=== PATIENT | male | born 1945 | race Caucasian/White ===

== ENCOUNTER 2016-08-30 08:39 | Day surgery (SDC) | payer MEDICARE, BC ==
[2016-08-28 15:36] VITALS: BMI 21.5
[~2016-08-30 08:39] MED LIST: LACTATED RINGERS 1,000 ML IV SCH
[2016-08-30 08:57] VITALS: TEMP 97.4
[2016-08-30] MEDS ORDERED: LIDOCAINE 1% 20 ML VIAL (10MG/ML) FOR IV START INTRADERMA ONE (09:13)
[2016-08-30] MEDS ORDERED: PROPOFOL 10 MG/ML 20 ML VIAL IV ONE (09:22)
[2016-08-30] MEDS ORDERED: LIDOCAINE 1% INJ 10MG/ML (20 ML MDV) ONE (09:22)
[2016-08-30 09:38] VITALS: PULSE 63
--- NOTE | 2016-08-30 09:38 | P.PCN ---
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 Last EGD was in 2 years ago.. PROCEDURE PERFORMED: Esophagogastroduodenoscopy with biopsy. PREOPERATIVE DIAGNOSIS: GERD/surveillance of Blunt's esophagus. IV sedation per anesthesia. PROCEDURE: After informed consent was obtained, the patient was brought into the endoscopy unit. IV conscious sedation was administered by Anesthesia under continuous monitoring. Initially the Olympus GIF-140 video endoscope was inserted into the mouth. Esophagus intubated without any difficulty. It was gradually advanced into the stomach and duodenum and carefully examined. The bulb and the second part of the duodenum appeared normal. The scope at this time was withdrawn to the stomach, adequately insufflated with air, and upon careful examination, mucosa of the antrum, body, cardia and the fundus appeared normal. The scope was then withdrawn into the esophagus. Small hiatal hernia noted .The GE junction was located at 35 cm from the incisors. There was long segment of Blunt's esophagus extending from 30-35 cm to the incisors and multiple biopsies were done from this area. The rest of the esophagus appeared normal. There were no erosions or ulcerations seen and the patient tolerated the procedure well. IMPRESSION: 1. 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 2. Small hiatal hernia. RECOMMENDATIONS: The findings of this examination were discussed with the patient as well as a family. He was advised to follow with the biopsy results. If the biopsy shows no evidence of dysplasia, he can have a repeat upper endoscopy in 2 years.
[2016-08-30 09:53] VITALS: BP 100/60; RESP 18
== END 2016-08-30 10:13 | disposition home or self-care (01) ==
LOC: ORWHC2ENDO 08:39
PROVIDERS: ATTEND Internal Medicine Gastroenterology
DX: K22.70 Barrett's esophagus without dysplasia (principal); K44.9 Diaphragmatic hernia without obstruction or gangrene; K21.9 Gastro-esophageal reflux disease without esophagitis; I10 Essential (primary) hypertension; G47.33 Obstructive sleep apnea (adult) (pediatric); I25.2 Old myocardial infarction; Z95.1 Presence of aortocoronary bypass graft; Z79.02 Long term (current) use of antithrombotics/antiplatelets; Z79.82 Long term (current) use of aspirin; Z79.891 Long term (current) use of opiate analgesic; Z79.899 Other long term (current) drug therapy; Z88.8 Allergy status to other drugs, medicaments and biological substances; Z87.891 Personal history of nicotine dependence
CPT/HCPCS: 88305; 43239; J2001; J2704

== ENCOUNTER 2017-10-14 18:43 | Emergency (ER) | payer MEDICARE, BC ==
[2017-10-14 18:56] VITALS: RESP 18
--- NOTE | 2017-10-14 19:36 | XR ---
EXAMINATION TYPE: XR hand complete LT DATE OF EXAM: 10/14/2017 CLINICAL HISTORY: pain TECHNIQUE: Frontal, lateral and oblique images of the left hand are obtained. COMPARISON: None. FINDINGS: No acute fractures identified. There is severe degenerative narrowing involving the second third and fourth metacarpal phalangeal joints with erosive changes seen. Severe degenerative narrowin g noted to involve. 6 PIP and DIP joints. Degenerative narrowing of radiocarpal joint space. Radiocar pal joint space narrowing as well. IMPRESSION: There is no acute fracture. ICD 10 NO FRACTURE, INITIAL EVALUATION
--- NOTE | 2017-10-14 19:37 | XR ---
EXAMINATION TYPE: XR elbow complete LT DATE OF EXAM: 10/14/2017 CLINICAL HISTORY: pain TECHNIQUE: Frontal, lateral and oblique images of the left elbow are obtained. COMPARISON: None. FINDINGS: There is no acute fracture/dislocation evident of the elbow. Prominent anterior fat pad in dicating underlying joint effusion. The overlying soft tissue appears unremarkable. Moderate degenera tive changes noted with joint space narrowing and spur formation seen. Chronic appearing bony fragmen tation and spur formation. IMPRESSION: There is no acute fracture or dislocation of the elbow. ICD 10 NO FRACTURE, INITIAL EVALUATION
--- NOTE | 2017-10-14 19:38 | XR ---
EXAMINATION TYPE: XR wrist complete LT DATE OF EXAM: 10/14/2017 CLINICAL HISTORY: pain TECHNIQUE: Frontal, lateral and oblique images of the left wrist are obtained. COMPARISON: None. FINDINGS: There is no acute fracture/dislocation evident. Degenerative narrowing radiocarpal joint s pace and radial ulnar joint. Widening of the scapholunate joint space indicates underlying ligamentou s injury. Intercarpal joint space narrowing noted as well. The overlying soft tissue appears unremark able. IMPRESSION: There is no acute fracture or dislocation seen. Suspect scapholunate ligamentous tear. ICD 10 NO FRACTURE, INITIAL EVALUATION
[2017-10-14] MEDS ORDERED: IBUPROFEN 600 MG TAB PO STA (20:40)
--- NOTE | 2017-10-14 21:13 | XR ---
EXAMINATION TYPE: XR chest 2V DATE OF EXAM: 10/14/2017 COMPARISON: 06/16/2015 HISTORY: Shortness of breath TECHNIQUE: Frontal and lateral views of the chest are obtained. FINDINGS: Scattered senescent parenchymal changes noted. Hyperinflation compatible with COPD. No evidence for infiltrate. No evidence for atelectasis. Fixed hiatal hernia noted small in size. Heart size is stable. Mediastinal structures are stable and grossly unremarkable. No evidence for hilar prominence. Degenerative changes dorsal spine. Chronic right-sided rib deformities. IMPRESSION: 1. No evidence for acute pulmonary disease.
--- NOTE | 2017-10-14 21:44 | ED ---
General Adult HPI - General Chief complaint: Extremity Injury, Upper Stated complaint: lt hand pain Time Seen by Provider: 10/14/17 19:27 Source: patient, RN notes reviewed Mode of arrival: ambulatory Limitations: physical limitation - History of Present Illness Initial comments: 72-year-old male presents to the emergency department for a chief complaint of left hand pain. Patient states he was fixing the sump pump yesterday when he twisted his hand and immediately felt pain. Patient states he has a history of arthritis in his left hand for which she has seen Dr. Mackey. Patient states he has been taking Percocet for the pain. Patient states it is tender to touch and it hurts to move his hand. Patient denies any other complaints at this time. He denies cough, congestion, sore throat, ear pain, chest pain, shortness of breath, abdominal pain, nausea or vomiting. Patient denies any urinary symptoms. - Related Data Home Medications Medication Instructions Recorded Confirmed Aspirin EC [Ecotrin Low Dose] 81 mg PO DAILY 09/04/14 10/14/17 Atorvastatin Calcium [Lipitor] 40 mg PO HS 09/04/14 10/14/17 Baclofen [Lioresal] 10 mg PO DAILY PRN 09/04/14 10/14/17 Gabapentin [Neurontin] 800 mg PO TID 09/04/14 10/14/17 Lansoprazole [Prevacid] 30 mg PO BID 09/04/14 10/14/17 Meloxicam [Mobic] 15 mg PO DAILY 09/04/14 10/14/17 Modafinil [Provigil] 200 mg PO DAILY 09/04/14 10/14/17 Nitroglycerin Sl Tabs [Nitrostat] 0.4 mg SUBLINGUAL Q5M PRN 09/04/14 10/14/17 fentaNYL 50MCG/HR PATCH [Duragesic 50 mcg TRANSDERM Q72H 09/04/14 10/14/17 50MCG/HR] Benazepril [Lotensin] 10 mg PO DAILY PRN MDD BP OVER 145 08/28/16 10/14/17 Carvedilol [Coreg] 6.25 mg PO BID 08/28/16 10/14/17 Clopidogrel [Plavix] 75 mg PO DAILY 08/28/16 10/14/17 Furosemide [Lasix] 20 mg PO BID PRN 08/28/16 10/14/17 Isosorbide Mononitrate ER [Imdur] 60 mg PO DAILY 08/28/16 10/14/17 oxyCODONE-APAP 10-325MG [Percocet 1 tab PO TID PRN 08/28/16 10/14/17 10-325 mg] Azelastine HCl [Astepro] 2 spray EA NOSTRIL BID 10/14/17 10/14/17 Isosorbide Mononitrate ER [Imdur] 30 mg PO HS 10/14/17 10/14/17 Tamsulosin HCl [Flomax] 0.4 mg PO HS 10/14/17 10/14/17 Allergies Allergy/AdvReac Type Severity Reaction Status Date / Time aspirin AdvReac Unknown UNCOATED Verified 10/14/17 20:19 ASPIRIN CAUSES STOMACH PAIN Review of Systems ROS Statement: Those systems with pertinent positive or pertinent negative responses have been documented in the HPI. ROS Other: All systems not noted in ROS Statement are negative. Past Medical History Past Medical History: Chest Pain / Angina, Eye Disorder, GERD/Reflux, Hyperlipidemia, Hypertension, Myocardial Infarction ([place]), Osteoarthritis (OA), Sleep Apnea/CPAP/BIPAP Additional Past Medical History / Comment(s): BACK PAIN USES WALKER, HX OF BLOOD CLOT IN RIGHT EYE- HAS BLACK AREA IN HIS VISION AT TIMES. , USES BI-PAP MACHINE, HX OF SERUM SICKNESS . Last Myocardial Infarction Date:: 2001 History of Any Multi-Drug Resistant Organisms: None Reported Past Surgical History: Back Surgery, Coronary Bypass/CABG, Heart Catheterization , Heart Catheterization With Stent, Joint Replacement, Tonsillectomy Additional Past Surgical History / Comment(s): CATARACTS, HEART CATH W/STENTS ( 2001), HEART CATH NO STENTS (2013), CABG (2005). RIGHT EAR DRUM REPLACEMENT.CHRISS TOTAL KNEES, RIGHT CAROTID ENDARTERECTOMY 06/2015. Past Anesthesia/Blood Transfusion Reactions: No Reported Reaction Date of Last Stent Placement:: 2001 Past Psychological History: No Psychological Hx Reported Smoking Status: Former smoker Past Alcohol Use History: None Reported Past Drug Use History: None Reported - Past Family History Mother Family Medical History: No Reported History Additional Family Medical History / Comment(s): . General Exam Limitations: physical limitation General appearance: alert, in no apparent distress Head exam: Present: atraumatic, normocephalic, normal inspection Eye exam: Present: normal appearance, PERRL, EOMI. Absent: scleral icterus, conjunctival injection, periorbital swelling ENT exam: Present: normal exam, normal oropharynx, mucous membranes moist, TM's normal bilaterally Neck exam: Present: normal inspection, full ROM. Absent: tenderness, meningismus, lymphadenopathy Respiratory exam: Present: normal lung sounds bilaterally. Absent: respiratory distress, wheezes, rales, rhonchi, stridor Cardiovascular Exam: Present: regular rate, normal rhythm, normal heart sounds. Absent: systolic murmur, diastolic murmur, rubs, gallop, clicks GI/Abdominal exam: Present: soft, normal bowel sounds. Absent: distended, tenderness, guarding, rebound, rigid Extremities exam: Present: tenderness (Tenderness of the dorsal aspect of the left hand.), normal capillary refill, other (Patient has swelling on the dorsal aspect of the left hand. Cap refill less than 2 seconds in the left hand. Radial pulse 2+ in the left hand.). Absent: full ROM (Very limited range of motion of the left wrist. Patient cannot flex or extend his wrist. Patient also has limited range of motion of the digits left hand due to pain.) Course Vital Signs 10/14/17 10/14/17 10/14/17 18:53 20:26 21:47 Temperature 100.3 F H 100.1 F H 100 F H Pulse Rate 97 70 Respiratory 18 18 Rate Blood Pressure 137/69 130/70 O2 Sat by Pulse 96 99 Oximetry Procedures - Procedures Initial comment: Neurovascular intact before splint application Indication: Scapholunate dissociation Type: Short arm volar- patient unable to extend wrist for proper splinting technique. Wounds: no abrasions or lacerations underneath splint Neurovascular status: patient has sensation and movement of digits extending outside the splint, there is no cyanosis, capillary refill < 2 seconds Follow-up: patient given number for orthopedics and instructed to phone to make an appointment. Patient aware she can return to the Emergency Department if any difficulties. Medical Decision Making - Medical Decision Making 72-year-old male presents to the emergency department for a chief complaint of left hand pain. Patient states he was fixing a sump pump yesterday when he twisted his hand wrong and immediately felt pain in the left hand. Exam shows a swollen dorsal aspect of the left hand with very limited range of motion of the wrist and fingers of the left hand due to pain. Patient is taking Percocet for the pain which she will continue to take at home. Temp 100.3, pulse 97, respirations 18, blood pressure 137/69, pulse ox 96 on room air. X-ray of the wrist shows no acute fracture or dislocation. However there is a widening of the scaphoid lunate joint space indicating underlying ligamentous injury. Suspected scapholunate ligamentous tear. X-ray of the left hand and elbow demonstrates no acute fractures or dislocations. In regard to patient's borderline fever chest x-ray, strep, flu, and urinalysis were ordered. All came back negative except for urinalysis which was not obtained because the patient could not urinate. Patient states he did not want to wait for this and just wanted to go home. Patient's wrist was splinted in a volar splint. He will follow-up with Dr. Mackey in one to 2 days as he is a patient of [facility]. He is to return to the emergency department if he has any worsening symptoms. - Lab Data Lab Results 10/14/17 10/14/17 Range/Units 20:20 20:20 Influenza Type A RNA Not Detected (Not Detectd) Influenza Type B (PCR) Not Detected (Not Detectd) Group A Strep Rapid Negative (Negative) Disposition Clinical Impression: Scapholunate dissociation Disposition: HOME SELF-CARE Condition: Good Instructions: Hand Sprain (ED) Additional Instructions: Please return to the emergency department if symptoms worsen. Otherwise continue to take Percocet provided by your doctor. Please follow-up with orthopedics in one to 2 days. Is patient prescribed a controlled substance at discharge?: No Referrals: Ronaldo Coker DO [Primary Care Provider] - 1-2 days Naun Mackey DO [Doctor of Osteopathic Medicine] - 1-2 days Time of Disposition: 21:43
[2017-10-14 21:48] VITALS: BP 130/70; PULSE 70; TEMP 100
== END 2017-10-14 22:00 | disposition home or self-care (01) ==
LOC: EC 18:43
DX: S63.005A Unspecified dislocation of left wrist and hand, initial encounter (principal); M19.042 Primary osteoarthritis, left hand; E78.5 Hyperlipidemia, unspecified; I10 Essential (primary) hypertension; K21.9 Gastro-esophageal reflux disease without esophagitis; G47.30 Sleep apnea, unspecified; I25.2 Old myocardial infarction; Z87.891 Personal history of nicotine dependence; Z79.1 Long term (current) use of non-steroidal anti-inflammatories (NSAID); Z79.02 Long term (current) use of antithrombotics/antiplatelets; Z79.82 Long term (current) use of aspirin; Z79.899 Other long term (current) drug therapy; Z88.6 Allergy status to analgesic agent; Z86.79 Personal history of other diseases of the circulatory system; Z99.89 Dependence on other enabling machines and devices; X50.1XXA Overexertion from prolonged static or awkward postures, initial encounter; Y93.89 Activity, other specified
CPT/HCPCS: 29125; 71046; 87081; 87430; 87502; 99283

== ENCOUNTER → 2018-04-15 | Outpatient (CLI) | payer MEDICARE, BC | LOC: LABWHC1 10:03 | PROVIDERS: ATTEND Thoracic Surgery (Cardiothoracic Vascular Surgery) | DX: Z53.9 Procedure and treatment not carried out, unspecified reason (principal) ==

== ENCOUNTER 2018-09-04 12:05 | Day surgery (SDC) | payer MEDICARE ==
[2018-09-03 10:56] VITALS: BMI 20.7
[2018-09-04 13:49] VITALS: TEMP 98
[2018-09-04 13:57] LABS: Glucose,Whole Blood 80 mg/dL (75-99)
[2018-09-04] MEDS ORDERED: PROPOFOL 10 MG/ML 20 ML VIAL IV ONE (14:24)
--- NOTE | 2018-09-04 14:52 | P.PCN ---
Date of Procedure: 09/04/18 Procedure(s) Performed: Brief history: Patient is a pleasant 73-year-old white male, scheduled for an elective upper endoscopy as well as colonoscopy as a part of evaluation of GERD/Blunt's esophagus and change in bowel habits Procedure performed: Esophagogastroduodenoscopy with biopsy Colonoscopy with snare polypectomy Preoperative diagnosis: /Blunt's esophagus Change in bowel habits Anesthesia: MAC Procedure: After informed consent was obtained from the patient was brought into the endoscopy unit and IV sedation was administered by anesthesia under continuous monitoring. Initially upper endoscopy was done. The Olympus GF 160 video endoscope was inserted inserted into the mouth and esophagus intubated without any difficulty and was gradually advanced into the stomach and duodenum and carefully examined. The bulb and second part of the duodenum appeared normal. The scope was then withdrawn into the stomach adequately insufflated with air and upon careful examination the antrum and body, cardia and fundus appeared normal. The scope was then withdrawn into the esophagus. Moderate size hiatal hernia noted. The GE junction was located at 33 cm to the incisors. There was a long segment of Blunt's esophagus extending from 30-33 cm from the incisors and multiple biopsies were done from this area. Rest of the esophagus appeared normal. Patient tolerated the procedure well. At this time the patient continued to remain sedation. Initial digital rectal examination was normal. Olympus CF 160 video colonoscope was then inserted into the rectum and gradually advanced to the cecum without any difficulty. Careful examination was performed as the scope was gradually being withdrawn. The prep was excellent. The cecum, ascending colon, transverse colon, descending colon, appeared normal. In the sigmoid colon there was a 1 cm polyp removed by snare polypectomy. In the rectosigmoid colon there was a 5 mm sessile polyp removed by snare polypectomy. Scattered sigmoidal discloses seen. Rest of the sigmoid colon and rectum appeared normal. Retroflexion was performed in the rectum and no lesions were noted. Patient tolerated the procedure well. Impression: 1. Upper endoscopy revealed Blunt's esophagus extended from 30-33 cm from the incisors and moderate size hiatal hernia. 2. Colonoscopy revealed: a) 1 cm sigmoid colon polyp status post polypectomy b) 5 mm rectosigmoid colon polyp status post snare polypectomy c) scattered sigmoid diverticulosis Recommendations: Findings of this examination were discussed with the patient as well as his family. He was advised to follow with the biopsy results. If the biopsy does not show any evidence of dysplasia, he can have a repeat upper endoscopy in 2-3 years. He can have a repeat colonoscopy in 3 years.
[2018-09-04 14:56] VITALS: RESP 16
[2018-09-04 15:11] VITALS: BP 146/83; PULSE 61
== END 2018-09-04 15:37 | disposition home or self-care (01) ==
LOC: ORWHC2ENDO 12:05
PROVIDERS: ATTEND Internal Medicine Gastroenterology
DX: K22.70 Barrett's esophagus without dysplasia (principal); D12.5 Benign neoplasm of sigmoid colon; D12.7 Benign neoplasm of rectosigmoid junction; K44.9 Diaphragmatic hernia without obstruction or gangrene; K57.30 Diverticulosis of large intestine without perforation or abscess without bleeding; Z88.6 Allergy status to analgesic agent; Z79.02 Long term (current) use of antithrombotics/antiplatelets; Z79.899 Other long term (current) drug therapy; Z98.42 Cataract extraction status, left eye; Z98.41 Cataract extraction status, right eye; I10 Essential (primary) hypertension; I25.10 Atherosclerotic heart disease of native coronary artery without angina pectoris; Z95.5 Presence of coronary angioplasty implant and graft
CPT/HCPCS: 88305; 45385; 43239; J2704

== ENCOUNTER 2018-12-28 18:18 | Emergency (ER) | payer MEDICARE ==
[2018-12-28 18:25] VITALS: RESP 18
--- NOTE | 2018-12-28 19:26 | CT ---
EXAMINATION TYPE: CT brain reanna lucas DATE OF EXAM: 12/28/2018 COMPARISON: CT brain 12/18/2011 HISTORY: Fall. Headache. Neck pain CT DLP: 1358.7 mGycm Automated exposure control for dose reduction was used. TECHNIQUE: CT scan of the head and cervical spine are performed without contrast. FINDINGS: There is cerebral cortical atrophy. There is no mass effect nor midline shift. There is n o sign of intracranial hemorrhage. The calvarium is intact. There is 6 mm anterior subluxation of C4 in relation to C5. There is hypertrophic facet arthropathy i n the cervical spine and more severe at C4-5. There is no compression fracture. The skull base appear s intact. There is thickening of the transverse ligament. I see no acute fracture of the cervical spi ne. IMPRESSION: Multilevel spondylosis. Degenerative first-degree C4-5 spondylolisthesis. No acute abnormality of the cervical spine. Cerebral atrophy. No acute intracranial abnormality. Small old lacunar infarct left anterior internal capsule that is new compared to old exam. No acute intracranial abnormality.
--- NOTE | 2018-12-28 19:41 | XR ---
EXAMINATION TYPE: XR elbow complete RT DATE OF EXAM: 12/28/2018 COMPARISON: NONE HISTORY: Elbow pain TECHNIQUE: 3 views. FINDINGS: There is narrowing of the radial humeral joint space with spurring. There is no sign of joint effusi on. There is spurring on the coronoid process of the ulna. I see no fracture. IMPRESSION: Osteoarthritis. No fracture seen.
--- NOTE | 2018-12-28 19:41 | XR ---
EXAMINATION TYPE: XR clavicle RT DATE OF EXAM: 12/28/2018 COMPARISON: NONE HISTORY: Pain after a fall TECHNIQUE: 2 views FINDINGS: There is nondisplaced transverse fracture of the lateral end of the clavicle. There is slig ht widening of the AC joint space. There is calcification at the greater tuberosity of the humerus. IMPRESSION: Acute fracture of the clavicle without displacement. Calcific tendinitis.
--- NOTE | 2018-12-28 19:59 | ED ---
Fall HPI - General Chief Complaint: Fall Stated Complaint: fall/left shoulder pain Time Seen by Provider: 12/28/18 18:45 Source: patient Mode of arrival: wheelchair - History of Present Illness Initial Comments: Patient is 73-year-old male presents emergency department after fall. Patient reports getting out of his car when he tripped and fell forward and states the right shoulder took most of the impact. Patient reports mild trauma to the frontal region of the head. Patient also reports a 3 cm x 2 cm abrasion on his right elbow. Patient reports persistent, throbbing pain in the right shoulder that is alleviated with rest and exacerbated with any shoulder movement. Patient reports bilateral rotator cuff tears from previous accidents. Patient denies loss of consciousness at time of incident. Patient denies headache, blurry vision, nausea, vomiting, chest pain or chest tightness. Patient is on Plavix. Patient reports taking oxycodone before coming to the emergency department. - Related Data Home Medications Medication Instructions Recorded Confirmed Aspirin EC [Ecotrin Low Dose] 81 mg PO DAILY 09/04/14 12/28/18 Atorvastatin Calcium [Lipitor] 40 mg PO HS 09/04/14 12/28/18 Baclofen [Lioresal] 10 mg PO DAILY PRN 09/04/14 12/28/18 Gabapentin [Neurontin] 800 mg PO TID 09/04/14 12/28/18 Lansoprazole [Prevacid] 30 mg PO BID 09/04/14 12/28/18 Modafinil [Provigil] 200 mg PO DAILY 09/04/14 12/28/18 Nitroglycerin Sl Tabs [Nitrostat] 0.4 mg SUBLINGUAL Q5M PRN 09/04/14 12/28/18 fentaNYL 50MCG/HR PATCH [Duragesic 1 patch TRANSDERM Q72H 09/04/14 12/28/18 50MCG/HR] Carvedilol [Coreg] 6.25 mg PO BID 08/28/16 12/28/18 Clopidogrel [Plavix] 75 mg PO DAILY 08/28/16 12/28/18 Furosemide [Lasix] 20 mg PO BID 08/28/16 12/28/18 Isosorbide Mononitrate ER [Imdur] 30 mg PO TID 08/28/16 12/28/18 oxyCODONE-APAP 10-325MG [Percocet 1 tab PO QID PRN 08/28/16 12/28/18 10-325 mg] Tamsulosin HCl [Flomax] 0.4 mg PO HS 10/14/17 12/28/18 Lidocaine 5% Patch [Lidoderm 5% 1 patch TRANSDERM DAILY 12/28/18 12/28/18 Patch] Meloxicam [Mobic] 15 mg PO DAILY 12/28/18 12/28/18 Primidone [Mysoline] 25 mg PO BID 12/28/18 12/28/18 predniSONE 10 mg PO DAILY 12/28/18 12/28/18 Allergies Allergy/AdvReac Type Severity Reaction Status Date / Time meperidine [From Demerol] Allergy Nausea Verified 12/28/18 20:01 aspirin AdvReac Unknown UNCOATED Verified 12/28/18 20:01 ASPIRIN CAUSES STOMACH PAIN morphine AdvReac Vomiting Verified 12/28/18 20:01 Review of Systems ROS Statement: Those systems with pertinent positive or pertinent negative responses have been documented in the HPI. ROS Other: All systems not noted in ROS Statement are negative. Past Medical History Past Medical History: Chest Pain / Angina, Eye Disorder, GERD/Reflux, Hyperlipidemia, Hypertension, Myocardial Infarction ([place]), Osteoarthritis (OA), Sleep Apnea/CPAP/BIPAP Additional Past Medical History / Comment(s): BACK PAIN USES WALKER, HX OF BLOOD CLOT/stroke IN RIGHT EYE- HAS BLACK AREA IN HIS VISION.. diverticulitis Last Myocardial Infarction Date:: 2001 History of Any Multi-Drug Resistant Organisms: None Reported Past Surgical History: Back Surgery, Coronary Bypass/CABG, Ear Surgery, Heart Catheterization, Heart Catheterization With Stent, Joint Replacement, Tonsillectomy Additional Past Surgical History / Comment(s): chriss CATARACTS, one cardiac stent, CABG (2005), RIGHT EAR DRUM REPLACEMENT.CHRISS TOTAL KNEES, RIGHT CAROTID EN DARTERECTOMY. chriss carpel tunnel surgery, rods in spine(total 4 back surgeries) Past Anesthesia/Blood Transfusion Reactions: Motion Sickness Date of Last Stent Placement:: 2001 Past Psychological History: No Psychological Hx Reported Smoking Status: Former smoker Past Alcohol Use History: None Reported Past Drug Use History: None Reported - Past Family History Mother Family Medical History: No Reported History Additional Family Medical History / Comment(s): . General Exam Limitations: no limitations General appearance: alert, in no apparent distress Head exam: Present: atraumatic, normocephalic, normal inspection Eye exam: Present: normal appearance, PERRL, EOMI Pupils: Present: normal accommodation ENT exam: Present: normal exam, normal oropharynx, mucous membranes moist, TM's normal bilaterally, normal external ear exam Neck exam: Present: normal inspection, full ROM. Absent: tenderness Respiratory exam: Present: normal lung sounds bilaterally Cardiovascular Exam: Present: regular rate, normal rhythm, normal heart sounds GI/Abdominal exam: Present: soft, distended Extremities exam: Present: tenderness (Tenderness along the acromioclavicular joint.), normal capillary refill, other (+2 ulnar and radial pulses, bilaterally.). Absent: normal inspection (3 cm x 2 cm abrasion on the right elbow. Bony abnormality noted in the right shoulder.), full ROM (Limited range of motion due to pain.) Back exam: Present: normal inspection, full ROM Neurological exam: Present: alert, oriented X3 Psychiatric exam: Present: normal affect, normal mood Skin exam: Present: warm, intact, normal color Course Vital Signs 12/28/18 18:21 Temperature 98.9 F Pulse Rate 71 Respiratory 18 Rate Blood Pressure 150/70 O2 Sat by Pulse 95 Oximetry Medical Decision Making - Medical Decision Making Patient is a 55-year-old who presents emergency department after fall. CT of the brain and C-spine is indicated for multilevel spondylolysis. No acute abnormality of the cervical spine. Small old the corner infarct noted when compared to old exams. No acute intracranial hemorrhage or midline shift. X- ray of the right elbow is negative for acute fractures dislocations. X-ray of the right clavicle is suggestive of a nondisplaced distal fracture. The abrasi on was cleaned, tissue removed and bandage was placed. Patient was given an arm sling and advised to follow-up with orthopedics. Disposition Clinical Impression: Fall, Fracture, clavicle Disposition: HOME SELF-CARE Condition: Stable Instructions (If sedation given, give patient instructions): Fall Prevention for Older Adults (ED) Additional Instructions: Please follow-up with orthopedics. Please return to emergency department if symptoms worsen. Please follow proper wound care instructions. Is patient prescribed a controlled substance at d/c from ED?: No Referrals: Ronaldo Coker DO [Primary Care Provider] - 1-2 days
[2018-12-28 21:26] VITALS: BP 132/69; PULSE 62; TEMP 97.8
== END 2018-12-28 21:26 | disposition home or self-care (01) ==
LOC: EC 18:18
DX: S42.034A Nondisplaced fracture of lateral end of right clavicle, initial encounter for closed fracture (principal); M47.812 Spondylosis without myelopathy or radiculopathy, cervical region; S50.311A Abrasion of right elbow, initial encounter; I10 Essential (primary) hypertension; E78.5 Hyperlipidemia, unspecified; I25.2 Old myocardial infarction; G47.30 Sleep apnea, unspecified; M19.90 Unspecified osteoarthritis, unspecified site; Z79.82 Long term (current) use of aspirin; Z79.02 Long term (current) use of antithrombotics/antiplatelets; Z79.51 Long term (current) use of inhaled steroids; Z79.899 Other long term (current) drug therapy; Z88.5 Allergy status to narcotic agent; Z88.6 Allergy status to analgesic agent; Z95.1 Presence of aortocoronary bypass graft; Z95.5 Presence of coronary angioplasty implant and graft; Z96.653 Presence of artificial knee joint, bilateral; W01.0XXA Fall on same level from slipping, tripping and stumbling without subsequent striking against object, initial encounter
CPT/HCPCS: 70450; 72125; 99284

== ENCOUNTER 2019-01-01 12:31 | Emergency (ER) | payer MEDICARE ==
[2019-01-01 12:46] VITALS: PULSE 53; RESP 18; TEMP 99.3
--- NOTE | 2019-01-01 13:36 | ED ---
Upper Extremity HPI - General Chief Complaint: Extremity Injury, Upper Stated Complaint: Right Elbow Pain, Fall Time Seen by Provider: 01/01/19 12:34 Source: patient, EMS Mode of arrival: EMS Limitations: no limitations - History of Present Illness Initial Comments: 73-year-old male presents emergency department tingling right arm pain. Patient was recently seen in emergency department for a fall and diagnosed with a right clavicle fracture. Patient follow-up with orthopedics advised to wear sling and follow-up in 4-6 weeks. Patient states that his OxyContin and fentanyl patch are not helping with the pain. Patient states that he has been wearing the sling though he does not have an currently and when EMS arrived they did not find a sling. Patient denies any new falls. Patient denies any paresthesias. - Related Data Home Medications Medication Instructions Recorded Confirmed Aspirin EC [Ecotrin Low Dose] 81 mg PO DAILY 09/04/14 12/28/18 Atorvastatin Calcium [Lipitor] 40 mg PO HS 09/04/14 12/28/18 Baclofen [Lioresal] 10 mg PO DAILY PRN 09/04/14 12/28/18 Gabapentin [Neurontin] 800 mg PO TID 09/04/14 12/28/18 Lansoprazole [Prevacid] 30 mg PO BID 09/04/14 12/28/18 Modafinil [Provigil] 200 mg PO DAILY 09/04/14 12/28/18 Nitroglycerin Sl Tabs [Nitrostat] 0.4 mg SUBLINGUAL Q5M PRN 09/04/14 12/28/18 fentaNYL 50MCG/HR PATCH [Duragesic 1 patch TRANSDERM Q72H 09/04/14 12/28/18 50MCG/HR] Carvedilol [Coreg] 6.25 mg PO BID 08/28/16 12/28/18 Clopidogrel [Plavix] 75 mg PO DAILY 08/28/16 12/28/18 Furosemide [Lasix] 20 mg PO BID 08/28/16 12/28/18 Isosorbide Mononitrate ER [Imdur] 30 mg PO TID 08/28/16 12/28/18 oxyCODONE-APAP 10-325MG [Percocet 1 tab PO QID PRN 08/28/16 12/28/18 10-325 mg] Tamsulosin HCl [Flomax] 0.4 mg PO HS 10/14/17 12/28/18 Lidocaine 5% Patch [Lidoderm 5% 1 patch TRANSDERM DAILY 12/28/18 12/28/18 Patch] Meloxicam [Mobic] 15 mg PO DAILY 12/28/18 12/28/18 Primidone [Mysoline] 25 mg PO BID 12/28/18 12/28/18 predniSONE 10 mg PO DAILY 12/28/18 12/28/18 Allergies Allergy/AdvReac Type Severity Reaction Status Date / Time meperidine [From Demerol] Allergy Nausea Verified 01/01/19 12:47 aspirin AdvReac Unknown UNCOATED Verified 01/01/19 12:47 ASPIRIN CAUSES STOMACH PAIN morphine AdvReac Vomiting Verified 01/01/19 12:47 Review of Systems ROS Statement: Those systems with pertinent positive or pertinent negative responses have been documented in the HPI. ROS Other: All systems not noted in ROS Statement are negative. Past Medical History Past Medical History: Chest Pain / Angina, Eye Disorder, GERD/Reflux, Hyperlipidemia, Hypertension, Myocardial Infarction ([place]), Osteoarthritis (OA), Sleep Apnea/CPAP/BIPAP Additional Past Medical History / Comment(s): BACK PAIN USES WALKER, HX OF BLOOD CLOT/stroke IN RIGHT EYE- HAS BLACK AREA IN HIS VISION.. diverticulitis Last Myocardial Infarction Date:: 2001 History of Any Multi-Drug Resistant Organisms: None Reported Past Surgical History: Back Surgery, Coronary Bypass/CABG, Ear Surgery, Heart Catheterization, Heart Catheterization With Stent, Joint Replacement, Tonsillectomy Additional Past Surgical History / Comment(s): chriss CATARACTS, one cardiac stent, CABG (2005), RIGHT EAR DRUM REPLACEMENT.CHRISS TOTAL KNEES, RIGHT CAROTID ENDARTERECTOMY. chriss carpel tunnel surgery, rods in spine(total 4 back surgeries) Past Anesthesia/Blood Transfusion Reactions: Motion Sickness Date of Last Stent Placement:: 2001 Past Psychological History: No Psychological Hx Reported Smoking Status: Former smoker Past Alcohol Use History: None Reported Past Drug Use History: None Reported - Past Family History Mother Family Medical History: No Reported History Additional Family Medical History / Comment(s): . General Exam Limitations: no limitations General appearance: alert, in no apparent distress Head exam: Present: atraumatic, normocephalic, normal inspection Eye exam: Present: normal appearance, PERRL, EOMI. Absent: scleral icterus, conjunctival injection, periorbital swelling Respiratory exam: Present: normal lung sounds bilaterally. Absent: respiratory distress, wheezes, rales, rhonchi, stridor Cardiovascular Exam: Present: regular rate, normal rhythm, normal heart sounds. Absent: systolic murmur, diastolic murmur, rubs, gallop, clicks Extremities exam: Present: other (Right arm neurovascular intact diffuse tenderness with palpation from the right shoulder region to the right elbow mild ecchymosis to the right clavicle region) Neurological exam: Present: alert, oriented X3, CN II-XII intact, reflexes normal. Absent: motor sensory deficit Course Vital Signs 01/01/19 12:41 Temperature 99.3 F Pulse Rate 53 L Respiratory 18 Rate Blood Pressure 99/58 O2 Sat by Pulse 93 L Oximetry Medical Decision Making - Medical Decision Making 73-year-old male presents emergency Department for right arm pain. Patient has a noted right clavicle fracture which is old there is slight progression. He denies any falls. Patient had ultrasound rule out DVT given that he complained of complete right arm pain negative for acute DVT patient is advised that he must wear his sling as directed by orthopedics to reduce amount of discomfort and he is to continue his pain meds as he has not chronic pain meds. Disposition Clinical Impression: Fracture, clavicle, Chronic pain, Right arm pain Disposition: HOME SELF-CARE Condition: Stable Instructions (If sedation given, give patient instructions): Clavicle Fracture (ED) Additional Instructions: Please return to the Emergency Department if symptoms worsen or any other concerns. Is patient prescribed a controlled substance at d/c from ED?: No Referrals: Ronaldo Coker DO [Primary Care Provider] - 1-2 days Time of Disposition: 14:30
--- NOTE | 2019-01-01 13:36 | XR ---
EXAMINATION TYPE: XR humerus RT DATE OF EXAM: 01/01/2019 COMPARISON: 12/28/2018 HISTORY: 73-year-old male with neck and shoulder pain TECHNIQUE: 2 views FINDINGS: Redemonstrated comminuted and impacted fracture of the distal clavicle. Fracture fragments show great er degree of regional displacement as compared to prior exam. Curvilinear bony fragments are present along the greater tuberosity. Underlying fracture of the great er tuberosity difficult to exclude. Obliquity at the elbow limits assessment here. Old healed right lateral rib fracture deformities. IMPRESSION: 1. Comminuted, mildly impacted fracture of the distal right clavicle. Progressive mild regional displ acement of fracture fragments. 2. Curvilinear ossific density interposed within the subacromial space could represent a fracture of the greater tuberosity. Clinically correlate as this could serve as a functional tear of the rotator cuff. 3. Excessive obliquity at the elbow limits evaluation here.
--- NOTE | 2019-01-01 14:20 | US ---
EXAMINATION TYPE: US venous doppler duplex UE RT DATE OF EXAM: 01/01/2019 COMPARISON: NONE CLINICAL HISTORY: Pain. Pt having right arm pain s/p fall with right arm fracture SIDE PERFORMED: Right Right Arm: Extremely limited exam due to limited range of motion of right arm due to fracture/ Only right IJV, subclavian and brachial veins visualized and show no evidence of DVT/ Right axillary, bas ilic, radial, ulnar, and cephalic veins unable to be visualized IMPRESSION: Limited study although no definite evidence for DVT at this time.
[2019-01-01 14:55] VITALS: BP 147/89
== END 2019-01-01 14:55 | disposition home or self-care (01) ==
LOC: EC 12:31
DX: S42.001A Fracture of unspecified part of right clavicle, initial encounter for closed fracture (principal); G89.29 Other chronic pain; R20.2 Paresthesia of skin; I20.9 Angina pectoris, unspecified; E78.5 Hyperlipidemia, unspecified; I10 Essential (primary) hypertension; K21.9 Gastro-esophageal reflux disease without esophagitis; I25.2 Old myocardial infarction; M19.90 Unspecified osteoarthritis, unspecified site; G47.30 Sleep apnea, unspecified; Z87.891 Personal history of nicotine dependence; Z88.5 Allergy status to narcotic agent; Z88.6 Allergy status to analgesic agent; Z79.02 Long term (current) use of antithrombotics/antiplatelets; Z79.1 Long term (current) use of non-steroidal anti-inflammatories (NSAID); Z79.52 Long term (current) use of systemic steroids; Z79.82 Long term (current) use of aspirin; Z79.891 Long term (current) use of opiate analgesic; Z79.899 Other long term (current) drug therapy; Z95.1 Presence of aortocoronary bypass graft; Z95.5 Presence of coronary angioplasty implant and graft; Z86.73 Personal history of transient ischemic attack (TIA), and cerebral infarction without residual deficits; Z96.653 Presence of artificial knee joint, bilateral; Z96.698 Presence of other orthopedic joint implants; Z86.69 Personal history of other diseases of the nervous system and sense organs; Z99.89 Dependence on other enabling machines and devices; W19.XXXA Unspecified fall, initial encounter
CPT/HCPCS: 99284

== ENCOUNTER → 2019-03-24 | Outpatient (CLI) | payer MEDICARE ==
[2019-03-24 15:10] LABS: Basophils % (A) 0 %; Eosinophils # (A) 0.1 k/uL (0-0.7); Eosinophils % (A) 1 %; HCT 43.6 % (39.0-53.0); HGB 14.3 gm/dL (13.0-17.5); Lymphocytes # (A) 0.9 k/uL (1.0-4.8); Lymphocytes % (A) 10 %; MCH 31.8 pg (25.0-35.0); MCHC 32.9 g/dL (31.0-37.0); MCV 96.8 fL (80.0-100.0); Mean Platelet Volume 7.1; Monocytes # (A) 0.4 k/uL (0-1.0); Monocytes % (A) 4 %; Neutrophils # (A) 7.1 k/uL (1.3-7.7); Neutrophils % (A) 85 %; Platelet Count 315 k/uL (150-450); RDW 15.2 % (11.5-15.5); WBC 8.4 k/uL (3.8-10.6)
[2019-03-24 21:49] LABS: African American GFR (CKD) 96.5 (60.0-200.0); Albumin 4.5 g/dL (3.80-4.90); Albumin/Globulin Ratio 2.25 (1.60-3.17); BUN/Creat Ratio 18.89 Ratio (12.00-20.00); Calcium 9.4 mg/dL (8.7-10.3); Chol/HDL Ratio 2.58; LDL Cholesterol,Calculated 98.4 mg/dL (0.0-131.0); Potassium 4.4 mmol/L (3.5-5.5); Total Bilirubin 0.7 mg/dL (0.3-1.2); Total Protein 6.5 g/dL (6.2-8.2); VLDL Calculation 29.6 mg/dL (5.00-40.00)
[2019-03-24 22:13] LABS: Iron Saturation 51.88 (15.00-50.00)
[2019-03-24 22:22] LABS: Ferritin 677.3 ng/mL (22.0-322.0)
== END | disposition home or self-care (01) ==
LOC: LABWHC1 13:54
PROVIDERS: ATTEND Internal Medicine
DX: Z12.5 Encounter for screening for malignant neoplasm of prostate (principal); D50.9 Iron deficiency anemia, unspecified; G89.4 Chronic pain syndrome; E78.00 Pure hypercholesterolemia, unspecified
CPT/HCPCS: 80061; 80053; 82728; 83540; 83550; 85025; 36415; G0103

== ENCOUNTER → 2019-09-29 | Outpatient (CLI) | payer MEDICARE ==
--- NOTE | 2019-09-29 13:35 | P.ARTDOP ---
Arterial Doppler LOWER EXTREMITY ARTERIAL DOPPLER: DATE OF SERVICE: 09/29/2019 Reason for study: Left ankle ulcer. Doppler waveforms: Blunted but multiphasic bilaterally throughout. Pulse volume recording: Good digital waveforms. Pressure gradients: Mild gradient to the left ankle and mild gradients to the feet. Ankle-brachial indices: 0.98 on the right and 0.92 on the left. Toe brachial indices: 0.42 on the right, 0.42 on the left Impression: Mild left fem-pop disease. Possibly some mild distal disease or vasospastic phenomenon. Circulatory status appears adequate for healing..
== END | disposition home or self-care (01) ==
LOC: RADUSWWP 10:55
PROVIDERS: ATTEND Thoracic Surgery (Cardiothoracic Vascular Surgery)
DX: I74.3 Embolism and thrombosis of arteries of the lower extremities (principal)
CPT/HCPCS: 93923

== ENCOUNTER → 2020-01-07 | Outpatient (CLI) | payer MEDICARE ==
--- NOTE | 2020-01-07 09:20 | FL ---
ESOPHOGRAM. HISTORY: Dysphagia Esophagram was performed per the single contrast technique. The patient swallowed barium without diff iculty or delay. Esophageal peristalsis and motility appear to be within normal limits. There is no evidence for filling defect, mass or diverticulum. Moderate fixed hiatal hernia is noted. Subsequently single contrast cervical esophagram was performed which fails demonstrate evidence for a spiration penetration or mass. IMPRESSION: Moderate fixed hiatal hernia.
== END | disposition home or self-care (01) ==
LOC: RADUSWWP 08:42
PROVIDERS: ATTEND Otolaryngology
DX: K44.9 Diaphragmatic hernia without obstruction or gangrene (principal)
CPT/HCPCS: 74220

== ENCOUNTER 2020-01-28 09:02 | Day surgery (SDC) | payer MEDICARE ==
[~2020-01-28 09:02] MED LIST changes: +LIDOCAINE 1% (10MG/ML) FOR IV START INTRADERMA PRN
[2020-01-28 09:40] VITALS: TEMP 98
[2020-01-28] MEDS ORDERED: PROPOFOL 10 MG/ML 20 ML VIAL IV ONE (10:13)
[2020-01-28] MEDS ORDERED: LIDOCAINE 1% INJ 10MG/ML (20 ML MDV) ONE (10:13)
[2020-01-28 10:27] VITALS: RESP 16
--- NOTE | 2020-01-28 10:27 | P.PCN ---
Date of Procedure: 01/28/20 Procedure(s) Performed: BRIEF HISTORY: Patient is a 74-year-old, pleasant, white male scheduled for an upper endoscopy as a part of evaluation of intermittent dysphagia to solids.. He does have long-standing history of GERD and Blnut's esophagus. Last EGD was 2 years ago. PROCEDURE PERFORMED: Esophagogastroduodenoscopy with biopsy. PREOPERATIVE DIAGNOSIS: Long-standing history of Blunt's esophagus. IV sedation per anesthesia. PROCEDURE: After informed consent was obtained, the patient was brought into the endoscopy unit. IV sedation was administered by Anesthesia under continuous monitoring. Initially the Olympus GIF-140 video endoscope was inserted into the mouth. Esophagus intubated without any difficulty. It was gradually advanced into the stomach and duodenum and carefully examined. The bulb and the second part of the duodenum appeared normal. The scope at this time was withdrawn to the stomach, adequately insufflated with air, and upon careful examination, mucosa of the antrum, had mild diffuse gastritis. The body, cardia and the fundus appeared normal. The scope was then withdrawn into the esophagus. The GE junction was located at 34 cm from the incisors. There was a long segment of Blunt's esophagus and descending from 28-34 cm from the incisors and multiple biopsies were done from this area. The rest of the esophagus appeared normal and the patient tolerated the procedure well. IMPRESSION: 1. 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 2. Moderate size hiatal hernia. 3. Mild diffuse gastritis RECOMMENDATIONS: The findings of this examination were discussed with the patient as well as his family. He was advised to follow with the biopsy results. He will continue with Prevacid 30 mg daily and follow antireflux measures. If there is no evidence of dysplasia he can have a repeat upper endoscopy in 2 years..
[2020-01-28 10:43] VITALS: BP 120/74; PULSE 50
== END 2020-01-28 10:59 | disposition home or self-care (01) ==
LOC: ORWHC2ENDO 09:02
PROVIDERS: ATTEND Internal Medicine Gastroenterology
DX: K22.70 Barrett's esophagus without dysplasia (principal); K29.70 Gastritis, unspecified, without bleeding; K44.9 Diaphragmatic hernia without obstruction or gangrene; K21.9 Gastro-esophageal reflux disease without esophagitis; I25.10 Atherosclerotic heart disease of native coronary artery without angina pectoris; I10 Essential (primary) hypertension; E78.5 Hyperlipidemia, unspecified; G47.33 Obstructive sleep apnea (adult) (pediatric); M19.90 Unspecified osteoarthritis, unspecified site; G62.9 Polyneuropathy, unspecified; K57.90 Diverticulosis of intestine, part unspecified, without perforation or abscess without bleeding; Z88.6 Allergy status to analgesic agent; Z88.5 Allergy status to narcotic agent; Z79.899 Other long term (current) drug therapy; Z79.82 Long term (current) use of aspirin; Z79.52 Long term (current) use of systemic steroids; Z79.02 Long term (current) use of antithrombotics/antiplatelets; Z79.891 Long term (current) use of opiate analgesic; Z99.89 Dependence on other enabling machines and devices; Z86.69 Personal history of other diseases of the nervous system and sense organs
CPT/HCPCS: 88305; 43239; J2001; J2704

== ENCOUNTER → 2020-04-18 | Outpatient (CLI) | payer MEDICARE ==
--- NOTE | 2020-04-19 22:25 | BD ---
EXAMINATION TYPE: Axial Bone Density DATE OF EXAM: 04/18/2020 COMPARISON: NONE CLINICAL HISTORY: Screening for osteoporosis per order. Height: 5 FT 7 1/2 IN Weight: 143 FRAX RISK QUESTIONS: Alcohol (3 or more units per day): NO Family History (Parent hip fracture): NO Glucocorticoids (More than 3mos): YES (Ex: prednisone, prednisolone, methylprednisolone, dexamethasone, and hydrocortisone). History of Fracture in Adulthood: YES Secondary Osteoporosis: 1. Type 1 Diabetes: NO 2. Hyperthyroidism: NO 3. Menopause before 45: NA 4. Malnutrition: NO 5. Chronic liver disease: NO Rheumatoid Arthritis: YES Current Tobacco Use: NO RISK FACTORS HISTORY OF: Surgery to Spine/Hip(right/left)/Wrist (right/left): LUMBAR SURG X 3 When: 3 SURG IN THE LAST 15 YEARS Family History of Osteoporosis: NO Active: YES Diet low in dairy products/other sources of calcium: NO Lost more than 2 inches in height since high school: YES Frequent falls: NO Poor Health: FAIR MEDICATIONS: Prednisone or other steroids: YES How Long: ONE YEARS Additional Medications: PREDISONE, BLOOD PRESSURE ,CHOLESTEROL MEDS, PREVACID, PLAVIX, OXYCODONE, NE URONTIN, HEART MEDS, Additional History: EXAM MEASUREMENTS: Bone mineral density about the R hip (g/cm2): 0.686 Bone mineral density about the L hip (g/cm2): 0.607 T Score values are as follows: -----R Neck: -2.5 -----L Neck: -3.1 -----R Total: -2.1 -----L Total: -2.5 BASELINE Bone mineral density about the L Wrist (g/cm2): 0.427 T Score values are as follows: -----Dist. R+U: -2.6 -----Prox. R+U: -4.0 -----Radius total: -4.8 BASELINE IMPRESSION: Osteoporosis (T Score less than -2.5). There is increased fracture risk and therapy is usually indicated based on age. Re-Screen 1-2 years. NOTE: T-SCORE=SD OF THE YOUNG ADULT MEAN.
== END | disposition home or self-care (01) ==
LOC: RADBDWWP 15:32
PROVIDERS: ATTEND Internal Medicine Rheumatology
DX: Z13.820 Encounter for screening for osteoporosis (principal); M81.0 Age-related osteoporosis without current pathological fracture
CPT/HCPCS: 77080

== ENCOUNTER 2020-06-23 11:03 | Emergency (ER) | payer MEDICARE ==
[2020-06-23 11:10] VITALS: BP 177/102; PULSE 80; RESP 18; TEMP 98.7
[2020-06-23] MEDS ORDERED: GELATIN SPONGE,ABSORB (SMALL) 1 EACH SPONGE TOPICAL STA (11:21)
[2020-06-23] MEDS ORDERED: SILVER NITRATE APPLICATOR 1 EACH STICK..EA. TOPICAL STA (11:21)
--- NOTE | 2020-06-23 11:24 | ED ---
General Adult HPI - General Chief complaint: Skin/Abscess/Foreign Body Stated complaint: ANKLE WOUND R SIDE. Time Seen by Provider: 06/23/20 11:14 Source: patient, RN notes reviewed, old records reviewed Mode of arrival: ambulatory Limitations: no limitations - History of Present Illness Initial comments: 74-year-old male presents emergency department today with complaints of a wound over his left ankle that started to bleed today. Patient reports that he does see wound care center. He reports that he also has a wound on his right heel that being treated at the wound care center. He was last there on Friday and he was placed on therapy. He reports it seemed to loosen any scabbing and resulted in bleeding today. Patient states that the bleeding seems somewhat K controlled upon arriving to the ER. Patient denies any other complaints. - Related Data Home Medications Medication Instructions Recorded Confirmed Aspirin EC [Ecotrin Low Dose] 81 mg PO DAILY 09/04/14 01/28/20 Atorvastatin Calcium [Lipitor] 40 mg PO HS 09/04/14 01/28/20 Baclofen [Lioresal] 10 mg PO DAILY PRN 09/04/14 01/28/20 Gabapentin [Neurontin] 800 mg PO TID 09/04/14 01/28/20 Lansoprazole [Prevacid] 30 mg PO BID 09/04/14 01/28/20 Nitroglycerin Sl Tabs [Nitrostat] 0.4 mg SUBLINGUAL Q5M PRN 09/04/14 01/28/20 fentaNYL 50MCG/HR PATCH [Duragesic 1 patch TRANSDERM Q72H 09/04/14 01/28/20 50MCG/HR] modafiniL [Provigil] 200 mg PO DAILY 09/04/14 01/28/20 Clopidogrel [Plavix] 75 mg PO DAILY 08/28/16 01/28/20 Furosemide [Lasix] 20 mg PO BID PRN 08/28/16 01/28/20 Isosorbide Mononitrate ER [Imdur] 30 mg PO TID 08/28/16 01/28/20 carvediloL [Coreg] 6.25 mg PO BID 08/28/16 01/28/20 oxyCODONE-APAP 10-325MG [Percocet 1 tab PO QID PRN 03/01/17 07/31/20 10-325 mg] Tamsulosin HCl [Flomax] 0.4 mg PO HS 10/14/17 01/28/20 Lidocaine 5% Patch [Lidoderm 5% 1 patch TRANSDERM BID 12/28/18 01/28/20 Patch] Primidone [Mysoline] 25 mg PO BID 12/28/18 01/28/20 predniSONE 10 mg PO DAILY 12/28/18 01/28/20 Allergies Allergy/AdvReac Type Severity Reaction Status Date / Time meperidine [From Demerol] Allergy Nausea Verified 06/23/20 11:10 aspirin AdvReac Unknown UNCOATED Verified 06/23/20 11:10 ASPIRIN CAUSES STOMACH PAIN morphine AdvReac Vomiting Verified 06/23/20 11:10 Review of Systems ROS Statement: Those systems with pertinent positive or pertinent negative responses have been documented in the HPI. ROS Other: All systems not noted in ROS Statement are negative. Past Medical History Past Medical History: Chest Pain / Angina, Eye Disorder, GERD/Reflux, Hyperlipidemia, Hypertension, Myocardial Infarction ([place]), Osteoarthritis (OA), Sleep Apnea/CPAP/BIPAP Additional Past Medical History / Comment(s): BACK PAIN USES WALKER, HX OF BLOOD CLOT/stroke IN RIGHT EYE- HAS BLACK AREA IN HIS VISION.. diverticulitis Last Myocardial Infarction Date:: 2001 History of Any Multi-Drug Resistant Organisms: None Reported Past Surgical History: Back Surgery, Coronary Bypass/CABG, Ear Surgery, Heart Catheterization, Heart Catheterization With Stent, Joint Replacement, Tonsillectomy Additional Past Surgical History / Comment(s): chriss CATARACTS, one cardiac stent, CABG (2005), RIGHT EAR DRUM REPLACEMENT.CHRISS TOTAL KNEES, RIGHT CAROTID ENDARTERECTOMY. chriss carpel tunnel surgery, rods in spine(total 4 back surgeries) Past Anesthesia/Blood Transfusion Reactions: Motion Sickness Date of Last Stent Placement:: 2001 Past Psychological History: No Psychological Hx Reported Past Alcohol Use History: None Reported Past Drug Use History: None Reported - Past Family History Mother Family Medical History: No Reported History Additional Family Medical History / Comment(s): . General Exam - General Exam Comments Initial Comments: 74-year-old male. Alert and oriented. No acute distress. Limitations: no limitations General appearance: alert, in no apparent distress Head exam: Present: atraumatic, normocephalic, normal inspection Eye exam: Present: normal appearance, PERRL, EOMI. Absent: scleral icterus, conjunctival injection, periorbital swelling ENT exam: Present: normal exam, mucous membranes moist Neck exam: Present: normal inspection. Absent: tenderness, meningismus, lympha denopathy Respiratory exam: Present: normal lung sounds bilaterally. Absent: respiratory distress, wheezes, rales, rhonchi, stridor Cardiovascular Exam: Present: regular rate, normal rhythm, normal heart sounds. Absent: systolic murmur, diastolic murmur, rubs, gallop, clicks GI/Abdominal exam: Present: soft, normal bowel sounds. Absent: distended, tenderness, guarding, rebound, rigid Extremities exam: Present: normal inspection, full ROM, normal capillary refill. Absent: tenderness, pedal edema, joint swelling, calf tenderness Left Lower Leg exam: Present: normal inspection, full ROM Ankle exam: Present: full ROM. Absent: normal inspection (Patient has a 2 cm x 2 cm circular wound over the left lateral malleolus of the ankle with some faint bleeding) Foot/Toe exam: Present: normal inspection, full ROM Back exam: Present: normal inspection Neurological exam: Present: alert, oriented X3, CN II-XII intact Psychiatric exam: Present: normal affect, normal mood Skin exam: Present: warm, dry, intact, normal color. Absent: rash Course Vital Signs 06/23/20 11:05 Temperature 98.7 F Pulse Rate 80 Respiratory 18 Rate Blood Pressure 177/102 O2 Sat by Pulse 100 Oximetry Procedures - Procedures Initial comment: Patient had wound on left ankle cauterized with silver nitrate and wrapped with Gelfoam dressing. Medical Decision Making - Medical Decision Making 34-year-old male present today for a bleeding wound of his left ankle. He does follow up wound care clinic. He has small bleed noted on the lateral aspect of the 2 semilunar wound. This time patient's nose does have a cellulitis. I discussed wound care with placement of Gelfoam over this helped some bleeding and pressure dressing. He had one currently on his right heels well. I discussed to follow up with wound care center. Questions answered Disposition Clinical Impression: Bleeding from wound Disposition: HOME SELF-CARE Condition: Good Instructions (If sedation given, give patient instructions): Wound Infection (ED) Additional Instructions: Please follow up with with wound care center. Patient to keep the dressing for 24 hours on. Patient can return to the ED if any alarming signs or symptoms o ccur. Please return to the emergency room if your symptoms increase or worsen or for any other concerns. Is patient prescribed a controlled substance at d/c from ED?: No Referrals: Star Mcallister MD [Primary Care Provider] - 1-2 days Time of Disposition: 11:47
== END 2020-06-23 12:03 | disposition home or self-care (01) ==
LOC: EC 11:03
DX: S91.002A Unspecified open wound, left ankle, initial encounter (principal); J34.0 Abscess, furuncle and carbuncle of nose; G47.33 Obstructive sleep apnea (adult) (pediatric); M19.90 Unspecified osteoarthritis, unspecified site; I25.2 Old myocardial infarction; I10 Essential (primary) hypertension; E78.5 Hyperlipidemia, unspecified; K21.9 Gastro-esophageal reflux disease without esophagitis; Z79.82 Long term (current) use of aspirin; Z79.899 Other long term (current) drug therapy; Z99.89 Dependence on other enabling machines and devices; Z88.5 Allergy status to narcotic agent; Z88.6 Allergy status to analgesic agent; Z98.42 Cataract extraction status, left eye; Z98.41 Cataract extraction status, right eye; Z95.1 Presence of aortocoronary bypass graft; X58.XXXA Exposure to other specified factors, initial encounter
CPT/HCPCS: 12001; 99283

== ENCOUNTER 2020-06-25 11:33 | Emergency (ER) | payer MEDICARE ==
[2020-06-25 11:40] VITALS: TEMP 98.8
[2020-06-25] MEDS ORDERED: cefTRIAXone 1,000 MG VIAL (IM USE) IM STA (12:26)
--- NOTE | 2020-06-25 12:51 | XR ---
EXAMINATION TYPE: XR ankle complete LT DATE OF EXAM: 06/25/2020 COMPARISON: NONE HISTORY: 75-year-old male with pain, chronic wound along the lateral side of the ankle, ulcer. TECHNIQUE: 3 views FINDINGS: There is a soft tissue ulcer overlying the lateral malleolus. No underlying osseous erosions or perio stitis. No acute fracture, subluxation, or dislocation. Vascular calcification suggests underlying di abetes in her chronic kidney disease. Small plantar heel spur. Osteopenia. IMPRESSION: Soft tissue ulcer overlying the lateral malleolus. No underlying acute osseous abnormality seen.
[2020-06-25] MEDS ORDERED: DOXYCYCLINE 100 MG CAP PO STA (13:18)
--- NOTE | 2020-06-25 13:29 | ED ---
General Adult HPI - General Chief complaint: Wound/Laceration Stated complaint: Foot Wound Time Seen by Provider: 06/25/20 11:42 Source: patient, RN notes reviewed, old records reviewed Mode of arrival: wheelchair Limitations: no limitations - History of Present Illness Initial comments: 75-year-old male patient to ED for evaluation of ulcer on his left lateral malleolus. This has been ongoing for approximately 9 months. Patient is coming in today because it was bleeding. He is also having some pain in the area. This is chronic and not new. He is due to have a bone scan tomorrow. He is following up with wound care. He denies any other complaints. Systemic: Pt denies fatigue, fever/chills, rash. Pt denies weakness, night sweats, weight loss. Neuro: Pt denies headache, visual disturbances, syncope or pre-syncope. HEENT: Pt denies ocular discharge or irritation, otalgia, rhinorrhea, pharyngitis or notable lymphadenopathy. Cardiopulmonary: Pt denies chest pain, SOB, heart palpitations, dyspnea on exertion. Abdominal/GI: Pt denies abdominal pain, n/v/d. : Pt denies dysuria, burning w/ urination, frequency/urgency. Denies new onset urinary or bowel incontinence. MSK: Pt denies myalgia, loss of strength or function in extremities. Neuro: Pt denies new onset weakness, paresthesias. - Related Data Home Medications Medication Instructions Recorded Confirmed Aspirin EC [Ecotrin Low Dose] 81 mg PO DAILY 09/04/14 01/28/20 Atorvastatin Calcium [Lipitor] 40 mg PO HS 09/04/14 01/28/20 Baclofen [Lioresal] 10 mg PO DAILY PRN 09/04/14 01/28/20 Gabapentin [Neurontin] 800 mg PO TID 09/04/14 01/28/20 Lansoprazole [Prevacid] 30 mg PO BID 09/04/14 01/28/20 Nitroglycerin Sl Tabs [Nitrostat] 0.4 mg SUBLINGUAL Q5M PRN 09/04/14 01/28/20 fentaNYL 50MCG/HR PATCH [Duragesic 1 patch TRANSDERM Q72H 09/04/14 01/28/20 50MCG/HR] modafiniL [Provigil] 200 mg PO DAILY 09/04/14 01/28/20 Clopidogrel [Plavix] 75 mg PO DAILY 08/28/16 01/28/20 Furosemide [Lasix] 20 mg PO BID PRN 08/28/16 01/28/20 Isosorbide Mononitrate ER [Imdur] 30 mg PO TID 08/28/16 01/28/20 carvediloL [Coreg] 6.25 mg PO BID 08/28/16 01/28/20 oxyCODONE-APAP 10-325MG [Percocet 1 tab PO QID PRN 08/28/16 01/28/20 10-325 mg] Tamsulosin HCl [Flomax] 0.4 mg PO HS 10/14/17 01/28/20 Lidocaine 5% Patch [Lidoderm 5% 1 patch TRANSDERM BID 12/28/18 01/28/20 Patch] Primidone [Mysoline] 25 mg PO BID 12/28/18 01/28/20 predniSONE 10 mg PO DAILY 12/28/18 01/28/20 Previous Rx's Medication Instructions Recorded Doxycycline [Vibramycin] 100 mg PO BID 10 Days #20 capsule 06/25/20 Allergies Allergy/AdvReac Type Severity Reaction Status Date / Time meperidine [From Demerol] Allergy Nausea Verified 06/25/20 11:41 aspirin AdvReac Unknown UNCOATED Verified 06/25/20 11:41 ASPIRIN CAUSES STOMACH PAIN morphine AdvReac Vomiting Verified 06/25/20 11:41 Review of Systems ROS Statement: Those systems with pertinent positive or pertinent negative responses have been documented in the HPI. ROS Other: All systems not noted in ROS Statement are negative. 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 diverticulitis Last Myocardial Infarction Date:: 2001 History of Any Multi-Drug Resistant Organisms: None Reported Past Surgical History: Back Surgery, Coronary Bypass/CABG, Ear Surgery, Heart Catheterization, Heart Catheterization With Stent, Joint Replacement, Tonsillectomy Additional Past Surgical History / Comment(s): chriss CATARACTS, one cardiac stent, CABG (2005), RIGHT EAR DRUM REPLACEMENT.CHRISS TOTAL KNEES, RIGHT CAROTID ENDARTERECTOMY. chriss carpel tunnel surgery, rods in spine(total 4 back surgeries) Past Anesthesia/Blood Transfusion Reactions: Motion Sickness Date of Last Stent Placement:: 2001 Past Psychological History: No Psychological Hx Reported Smoking Status: Former smoker Past Alcohol Use History: None Reported Past Drug Use History: None Reported - Past Family History Mother Family Medical History: No Reported History Additional Family Medical History / Comment(s): . General Exam - General Exam Comments Initial Comments: Constitutional: NAD, AOX3, Pt has pleasant affect. HEENT: NC/AT, trachea midline, neck supple, no lymphadenopathy. External ears appear normal, without discharge. Mucous membranes moist. Eyes PERRLA, EOM intact. There is no scleral icterus. No pallor noted. Cardiopulmonary: RRR, no murmurs, rubs or gallops, no JVD noted. Lungs CTAB in anterior and posterior yadav. No peripheral edema. Abdominal exam: Abdomen soft and non-distended. Neuro: CN II-XII grossly intact. No nuchal rigidity. MSK: Full active ROM in upper and lower extremities, 5/5 stregnth. 2 cm ulcer left lateral malleolus. Small amount of surrounding erythema. No purulent drainage noted. No crepitus or fluctuance. Distal pulses are intact. Foot is warm and well perfused. Limitations: no limitations Course Vital Signs 06/25/20 11:39 Temperature 98.8 F Pulse Rate 61 Respiratory 20 Rate Blood Pressure 127/71 O2 Sat by Pulse 96 Oximetry Medical Decision Making - Medical Decision Making 75-year-old male patient to ED for evaluation of his left lateral malleolus wound. This is chronic. He presented because there is bleeding through his dressing. Wound is unwrapped and evaluated there is no active bleeding currently. There is a small amount of surrounding cellulitis around the wound. Plain film displayed ulcer with no acute osseous process. Patient ministered a gram of Rocephin and will be treated with doxycycline. Patient has outpatient follow-up with wound care which she'll continue as well as his primary care provider. He will return to ED if any worsening symptoms. His not have any fevers or any signs of systemic infection. Case discussed with Dr. Mueller. Disposition Clinical Impression: Chronic ulcer of ankle, Cellulitis Disposition: HOME SELF-CARE Condition: Stable Instructions (If sedation given, give patient instructions): Cellulitis (ED) Additional Instructions: Take antibiotics as directed. Follow up with PCP and wound management tomorrow. Return to ED with any worsening symptoms. Prescriptions: Doxycycline [Vibramycin] 100 mg PO BID 10 Days #20 capsule Is patient prescribed a controlled substance at d/c from ED?: No Referrals: Star Mcallister MD [Primary Care Provider] - 1-2 days
[2020-06-25 14:06] VITALS: BP 123/74; PULSE 89; RESP 16
== END 2020-06-25 14:06 | disposition home or self-care (01) ==
LOC: EC 11:33
DX: L97.329 Non-pressure chronic ulcer of left ankle with unspecified severity (principal); L03.116 Cellulitis of left lower limb; I10 Essential (primary) hypertension; I20.9 Angina pectoris, unspecified; M19.90 Unspecified osteoarthritis, unspecified site; E78.5 Hyperlipidemia, unspecified; M54.9 Dorsalgia, unspecified; K21.9 Gastro-esophageal reflux disease without esophagitis; G47.30 Sleep apnea, unspecified; I25.2 Old myocardial infarction; Z79.82 Long term (current) use of aspirin; Z79.51 Long term (current) use of inhaled steroids; Z79.02 Long term (current) use of antithrombotics/antiplatelets; Z79.891 Long term (current) use of opiate analgesic; Z79.899 Other long term (current) drug therapy; Z88.6 Allergy status to analgesic agent; Z88.5 Allergy status to narcotic agent; Z99.89 Dependence on other enabling machines and devices; Z96.653 Presence of artificial knee joint, bilateral; Z87.891 Personal history of nicotine dependence
CPT/HCPCS: 99283 ×2; 96372 ×2; 73610; J0696

== ENCOUNTER → 2020-06-26 | Outpatient (CLI) | payer MEDICARE ==
--- NOTE | 2020-06-26 15:43 | NM ---
"EXAMINATION TYPE: NM bone 3 phase DATE OF EXAM: 06/26/2020 COMPARISON: Left ankle x-ray from yesterday. HISTORY: Focal wound swelling and pain lateral left ankle. Triple phase bone scintigraphy was performed following the injection of 22.3 mCi Tc 99m MDP. Immedia te images and 3 hours post injection images acquired. Images performed of the bilateral ankles and fe et. FINDINGS: Dynamic arterial phase images show increased radiotracer uptake to the left ankle and foot versus. A cystic right side with most prominent uptake at area of clinical concern overlying the lateral malleo dylan. Soft tissue phase imaging shows increased radiotracer uptake at this level centered near the lat eral malleolus. Similar delayed phase imaging shows increased radiotracer uptake localized to the lat eral malleolus. IMPRESSION: Three-phase scintigraphic uptake consistent with acute osteomyelitis involvement at the a kaci of clinical concern involving the lateral malleolus left ankle level. A Yellow level critical message alert has been initiated for Emile Lainez DO via the [employer] | Critical Results System on 06/26/2020 3:41 PM. This message alert has been sent to Emile martin DO via the preferences provided by the clinician for the receipt of Radiology Critical Findings . Message ID [id number]."
== END | disposition home or self-care (01) ==
LOC: RADNMMAIN 10:20
PROVIDERS: ATTEND Thoracic Surgery (Cardiothoracic Vascular Surgery)
DX: G90.09 Other idiopathic peripheral autonomic neuropathy (principal); L89.522 Pressure ulcer of left ankle, stage 2; L89.613 Pressure ulcer of right heel, stage 3; L97.412 Non-pressure chronic ulcer of right heel and midfoot with fat layer exposed
CPT/HCPCS: 78315; A9503

== ENCOUNTER → 2020-06-27 | Outpatient (CLI) | payer MEDICARE ==
--- NOTE | 2020-06-29 10:17 | P.ARTDOP ---
Arterial Doppler LOWER EXTREMITY ARTERIAL DOPPLER: DATE OF SERVICE: 06/27/2020 Reason for study: Left ankle ulcer. Doppler waveforms: Multiphasic but somewhat blunted throughout.. Pulse volume recording: []. Pressure gradients: Mild gradient below the knee on the right and mild's to moderate gradient to the toes.. Ankle-brachial indices: 0.93 on the right and greater than 1 on the left. Toe brachial indices: 0.42 on the right, 0.42 on the left Impression: Suspect an element of distal disease bilaterally. Suspect mild to moderate distal perfusion compromise. Vascular specialty consultation recommended..
== END | disposition home or self-care (01) ==
LOC: RADUSWWP 13:28
PROVIDERS: ATTEND Thoracic Surgery (Cardiothoracic Vascular Surgery)
DX: G90.09 Other idiopathic peripheral autonomic neuropathy (principal); L89.522 Pressure ulcer of left ankle, stage 2; L89.613 Pressure ulcer of right heel, stage 3; L97.412 Non-pressure chronic ulcer of right heel and midfoot with fat layer exposed
CPT/HCPCS: 93923

== ENCOUNTER 2020-07-19 11:18 | Day surgery (SDC) | payer MEDICARE ==
[2020-07-14 12:02] VITALS: BMI 20.7
[~2020-07-19 11:18] MED LIST changes: +DEXAMETHASONE SOD PHOSPHATE 4 MG/ML 1 ML VIAL IV ONE; +ONDANSETRON 4 MG/2 ML VIAL IVP ONE; +Pre Op ABX Message 1 EACH MISC MISCELLANE ONE
[2020-07-19] MEDS ORDERED: PROPOFOL 10 MG/ML 20 ML VIAL IV ONE (12:54)
[2020-07-19] MEDS ORDERED: fentaNYL (PF) 50 MCG/ML 2 ML AMP ONE (12:54)
[2020-07-19] MEDS ORDERED: LIDOCAINE 1% INJ 10MG/ML (20 ML MDV) ONE (12:54)
[2020-07-19] MEDS ORDERED: ePHEDrine SULFATE/0.9% NACL/PF 50 MG/5 ML SYRINGE IV ONE (12:54)
[2020-07-19] MEDS ORDERED: MIDAZOLAM 2 MG/2 ML VIAL ONE (12:54)
[2020-07-19] MEDS: HYDROmorphone 1 MG/ML 1 ML SYRINGE IVP ONE ×2 (13:38→13:48)
[2020-07-19 13:47] VITALS: TEMP 97.5
[2020-07-19 14:17] VITALS: RESP 16
[2020-07-19] MEDS ORDERED: oxyCODONE-APAP 5-325MG 1 EACH TAB ONE (14:26)
[2020-07-19] MEDS ORDERED: oxyCODONE-APAP 5-325MG 1 EACH TAB PO ONE (14:30)
[2020-07-19 15:10] VITALS: BP 131/79; PULSE 75
--- NOTE | 2020-07-26 14:22 | P.OP ---
Date of Procedure: 07/19/20 Description of Procedure: Preoperative diagnosis: Left ankle wound , osteomyelitis Postoperative diagnosis: Same Procedure: [Sharp excisional debridement left ankle wound to bone, 3.4 x 3.5 x 0.4 cm] Surgeon: Shirin Basurto D.O. EBL: [10 mL] IV fluids: [See anesthesia records] Urine output: [None measured] Drains: [None] Complications: [None immediately apparent] Condition: [Stable to recovery] Operative indication and findings: [The patient is a 75-year-old male who has had a wound on his left lateral ankle for approximately 10 months without significant healing. He states that the wound heals up loosely and then reopens. He recently had imaging which did suggest osteomyelitis of the distal fibula] Procedure in detail: [Patient was taken to the operative suite placed in supine position. The left ankle was prepped and draped in usual sterile fashion a preprocedure timeout was performed and all parties in agreement. Scalpel was utilized and the callus portion of the wound was excised. Curet was utilized in the subcutaneous tissues and fat were debrided. This did carried down to the l evel of the bone. A Roe was used and the bone was debrided portions were sent for tissue biopsy and culture. Hemostasis was achieved with electrocautery. Dressings were placed. The patient was allowed awaken and transferred to PACU in stable condition having tolerated the procedure well]
--- NOTE | 2020-07-27 13:28 | CDI ---
Date: 07.27.20 CDS/Manager Etl Name: Korina Gordon Phone: If any questions, call Sheyla Reyez Foreign Exchange Trader at [phone] Patient Name: Terry Miller Admit Date 07.19.20 Discharge Date: 07.19.20 ATTENTION: The [facility] Coding Staff appreciate your assistance in clarifying documentation. Please respond to the clarification below the line at the bottom and electronically sign. The [facility] Coding staff will review the response and follow-up if needed. Please note: Queries are made part of the Legal Health Record. If you have any questions, please contact the Foreign Exchange Trader. Dear Dr. Basurto In order to code to the greatest specificity and for the greatest reimbursement I need the following information: In your procedure note you have documented debrided portions were sent for biopsy and culture. The culture results are there but I do not find any results from path for the biopsy, was the biopsy done? Please clarify. Thank you for your kind consideration. I believe it only got sent for culture then. Thanks BROOKE
== END 2020-07-19 15:29 | disposition home health service (06) ==
LOC: OR 11:18
PROVIDERS: ATTEND Surgery
DX: M86.8X6 Other osteomyelitis, lower leg (principal); M19.90 Unspecified osteoarthritis, unspecified site; H66.90 Otitis media, unspecified, unspecified ear; I25.2 Old myocardial infarction; G62.9 Polyneuropathy, unspecified; I25.10 Atherosclerotic heart disease of native coronary artery without angina pectoris; I10 Essential (primary) hypertension; E78.5 Hyperlipidemia, unspecified; J45.909 Unspecified asthma, uncomplicated; G47.33 Obstructive sleep apnea (adult) (pediatric); K21.9 Gastro-esophageal reflux disease without esophagitis; Z79.891 Long term (current) use of opiate analgesic; Z79.899 Other long term (current) drug therapy; Z79.02 Long term (current) use of antithrombotics/antiplatelets; Z79.82 Long term (current) use of aspirin; Z98.890 Other specified postprocedural states; Z95.1 Presence of aortocoronary bypass graft; Z88.5 Allergy status to narcotic agent; Z88.6 Allergy status to analgesic agent; Z87.891 Personal history of nicotine dependence; Z91.19 Patient's noncompliance with other medical treatment and regimen
CPT/HCPCS: 11044; 84132; 87070; 87205; 87075; 87077; 87186; J2250; J1100; J2405; J2001; J3010; J1170; J2704

== ENCOUNTER 2020-10-24 09:44 | Day surgery (SDC) | payer MEDICARE ==
[2020-10-20 10:59] VITALS: BMI 21.1
[~2020-10-24 09:44] MED LIST changes: +MIDAZOLAM 2 MG/2 ML VIAL IV PRN; -Pre Op ABX Message 1 EACH MISC MISCELLANE ONE
--- NOTE | 2020-10-24 10:15 | P.GSHP ---
History of Present Illness H&P Date: 10/24/20 Chief Complaint: Ulcer left ankle and lateral right foot Patient is status post debridement including the distal bone on the right ankle and has a chronic ulcer on the lateral right foot. - Constitutional Constitutional: Denies chills, Denies fever - EENT Eyes: denies blurred vision, denies pain Ears, nose, mouth and throat: Denies headache, Denies sore throat - Cardiovascular Cardiovascular: Denies chest pain, Denies shortness of breath - Respiratory Respiratory: Denies cough, Denies 7 - Gastrointestinal Gastrointestinal: Denies abdominal pain, Denies diarrhea, Denies nausea, Denies vomiting - Genitourinary (Female) Genitourinary: Denies dysuria, Denies hematuria - Genitourinary (Male) Genitourinary: Denies dysuria, Denies hematuria - Musculoskeletal Musculoskeletal: Denies myalgias - Integumentary Integumentary: Denies pruritus, Denies rash - Neurological Neurological: Denies numbness, Denies weakness - Psychiatric Psychiatric: Denies anxiety, Denies depression - Endocrine Endocrine: Denies fatigue, Denies weight change Past Medical History Past Medical History: Chest Pain / Angina, Eye Disorder, GERD/Reflux, Hyperlipidemia, Hypertension, Myocardial Infarction ([place]), Osteoarthritis ([place]), Sleep Apnea/CPAP/BIPAP Additional Past Medical History / Comment(s): wound left ankle and rt heel,BACK PAIN USES WALKER, 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 diverticulitis, neuropathy, does not use CPAP, pt states has ruptured eardrum rt ear Last Myocardial Infarction Date:: 2001 History of Any Multi-Drug Resistant Organisms: None Reported Past Surgical History: Back Surgery, Coronary Bypass/CABG, Ear Surgery, Heart Catheterization, Heart Catheterization With Stent, Joint Replacement, Tonsillectomy Additional Past Surgical History / Comment(s): chriss CATARACTS, one cardiac stent, CABG (2005), RIGHT EAR DRUM REPLACEMENT.CHRISS TOTAL KNEES, RIGHT CAROTID ENDARTERECTOMY. chriss carpel tunnel surgery, rods in spine(total 4 back surgeries) wound center patient Past Anesthesia/Blood Transfusion Reactions: No Reported Reaction, Motion Sickness Date of Last Stent Placement:: 2001 Smoking Status: Former smoker - Past Family History Mother Family Medical History: No Reported History Additional Family Medical History / Comment(s): . Medications and Allergies Home Medications Medication Instructions Recorded Confirmed Type Aspirin EC [Ecotrin Low Dose] 81 mg PO DAILY 09/04/14 10/20/20 History Atorvastatin Calcium [Lipitor] 40 mg PO HS 09/04/14 10/20/20 History Gabapentin [Neurontin] 800 mg PO TID 09/04/14 10/20/20 History Lansoprazole [Prevacid] 30 mg PO BID 09/04/14 10/20/20 History Nitroglycerin Sl Tabs [Nitrostat] 0.4 mg SUBLINGUAL Q5M PRN 09/04/14 10/20/20 History fentaNYL 50MCG/HR PATCH [Duragesic 1 patch TRANSDERM Q72H 09/04/14 10/20/20 History 50MCG/HR] modafiniL [Provigil] 200 mg PO BID 09/04/14 10/20/20 History Clopidogrel [Plavix] 75 mg PO DAILY 08/28/16 10/20/20 History Furosemide [Lasix] 20 mg PO BID PRN 08/28/16 10/20/20 History Isosorbide Mononitrate ER [Imdur] 30 mg PO TID 08/28/16 10/20/20 History carvediloL [Coreg] 6.25 mg PO BID 08/28/16 10/20/20 History oxyCODONE-APAP 10-325MG [Percocet 1 tab PO QID PRN 08/28/16 10/20/20 History 10-325 mg] Tamsulosin HCl [Flomax] 0.4 mg PO HS 10/14/17 10/20/20 History Lidocaine 5% Patch [Lidoderm 5% 1 patch TRANSDERM BID 12/28/18 10/20/20 History Patch] Primidone [Mysoline] 50 mg PO BID 12/28/18 10/20/20 History Naloxegol Oxalate [Movantik] 25 mg PO DAILY 07/14/20 10/20/20 History Benazepril HCl 10 mg PO HS 10/20/20 10/20/20 History Benazepril HCl [Lotensin] 20 mg PO DAILY 10/20/20 10/20/20 History Allergies Allergy/AdvReac Type Severity Reaction Status Date / Time meperidine [From Demerol] Allergy Nausea Verified 10/20/20 10:35 aspirin AdvReac Unknown UNCOATED Verified 10/20/20 10:35 ASPIRIN CAUSES STOMACH PAIN morphine AdvReac Vomiting Verified 10/20/20 10:35 Surgical - Exam Osteopathic Statement: *. No significant issues noted on an osteopathic structural exam other than those noted in the History and Physical/Consult. - General well developed, well nourished, no distress - Eyes normal ocular movement, no icteric - ENT no hearing loss, no congestion - Neck no masses, trachea midline - Respiratory normal respiratory effort, clear to auscultation - Abdomen Abdomen: soft, non tender, no guarding, no rigid, no rebound - Integumentary no rash, no abnormal pigmentation - Neurologic no disoriented, no combative - Psychiatric oriented to time, oriented to person, oriented to place, speech is normal, memory intact 2 x 2 cm ulcer lateral left ankle with good granulation bed and small ulcer lateral right foot. 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 He verbalizes an understanding of the options and wishes to proceed with very limited split-thickness skin graft to the left ankle. We will also place a small graft on the right foot.
[2020-10-24 10:29] VITALS: RESP 16
[2020-10-24] MEDS ORDERED: MIDAZOLAM 2 MG/2 ML VIAL ONE (11:42)
[2020-10-24] MEDS ORDERED: PROPOFOL 10 MG/ML 20 ML VIAL IV ONE (11:42)
[2020-10-24] MEDS ORDERED: fentaNYL (PF) 50 MCG/ML 2 ML AMP ONE (11:42)
[2020-10-24] MEDS ORDERED: KETAMINE 10 MG/ML 20 ML VIAL ONE (11:42)
[2020-10-24] MEDS ORDERED: MINERAL OIL 1 APPLIC/ML OIL TOPICAL ONE (12:23)
--- NOTE | 2020-10-24 12:30 | P.OP ---
Date of Procedure: 10/24/20 Preoperative Diagnosis: Ulcer left ankle Postoperative Diagnosis: Same Procedure(s) Performed: Split-thickness skin graft left ankle Anesthesia: MAC Surgeon: Emile Lainez Estimated Blood Loss (ml): 2 Pathology: none sent Condition: stable Disposition: PACU Indications for Procedure: The patient has a chronic ulcer on the left ankle. He is status post resection of the distal fibula. He is status post use of wound VAC. Operative Findings: The wound site on the left ankle is about 2 x 2 centimeters and 0.2 cm in depth. It is well granulated at the base. Description of Procedure: With the patient spine position, under benefit of IV sedation, we prepped and draped in standard fashion. We used a sharp curette to remove any slough and fibrinous deposits from the surface of the ulcer. We then utilized 02/1000 setting on the powered dermatome and removed a 1" x 1" segment from the left thigh. This was then meshed 3-1. This was placed on the ulcer and secured with Adaptic Steri-Strips and a hydrogel absorptive silver dressing, covered with Kerlix and Arslan wrap. The donor site was covered with Tegaderm. The patient tolerated the procedure well and was taken recovery area in stable condition.
[2020-10-24 12:35] VITALS: TEMP 97.9
[2020-10-24] MEDS: HYDROmorphone 0.5 MG/0.5 ML SYRINGE IVP PRN ×2 (12:41→12:49)
[2020-10-24 13:15] VITALS: BP 133/67; PULSE 54
== END 2020-10-24 13:42 | disposition home or self-care (01) ==
LOC: OR 09:44
PROVIDERS: ATTEND Thoracic Surgery (Cardiothoracic Vascular Surgery)
DX: L97.324 Non-pressure chronic ulcer of left ankle with necrosis of bone (principal); L97.522 Non-pressure chronic ulcer of other part of left foot with fat layer exposed; K21.9 Gastro-esophageal reflux disease without esophagitis; E78.5 Hyperlipidemia, unspecified; I10 Essential (primary) hypertension; I25.2 Old myocardial infarction; G47.30 Sleep apnea, unspecified; M19.90 Unspecified osteoarthritis, unspecified site; Z79.899 Other long term (current) drug therapy; Z79.82 Long term (current) use of aspirin; Z88.5 Allergy status to narcotic agent; Z88.8 Allergy status to other drugs, medicaments and biological substances; Z98.1 Arthrodesis status
CPT/HCPCS: 15040; 15130; J2250; J1100; J0690; J2405; J3010; J2704; J1170

== ENCOUNTER 2020-11-11 00:37 | Inpatient (IN) | payer MEDICARE ==
[2020-11-11] MEDS ORDERED: SODIUM CHLORIDE 0.9% 500 ML 500 ML IV STA (01:54)
[2020-11-11] MEDS ORDERED: ACETAMINOPHEN TAB 325 MG TAB PO STA (01:54)
[2020-11-11] MEDS ORDERED: PIPERACILLIN-TAZOBACTAM 3.375 GM in SODIUM CHLORIDE 0.9% 100 ML IVPB STA (01:54)
[2020-11-11 02:52] LABS: Basophils % (A) 0 %; Eosinophils # (A) 0.2 k/uL (0-0.7); Eosinophils % (A) 1 %; HCT 42.6 % (39.0-53.0); HGB 14.2 gm/dL (13.0-17.5); Lymphocytes # (A) 0.6 k/uL (1.0-4.8); Lymphocytes % (A) 4 %; MCH 33.3 pg (25.0-35.0); MCHC 33.3 g/dL (31.0-37.0); MCV 99.9 fL (80.0-100.0); Mean Platelet Volume 7.3; Monocytes # (A) 0.7 k/uL (0-1.0); Monocytes % (A) 4 %; Neutrophils # (A) 14.6 k/uL (1.3-7.7); Neutrophils % (A) 90 %; Platelet Count 171 k/uL (150-450); RBC 4.27 m/uL (4.30-5.90); RDW 14.2 % (11.5-15.5); WBC 16.2 k/uL (3.8-10.6)
[2020-11-11 03:00] LABS: Albumin 4.3 g/dL (3.5-5.0); Calcium 9.4 mg/dL (8.4-10.2); Potassium 4.5 mmol/L (3.5-5.1); Total Bilirubin 0.4 mg/dL (0.2-1.3); Total Protein 6.7 g/dL (6.3-8.2)
[2020-11-11] MEDS ORDERED: SODIUM CHLORIDE 0.9% 1,000 ML IV ONE (03:33)
[2020-11-11] MEDS ORDERED: SODIUM CHLORIDE 0.9% 1,000 ML IV STA (03:33)
--- NOTE | 2020-11-11 03:34 | XR ---
EXAM: XR Chest, 2 Views CLINICAL HISTORY: ITS.REASON XR Reason: fever TECHNIQUE: Frontal and lateral views of the chest. COMPARISON: 10/14/17 FINDINGS: Lungs: Mild chronic changes/atelectasis of the left lower lung. No focal consolidation. Pleural space: Small right pleural effusion or thickening. No pneumothorax. Heart: CABG. Mediastinum: Unremarkable. Bones/joints: Median sternotomy wires as on the prior. Old right posterior rib fractures. Degenerative changes of the shoulders. IMPRESSION: 1. Mild chronic changes/atelectasis of the left lower lung. No focal consolidation. 2. Small right pleural effusion or thickening
[2020-11-11] MEDS ORDERED: VANCOMYCIN IV PER PHARMACY 1 EACH MISC MISCELLANE PRN (06:22)
--- NOTE | 2020-11-11 06:22 | ED ---
Fever HPI - General Chief Complaint: Fever Stated Complaint: Weakness Time Seen by Provider: 11/11/20 00:45 Source: patient, EMS Mode of arrival: EMS Limitations: physical limitation - History of Present Illness Initial Comments: Patient 75-year-old man who presents to be evaluated for fever. Patient states she does have infection of the left foot that had skin graft by Dr. Lainez 10/24. The patient had the impression that things had been going fairly well. Patient denies other symptoms of infection. No sinus congestion or drainage. No sore throat. No dyspnea, cough, hemoptysis or chest pain. He has not noted change in urination or bowel movements. MD Complaint: fever -: hour(s) Context: recent procedure Associated Symptoms: chills Treatments Prior to Arrival: none - Related Data Home Medications Medication Instructions Recorded Confirmed Aspirin EC [Ecotrin Low Dose] 81 mg PO DAILY 09/04/14 11/11/20 Atorvastatin Calcium [Lipitor] 40 mg PO HS 09/04/14 11/11/20 Lansoprazole [Prevacid] 30 mg PO BID 09/04/14 11/11/20 Nitroglycerin Sl Tabs [Nitrostat] 0.4 mg SUBLINGUAL Q5M PRN 09/04/14 11/11/20 fentaNYL 50MCG/HR PATCH [Duragesic 1 patch TRANSDERM Q72H 09/04/14 11/11/20 50MCG/HR] modafiniL [Provigil] 200 mg PO BID 09/04/14 11/11/20 Clopidogrel [Plavix] 75 mg PO DAILY 08/28/16 11/11/20 Furosemide [Lasix] 20 mg PO DAILY PRN 08/28/16 11/11/20 Isosorbide Mononitrate ER [Imdur] 30 mg PO TID 08/28/16 11/11/20 carvediloL [Coreg] 6.25 mg PO BID 08/28/16 11/11/20 Tamsulosin HCl [Flomax] 0.4 mg PO HS 10/14/17 11/11/20 Primidone [Mysoline] 50 mg PO BID 12/28/18 11/11/20 Naloxegol Oxalate [Movantik] 25 mg PO DAILY 07/14/20 11/11/20 Benazepril HCl 10 mg PO DAILY 10/20/20 11/11/20 Calcium Carbonate [Calcium] 600 mg PO TID 11/11/20 11/11/20 Cholecalciferol [Vitamin D3 (25 25 mcg PO DAILY 11/11/20 11/11/20 Mcg = 1000 Iu)] Denosumab [Prolia] 60 mg SQ Q168D 11/11/20 11/11/20 Dicyclomine [Bentyl] 10 mg PO TID 11/11/20 11/11/20 Docusate [Colace] 100 mg PO TID 11/11/20 11/11/20 Ferrous Sulfate [Feosol] 325 mg PO DAILY 11/11/20 11/11/20 Gabapentin [Neurontin] 800 mg PO TID 11/11/20 11/11/20 Ipratropium [place] 0.06%Nasal 2 spray EA NOSTRIL TID 11/11/20 11/11/20 [Atrovent Nasal 0.06%] Meloxicam [Mobic] 7.5 mg PO DAILY 11/11/20 11/11/20 oxyCODONE HCL [oxyCODONE HCL (IR)] 10 mg PO Q6H PRN 11/11/20 11/11/20 Allergies Allergy/AdvReac Type Severity Reaction Status Date / Time meperidine [From Demerol] Allergy Nausea Verified 11/11/20 10:40 aspirin AdvReac Unknown UNCOATED Verified 11/11/20 10:40 ASPIRIN CAUSES STOMACH PAIN morphine AdvReac Vomiting Verified 11/11/20 10:40 Review of Systems ROS Statement: Those systems with pertinent positive or pertinent negative responses have been documented in the HPI. ROS Other: All systems not noted in ROS Statement are negative. 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 diverticulitis, neuropathy, does not use CPAP, pt states has ruptured eardrum rt ear Last Myocardial Infarction Date:: 2001 History of Any Multi-Drug Resistant Organisms: None Reported Past Surgical History: Back Surgery, Coronary Bypass/CABG, Ear Surgery, Heart Catheterization, Heart Catheterization With Stent, Joint Replacement, Tonsillectomy Additional Past Surgical History / Comment(s): chriss CATARACTS, one cardiac stent, CABG (2005), RIGHT EAR DRUM REPLACEMENT.CHRISS TOTAL KNEES, RIGHT CAROTID ENDARTERECTOMY. chriss carpel tunnel surgery, rods in spine(total 4 back surgeries) wound center patient Past Anesthesia/Blood Transfusion Reactions: No Reported Reaction, Motion Sickness Date of Last Stent Placement:: 2001 Past Psychological History: No Psychological Hx Reported Smoking Status: Former smoker - Past Family History Mother Family Medical History: No Reported History Additional Family Medical History / Comment(s): . General Exam Limitations: physical limitation General appearance: alert, in no apparent distress Head exam: Present: atraumatic, normocephalic Eye exam: Present: normal appearance. Absent: scleral icterus, conjunctival injection ENT exam: Present: normal oropharynx Neck exam: Present: normal inspection, full ROM. Absent: meningismus Respiratory exam: Present: normal lung sounds bilaterally. Absent: respiratory distress, wheezes, rales, rhonchi, stridor Cardiovascular Exam: Present: regular rate, normal rhythm, normal heart sounds. Absent: systolic murmur, diastolic murmur, rubs, gallop GI/Abdominal exam: Present: soft. Absent: distended, tenderness, guarding, rebound, rigid, mass Extremities exam: Present: normal inspection, normal capillary refill. Absent: pedal edema, calf tenderness Back exam: Present: normal inspection Neurological exam: Present: alert Skin exam: Present: warm, dry, intact, normal color, erythema, other (Patient has left foot ulcer. In addition there is circumferential cellulitis involving the left lower extremity distal to the knee.) Course Vital Signs 11/11/20 11/11/20 11/11/20 01:01 03:26 04:00 Temperature 102.9 F H 99.4 F Pulse Rate 90 82 70 Respiratory 22 14 20 Rate Blood Pressure 145/82 111/59 87/50 O2 Sat by Pulse 97 97 97 Oximetry 11/11/20 05:00 Temperature Pulse Rate 68 Respiratory 14 Rate Blood Pressure 102/52 O2 Sat by Pulse 97 Oximetry Medical Decision Making - Medical Decision Making This patient is 75-year-old man presenting with fever and left leg cellulitis. Patient will be admitted for additional IV antibiotics. Case discussed with Dr. العلي. In addition, consult to Dr. Lainez who is managing the patient's left foot wound to ensure that no further debridement is required at this point. - Lab Data Result diagrams: 11/13/20 06:19 11/13/20 06:19 Lab Results 11/11/20 11/11/20 11/11/20 Range/Units 02:07 02:07 02:07 WBC 16.2 H (3.8-10.6) k/uL RBC 4.27 L (4.30-5.90) m/uL Hgb 14.2 (13.0-17.5) gm/dL Hct 42.6 (39.0-53.0) % MCV 99.9 (80.0-100.0) fL MCH 33.3 (25.0-35.0) pg MCHC 33.3 (31.0-37.0) g/dL RDW 14.2 (11.5-15.5) % Plt Count 171 (150-450) k/uL MPV 7.3 Neutrophils % 90 % Lymphocytes % 4 % Monocytes % 4 % Eosinophils % 1 % Basophils % 0 % Neutrophils # 14.6 H (1.3-7.7) k/uL Lymphocytes # 0.6 L (1.0-4.8) k/uL Monocytes # 0.7 (0-1.0) k/uL Eosinophils # 0.2 (0-0.7) k/uL Basophils # 0.0 (0-0.2) k/uL Sodium 139 (137-145) mmol/L Potassium 4.5 (3.5-5.1) mmol/L Chloride 105 (98-107) mmol/L Carbon Dioxide 21 L (22-30) mmol/L Anion Gap 13 mmol/L BUN 22 H (9-20) mg/dL Creatinine 0.98 (0.66-1.25) mg/dL Est GFR (CKD-EPI)AfAm 86 (>60 ml/min/1.73 sqM) Est GFR (CKD-EPI)NonAf 75 (>60 ml/min/1.73 sqM) Glucose 97 (74-99) mg/dL Lactic Ac Sepsis Rflx Plasma Lactic Acid Ramon (0.7-2.0) mmol/L Calcium 9.4 (8.4-10.2) mg/dL Total Bilirubin 0.4 (0.2-1.3) mg/dL AST 28 (17-59) U/L ALT 13 (4-49) U/L Alkaline Phosphatase 59 (38-126) U/L Total Protein 6.7 (6.3-8.2) g/dL Albumin 4.3 (3.5-5.0) g/dL Urine Color Yellow Urine Appearance Clear (Clear) Urine pH 7.0 (5.0-8.0) Ur Specific Bradford 1.015 (1.001-1.035) Urine Protein Negative (Negative) Urine Glucose (UA) Negative (Negative) Urine Ketones Negative (Negative) Urine Blood Negative (Negative) Urine Nitrite Negative (Negative) Urine Bilirubin Negative (Negative) Urine Urobilinogen <2.0 (<2.0) mg/dL Ur Leukocyte Esterase Negative (Negative) 11/11/20 11/11/20 Range/Units 02:07 03:21 WBC (3.8-10.6) k/uL RBC (4.30-5.90) m/uL Hgb (13.0-17.5) gm/dL Hct (39.0-53.0) % MCV (80.0-100.0) fL MCH (25.0-35.0) pg MCHC (31.0-37.0) g/dL RDW (11.5-15.5) % Plt Count (150-450) k/uL MPV Neutrophils % % Lymphocytes % % Monocytes % % Eosinophils % % Basophils % % Neutrophils # (1.3-7.7) k/uL Lymphocytes # (1.0-4.8) k/uL Monocytes # (0-1.0) k/uL Eosinophils # (0-0.7) k/uL Basophils # (0-0.2) k/uL Sodium (137-145) mmol/L Potassium (3.5-5.1) mmol/L Chloride (98-107) mmol/L Carbon Dioxide (22-30) mmol/L Anion Gap mmol/L BUN (9-20) mg/dL Creatinine (0.66-1.25) mg/dL Est GFR (CKD-EPI)AfAm (>60 ml/min/1.73 sqM) Est GFR (CKD-EPI)NonAf (>60 ml/min/1.73 sqM) Glucose (74-99) mg/dL Lactic Ac Sepsis Rflx Y Plasma Lactic Acid Ramon 3.2 H* (0.7-2.0) mmol/L Calcium (8.4-10.2) mg/dL Total Bilirubin (0.2-1.3) mg/dL AST (17-59) U/L ALT (4-49) U/L Alkaline Phosphatase (38-126) U/L Total Protein (6.3-8.2) g/dL Albumin (3.5-5.0) g/dL Urine Color Urine Appearance (Clear) Urine pH (5.0-8.0) Ur Specific Bradford (1.001-1.035) Urine Protein (Negative) Urine Glucose (UA) (Negative) Urine Ketones (Negative) Urine Blood (Negative) Urine Nitrite (Negative) Urine Bilirubin (Negative) Urine Urobilinogen (<2.0) mg/dL Ur Leukocyte Esterase (Negative) Disposition Clinical Impression: Cellulitis Disposition: ADMITTED IP TO THIS HOSP Condition: Fair
[2020-11-11] MEDS ORDERED: VANCOMYCIN 1,250 MG in SODIUM CHLORIDE 0.9% 250 ML IVPB ONE (07:00)
[2020-11-11] MEDS: PANTOPRAZOLE 40 MG TABLET PO SCH ×2 (08:23→20:09)
[2020-11-11] MEDS: PRIMIDONE 50 MG TAB PO SCH ×2 (08:24→20:08)
[2020-11-11] MEDS: ISOSORBIDE MONONITRATE ER 30 MG TAB.ER.24H PO SCH ×2 (08:24→16:27)
[2020-11-11] MEDS: carvediloL 6.25 MG TAB PO SCH ×2 (08:24→16:28)
[2020-11-11] MEDS: ASPIRIN 81 MG PO SCH (08:24)
[2020-11-11] MEDS: lisinopriL 20 MG TAB PO SCH (08:24)
[2020-11-11] MEDS: HEPARIN SODIUM,PORCINE/PF 5,000 UNIT/0.5 ML SYRINGE SQ SCH ×2 (08:24→20:07)
[2020-11-11] MEDS: CLOPIDOGREL 75 MG TAB PO SCH (08:24)
[2020-11-11] MEDS: GABAPENTIN 400 MG CAP PO SCH ×3 (08:25→20:08)
[2020-11-11] MEDS: oxyCODONE-APAP 10-325MG 1 EACH TAB PO PRN ×2 (08:25→16:28)
[2020-11-11] MEDS: NON FORMULARY DRUG (Naloxegol Oxalate [Movantik] 25 MG Tablet) PO SCH (08:26)
[2020-11-11] MEDS ORDERED: LIDOCAINE 5% PATCH TOPICAL SCH (09:00)
[2020-11-11] MEDS ORDERED: FAMOTIDINE 20 MG/2 ML VIAL IV SCH (09:00)
[2020-11-11] MEDS ORDERED: PIPERACILLIN-TAZOBACTAM 3.375 GM in SODIUM CHLORIDE 0.9% 100 ML IVPB SCH (10:00)
--- NOTE | 2020-11-11 10:10 | P.GSCN ---
History of Present Illness Consult date: 11/11/20 Reason for Consult: left ankle infection Requesting physician: Chapin E Sheet History of present illness: This is a 75-year-old gentleman who had a recent debridement with split thickness skin graft placement to his left ankle by Dr. Lainez on 10/24/2020. He presented to [facility] emergency room overnight with complaints of fever and chills, but no other symptomatic complaints. States he has been doing fairly well since his surgery. He is being admitted for IV antibiotics and consultation was placed to Dr. Lainez for recommendations regarding further debridement. 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 diverticulitis, neuropathy, does not use CPAP, pt states has ruptured eardrum rt ear Last Myocardial Infarction Date:: 2001 History of Any Multi-Drug Resistant Organisms: None Reported Past Surgical History: Back Surgery, Coronary Bypass/CABG, Ear Surgery, Heart Catheterization, Heart Catheterization With Stent, Joint Replacement, Tonsillectomy Additional Past Surgical History / Comment(s): chriss CATARACTS, one cardiac stent, CABG (2005), RIGHT EAR DRUM REPLACEMENT.CHRISS TOTAL KNEES, RIGHT CAROTID ENDARTERECTOMY. chriss carpel tunnel surgery, rods in spine(total 4 back surgeries) wound center patient; debridement with split thickness skin graft placed to left ankle 10/24/2020 Dr. Lainez Past Anesthesia/Blood Transfusion Reactions: No Reported Reaction, Motion Sickness Date of Last Stent Placement:: 2001 Past Psychological History: No Psychological Hx Reported Smoking Status: Former smoker - Past Family History Mother Family Medical History: No Reported History Additional Family Medical History / Comment(s): . Medications and Allergies Home Medications Medication Instructions Recorded Confirmed Type Aspirin EC [Ecotrin Low Dose] 81 mg PO DAILY 09/04/14 10/20/20 History Atorvastatin Calcium [Lipitor] 40 mg PO HS 09/04/14 10/20/20 History Gabapentin [Neurontin] 800 mg PO TID 09/04/14 10/20/20 History Lansoprazole [Prevacid] 30 mg PO BID 09/04/14 10/20/20 History Nitroglycerin Sl Tabs [Nitrostat] 0.4 mg SUBLINGUAL Q5M PRN 09/04/14 10/20/20 History fentaNYL 50MCG/HR PATCH [Duragesic 1 patch TRANSDERM Q72H 09/04/14 10/20/20 History 50MCG/HR] modafiniL [Provigil] 200 mg PO BID 09/04/14 10/20/20 History Clopidogrel [Plavix] 75 mg PO DAILY 08/28/16 10/20/20 History Furosemide [Lasix] 20 mg PO BID PRN 08/28/16 10/20/20 History Isosorbide Mononitrate ER [Imdur] 30 mg PO TID 08/28/16 10/20/20 History carvediloL [Coreg] 6.25 mg PO BID 08/28/16 10/20/20 History oxyCODONE-APAP 10-325MG [Percocet 1 tab PO QID PRN 08/28/16 10/20/20 History 10-325 mg] Tamsulosin HCl [Flomax] 0.4 mg PO HS 10/14/17 10/20/20 History Lidocaine 5% Patch [Lidoderm 5% 1 patch TRANSDERM BID 12/28/18 10/20/20 History Patch] Primidone [Mysoline] 50 mg PO BID 12/28/18 10/20/20 History Naloxegol Oxalate [Movantik] 25 mg PO DAILY 07/14/20 10/20/20 History Benazepril HCl 10 mg PO HS 10/20/20 10/20/20 History Benazepril HCl [Lotensin] 20 mg PO DAILY 10/20/20 10/20/20 History Allergies Allergy/AdvReac Type Severity Reaction Status Date / Time meperidine [From Demerol] Allergy Nausea Verified 10/24/20 10:24 aspirin AdvReac Unknown UNCOATED Verified 10/24/20 10:24 ASPIRIN CAUSES STOMACH PAIN morphine AdvReac Vomiting Verified 10/24/20 10:24 Surgical - Exam Vital Signs Temp Pulse Resp BP Pulse Ox 102.9 F H 90 22 145/82 97 11/11/20 01:01 11/11/20 01:01 11/11/20 01:01 11/11/20 01:01 11/11/20 01:01 CONSTITUTIONAL: Awake and alert, appears comfortable, cooperative, well- developed, well-nourished, no pain, no acute distress EYES: Pupils equal, round, reactive to light, normal ocular movement ENT: Moist mucous membranes without oral lesions present NECK: No masses, no bruits, trachea midline RESPIRATORY: Lungs sounds clear to auscultation bilaterally. Respirations even, nonlabored. Currently on room air with oxygen saturation 95%. Strong cough. CARDIOVASCULAR: S1, S2 present. Regular rate and rhythm. Palpable peripheral pulses bilaterally. No edema present. No calf pain or tenderness noted. GASTROINTESTINAL: Abdomen soft, nontender, nondistended without masses or organomegaly noted. There is no rebound or guarding present. Active bowel sounds present 4 quadrants. GENITOURINARY: Deferred INTEGUMENTARY: Skin is warm. See chart for description/pictures of wounds. Left ankle wound without drainage. Redness to left lower leg extending almost to the knee, outlined. NEUROLOGIC: Cranial nerves II through XII intact, normal coordination, no obvious motor or sensory deficits, speech is normal MUSKULOSKELETAL: Able to move all extremities, strength equal bilaterally, normal posture PSYCHIATRIC: Alert and oriented to person place and time, appropriate affect, intact judgment and insight Results - Labs 11/11/20 02:07 11/11/20 02:07 Abnormal Lab Results - Last 24 Hours (Table) 11/11/20 11/11/20 11/11/20 Range/Units 02:07 02:07 02:07 WBC 16.2 H (3.8-10.6) k/uL RBC 4.27 L (4.30-5.90) m/uL Neutrophils # 14.6 H (1.3-7.7) k/uL Lymphocytes # 0.6 L (1.0-4.8) k/uL Carbon Dioxide 21 L (22-30) mmol/L BUN 22 H (9-20) mg/dL Plasma Lactic Acid Ramon 3.2 H* (0.7-2.0) mmol/L Diabetes panel 11/11/20 Range/Units 02:07 Sodium 139 (137-145) mmol/L Potassium 4.5 (3.5-5.1) mmol/L Chloride 105 (98-107) mmol/L Carbon Dioxide 21 L (22-30) mmol/L BUN 22 H (9-20) mg/dL Creatinine 0.98 (0.66-1.25) mg/dL Glucose 97 (74-99) mg/dL Calcium 9.4 (8.4-10.2) mg/dL AST 28 (17-59) U/L ALT 13 (4-49) U/L Alkaline Phosphatase 59 (38-126) U/L Total Protein 6.7 (6.3-8.2) g/dL Albumin 4.3 (3.5-5.0) g/dL Calcium panel 11/11/20 Range/Units 02:07 Calcium 9.4 (8.4-10.2) mg/dL Albumin 4.3 (3.5-5.0) g/dL Pituitary panel 11/11/20 Range/Units 02:07 Sodium 139 (137-145) mmol/L Potassium 4.5 (3.5-5.1) mmol/L Chloride 105 (98-107) mmol/L Carbon Dioxide 21 L (22-30) mmol/L BUN 22 H (9-20) mg/dL Creatinine 0.98 (0.66-1.25) mg/dL Glucose 97 (74-99) mg/dL Calcium 9.4 (8.4-10.2) mg/dL Adrenal panel 11/11/20 Range/Units 02:07 Sodium 139 (137-145) mmol/L Potassium 4.5 (3.5-5.1) mmol/L Chloride 105 (98-107) mmol/L Carbon Dioxide 21 L (22-30) mmol/L BUN 22 H (9-20) mg/dL Creatinine 0.98 (0.66-1.25) mg/dL Glucose 97 (74-99) mg/dL Calcium 9.4 (8.4-10.2) mg/dL Total Bilirubin 0.4 (0.2-1.3) mg/dL AST 28 (17-59) U/L ALT 13 (4-49) U/L Alkaline Phosphatase 59 (38-126) U/L Total Protein 6.7 (6.3-8.2) g/dL Albumin 4.3 (3.5-5.0) g/dL - Imaging Chest x-ray: report reviewed, image reviewed Assessment and Plan Assessment: 1. Chronic ulcer of the left ankle, status post debridement with skin graft 2. Febrile illness 3. Multiple medical comorbidities Plan: The patient was seen and examined at the bedside. Chart/diagnostics reviewed. The case was discussed with Dr. Lainez. Recommend no further debridement at this time. Patient afebrile at this point. Clean wound and cover with impregnated gauze dressing, wrapped with Kerlix daily. IV antibiotics, management of other medical comorbidities per primary care service. May follow up in the wound care center at discharge. Thank you for this consult. Please call us with further questions. Time with Patient: Greater than 30
[2020-11-11 10:32] LABS: Appearance,Urine Clear (Clear); Bilirubin,Urine Negative (Negative); Blood,Urine Negative (Negative); Color,Urine Yellow; Glucose,Urine (UA) Negative (Negative); Ketones,Urine Negative (Negative); Leukocyte Esterase,Urine Negative (Negative); Nitrite,Urine Negative (Negative); Protein,Urine Negative (Negative); Specific Gravity,Urine 1.015 (1.001-1.035); Urobilinogen,Urine <2.0 mg/dL (<2.0)
[2020-11-11] MEDS ORDERED: FUROSEMIDE 20 MG TAB PO PRN (11:15)
[2020-11-11] MEDS ORDERED: NITROGLYCERIN SL TABS 0.4 MG TAB SUBLINGUAL PRN (11:15)
[2020-11-11] MEDS ORDERED: ACETAMINOPHEN TAB 325 MG TAB PO PRN (13:41)
[2020-11-11 15:11] VITALS: BMI 19.9
[2020-11-11] MEDS ORDERED: GABAPENTIN 400 MG CAP PO SCH (16:00)
[2020-11-11] MEDS: CALCIUM CARBONATE 500 MG CHEWABLE PO SCH ×2 (16:27→20:09)
[2020-11-11] MEDS: DICYCLOMINE 10 MG CAP PO SCH ×2 (16:27→20:08)
[2020-11-11] MEDS: AMPICILLIN-SULBACTAM 3 GM in SODIUM CHLORIDE 0.9% 100 ML IVPB SCH (16:28)
[2020-11-11] MEDS: DOCUSATE 100 MG CAP PO SCH ×2 (16:28→20:08)
[2020-11-11] MEDS ORDERED: VANCOMYCIN 1,250 MG in SODIUM CHLORIDE 0.9% 250 ML IVPB SCH (19:00)
[2020-11-11] MEDS: IPRATROPIUM BROMIDE 0.06% NASAL SPRAY (15 ML) EA NOSTRIL SCH ×2 (20:05→21:50)
[2020-11-11] MEDS: LIDOCAINE 5% PATCH TOPICAL SCH (20:05)
[2020-11-11] MEDS: FAMOTIDINE 20 MG TAB PO SCH (20:07)
[2020-11-11] MEDS: ATORVASTATIN 40 MG TAB PO SCH (20:07)
[2020-11-11] MEDS: lisinopriL 10 MG TAB PO SCH (20:08)
[2020-11-11] MEDS: TAMSULOSIN 0.4 MG CAP.ER.24H PO SCH (20:09)
--- NOTE | 2020-11-11 21:22 | CONS ---
CONSULTATION DATE OF SERVICE: 11/11/2020 REASON FOR CONSULTATION: Fever. HISTORY OF PRESENT ILLNESS: The patient is a 75 -year-old male with a past medical history significant for chronic nonhealing wound to the left foot lateral malleolar area for which the patient has been treated by Dr. Lainez and apparently did have skin graft placed on 10/24/2020. The patient presenting to [facility] ER yesterday for evaluation of fever with rigors and chills. I saw him the day he presented to the hospital. The patient denies having any headache or URI symptoms. Denies having any chest pain or shortness of breath or cough. No nausea, vomiting. No abdominal pain or diarrhea. The patient noticed to have swelling and redness in his left leg extending from his wound, but denies any worsening pain to the left leg on view of his neuropathy. With these symptoms, the patient has been evaluated by the ER physician. On arrival to the ER, the patient did have a fever of 102.9 degrees Fahrenheit. He was tachycardic, heart rate of 93, sating 97% on room air. The patient did have white count 16.2 with a left shift. Lactic acid elevated at 3.2. Creatinine 0.8. Urine was negative. Benedict PCR was negative. Chest x-ray negative for pneumonia. Patient was started on Zosyn and vancomycin. Infectious Disease was consulted for further management of antibiotic therapy. REVIEW OF SYSTEMS: Positive points have been mentioned in HPI. Rest of systems are negative. PAST MEDICAL HISTORY: Hypertension, chronic nonhealing wound to the left lateral ankle area, history of coronary artery disease. SURGICAL HISTORY: Coronary artery bypass grafting, heart catheterization with stent placement, tonsillectomy, joint replacement. SOCIAL HISTORY: Remote history of smoking. No drinking, drug use. FAMILY HISTORY: No pertinent findings noticed. ALLERGIES: MEPERIDINE, ASPIRIN AND MORPHINE. MEDICATIONS: The patient is currently on Tylenol, aspirin, Lipitor, TUMS, Coreg, vitamin D3, Plavix, Bentyl, Colace, Duragesic patch, iron sulfate, Lasix, Neurontin, Imdur, Lisinopril, Zestril, Mobic, Provigil, Protonix, vancomycin and Zosyn. PHYSICAL EXAMINATION: Blood pressure is 98/56, pulse of 84, temperature 98.1, and 93% on room air. General description: The patient is an elderly male lying in bed in no distress. No tachypnea or accessory muscles of respiration use. HEENT: Examination shows no pallor or scleral icterus. Oral mucous membranes dry. NECK: Trachea central. No thyromegaly. LUNGS: Unlabored breathing. Clear to auscultation anteriorly. No wheeze or crackles. HEART S1, S2. Regular rate and rhythm. ABDOMEN: Soft, no tenderness. No guarding. No rigidity. EXTREMITIES: Left lateral leg wound base with minimal slough tissue. No surrounding swelling. He did have redness and warmth to the left leg extending from the wound area to the just below the knee with no blister or any drainage. NEUROLOGICAL: Patient is awake, alert, oriented times three. Mood and affect normal. LABS: Hemoglobin is 14.4, white count 16.2. BUN of 22, creatinine 0.98. Lactic acid 3.2. Liver enzymes are normal. Urine is negative. DIAGNOSTIC IMPRESSION AND PLAN: Patient admitted to the hospital with sepsis in this patient who did have a fever, tachycardia, elevated white count, source is left lateral ankle wound infection with secondary cellulitis of the left leg likely from a gram-positive skin earnest. The patient last culture obtained from the date did grow E coli and MSSA with no evidence of any resistant gram-positive or gram-negative. PLAN: 1. Discontinue vancomycin and Zosyn to decrease risk of nephrotoxicity. 2. We will start the patient on Unasyn 3 grams q.6 hours. 3. Local care to the left lateral ankle wound with vascular surgery. 4. We will follow on clinical condition and culture to further adjust medication if needed. Thank you for this consultation. We will follow the patient along with you. MMODL / IJN: [id number] /
[2020-11-12] MEDS: ISOSORBIDE MONONITRATE ER 30 MG TAB.ER.24H PO SCH ×5 (00:05→20:56)
[2020-11-12] MEDS: AMPICILLIN-SULBACTAM 3 GM in SODIUM CHLORIDE 0.9% 100 ML IVPB SCH ×5 (00:06→23:42)
[2020-11-12 06:44] LABS: African American GFR (CKD) >90 (>60 ml/min/1.73 sqM); Non-African American GFR(CKD) 84 (>60 ml/min/1.73 sqM)
[2020-11-12] MEDS: HEPARIN SODIUM,PORCINE/PF 5,000 UNIT/0.5 ML SYRINGE SQ SCH ×2 (07:56→20:52)
[2020-11-12] MEDS: IPRATROPIUM BROMIDE 0.06% NASAL SPRAY (15 ML) EA NOSTRIL SCH ×3 (07:56→20:55)
[2020-11-12] MEDS: ASPIRIN 81 MG PO SCH (07:57)
[2020-11-12] MEDS: CALCIUM CARBONATE 500 MG CHEWABLE PO SCH ×3 (07:57→20:53)
[2020-11-12] MEDS: DICYCLOMINE 10 MG CAP PO SCH ×3 (07:57→20:53)
[2020-11-12] MEDS: PANTOPRAZOLE 40 MG TABLET PO SCH ×2 (07:57→20:54)
[2020-11-12] MEDS: MELOXICAM 7.5 MG TAB PO SCH (07:57)
[2020-11-12] MEDS: FAMOTIDINE 20 MG TAB PO SCH (07:57)
[2020-11-12] MEDS: CHOLECALCIFEROL 25 MCG (1000 IU) TABLET PO SCH (07:57)
[2020-11-12] MEDS: DOCUSATE 100 MG CAP PO SCH ×3 (07:57→20:54)
[2020-11-12] MEDS: CLOPIDOGREL 75 MG TAB PO SCH (07:57)
[2020-11-12] MEDS: GABAPENTIN 400 MG CAP PO SCH ×3 (07:58→20:54)
[2020-11-12] MEDS: PRIMIDONE 50 MG TAB PO SCH ×2 (07:58→20:54)
[2020-11-12] MEDS: FERROUS SULFATE 325 MG TAB PO SCH (07:58)
[2020-11-12] MEDS: lisinopriL 20 MG TAB PO SCH (07:58)
[2020-11-12] MEDS: carvediloL 6.25 MG TAB PO SCH ×2 (07:58→16:16)
[2020-11-12] MEDS: oxyCODONE-APAP 10-325MG 1 EACH TAB PO PRN ×2 (07:59→20:54)
[2020-11-12] MEDS: NON FORMULARY DRUG (Naloxegol Oxalate [Movantik] 25 MG Tablet) PO SCH (10:26)
[2020-11-12] MEDS: LIDOCAINE 5% PATCH TOPICAL SCH ×2 (10:26→20:53)
--- NOTE | 2020-11-12 11:22 | P.HPIM ---
History of Present Illness H&P Date: 11/11/20 Chief Complaint: Fever/weakness 75-year-old man who presents to be evaluated for fever. Patient states she does have infection of the left foot that had skin graft by Dr. Lainez 10/24. The patient had the impression that things had been going fairly well. Patient denies other symptoms of infection. No sinus congestion or drainage. No sore throat. No dyspnea, cough, hemoptysis or chest pain. He has not noted change in urination or bowel movements. In the ED white blood count was found to be elevated at 16.2; patient has a left foot wound which is being managed by Dr. Lainez; patient is planned to be admitted to the hospital for IV antibiotic treatment and further evaluation for need to debride left ankle Review of Systems REVIEW OF SYSTEMS: CONSTITUTIONAL: Positive for fever, no malaise, no fatigue. HEENT: No recent visual problems or hearing problems. Denied any sore throat. CARDIOVASCULAR: No chest pain, orthopnea, PND, no palpitations, no syncope. PULMONARY: No shortness of breath, no cough, no hemoptysis. GASTROINTESTINAL: No diarrhea, no nausea, no vomiting, no abdominal pain. NEUROLOGICAL: No headaches, no weakness, no numbness. HEMATOLOGICAL: Denies any bleeding or petechiae. GENITOURINARY: Denies any burning micturition, frequency, or urgency. MUSCULOSKELETAL/RHEUMATOLOGICAL: Denies any joint pain, swelling, or any muscle pain. ENDOCRINE: Denies any polyuria or polydipsia. The rest of the 14-point review of systems is negative. 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 diverticulitis, neuropathy, does not use CPAP, pt states has ruptured eardrum rt ear Last Myocardial Infarction Date:: 2001 History of Any Multi-Drug Resistant Organisms: None Reported Past Surgical History: Back Surgery, Coronary Bypass/CABG, Ear Surgery, Heart Catheterization, Heart Catheterization With Stent, Joint Replacement, Tonsillectomy Additional Past Surgical History / Comment(s): chriss CATARACTS, one cardiac stent, CABG (2005), RIGHT EAR DRUM REPLACEMENT.CHRISS TOTAL KNEES, RIGHT CAROTID ENDARTERECTOMY. chriss carpel tunnel surgery, rods in spine(total 4 back surgeries) wound center patient; debridement with split thickness skin graft placed to left ankle 10/24/2020 Dr. Lainez Past Anesthesia/Blood Transfusion Reactions: No Reported Reaction, Motion Sickness Date of Last Stent Placement:: 2001 Past Psychological History: No Psychological Hx Reported Smoking Status: Former smoker - Past Family History Mother Family Medical History: No Reported History Additional Family Medical History / Comment(s): . Medications and Allergies Home Medications Medication Instructions Recorded Confirmed Type Aspirin EC [Ecotrin Low Dose] 81 mg PO DAILY 09/04/14 11/11/20 History Atorvastatin Calcium [Lipitor] 40 mg PO HS 09/04/14 11/11/20 History Lansoprazole [Prevacid] 30 mg PO BID 09/04/14 11/11/20 History Nitroglycerin Sl Tabs [Nitrostat] 0.4 mg SUBLINGUAL Q5M PRN 09/04/14 11/11/20 History fentaNYL 50MCG/HR PATCH [Duragesic 1 patch TRANSDERM Q72H 09/04/14 11/11/20 History 50MCG/HR] modafiniL [Provigil] 200 mg PO BID 09/04/14 11/11/20 History Clopidogrel [Plavix] 75 mg PO DAILY 08/28/16 11/11/20 History Furosemide [Lasix] 20 mg PO DAILY PRN 08/28/16 11/11/20 History Isosorbide Mononitrate ER [Imdur] 30 mg PO TID 08/28/16 11/11/20 History carvediloL [Coreg] 6.25 mg PO BID 08/28/16 11/11/20 History Tamsulosin HCl [Flomax] 0.4 mg PO HS 10/14/17 11/11/20 History Primidone [Mysoline] 50 mg PO BID 12/28/18 11/11/20 History Naloxegol Oxalate [Movantik] 25 mg PO DAILY 07/14/20 11/11/20 History Benazepril HCl 10 mg PO DAILY 10/20/20 11/11/20 History Calcium Carbonate [Calcium] 600 mg PO TID 11/11/20 11/11/20 History Cholecalciferol [Vitamin D3 (25 25 mcg PO DAILY 11/11/20 11/11/20 History Mcg = 1000 Iu)] Denosumab [Prolia] 60 mg SQ Q168D 11/11/20 11/11/20 History Dicyclomine [Bentyl] 10 mg PO TID 11/11/20 11/11/20 History Docusate [Colace] 100 mg PO TID 11/11/20 11/11/20 History Ferrous Sulfate [Feosol] 325 mg PO DAILY 11/11/20 11/11/20 History Gabapentin [Neurontin] 800 mg PO TID 11/11/20 11/11/20 History Ipratropium Bartelso 0.06%Nasal 2 spray EA NOSTRIL TID 11/11/20 11/11/20 History [Atrovent Nasal 0.06%] Meloxicam [Mobic] 7.5 mg PO DAILY 11/11/20 11/11/20 History oxyCODONE HCL [oxyCODONE HCL (IR)] 10 mg PO Q6H PRN 11/11/20 11/11/20 History Allergies Allergy/AdvReac Type Severity Reaction Status Date / Time meperidine [From Demerol] Allergy Nausea Verified 11/11/20 10:40 aspirin AdvReac Unknown UNCOATED Verified 11/11/20 10:40 ASPIRIN CAUSES STOMACH PAIN morphine AdvReac Vomiting Verified 11/11/20 10:40 Physical Exam Vitals: Vital Signs Temp Pulse Pulse Resp BP BP Pulse Ox 11/11/20 08:00 97.9 F 75 16 121/75 95 11/11/20 06:23 98.8 F 93 17 135/81 95 11/11/20 05:00 68 14 102/52 97 11/11/20 04:00 70 20 87/50 97 11/11/20 03:26 99.4 F 82 14 111/59 97 11/11/20 01:01 102.9 F H 90 22 145/82 97 Intake and Output 11/10/20 11/11/20 11/11/20 22:59 06:59 14:59 Other: Weight 61.235 kg - Constitutional General appearance: Present: average body habitus, cooperative, no acute distress Eyes: Present: anicteric sclerae, EOMI, PERRLA, normal appearance ENT: Present: hearing grossly normal, normal oropharynx Ears: bilateral: normal Neck: Present: normal ROM. Absent: lymphadenopathy, rigidity, thyromegaly Carotids: negative: bruit present Thyroid: bilateral: normal size, negative: enlarged, nodule Respiratory: bilateral: CTA, negative: rales, rhonchi, wheezing Cardiovascular; regular; normal: S1, S2 Abnormal Heart Sounds: Absent: systolic murmur, diastolic murmur Gastrointestinal; normal bowel sounds, soft. Absent: distended, organomegaly, tenderness Genitourinary Comment(s): deferred Integumentary: Patient has left foot ulcer. In addition there is circumferential cellulitis involving the left lower extremity distal to the knee Neurologic: Present: CNII-XII intact. Absent: focal deficits Musculoskeletal: Present: gait normal, strength equal bilaterally Psychiatric: Present: A&O x's 3, appropriate affect, intact judgment & insight Results CBC & Chem 7: 11/11/20 02:07 11/12/20 06:13 Labs: Abnormal Lab Results - Last 24 Hours (Table) 11/11/20 11/11/20 11/11/20 Range/Units 02:07 02:07 02:07 WBC 16.2 H (3.8-10.6) k/uL RBC 4.27 L (4.30-5.90) m/uL Neutrophils # 14.6 H (1.3-7.7) k/uL Lymphocytes # 0.6 L (1.0-4.8) k/uL Carbon Dioxide 21 L (22-30) mmol/L BUN 22 H (9-20) mg/dL Plasma Lactic Acid Ramon 3.2 H* (0.7-2.0) mmol/L Thrombosis Risk Factor Assmnt - Choose All That Apply Any of the Below Risk Factors Present?: No Each Risk Factor Represents 3 Points: Age 75 years or older Other congenital or acquired thrombophilia - If yes, enter type in comment: No Thrombosis Risk Factor Assessment Total Risk Factor Score: 3 Thrombosis Risk Factor Assessment Level: Moderate Risk Assessment and Plan Assessment: 1. Sepsis; based on elevated temperature, elevated white blood count and tachycardia 2. Left ankle wound infection; wound care consult; wound culture on last admission grew E. coli and MSSA - patient has been evaluated by vascular surgery and no further debridement is recommended; patient will have outpatient wound care - ID recommending to discontinue IV Zosyn and vancomycin to decrease risk of nephrotoxicity and patient will be started on Unasyn 3 g IV every 6 hours; further recommendations once blood cultures and wound cultures are available 3. Secondary cellulitis of left lower extremity; IV Unasyn 3 g every 6 hours; we will monitor CBC, CRP and pro-calcitonin 4. Hypertension; stable on lisinopril, Coreg and Imdur 5. Hyperlipidemia; Lipitor 40 mg by mouth daily at bedtime 6. CAD/CHF; stable on aspirin, beta blockers, statin and Plavix; Lasix 20 mg daily when necessary 7. Chronic back pain; continue home dose of fentanyl patch 50 MCG; Mobic 7.5 mg daily and oxycodone 10 mg 4 times a day when necessary DVT prophylaxis SCDs/subcu heparin CODE STATUS; Full code
--- NOTE | 2020-11-12 16:24 | P.PN ---
Subjective Progress Note Date: 11/12/20 Principal diagnosis: Sepsis Left ankle wound infection Secondary cellulitis of left lower extremity 75-year-old man who presents to be evaluated for fever. Patient states she does have infection of the left foot that had skin graft by Dr. Lainez 10/24. The patient had the impression that things had been going fairly well. Patient denies other symptoms of infection. No sinus congestion or drainage. No sore throat. No dyspnea, cough, hemoptysis or chest pain. He has not noted change in urination or bowel movements. In the ED white blood count was found to be elevated at 16.2; patient has a left foot wound which is being managed by Dr. Lainez; patient is planned to be admitted to the hospital for IV antibiotic treatment and further evaluation for need to debride left ankle 11/12/2020 Patient is seen and evaluated in room at bedside; continues to complain of marked erythema and pain in left leg Vital signs reveal a temperature of 98.5 with T-max of 100.3 in last 24 hours; pulse 71, respirations 16 and blood pressure 101/50 with SpO2 of 95% on room air ID on board and patient remains on IV antibiotics; Zosyn and vancomycin at discontinued to limit risk of nephrotoxicity and patient has been started on U nasyn 3 g IV every 6 hours; continue with recommended local wound care; vascular surgery on board with no plans for any further debridement at this time; blood cultures are negative to date Objective - Vital Signs Vital signs: Vital Signs Temp 98.5 F 11/12/20 14:00 Pulse 71 11/12/20 14:00 Resp 16 11/12/20 14:00 BP 101/50 11/12/20 14:00 Pulse Ox 95 11/12/20 14:00 Intake & Output 11/11/20 11/12/20 11/12/20 18:59 06:59 18:59 Output Total 225 Balance -225 Weight 61.235 kg Output: Urine 225 Other: Voiding Method Urinal Urinal # Voids 5 2 - Exam General appearance: Present: average body habitus, cooperative, no acute distress Eyes: Present: anicteric sclerae, EOMI, PERRLA, normal appearance Neck: Present: normal ROM. Absent: lymphadenopathy, rigidity, thyromegaly Carotids: negative: bruit present Thyroid: bilateral: normal size, negative: enlarged, nodule Respiratory: bilateral: CTA, negative: rales, rhonchi, wheezing Cardiovascular; regular; normal: S1, S2 Abnormal Heart Sounds: Absent: systolic murmur, diastolic murmur Gastrointestinal; normal bowel sounds, soft. Absent: distended, organomegaly, tenderness Integumentary: Patient has left foot ulcer. In addition there is circumferential cellulitis involving the left lower extremity distal to the knee Neurologic: Present: CNII-XII intact. Absent: focal deficits Musculoskeletal: Present: gait normal, strength equal bilaterally Psychiatric: Present: A&O x's 3, appropriate affect, intact judgment & insight - Labs CBC & Chem 7: 11/11/20 02:07 11/12/20 06:13 Labs: Microbiology - Last 24 Hours (Table) 11/11/20 02:07 Blood Culture - Preliminary Blood No Growth after 24 hours 11/11/20 02:07 Blood Culture - Preliminary Blood No Growth after 24 hours Assessment and Plan Assessment: 1. Sepsis; based on elevated temperature, elevated white blood count and tachycardia 2. Left ankle wound infection; wound care consult; wound culture on last admission grew E. coli and MSSA - patient has been evaluated by vascular surgery and no further debridement is recommended; patient will have outpatient wound care - ID recommending to discontinue IV Zosyn and vancomycin to decrease risk of nephrotoxicity and patient will be started on Unasyn 3 g IV every 6 hours; further recommendations once blood cultures and wound cultures are available 3. Secondary cellulitis of left lower extremity; IV Unasyn 3 g every 6 hours; we will monitor CBC, CRP and pro-calcitonin 4. Hypertension; stable on lisinopril, Coreg and Imdur 5. Hyperlipidemia; Lipitor 40 mg by mouth daily at bedtime 6. CAD/CHF; stable on aspirin, beta blockers, statin and Plavix; Lasix 20 mg daily when necessary 7. Chronic back pain; continue home dose of fentanyl patch 50 MCG; Mobic 7.5 mg daily and oxycodone 10 mg 4 times a day when necessary DVT prophylaxis SCDs/subcu heparin CODE STATUS; Full code
--- NOTE | 2020-11-12 20:02 | PN ---
PROGRESS NOTE DATE OF SERVICE: 11/12/2020 REASON FOR FOLLOWUP: Left lower extremity cellulitis. INTERVAL HISTORY: Patient is currently afebrile. The patient is breathing comfortably. Overall pain and discomfort to the left leg has decreased. No chest pain, shortness of breath or cough. No abdominal pain or diarrhea. PHYSICAL EXAMINATION: VITAL SIGNS: Blood pressure 101/50 with a pulse of 71, temperature 98.5. He is 95% on room air. GENERAL DESCRIPTION: An elderly male lying in bed in no distress. RESPIRATORY SYSTEM: Unlabored breathing, clear to auscultation anteriorly. HEART: S1, S2. Regular rate and rhythm. ABDOMEN: Soft, no tenderness. EXTREMITIES: Left leg swelling and redness slightly decreased. LABS: No new labs have been obtained today. Blood cultures have been negative so far. DIAGNOSTIC IMPRESSION AND PLAN: Patient with acute left lower extremity cellulitis wound to the left lateral malleolar area. The patient to continue with Unasyn. Repeat the blood work tomorrow. Continue supportive care. MMODL / IJN: [id number] /
[2020-11-12] MEDS: ATORVASTATIN 40 MG TAB PO SCH (20:52)
[2020-11-12] MEDS: TAMSULOSIN 0.4 MG CAP.ER.24H PO SCH (20:54)
[2020-11-12] MEDS: lisinopriL 10 MG TAB PO SCH (20:54)
[2020-11-13] MEDS: AMPICILLIN-SULBACTAM 3 GM in SODIUM CHLORIDE 0.9% 100 ML IVPB SCH ×4 (05:20→23:09)
[2020-11-13] MEDS: GABAPENTIN 400 MG CAP PO SCH ×3 (08:00→21:00)
[2020-11-13] MEDS: ASPIRIN 81 MG PO SCH (08:00)
[2020-11-13] MEDS: DOCUSATE 100 MG CAP PO SCH ×3 (08:00→21:00)
[2020-11-13] MEDS: DICYCLOMINE 10 MG CAP PO SCH ×3 (08:00→21:00)
[2020-11-13] MEDS: lisinopriL 20 MG TAB PO SCH (08:01)
[2020-11-13] MEDS: CLOPIDOGREL 75 MG TAB PO SCH (08:01)
[2020-11-13] MEDS: FERROUS SULFATE 325 MG TAB PO SCH (08:01)
[2020-11-13] MEDS: PANTOPRAZOLE 40 MG TABLET PO SCH ×2 (08:01→21:00)
[2020-11-13] MEDS: carvediloL 6.25 MG TAB PO SCH ×2 (08:01→17:20)
[2020-11-13] MEDS: MELOXICAM 7.5 MG TAB PO SCH (08:01)
[2020-11-13] MEDS: CALCIUM CARBONATE 500 MG CHEWABLE PO SCH ×3 (08:01→21:00)
[2020-11-13] MEDS: PRIMIDONE 50 MG TAB PO SCH ×2 (08:01→21:00)
[2020-11-13] MEDS: ISOSORBIDE MONONITRATE ER 30 MG TAB.ER.24H PO SCH ×3 (08:01→21:00)
[2020-11-13] MEDS: CHOLECALCIFEROL 25 MCG (1000 IU) TABLET PO SCH (08:02)
[2020-11-13] MEDS: LIDOCAINE 5% PATCH TOPICAL SCH ×2 (08:02→22:11)
[2020-11-13] MEDS: IPRATROPIUM BROMIDE 0.06% NASAL SPRAY (15 ML) EA NOSTRIL SCH ×3 (08:02→21:03)
[2020-11-13] MEDS: NON FORMULARY DRUG (Naloxegol Oxalate [Movantik] 25 MG Tablet) PO SCH (08:02)
[2020-11-13] MEDS: HEPARIN SODIUM,PORCINE/PF 5,000 UNIT/0.5 ML SYRINGE SQ SCH ×2 (08:02→21:00)
[2020-11-13 11:08] LABS: Basophils # (A) 0.04 X 10*3/uL (0.00-0.10); Basophils % (A) 0.5 %; Eosinophils # (A) 0.64 X 10*3/uL (0.04-0.35); HCT 37.8 % (39.6-50.0); HGB 11.6 g/dL (13.0-17.0); Lymphocytes # (A) 1.41 X 10*3/uL (0.90-5.00); Lymphocytes % (A) 17.6 %; MCH 32.1 pg (27.0-32.0); MCHC 30.7 g/dL (32.0-37.0); MCV 104.7 fL (80.0-97.0); Mean Platelet Volume 10.3 fL (9.5-12.2); Monocytes # (A) 0.82 X 10*3/uL (0.20-1.00); Monocytes % (A) 10.2 %; Neutrophils # (A) 5.09 X 10*3/uL (1.80-7.70); Neutrophils % (A) 63.3 %; Platelet Count 141 X 10*3/uL (140-440); RBC 3.61 X 10*6/uL (4.40-5.60); RDW 14.4 % (11.5-14.5); WBC 8.03 X 10*3/uL (4.50-10.00)
[2020-11-13 11:31] LABS: African American GFR (CKD) 99.9 (60.0-200.0); Anion Gap 5.9 mmol/L (4.00-12.00); C Reactive Protein 9.1 mg/dL (0.0-0.8); Calcium 7.7 mg/dL (8.7-10.3); Carbon Dioxide 24.1 mmol/L (21.6-31.8); Non-African American GFR(CKD) 86.2 (60.0-200.0); Potassium 4.6 mmol/L (3.5-5.5)
--- NOTE | 2020-11-13 14:09 | P.PN ---
Subjective Progress Note Date: 11/13/20 Sepsis Left ankle wound infection Secondary cellulitis of left lower extremity 75-year-old man who presents to be evaluated for fever. Patient states she does have infection of the left foot that had skin graft by Dr. Lainez 10/24. The patient had the impression that things had been going fairly well. Patient denies other symptoms of infection. No sinus congestion or drainage. No sore throat. No dyspnea, cough, hemoptysis or chest pain. He has not noted change in urination or bowel movements. In the ED white blood count was found to be elevated at 16.2; patient has a left foot wound which is being managed by Dr. Lainez; patient is planned to be admitted to the hospital for IV antibiotic treatment and further evaluation for need to debride left ankle 11/12/2020 Patient is seen and evaluated in room at bedside; continues to complain of marked erythema and pain in left leg Vital signs reveal a temperature of 98.5 with T-max of 100.3 in last 24 hours; pulse 71, respirations 16 and blood pressure 101/50 with SpO2 of 95% on room air ID on board and patient remains on IV antibiotics; Zosyn and vancomycin at discontinued to limit risk of nephrotoxicity and patient has been started on Unasyn 3 g IV every 6 hours; continue with recommended local wound care; vascular surgery on board with no plans for any further debridement at this time; blood cultures are negative to date 11/13/2020 Patient is seen and evaluated and follow-up this morning with no acute overnight issues. Patient continues to have some lower left extremity discomfort with some redness although appears improved from yesterday. Infectious disease is following. Patient is maintained on IV antibiotics in the form of Unasyn and will continue at this time. Blood cultures are negative. Will discuss with in fectious disease about discharge antibiotics and the possibility of midline her PICC line placement. Review of systems: Constitutional: No reports of fatigue, fever, or chills Cardiovascular: No reports of chest pain or palpitations Respiratory: No reports of shortness of breath or cough GI: No reports of nausea, vomiting, or diarrhea : No reports of dysuria or retention Neurovascular: reports generalized weakness All medications have been reviewed Objective - Vital Signs Vital signs: Vital Signs Temp 98.5 F 11/13/20 08:00 Pulse 66 11/13/20 08:00 Resp 18 05/17/21 08:00 BP 171/83 11/13/20 08:00 Pulse Ox 96 11/13/20 08:00 Intake & Output 11/12/20 11/13/20 11/13/20 18:59 06:59 18:59 Other: Voiding Method Urinal # Voids 5 1 # Bowel Movements 0 - Exam Gen: This is a 75-year-old male awake, alert and oriented 3, well-developed, well-nourished. Thin built. HEENT: Head is atraumatic, normocephalic. Pupils equal, round. Sclerae is a nicteric. NECK: Supple. No JVD. No lymphadenopathy. No thyromegaly. LUNGS: Clear to auscultation. No wheezes or rhonchi. No intercostal retractions. HEART: Regular rate and rhythm. No murmur. ABDOMEN: Soft. Bowel sounds are present. No masses. No tenderness. EXTREMITIES: No pedal edema. No calf tenderness. Left lower extremity redness with localization of temp on palpation, appears improved, left foot ulcer noted NEUROLOGICAL: Patient is awake, alert and oriented x3. Cranial nerves 2 through 12 are grossly intact. - Labs CBC & Chem 7: 11/13/20 06:19 11/13/20 06:19 Labs: Abnormal Lab Results - Last 24 Hours (Table) 11/13/20 11/13/20 11/13/20 Range/Units 06:19 06:19 06:19 RBC 3.61 L (4.40-5.60) X 10*6/uL Hgb 11.6 L (13.0-17.0) g/dL Hct 37.8 L (39.6-50.0) % MCV 104.7 H (80.0-97.0) fL MCH 32.1 H (27.0-32.0) pg MCHC 30.7 L (32.0-37.0) g/dL Eosinophils # 0.64 H (0.04-0.35) X 10*3/uL Chloride 113 H (96-109) mmol/L Calcium 7.7 L (8.7-10.3) mg/dL C-Reactive Protein 9.1 H (0.0-0.8) mg/dL Procalcitonin 1.12 H (0.02-0.09) ng/mL Microbiology - Last 24 Hours (Table) 11/11/20 02:07 Blood Culture - Preliminary Blood No Growth after 48 hours 11/11/20 02:07 Blood Culture - Preliminary Blood No Growth after 48 hours Assessment and Plan Assessment: Sepsis, present on admission Left ankle wound infection Secondary cellulitis of the left lower extremity Hypertension Hyperlipidemia Coronary artery disease Congestive heart failure, not an exacerbation Chronic back pain DVT prophylaxis GI prophylaxis Full code Plan: Continue with IV antibiotic for the form of Unasyn. Infectious disease following and will discuss possible midline her PICC line placement for outpatient IV antibiotic therapy. Vascular surgery evaluated the patient recommending no surgical intervention at this time. Continue with local wound care. Bone scan was ordered and pending at this time and will await report.
[2020-11-13] MEDS: oxyCODONE-APAP 10-325MG 1 EACH TAB PO PRN ×2 (14:20→22:10)
[2020-11-13] MEDS: TAMSULOSIN 0.4 MG CAP.ER.24H PO SCH (21:00)
[2020-11-13] MEDS: ATORVASTATIN 40 MG TAB PO SCH (21:00)
--- NOTE | 2020-11-13 23:06 | PN ---
PROGRESS NOTE DATE OF SERVICE: 11/13/2020. REASON FOR FOLLOW UP: Left lower extremity wound with concern for underlying osteo and left leg cellulitis. INTERVAL HISTORY: Patient is currently afebrile. The patient is breathing comfortably. The patient denies having any chest pain or shortness of breath or cough. No abdominal pain. Overall pain and discomfort to the left lateral ankle wound has slightly decreased. PHYSICAL EXAMINATION: Blood pressure 147/74 with a pulse of 55, temperature 98.6. He is 98% on room air. General description: The patient is an elderly male lying in bed in no distress. Respiratory system: Unlabored breathing, clear to auscultation anteriorly. Heart S1, S2. Regular rate and rhythm. Abdomen soft, no tenderness. Left lateral wound is currently covered. Left leg swelling and redness have slightly decreased. LABS: Hemoglobin is 11.6, white count normalized to 8.03, BUN of 12, creatinine 0.8. 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 The patient did have a bone extracted from that area. We will obtain a bone scan to make sure no evidence of any infection. If the bone scan is positive, patient will need a PICC line IV antibiotic. If negative, antibiotic will be switched over to oral. Continue Unasyn for now. Continue supportive care. MMODL / IJN: [id number] /
[2020-11-14] MEDS: AMPICILLIN-SULBACTAM 3 GM in SODIUM CHLORIDE 0.9% 100 ML IVPB SCH ×4 (05:20→23:02)
[2020-11-14] MEDS: lisinopriL 20 MG TAB PO SCH (07:03)
[2020-11-14] MEDS: CLOPIDOGREL 75 MG TAB PO SCH (07:03)
[2020-11-14] MEDS: ASPIRIN 81 MG PO SCH (07:03)
[2020-11-14] MEDS: CALCIUM CARBONATE 500 MG CHEWABLE PO SCH ×3 (07:03→20:28)
[2020-11-14] MEDS: oxyCODONE-APAP 10-325MG 1 EACH TAB PO PRN ×3 (07:03→22:01)
[2020-11-14] MEDS: PANTOPRAZOLE 40 MG TABLET PO SCH ×2 (07:03→20:28)
[2020-11-14] MEDS: CHOLECALCIFEROL 25 MCG (1000 IU) TABLET PO SCH (07:03)
[2020-11-14] MEDS: DOCUSATE 100 MG CAP PO SCH ×3 (07:04→20:28)
[2020-11-14] MEDS: carvediloL 6.25 MG TAB PO SCH ×2 (07:04→17:23)
[2020-11-14] MEDS: MELOXICAM 7.5 MG TAB PO SCH (07:04)
[2020-11-14] MEDS: FERROUS SULFATE 325 MG TAB PO SCH (07:04)
[2020-11-14] MEDS: DICYCLOMINE 10 MG CAP PO SCH ×3 (07:04→20:28)
[2020-11-14] MEDS: ISOSORBIDE MONONITRATE ER 30 MG TAB.ER.24H PO SCH ×3 (07:04→20:28)
[2020-11-14] MEDS: GABAPENTIN 400 MG CAP PO SCH ×3 (07:04→20:28)
[2020-11-14] MEDS: NON FORMULARY DRUG (Naloxegol Oxalate [Movantik] 25 MG Tablet) PO SCH (07:05)
[2020-11-14] MEDS: LIDOCAINE 5% PATCH TOPICAL SCH ×2 (07:05→22:01)
[2020-11-14] MEDS: HEPARIN SODIUM,PORCINE/PF 5,000 UNIT/0.5 ML SYRINGE SQ SCH ×2 (07:05→20:28)
[2020-11-14] MEDS: PRIMIDONE 50 MG TAB PO SCH ×2 (07:05→20:28)
[2020-11-14] MEDS: IPRATROPIUM BROMIDE 0.06% NASAL SPRAY (15 ML) EA NOSTRIL SCH ×3 (07:06→20:34)
--- NOTE | 2020-11-14 14:27 | P.PN ---
Subjective Progress Note Date: 11/14/20 Sepsis Left ankle wound infection Secondary cellulitis of left lower extremity 75-year-old man who presents to be evaluated for fever. Patient states she does have infection of the left foot that had skin graft by Dr. Lainez 10/24. The patient had the impression that things had been going fairly well. Patient denies other symptoms of infection. No sinus congestion or drainage. No sore throat. No dyspnea, cough, hemoptysis or chest pain. He has not noted change in urination or bowel movements. In the ED white blood count was found to be elevated at 16.2; patient has a left foot wound which is being managed by Dr. Lainez; patient is planned to be admitted to the hospital for IV antibiotic treatment and further evaluation for need to debride left ankle 11/12/2020 Patient is seen and evaluated in room at bedside; continues to complain of marked erythema and pain in left leg Vital signs reveal a temperature of 98.5 with T-max of 100.3 in last 24 hours; pulse 71, respirations 16 and blood pressure 101/50 with SpO2 of 95% on room air ID on board and patient remains on IV antibiotics; Zosyn and vancomycin at discontinued to limit risk of nephrotoxicity and patient has been started on Unasyn 3 g IV every 6 hours; continue with recommended local wound care; vascular surgery on board with no plans for any further debridement at this time; blood cultures are negative to date 11/13/2020 Patient is seen and evaluated and follow-up this morning with no acute overnight issues. Patient continues to have some lower left extremity discomfort with some redness although appears improved from yesterday. Infectious disease is following. Patient is maintained on IV antibiotics in the form of Unasyn and will continue at this time. Blood cultures are negative. Will discuss with in fectious disease about discharge antibiotics and the possibility of midline her PICC line placement. 11/14/2020 Patient is seen and evaluated this morning and follow-up and continues to be on IV Zosyn with infectious disease following. Scheduled have a bone scan yesterday although unable to complete due to staffing and is being done this morning. Report pending and will await report. Infectious disease following and will arrange for possible PICC line is bone scan is positive and patient maurice l require IV antibiotic therapy in the outpatient setting. Will discuss with case management about discharge planning needs. Patient states his plan is to return home upon discharge. CRP trending down at 5.9. Repeat basic labs in the morning. Patient remains afebrile. Review of systems: Constitutional: No reports of fatigue, fever, or chills Cardiovascular: No reports of chest pain or palpitations Respiratory: No reports of shortness of breath or cough GI: No reports of nausea, vomiting, or diarrhea : No reports of dysuria or retention Neurovascular: reports generalized weakness All medications have been reviewed Objective - Vital Signs Vital signs: Vital Signs Temp 97.9 F 11/14/20 08:00 Pulse 61 11/14/20 08:00 Resp 18 11/14/20 08:00 BP 136/72 11/14/20 08:00 Pulse Ox 96 11/14/20 08:00 Intake & Output 11/13/20 11/14/20 11/14/20 18:59 06:59 18:59 Other: Voiding Method Urinal # Voids 3 3 # Bowel Movements 1 - Exam Gen: This is a 75-year-old male sleeping although easily arousable, alert and oriented 3, well-developed, well-nourished. Thin built. HEENT: Head is atraumatic, normocephalic. Pupils equal, round. Sclerae is anicteric. NECK: Supple. No JVD. No lymphadenopathy. No thyromegaly. LUNGS: Clear to auscultation. No wheezes or rhonchi. No intercostal retractions. HEART: Regular rate and rhythm. No murmur. ABDOMEN: Soft. Bowel sounds are present. No masses. No tenderness. EXTREMITIES: No pedal edema. No calf tenderness. Left lower extremity redness with localization of temp on palpation, appears improved, left foot ulcer noted with dressings are dry and intact NEUROLOGICAL: Patient is alert and oriented x3. Cranial nerves 2 through 12 are grossly intact. - Labs CBC & Chem 7: 11/13/20 06:19 11/13/20 06:19 Labs: Abnormal Lab Results - Last 24 Hours (Table) 11/13/20 11/13/20 11/13/20 Range/Units 06:19 06:19 06:19 RBC 3.61 L (4.40-5.60) X 10*6/uL Hgb 11.6 L (13.0-17.0) g/dL Hct 37.8 L (39.6-50.0) % MCV 104.7 H (80.0-97.0) fL MCH 32.1 H (27.0-32.0) pg MCHC 30.7 L (32.0-37.0) g/dL Eosinophils # 0.64 H (0.04-0.35) X 10*3/uL Chloride 113 H (96-109) mmol/L Calcium 7.7 L (8.7-10.3) mg/dL C-Reactive Protein 9.1 H (0.0-0.8) mg/dL Procalcitonin 1.12 H (0.02-0.09) ng/mL Microbiology - Last 24 Hours (Table) 11/11/20 02:07 Blood Culture - Preliminary Blood No Growth after 72 hours 11/11/20 02:07 Blood Culture - Preliminary Blood No Growth after 72 hours Assessment and Plan Assessment: Sepsis, present on admission Left ankle wound infection Secondary cellulitis of the left lower extremity Hypertension Hyperlipidemia Coronary artery disease Congestive heart failure, not in exacerbation Chronic back pain DVT prophylaxis GI prophylaxis Full code Plan: Continue with IV antibiotic for the form of Unasyn. Infectious disease following and will discuss possible midline her PICC line placement for outpatient IV antibiotic therapy. Vascular surgery evaluated the patient recommending no surgical intervention at this time. Continue with local wound care. Bone scan was ordered and pending at this time and will await report. Bone scan was not done as ordered yesterday due to staffing. Will repeat a.m. labs. To discuss with case management about discharge planning needs with the possibility of IV antibiotics outpatient.
--- NOTE | 2020-11-14 16:03 | NM ---
"EXAMINATION TYPE: NM bone 3 phase DATE OF EXAM: 11/14/2020 COMPARISON: Three-phase bone scan June 26, 2020 HISTORY: Left lateral ankle wound Triple phase bone scintigraphy was performed following the injection of 22.7 mCi Tc 99m MDP. Immedia te images and 7 hours post injection images acquired. Three-phase imaging of bilateral ankles and fee t. FINDINGS: Dynamic arterial phase images shows increased radiotracer uptake to the left ankle and foot versus th e opposite right side similar to prior bone scan. Soft tissue phase imaging shows increased radiotracer uptake left ankle lateral aspect at area of cli nical concern similar to prior. There is new increased radiotracer uptake left foot near first metata rsophalangeal joint. Delayed phase images show increased radiotracer uptake at level of the lateral malleolus left ankle s imilar in appearance to prior bone scan. Increased uptake at first metatarsophalangeal joint is redem onstrated presumed degenerative. IMPRESSION: Redemonstration of abnormal three-phase radiotracer uptake to the area of clinical concer n lateral ankle and lateral malleolus suggesting recurrent acute osteomyelitis at this level. A [place] level critical message alert has been initiated for Jb Cline MD~[id number] via the [employer] | Critical Results System on 11/14/2020 4:00 PM. This message alert has been sent to Jb wright MD~[id number] via the preferences provided by the clinician for the receipt of Radiology Critical Fin giovany. Message ID [id number]."
[2020-11-14 16:45] LABS: Glucose,Whole Blood 89 mg/dL (75-99)
[2020-11-14] MEDS: TAMSULOSIN 0.4 MG CAP.ER.24H PO SCH (20:28)
[2020-11-14] MEDS: ATORVASTATIN 40 MG TAB PO SCH (20:28)
--- NOTE | 2020-11-14 20:45 | PN ---
PROGRESS NOTE DATE OF SERVICE: 11/14/2020 REASON FOR FOLLOWUP: Left lateral ankle osteomyelitis and left leg cellulitis. INTERVAL HISTORY: The patient is currently afebrile. He is breathing comfortably. The leg swelling and redness are slightly decreased. Pain to the left lateral ankle area has slightly decreased as well. The patient denies having any chest pain or shortness of breath or cough. No abdominal pain or diarrhea. PHYSICAL EXAMINATION: Blood pressure 138/78 with a pulse of 61, temperature 98.7. He is 94% on room air. General description is an elderly male lying in bed in no distress. RESPIRATORY SYSTEM: Unlabored breathing. Clear to auscultation anteriorly. HEART: S1, S2. Regular rate and rhythm. ABDOMEN: Soft. No tenderness. Leg leg wound is currently dressed. The leg swelling and redness have decreased. LABS: Hemoglobin is 11.6, white count 8.03. BUN of 12, creatinine 0.8. DIAGNOSTIC IMPRESSION AND PLAN: Patient with left lateral ankle chronic nonhealing wound with concern for underlying osteomyelitis in this patient who did have evidence of secondary cellulitis, abnormal bone scan suspicious for osteomyelitis. He is on Unasyn. He will get a PICC line. Plan for Rocephin 2 grams daily for 6 weeks with weekly monitoring of his blood work. Continue supportive care. MMODL / IJN: [id number] /
[2020-11-15] MEDS: AMPICILLIN-SULBACTAM 3 GM in SODIUM CHLORIDE 0.9% 100 ML IVPB SCH (00:07)
[2020-11-15] MEDS: DOCUSATE 100 MG CAP PO SCH (07:43)
[2020-11-15] MEDS: HEPARIN SODIUM,PORCINE/PF 5,000 UNIT/0.5 ML SYRINGE SQ SCH (07:43)
[2020-11-15] MEDS: ASPIRIN 81 MG PO SCH (07:43)
[2020-11-15] MEDS: DICYCLOMINE 10 MG CAP PO SCH (07:43)
[2020-11-15] MEDS: carvediloL 6.25 MG TAB PO SCH (07:43)
[2020-11-15] MEDS: PRIMIDONE 50 MG TAB PO SCH (07:43)
[2020-11-15] MEDS: GABAPENTIN 400 MG CAP PO SCH (07:43)
[2020-11-15] MEDS: FERROUS SULFATE 325 MG TAB PO SCH (07:43)
[2020-11-15] MEDS: CLOPIDOGREL 75 MG TAB PO SCH (07:43)
[2020-11-15] MEDS: LIDOCAINE 5% PATCH TOPICAL SCH (07:44)
[2020-11-15] MEDS: ISOSORBIDE MONONITRATE ER 30 MG TAB.ER.24H PO SCH (07:44)
[2020-11-15] MEDS: CHOLECALCIFEROL 25 MCG (1000 IU) TABLET PO SCH (07:44)
[2020-11-15] MEDS: CALCIUM CARBONATE 500 MG CHEWABLE PO SCH (07:44)
[2020-11-15] MEDS: NON FORMULARY DRUG (Naloxegol Oxalate [Movantik] 25 MG Tablet) PO SCH (07:45)
[2020-11-15] MEDS: MELOXICAM 7.5 MG TAB PO SCH (07:46)
[2020-11-15] MEDS: lisinopriL 20 MG TAB PO SCH (07:46)
[2020-11-15] MEDS: PANTOPRAZOLE 40 MG TABLET PO SCH (07:47)
[2020-11-15] MEDS: IPRATROPIUM BROMIDE 0.06% NASAL SPRAY (15 ML) EA NOSTRIL SCH (07:47)
[2020-11-15 08:09] VITALS: BP 139/69; PULSE 60; RESP 18; TEMP 98.8
[2020-11-15] MEDS ORDERED: LIDOCAINE 1% INJ 10MG/ML (20 ML MDV) ONE (13:53)
[2020-11-15] MEDS ORDERED: LIDOCAINE 1% INJ 10MG/ML (20 ML MDV) SQ ONE (14:10)
--- NOTE | 2020-11-15 14:30 | PN ---
PROGRESS NOTE DATE OF SERVICE: 11/15/2020 REASON FOR FOLLOWUP: Left lateral malleolar osteomyelitis and leg cellulitis. INTERVAL HISTORY: The patient is currently afebrile. Patient is breathing comfortably. The patient denies having any chest pain, shortness of breath or cough. No abdominal pain. Pain or discomfort to the left lateral leg is currently controlled. PHYSICAL EXAMINATION: Blood pressure 139/69, pulse of 60, temperature 98.8. He is 96% on room air. General description is an elderly male lying in bed in no distress. RESPIRATORY SYSTEM: Unlabored breathing, clear to auscultation anteriorly. HEART: S1, S2. Regular rate and rhythm. ABDOMEN: Soft, no tenderness. Left lateral medial wound with minimal slough tissue. Surrounding swelling, redness has much improved, no drainage. LABS: Blood culture has been negative. DIAGNOSTIC IMPRESSION AND PLAN: Patient with left lateral malleolar chronic nonhealing wound with underlying osteomyelitis and severe cellulitis of the left lower extremity. Overall improvement on Unasyn. The patient recent cultures done in outpatient setting were positive for MSSA and Escherichia coli. Antibiotic adjusted to Rocephin 2 grams daily for 6 weeks with anaerobe culture negative at that point with weekly monitoring of CBC, BMP and sedimentation rate and close outpatient followup. MMODL / IJN: [id number] /
--- NOTE | 2020-11-15 16:45 | IR ---
EXAMINATION TYPE: IR cvc insert >=5 years DATE OF EXAM: 11/15/2020 COMPARISON: NONE CLINICAL HISTORY: Infection Needs long-term intravenous access for antibiotics. PROCEDURE: Hand hygiene obtained with soap and water and alcohol-based hand rub. After informed consent, the skin overlying the left brachial vein was localized with ultrasound and n oted to be compressible and patent. An ultrasound image was obtained and submitted on the patient's chart. The overlying skin was prepped and draped and Lidocaine was used for local anesthesia. A ski n tawana was made with a scalpel. Access was gained to the vein under ultrasound guidance with a 21 ga uge needle and a 0.018 inch wire was advanced. Access site was dilated with Peel-Away sheath and cat heter tailored to the appropriate length and advanced such that the distal tip is at the cavoatrial j unction. Spot image was obtained verifying placement. Catheter was fixed to the skin and a sterile dressing was placed following hemostasis. Catheter was aspirated and flushed with saline. Patient w as discharged in stable condition without complication.Maximal barrier technique is utilized. Ultras ound image is documented on the chart. Ultrasound used with sterile technique. Fluoro time and fluoroscopic images submitted to document procedure: 241 intraoperative C-arm images, 0.6 minutes fluoroscopy time IMPRESSION: STATUS POST ULTRASOUND AND FLUOROSCOPIC GUIDED PICC LINE PLACEMENT, READY FOR USE. THIS PROCEDURE WAS PERFORMED BY THE UNDERSIGNED.
--- NOTE | 2020-11-16 12:22 | P.DS ---
Providers Date of admission: 11/11/20 04:40 Expected date of discharge: 11/15/20 Attending physician: Chapin العلي MD Consults: 11/11/20 06:23 Consult Physician Routine Consulting Provider: Emile Lainez Consult Reason/Comments: Your patient. Left foot infection Do you want consulting provider notified?: Yes 11/11/20 11:13 Consult Physician Routine Consulting Provider: Jb Cline Consult Reason/Comments: cellulitis/ L ankle ulcer Do you want consulting provider notified?: Yes Primary care physician: Ary Graves Hospital Course: Final diagnosis Sepsis, present on admission Left ankle wound infection Secondary cellulitis of the left lower extremity Hypertension Hyperlipidemia Coronary artery disease Congestive heart failure, not in exacerbation Chronic back pain DVT prophylaxis GI prophylaxis Full code Discharge disposition Patient is being discharged in a stable condition with guarded prognosis to home. Patient will have home care in the outpatient setting. Patient will follow-up with Dr. Mcallister in the outpatient setting upon discharge. Patient is to continue with IV antibiotics in the form of ceftriaxone 2 g daily for the next 6 weeks and follow-up with infectious disease Dr. Cline at the wound center. Total time taken is greater than 35 minutes. Hospital course Sepsis Left ankle wound infection Secondary cellulitis of left lower extremity 75-year-old man who presents to be evaluated for fever. Patient states she does have infection of the left foot that had skin graft by Dr. Lainez 10/24. The patient had the impression that things had been going fairly well. Patient denies other symptoms of infection. No sinus congestion or drainage. No sore throat. No dyspnea, cough, hemoptysis or chest pain. He has not noted change in urination or bowel movements. In the ED white blood count was found to be elevated at 16.2; patient has a left foot wound which is being managed by Dr. Lainez; patient is planned to be admitted to the hospital for IV antibiotic treatment and further evaluation for need to debride left ankle 11/12/2020 Patient is seen and evaluated in room at bedside; continues to complain of marked erythema and pain in left leg Vital signs reveal a temperature of 98.5 with T-max of 100.3 in last 24 hours; pulse 71, respirations 16 and blood pressure 101/50 with SpO2 of 95% on room air ID on board and patient remains on IV antibiotics; Zosyn and vancomycin at discontinued to limit risk of nephrotoxicity and patient has been started on Unasyn 3 g IV every 6 hours; continue with recommended local wound care; vascular surgery on board with no plans for any further debridement at this time; blood cultures are negative to date 11/13/2020 Patient is seen and evaluated and follow-up this morning with no acute overnight issues. Patient continues to have some lower left extremity discomfort with some redness although appears improved from yesterday. Infectious disease is following. Patient is maintained on IV antibiotics in the form of Unasyn and will continue at this time. Blood cultures are negative. Will discuss with infectious disease about discharge antibiotics and the possibility of midline her PICC line placement. 11/14/2020 Patient is seen and evaluated this morning and follow-up and continues to be on IV Zosyn with infectious disease following. Scheduled have a bone scan ye although unable to complete due to staffing and is being done this morning. Report pending and will await report. Infectious disease following and will arrange for possible PICC line is bone scan is positive and patient will require IV antibiotic therapy in the outpatient setting. Will discuss with case management about discharge planning needs. Patient states his plan is to return home upon discharge. CRP trending down at 5.9. Repeat basic labs in the morning. Patient remains afebrile. 11/15/2020 Patient was seen and evaluated and follow-up this morning with no acute overnigh t issues. Patient receiving a PICC line and will transition IV antibiotics to ceftriaxone as he will continue with this 2 g daily for the next 6 weeks and close outpatient follow-up at the wound care center with infectious disease. Currently no reports of chest pain, shortness of breath, or palpitations. Patient is afebrile. No reports of nausea or vomiting and patient is tolerating diet. Patient will be discharged home today with daughter. On exam vital signs are stable. Cardio S1, S2 are muffled. Respiratory system shows diminished breath sounds at the bases with no wheezing or rhonchi noted. Abdomen is soft and nontender. Nervous system shows no focal deficits. Please refer to medication reconciliation sheet for a list of medications. Patient Condition at Discharge: Fair Plan - Discharge Summary Discharge Rx Participant: Yes New Discharge Prescriptions: New cefTRIAXone [Rocephin] 2,000 mg IVP Q24HR #42 vial Acetaminophen Tab [Tylenol] 650 mg PO Q6HR PRN tab PRN Reason: Fever And/ Or Pain Continue Nitroglycerin Sl Tabs [Nitrostat] 0.4 mg SUBLINGUAL Q5M PRN PRN Reason: Angina fentaNYL 50MCG/HR PATCH [Duragesic 50MCG/HR] 1 patch TRANSDERM Q72H modafiniL [Provigil] 200 mg PO BID Lansoprazole [Prevacid] 30 mg PO BID Atorvastatin Calcium [Lipitor] 40 mg PO HS Aspirin EC [Ecotrin Low Dose] 81 mg PO DAILY carvediloL [Coreg] 6.25 mg PO BID Isosorbide Mononitrate ER [Imdur] 30 mg PO TID Clopidogrel [Plavix] 75 mg PO DAILY Furosemide [Lasix] 20 mg PO DAILY PRN PRN Reason: Edema Tamsulosin HCl [Flomax] 0.4 mg PO HS Primidone [Mysoline] 50 mg PO BID Naloxegol Oxalate [Movantik] 25 mg PO DAILY Calcium Carbonate [Calcium] 600 mg PO TID Cholecalciferol [Vitamin D3 (25 Mcg = 1000 Iu)] 25 mcg PO DAILY Dicyclomine [Bentyl] 10 mg PO TID Docusate [Colace] 100 mg PO TID Meloxicam [Mobic] 7.5 mg PO DAILY Benazepril HCl 10 mg PO DAILY Denosumab [Prolia] 60 mg SQ Q168D Ferrous Sulfate [Iron (65 MG Elemental)] 325 mg PO DAILY Gabapentin [Neurontin] 800 mg PO TID Ipratropium [place] 0.06%Nasal [Atrovent Nasal 0.06%] 2 spray EA NOSTRIL TID oxyCODONE HCL [oxyCODONE HCL (IR)] 10 mg PO Q6H PRN PRN Reason: Pain Discharge Medication List Aspirin EC [Ecotrin Low Dose] 81 mg PO DAILY 09/04/14 [History] Atorvastatin Calcium [Lipitor] 40 mg PO HS 09/04/14 [History] Lansoprazole [Prevacid] 30 mg PO BID 09/04/14 [History] Nitroglycerin Sl Tabs [Nitrostat] 0.4 mg SUBLINGUAL Q5M PRN 09/04/14 [History] fentaNYL 50MCG/HR PATCH [Duragesic 50MCG/HR] 1 patch TRANSDERM Q72H 09/04/14 [History] modafiniL [Provigil] 200 mg PO BID 09/04/14 [History] Clopidogrel [Plavix] 75 mg PO DAILY 08/28/16 [History] Furosemide [Lasix] 20 mg PO DAILY PRN 08/28/16 [History] Isosorbide Mononitrate ER [Imdur] 30 mg PO TID 08/28/16 [History] carvediloL [Coreg] 6.25 mg PO BID 08/28/16 [History] Tamsulosin HCl [Flomax] 0.4 mg PO HS 10/14/17 [History] Primidone [Mysoline] 50 mg PO BID 12/28/18 [History] Naloxegol Oxalate [Movantik] 25 mg PO DAILY 07/14/20 [History] Benazepril HCl 10 mg PO DAILY 10/20/20 [History] Calcium Carbonate [Calcium] 600 mg PO TID 11/11/20 [History] Cholecalciferol [Vitamin D3 (25 Mcg = 1000 Iu)] 25 mcg PO DAILY 11/11/20 [History] Denosumab [Prolia] 60 mg SQ Q168D 11/11/20 [History] Dicyclomine [Bentyl] 10 mg PO TID 11/11/20 [History] Docusate [Colace] 100 mg PO TID 11/11/20 [History] Ferrous Sulfate [Iron (65 MG Elemental)] 325 mg PO DAILY 11/11/20 [History] Gabapentin [Neurontin] 800 mg PO TID 11/11/20 [History] Ipratropium [place] 0.06%Nasal [Atrovent Nasal 0.06%] 2 spray EA NOSTRIL TID 11/11/20 [History] Meloxicam [Mobic] 7.5 mg PO DAILY 11/11/20 [History] oxyCODONE HCL [oxyCODONE HCL (IR)] 10 mg PO Q6H PRN 11/11/20 [History] Acetaminophen Tab [Tylenol] 650 mg PO Q6HR PRN tab 11/15/20 [Rx] cefTRIAXone [Rocephin] 2,000 mg IVP Q24HR #42 vial 11/15/20 [Rx] Follow up Appointment(s)/Referral(s): Star Mcallister MD [Primary Care Provider] - 11/20/20 9:20 am [facility], [NON-STAFF] - ([facility] will call you to schedule the time your first visit on 11/16/20 to begin your outpatient IV antibiotic teaching and infusions. ) [facility] [NON-STAFF] - ([facility] will deliver IV antibiotic supplies to your house tonight. They will call before they deliver. ) [facility] [NON-STAFF] - 1 Week Jb Cline MD [STAFF PHYSICIAN] - 1 Week Ambulatory/Diagnostic Orders: Basic Metabolic Panel [LAB.AMB] Location: None Selected C Reactive Protein [LAB.AMB] Location: None Selected Complete Blood Count w/diff [LAB.AMB] Location: None Selected Erythrocyte Sedimentation Rate [LAB.AMB] Location: None Selected Activity/Diet/Wound Care/Special Instructions: Activity Limited until follow-up Follow-up with primary care provider upon discharge Continue with IV antibiotic therapy and follow-up at the wound center Continue regular diet Continue with home care Continue with local wound care Recommend weekly labs for close outpatient monitoring Discharge Disposition: HOME WITH HOME HEALTH SERVICES
== END 2020-11-15 15:50 | disposition home health service (06) | DRG 872 ==
LOC: EC 00:37 → 4SSUR 04:40
PROVIDERS: ADMIT Internal Medicine; ATTEND Internal Medicine
PROC: B548ZZA Ultrasonography of Superior Vena Cava, Guidance (ICD-10-PCS; 2020-11-15)
PROC: 02HV33Z Insertion of Infusion Device into Superior Vena Cava, Percutaneous Approach (ICD-10-PCS; principal; 2020-11-15 16:55)
DX: A41.9 Sepsis, unspecified organism (principal); T86.822 Skin graft (allograft) (autograft) infection; L03.116 Cellulitis of left lower limb; L97.329 Non-pressure chronic ulcer of left ankle with unspecified severity; M86.9 Osteomyelitis, unspecified; Z79.82 Long term (current) use of aspirin; Z79.02 Long term (current) use of antithrombotics/antiplatelets; Z79.1 Long term (current) use of non-steroidal anti-inflammatories (NSAID); Z95.1 Presence of aortocoronary bypass graft; Z20.822 Contact with and (suspected) exposure to COVID-19; I25.2 Old myocardial infarction; Z96.653 Presence of artificial knee joint, bilateral; Z87.891 Personal history of nicotine dependence; E78.5 Hyperlipidemia, unspecified; I25.10 Atherosclerotic heart disease of native coronary artery without angina pectoris; I50.9 Heart failure, unspecified; I11.0 Hypertensive heart disease with heart failure; G89.29 Other chronic pain; M54.9 Dorsalgia, unspecified; Z95.5 Presence of coronary angioplasty implant and graft; Z86.73 Personal history of transient ischemic attack (TIA), and cerebral infarction without residual deficits; H54.7 Unspecified visual loss
CPT/HCPCS: 36415; 36573; 71046; 78315; 80048; 80053; 81003; 82565; 83605; 84145; 85025; 85652; 86140; 87040; 87635; 93005; 96361; 96374; 99285

== ENCOUNTER 2022-03-12 19:12 | Inpatient (IN) | payer MEDICARE ==
[2022-03-12] MEDS ORDERED: ACETAMINOPHEN TAB 500 MG TAB PO STA (19:44)
[2022-03-12] MEDS ORDERED: IBUPROFEN 600 MG TAB PO STA (19:44)
[2022-03-12] MEDS ORDERED: VANCOMYCIN IV PER PHARMACY 1 EACH MISC MISCELLANE PRN (19:44)
--- NOTE | 2022-03-12 19:59 | ED ---
General Adult HPI - General Source: patient, EMS, RN notes reviewed, old records reviewed Mode of arrival: EMS Limitations: no limitations <Jack Infante - Last Filed: 03/12/22 20:53> <Huber Hensley - Last Filed: 03/12/22 22:41> - General Chief complaint: Weakness Stated complaint: weakness Time Seen by Provider: 03/12/22 19:30 - History of Present Illness Initial comments: This is a 76-year-old male who presents emergency Department complaining that he feels weak all over. Patient states he was in bed last night and he urinated in bed and then later in the day he was so weak he slid onto the floor was unable to get up. Patient also complains of a headache. Patient states he has no numbness or weakness. Patient denies any blurred vision or slurred speech per patient denies any chest pain palpitations difficulty breathing or shortness of breath per patient denies any cough. Patient denies abdominal pain patient denies nausea vomiting or diarrhea. He states he has a wound on his right heel. (Jack Infante) - Related Data Home Medications Medication Instructions Recorded Confirmed Atorvastatin Calcium [Lipitor] 40 mg PO HS 09/04/14 03/12/22 Lansoprazole [Prevacid] 30 mg PO BID 09/04/14 03/12/22 Nitroglycerin Sl Tabs [Nitrostat] 0.4 mg SUBLINGUAL Q5M PRN 09/04/14 03/12/22 fentaNYL 50MCG/HR PATCH [Duragesic 1 patch TRANSDERM Q72H 09/04/14 03/12/22 50MCG/HR] modafiniL [Provigil] 200 mg PO BID 09/04/14 03/12/22 Clopidogrel [Plavix] 75 mg PO DAILY 08/28/16 03/12/22 Isosorbide Mononitrate ER [Imdur] 30 mg PO DAILY 08/28/16 03/12/22 carvediloL [Coreg] 6.25 mg PO BID 08/28/16 03/12/22 Tamsulosin HCl [Flomax] 0.4 mg PO HS 10/14/17 03/12/22 Primidone [Mysoline] 50 mg PO BID 12/28/18 03/12/22 Benazepril HCl 10 mg PO DAILY 10/20/20 03/12/22 Denosumab [Prolia] 60 mg SQ Q168D 11/11/20 03/12/22 Gabapentin [Neurontin] 800 mg PO TID 11/11/20 03/12/22 Azelastine HCl [Astepro] 1 spray NASAL BID 03/12/22 03/12/22 Baclofen 10 mg PO HS 03/12/22 03/12/22 Furosemide [Lasix] 40 mg PO DAILY 03/12/22 03/12/22 Lidocaine 5% Patch [Lidoderm] 3 patch TOPICAL DAILY 03/12/22 03/12/22 Meloxicam [Mobic] 15 mg PO DAILY 03/12/22 03/12/22 Naloxegol Oxalate [Movantik] 12.5 mg PO DAILY 03/12/22 03/12/22 oxyCODONE HCL/ACETAMINOPHEN 1 tab PO QID 03/12/22 03/12/22 [Percocet 10-325 mg] Allergies Allergy/AdvReac Type Severity Reaction Status Date / Time meperidine [From Demerol] Allergy Nausea Verified 03/12/22 20:21 aspirin AdvReac Unknown UNCOATED Verified 03/12/22 20:21 ASPIRIN CAUSES STOMACH PAIN morphine AdvReac Vomiting Verified 03/12/22 20:21 Review of Systems ROS Other: All systems not noted in ROS Statement are negative. <Jack Infante - Last Filed: 03/12/22 20:53> ROS Other: All systems not noted in ROS Statement are negative. <Huber Hensley - Last Filed: 03/12/22 22:41> ROS Statement: Those systems with pertinent positive or pertinent negative responses have been documented in the HPI. 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 diverticulitis, neuropathy, does not use CPAP, pt states has ruptured eardrum rt ear Last Myocardial Infarction Date:: 2001 History of Any Multi-Drug Resistant Organisms: None Reported Past Surgical History: Back Surgery, Coronary Bypass/CABG, Ear Surgery, Heart Catheterization, Heart Catheterization With Stent, Joint Replacement, Tonsillectomy Additional Past Surgical History / Comment(s): chriss CATARACTS, one cardiac stent, CABG (2005), RIGHT EAR DRUM REPLACEMENT.CHRISS TOTAL KNEES, RIGHT CAROTID ENDARTERECTOMY. chriss carpel tunnel surgery, rods in spine(total 4 back surgeries) wound center patient Past Anesthesia/Blood Transfusion Reactions: No Reported Reaction, Motion Sickness Date of Last Stent Placement:: 2001 Past Psychological History: No Psychological Hx Reported Smoking Status: Former smoker - Past Family History Mother Family Medical History: No Reported History Additional Family Medical History / Comment(s): . <Jack Infante - Last Filed: 03/12/22 20:53> General Exam Limitations: no limitations <Jack Infante - Last Filed: 03/12/22 20:53> - General Exam Comments Initial Comments: GENERAL: Patient is well-developed and well-nourished. Patient is nontoxic and well- hydrated and is in mild distress. ENT: Neck is soft and supple. No significant lymphadenopathy is noted. Oropharynx is clear. Moist mucous membranes. Neck has full range of motion without eliciting any pain. EYES: The sclera were anicteric and conjunctiva were pink and moist. Extraocular movements were intact and pupils were equal round and reactive to light. Eyelids were unremarkable. PULMONARY: Unlabored respirations. Good breath sounds bilaterally. No audible rales rhonchi or wheezing was noted. CARDIOVASCULAR: There is a regular rate and rhythm without any murmurs gallops or rubs. ABDOMEN: Soft and nontender with normal bowel sounds. SKIN: Skin is clear with no lesions or rashes and otherwise unremarkable. NEUROLOGIC: Patient is alert and oriented x3. Cranial nerves II through XII are grossly intact. Motor and sensory are also intact. Normal speech, volume and content. Symmetrical smile. MUSCULOSKELETAL: Right leg is erythematous from the heel up to the knee is extremely warm but there is no calf tenderness. LYMPHATICS: No significant lymphadenopathy is noted PSYCHIATRIC: Normal psychiatric evaluation. (Jack Infante) Course Vital Signs 03/12/22 19:25 Temperature 101.6 F H Pulse Rate 70 Respiratory 15 Rate Blood Pressure 167/84 O2 Sat by Pulse 98 Oximetry Medical Decision Making - Lab Data Result diagrams: 03/12/22 20:16 <Jack Infante - Last Filed: 03/12/22 20:53> - Lab Data Result diagrams: 03/12/22 20:16 03/12/22 20:16 <Huber Hensley - Last Filed: 03/12/22 22:41> - Medical Decision Making EKG shows sinus rhythm at 63 bpm RI interval 169 QRS is 103 QT intervals 46 QTC is 413. Patient's EKG shows no ST segment elevation or depression. Dr. Hensley will be taking over the care of this patient at 9 PM (Jack Infante) Patient presented with generalized weakness and fever. He has a wound to the right foot and erythema to the mid calf. He had been started on antibiotics by the previous physician. Laboratory studies were pending, he has a leukocytosis with left shift. Otherwise unremarkable laboratory testing, coronavirus negative, urinalysis pending. He had been started on antibiotics and will be admitted for IV antibiotics and evaluation by infectious disease. (Huber Hensley) - Lab Data Lab Results 03/12/22 03/12/22 03/12/22 Range/Units 20:16 20:16 20:16 WBC 12.7 H (3.8-10.6) k/uL RBC 3.84 L (4.30-5.90) m/uL Hgb 12.8 L (13.0-17.5) gm/dL Hct 39.9 (39.0-53.0) % MCV 103.8 H (80.0-100.0) fL MCH 33.3 (25.0-35.0) pg MCHC 32.1 (31.0-37.0) g/dL RDW 12.6 (11.5-15.5) % Plt Count 212 (150-450) k/uL MPV 7.3 Neutrophils % 91 % Lymphocytes % 3 % Monocytes % 3 % Eosinophils % 2 % Basophils % 1 % Neutrophils # 11.5 H (1.3-7.7) k/uL Lymphocytes # 0.4 L (1.0-4.8) k/uL Monocytes # 0.4 (0-1.0) k/uL Eosinophils # 0.2 (0-0.7) k/uL Basophils # 0.1 (0-0.2) k/uL Macrocytosis Slight PT 11.0 (9.0-12.0) sec INR 1.0 (<1.2) APTT 25.9 (22.0-30.0) sec Sodium 135 L (137-145) mmol/L Potassium 4.3 (3.5-5.1) mmol/L Chloride 96 L (98-107) mmol/L Carbon Dioxide 29 (22-30) mmol/L Anion Gap 10 mmol/L BUN 23 H (9-20) mg/dL Creatinine 1.08 (0.66-1.25) mg/dL Est GFR (CKD-EPI)AfAm 76 (>60 ml/min/1.73 sqM) Est GFR (CKD-EPI)NonAf 65 (>60 ml/min/1.73 sqM) Glucose 99 (74-99) mg/dL Plasma Lactic Acid Ramon (0.7-2.0) mmol/L Calcium 9.1 (8.4-10.2) mg/dL Total Bilirubin 0.6 (0.2-1.3) mg/dL AST 26 (17-59) U/L ALT 10 (4-49) U/L Alkaline Phosphatase 64 (38-126) U/L Total Protein 6.0 L (6.3-8.2) g/dL Albumin 3.8 (3.5-5.0) g/dL Coronavirus (PCR) (Not Detectd) 03/12/22 03/12/22 Range/Units 20:16 20:52 WBC (3.8-10.6) k/uL RBC (4.30-5.90) m/uL Hgb (13.0-17.5) gm/dL Hct (39.0-53.0) % MCV (80.0-100.0) fL MCH (25.0-35.0) pg MCHC (31.0-37.0) g/dL RDW (11.5-15.5) % Plt Count (150-450) k/uL MPV Neutrophils % % Lymphocytes % % Monocytes % % Eosinophils % % Basophils % % Neutrophils # (1.3-7.7) k/uL Lymphocytes # (1.0-4.8) k/uL Monocytes # (0-1.0) k/uL Eosinophils # (0-0.7) k/uL Basophils # (0-0.2) k/uL Macrocytosis PT (9.0-12.0) sec INR (<1.2) APTT (22.0-30.0) sec Sodium (137-145) mmol/L Potassium (3.5-5.1) mmol/L Chloride (98-107) mmol/L Carbon Dioxide (22-30) mmol/L Anion Gap mmol/L BUN (9-20) mg/dL Creatinine (0.66-1.25) mg/dL Est GFR (CKD-EPI)AfAm (>60 ml/min/1.73 sqM) Est GFR (CKD-EPI)NonAf (>60 ml/min/1.73 sqM) Glucose (74-99) mg/dL Plasma Lactic Acid Ramon 1.5 (0.7-2.0) mmol/L Calcium (8.4-10.2) mg/dL Total Bilirubin (0.2-1.3) mg/dL AST (17-59) U/L ALT (4-49) U/L Alkaline Phosphatase (38-126) U/L Total Protein (6.3-8.2) g/dL Albumin (3.5-5.0) g/dL Coronavirus (PCR) Not Detected (Not Detectd) Disposition <Jack Infante - Last Filed: 03/12/22 20:53> Is patient prescribed a controlled substance at d/c from ED?: No Time of Disposition: 22:41 <Huber Hensley - Last Filed: 03/12/22 22:41> Clinical Impression: Sepsis, Cellulitis Disposition: ADMITTED IP TO THIS HOSP Condition: Stable Referrals: None,Stated [Primary Care Provider] - 1-2 days
[2022-03-12] MEDS ORDERED: VANCOMYCIN 1,250 MG in SODIUM CHLORIDE 0.9% 250 ML IVPB ONE (20:30)
[2022-03-12 20:49] LABS: Basophils # (A) 0.1 k/uL (0-0.2); Basophils % (A) 1 %; Eosinophils # (A) 0.2 k/uL (0-0.7); Eosinophils % (A) 2 %; HCT 39.9 % (39.0-53.0); HGB 12.8 gm/dL (13.0-17.5); Lymphocytes # (A) 0.4 k/uL (1.0-4.8); Lymphocytes % (A) 3 %; MCH 33.3 pg (25.0-35.0); MCHC 32.1 g/dL (31.0-37.0); MCV 103.8 fL (80.0-100.0); Macrocytosis Slight; Mean Platelet Volume 7.3; Monocytes # (A) 0.4 k/uL (0-1.0); Monocytes % (A) 3 %; Neutrophils # (A) 11.5 k/uL (1.3-7.7); Neutrophils % (A) 91 %; Platelet Count 212 k/uL (150-450); RBC 3.84 m/uL (4.30-5.90); RDW 12.6 % (11.5-15.5); WBC 12.7 k/uL (3.8-10.6)
[2022-03-12 21:01] LABS: Albumin 3.8 g/dL (3.5-5.0); Calcium 9.1 mg/dL (8.4-10.2); Potassium 4.3 mmol/L (3.5-5.1); Total Bilirubin 0.6 mg/dL (0.2-1.3)
[2022-03-12 21:02] LABS: Partial Thromboplastin Time 25.9 sec (22.0-30.0)
--- NOTE | 2022-03-12 21:40 | XR ---
EXAMINATION TYPE: XR chest 2V DATE OF EXAM: 03/12/2022 COMPARISON: 11/11/2020 HISTORY: Chest pain. Fever TECHNIQUE: FINDINGS: Heart is normal. There is no heart failure. There are no hilar masses. Costophrenic angles are clear. There are sternal wires. There are chest leads. There is old right-sided rib fractures. Th ere is moderate arthritic change in the shoulder joints. IMPRESSION: No active cardiopulmonary disease. No adverse change.
[2022-03-12] MEDS ORDERED: NALOXONE 0.4 MG/ML 1 ML VIAL IV PRN (22:36)
[2022-03-12] MEDS: SODIUM CHLORIDE 0.9% 1,000 ML IV SCH (22:44)
[2022-03-12] MEDS: SODIUM CHLORIDE 0.9% 500 ML 500 ML IV SCH (22:44)
[2022-03-13] MEDS ORDERED: VANCOMYCIN 1,250 MG in SODIUM CHLORIDE 0.9% 250 ML IVPB ONE (00:30)
[2022-03-13] MEDS: SODIUM CHLORIDE 0.9% 500 ML 500 ML IV SCH (01:03)
[2022-03-13 06:45] LABS: Appearance,Urine Clear (Clear); Bacteria,Urine Rare /hpf; Bilirubin,Urine Negative (Negative); Blood,Urine Small (Negative); Color,Urine Yellow; Glucose,Urine (UA) Negative (Negative); Ketones,Urine 1+ (Negative); Leukocyte Esterase,Urine Negative (Negative); Mucus,Urine Rare /hpf; Nitrite,Urine Negative (Negative); PH, Urine 5.5 (5.0-8.0); Protein,Urine Trace (Negative); RBC,Urine 9 /hpf (0-5); Specific Gravity,Urine 1.018 (1.001-1.035); Urobilinogen,Urine <2.0 mg/dL (<2.0); WBC,Urine 4 /hpf (0-5)
--- NOTE | 2022-03-13 13:13 | US ---
EXAMINATION TYPE: US venous doppler duplex LE RT DATE OF EXAM: 03/13/2022 12:58 PM COMPARISON: NONE CLINICAL HISTORY: right lower calf redness and swelling. SIDE PERFORMED: Right TECHNIQUE: The lower extremity deep venous system is examined utilizing real time linear array sonog preston with graded compression, doppler sonography and color-flow sonography. VESSELS IMAGED: Common Femoral Vein Deep Femoral Vein Greater Saphenous Vein * Femoral Vein Popliteal Vein Small Saphenous Vein * Proximal Calf Veins (* superficial vessels) Intimal wall thickening right lower extremity. Right Leg: Negative for DVT Grayscale, color doppler, spectral doppler imaging performed of the deep veins of the lower extremiti es. There is normal flow, compressibility, vascular waveforms. IMPRESSION: No evidence for deep vein thrombosis of the right lower extremity.
[2022-03-13] MEDS ORDERED: NITROGLYCERIN SL TABS 0.4 MG TAB SUBLINGUAL PRN (14:20)
--- NOTE | 2022-03-13 14:20 | P.HPIM ---
History of Present Illness H&P Date: 03/13/22 This is a 76-year-old male who presented to the emergency department with feelings of generalized weakness and reports that he had been most recently over the last few days incontinent of urine and unable to get up. Patient reports that he slid onto the floor and was unable to stand. Patient also has been seen in the outpatient setting with Dr. Samaniego along with Dr. Lainez for this right heel wound that had been healing although most recently saw Dr. Lainez and underwent debridement and reports the pain and wound has gotten worse. Patient reports his primary care provider is Dr. 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 On admission chest x-ray shows no acute active cardiopulmonary disease with no heart failure and there are some old right-sided rib fractures noted and arthritic changes of the shoulder joints. EKG shows sinus rhythm with a heart rate of 63 bpm. Labs reveal a WBC of 12.7 with a hemoglobin of 12.8, platelets are 212, INR is 1.0, sodium is 135, potassium 4.3, BUN 23, creatinine 1.08, plasma lactic acid is 1.5, Covid 19 was negative, urinalysis with a trace of protein otherwise negative. Patient was afebrile on admission although reports to having chills and feeling weak at home. Patient was admitted with infectious disease consultation and started on antibiotics. Will add wound care consult and also PT/OT therapy. Review Of Systems: Constitutional: Reports possible fever at home, reports chills, no night sweats. No weight change. Reports weakness and fatigue. No daytime sleepiness. EENT: No headache. No blurred vision or double vision, no loss of vision. No loss of Hearing, no ringing in the ears, no dizziness. No nasal drainage or congestion. No epistaxis. No sore throat. Lungs: No shortness of breath, cough, no sputum production. No wheezing. Cardiovascular: No chest pain, no lower extremity edema. No palpitations. No paroxysmal nocturnal dyspnea. No orthopnea. No lightheadedness or dizziness. No syncopal episodes. Abdominal: No abdominal pain. No nausea, vomiting. No diarrhea. No constipation. No bloody or tarry stools.. No loss of appetite. Genitourinary: No dysuria, increased frequency, urgency. No urinary retention. Musculoskeletal: No myalgias. No muscle weakness, no gait dysfunction, no frequent falls. No back pain. No neck pain. Integumentary: Reports right heel wounds with recent debridement and increased drainage, no lesions. No rash or pruritus. No unusual bruising. No change in hair or nails. Neurologic: No aphasia. No facial droop. No change in mentation. No head injury. No headache. No paralysis. No paresthesia. Psychiatric: No depression. No anxiety. No mood swings. Endocrine: No abnormal blood sugars. No weight change. No excessive sweating or thirst. No cold intolerance. PHYSICAL EXAMINATION: GENERAL: The patient is alert and oriented x3, thin built elderly appearing male HEENT: Pupils are round and equally reacting to light. EOMI. no scleral icterus. No conjunctival pallor. Normocephalic, atraumatic. No pharyngeal erythema. No thyromegaly. CARDIOVASCULAR: S1 and S2 muffled PULMONARY: diminished breath sounds bilaterally with no wheezing or rhonchi noted. ABDOMEN: soft. Nontender on exam. Thin non-distended, normoactive bowel sounds. No palpable organomegaly. MUSCULOSKELETAL: No joint swelling or deformity. EXTREMITIES: No cyanosis, clubbing, or pedal edema. Right heel recent surgical dressing encrusted gauze noted on the heel, first 2 toes wrapped with bandages and dried wound with no drainage noted NEUROLOGICAL: Gross neurological examination did not reveal any focal deficits. Diffuse weakness SKIN: No rashes. Assessment: Weakness Urinary incontinence Fever and chills possible sepsis present on admission secondary to acute right lower extremity cellulitis with recent debridement and right heel wound Leukocytosis, secondary to above Right heel wound with right lower extremity cellulitis with redness and pain Hypertension GERD Merrill hyperlipidemia and final osteoarthritis Merr[place] sleep apnea, does not wear CPAP Recent outpatient right heel debridement with Dr. Lainez in the office GI prophylaxis DVT prophylaxis Full code Plan: Recommend to continue with current medications and management with infectious disease consulted. Patient has been started on broad-spectrum antibiotics was given a dose of ceftriaxone and will continue vancomycin Recommend continue gentle IV hydration and follow-up on repeat labs. Recommend wound care consultation with Brooklyn Brink as he was following with Dr. Lainez and Dr. Samaniego in the outpatient setting and reports to having a recent right heel debridement. Weakness with gait dysfunction will have physical therapy evaluate the patient Urinary incontinence with fevers and chills and overall generalized weakness possible sepsis, present on admission secondary to right lower extremity cellulitis Will obtain a Doppler of the right lower extremity to assess for DVT The impression and plan of care has been dictated by Peri Meadows, nurse practitioner as directed. Dr. Jasmyne CALDERON I have performed a history and examination and MDM of this patient, discussed the same with the dictator, and agree with the dictator's assessment and plan as written ,documented as a scribe. Based on total visit time, I have performed more than 50% of the visit. Any additional findings or plans will be noted. 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 diverticulitis, neuropathy, does not use CPAP, pt states has ruptured eardrum rt ear Last Myocardial Infarction Date:: 2001 History of Any Multi-Drug Resistant Organisms: None Reported Past Surgical History: Back Surgery, Coronary Bypass/CABG, Ear Surgery, Heart Ca theterization, Heart Catheterization With Stent, Joint Replacement, Tonsillectomy Additional Past Surgical History / Comment(s): chriss CATARACTS, one cardiac stent, CABG (2005), RIGHT EAR DRUM REPLACEMENT.CHRISS TOTAL KNEES, RIGHT CAROTID ENDARTERECTOMY. chriss carpel tunnel surgery, rods in spine(total 4 back surgeries) wound center patient Past Anesthesia/Blood Transfusion Reactions: No Reported Reaction, Motion Sickness Date of Last Stent Placement:: 2001 Past Psychological History: No Psychological Hx Reported Smoking Status: Former smoker - Past Family History Mother Family Medical History: No Reported History Additional Family Medical History / Comment(s): . Father Family Medical History: Hypertension Medications and Allergies Home Medications Medication Instructions Recorded Confirmed Type Atorvastatin Calcium [Lipitor] 40 mg PO HS 09/04/14 03/12/22 History Lansoprazole [Prevacid] 30 mg PO BID 09/04/14 03/12/22 History Nitroglycerin Sl Tabs [Nitrostat] 0.4 mg SUBLINGUAL Q5M PRN 09/04/14 03/12/22 History fentaNYL 50MCG/HR PATCH [Duragesic 1 patch TRANSDERM Q72H 09/04/14 03/12/22 History 50MCG/HR] modafiniL [Provigil] 200 mg PO BID 09/04/14 03/12/22 History Clopidogrel [Plavix] 75 mg PO DAILY 08/28/16 03/12/22 History Isosorbide Mononitrate ER [Imdur] 30 mg PO DAILY 08/28/16 03/12/22 History carvediloL [Coreg] 6.25 mg PO BID 08/28/16 03/12/22 History Tamsulosin HCl [Flomax] 0.4 mg PO HS 10/14/17 03/12/22 History Primidone [Mysoline] 50 mg PO BID 12/28/18 03/12/22 History Benazepril HCl 10 mg PO DAILY 10/20/20 03/12/22 History Denosumab [Prolia] 60 mg SQ Q168D 11/11/20 03/12/22 History Gabapentin [Neurontin] 800 mg PO TID 11/11/20 03/12/22 History Azelastine HCl [Astepro] 1 spray NASAL BID 03/12/22 03/12/22 History Baclofen 10 mg PO HS 03/12/22 03/12/22 History Furosemide [Lasix] 40 mg PO DAILY 03/12/22 03/12/22 History Lidocaine 5% Patch [Lidoderm] 3 patch TOPICAL DAILY 03/12/22 03/12/22 History Meloxicam [Mobic] 15 mg PO DAILY 03/12/22 03/12/22 History Naloxegol Oxalate [Movantik] 12.5 mg PO DAILY 03/12/22 03/12/22 History oxyCODONE HCL/ACETAMINOPHEN 1 tab PO QID 03/12/22 03/12/22 History [Percocet 10-325 mg] Allergies Allergy/AdvReac Type Severity Reaction Status Date / Time meperidine [From Demerol] Allergy Nausea Verified 03/12/22 20:21 aspirin AdvReac Unknown UNCOATED Verified 03/12/22 20:21 ASPIRIN CAUSES STOMACH PAIN morphine AdvReac Vomiting Verified 03/12/22 20:21 Physical Exam Vitals: Vital Signs Temp Pulse Resp BP Pulse Ox 03/13/22 06:58 72 15 144/68 98 03/13/22 01:06 98.9 F 88 15 136/66 98 03/12/22 19:25 101.6 F H 70 15 167/84 98 Intake and Output 03/12/22 03/13/22 03/13/22 22:59 06:59 14:59 Other: Weight 61.235 kg Results CBC & Chem 7: 03/12/22 20:16 03/12/22 20:16 Labs: Abnormal Lab Results - Last 24 Hours (Table) 03/12/22 03/12/22 03/13/22 Range/Units 20:16 20:16 06:09 WBC 12.7 H (3.8-10.6) k/uL RBC 3.84 L (4.30-5.90) m/uL Hgb 12.8 L (13.0-17.5) gm/dL MCV 103.8 H (80.0-100.0) fL Neutrophils # 11.5 H (1.3-7.7) k/uL Lymphocytes # 0.4 L (1.0-4.8) k/uL Sodium 135 L (137-145) mmol/L Chloride 96 L (98-107) mmol/L BUN 23 H (9-20) mg/dL Total Protein 6.0 L (6.3-8.2) g/dL Urine Protein Trace H (Negative) Urine Ketones 1+ H (Negative) Urine Blood Small H (Negative) Urine RBC 9 H (0-5) /hpf Urine Bacteria Rare H (None) /hpf Urine Mucus Rare H (None) /hpf Thrombosis Risk Factor Assmnt - DVT/VTE Prophylaxis DVT/VTE Prophylaxis: Pharmacologic Prophylaxis ordered Assessment and Plan Time with Patient: Greater than 30
[2022-03-13] MEDS: GABAPENTIN 400 MG CAP PO SCH ×2 (16:49→22:03)
[2022-03-13] MEDS: SODIUM CHLORIDE 0.9% 1,000 ML IV SCH (18:01)
[2022-03-13] MEDS: VANCOMYCIN 1,000 MG in SODIUM CHLORIDE 0.9% 250 ML IVPB SCH (18:01)
[2022-03-13] MEDS: carvediloL 6.25 MG TAB PO SCH (18:01)
[2022-03-13] MEDS: AZELASTINE 137MCG/SPRAY NASAL SCH (22:01)
[2022-03-13] MEDS: PANTOPRAZOLE 40 MG TABLET PO SCH (22:02)
[2022-03-13] MEDS: BACLOFEN 10 MG TAB PO SCH (22:02)
[2022-03-13] MEDS: oxyCODONE-APAP 10-325MG 1 EACH TAB PO SCH (22:02)
[2022-03-13] MEDS: PRIMIDONE 50 MG TAB PO SCH (22:03)
[2022-03-13] MEDS: TAMSULOSIN 0.4 MG CAP.ER.24H PO SCH (22:03)
[2022-03-13] MEDS: ATORVASTATIN 40 MG TAB PO SCH (22:03)
--- NOTE | 2022-03-13 22:39 | P.CONS ---
History of Present Illness - Reason for Consult Consult date: 03/13/22 - History of Present Illness Patient is a 76-year-old male with a past medical history significant for nonhealing wound to the right heel area for the patient to follow at [facility] [place] apparently the patient did have a recent debridement of the right heel wound and application of dressing patient mention since then seem to have problem with increasing swelling redness to the right heel and lower ex tremity patient has been complaining of feeling weak unable to get up and did have incontinence of urine with the symptom the patient was evaluated by the ER physician on arrival to the ER patient did have a fever of 101.6 F patient did have white of 12.7 with a left shift creatinine has been normal urine is negative COVID testing was negative patient did have a chest x-ray negative for acute cardiopulmonary disease patient was started on vancomycin infectious disease was consulted for further management of antibiotic therapy, patient with a nonhealing wound to the right heel area which has been there for more than months patient has mention with a nonhealing wound with recent debridement has been complaining of some pain and discomfort to the area and some erythema that is extending to the right lower leg pain is mostly dull aching 4 to 5- out of 10 and no radiation Past Medical History Past Medical History: Hypertension, Eye Disorder, GERD/Reflux, Hyperlipidemia, Hypertension, Myocardial Infarction ([place]), Osteoarthritis (OA), Sleep Apnea/CPA P/BIPAP Additional Past Medical History / Comment(s): wound left ankle and rt heel,BACK PAIN USES WALKER, 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 diverticulitis, neuropathy, does not use CPAP, pt states has ruptured eardrum rt ear Last Myocardial Infarction Date:: 2001 History of Any Multi-Drug Resistant Organisms: None Reported Past Surgical History: Back Surgery, Coronary Bypass/CABG, Ear Surgery, Heart Catheterization, Heart Catheterization With Stent, Joint Replacement, Tonsillectomy Additional Past Surgical History / Comment(s): chriss CATARACTS, one cardiac stent, CABG (2005), RIGHT EAR DRUM REPLACEMENT.CHRISS TOTAL KNEES, RIGHT CAROTID ENDARTERECTOMY. chriss carpel tunnel surgery, rods in spine(total 4 back surgeries) wound center patient Past Anesthesia/Blood Transfusion Reactions: No Reported Reaction, Motion Sickness Date of Last Stent Placement:: 2001 Past Psychological History: No Psychological Hx Reported Smoking Status: Former smoker - Past Family History Mother Family Medical History: No Reported History Additional Family Medical History / Comment(s): . Father Family Medical History: Hypertension Medications and Allergies Home Medications Medication Instructions Recorded Confirmed Type Atorvastatin Calcium [Lipitor] 40 mg PO HS 09/04/14 03/12/22 History Lansoprazole [Prevacid] 30 mg PO BID 09/04/14 03/12/22 History Nitroglycerin Sl Tabs [Nitrostat] 0.4 mg SUBLINGUAL Q5M PRN 09/04/14 03/12/22 History fentaNYL 50MCG/HR PATCH [Duragesic 1 patch TRANSDERM Q72H 09/04/14 03/12/22 History 50MCG/HR] modafiniL [Provigil] 200 mg PO BID 09/04/14 03/12/22 History Clopidogrel [Plavix] 75 mg PO DAILY 08/28/16 03/12/22 History Isosorbide Mononitrate ER [Imdur] 30 mg PO DAILY 08/28/16 03/12/22 History carvediloL [Coreg] 6.25 mg PO BID 08/28/16 03/12/22 History Tamsulosin HCl [Flomax] 0.4 mg PO HS 10/14/17 03/12/22 History Primidone [Mysoline] 50 mg PO BID 12/28/18 03/12/22 History Benazepril HCl 10 mg PO DAILY 10/20/20 03/12/22 History Denosumab [Prolia] 60 mg SQ Q168D 11/11/20 03/12/22 History Gabapentin [Neurontin] 800 mg PO TID 11/11/20 03/12/22 History Azelastine HCl [Astepro] 1 spray NASAL BID 03/12/22 03/12/22 History Baclofen 10 mg PO HS 03/12/22 03/12/22 History Furosemide [Lasix] 40 mg PO DAILY 03/12/22 03/12/22 History Lidocaine 5% Patch [Lidoderm] 3 patch TOPICAL DAILY 03/12/22 03/12/22 History Meloxicam [Mobic] 15 mg PO DAILY 03/12/22 03/12/22 History Naloxegol Oxalate [Movantik] 12.5 mg PO DAILY 03/12/22 03/12/22 History oxyCODONE HCL/ACETAMINOPHEN 1 tab PO QID 03/12/22 03/12/22 History [Percocet 10-325 mg] Allergies Allergy/AdvReac Type Severity Reaction Status Date / Time meperidine [From Demerol] Allergy Nausea Verified 03/12/22 20:21 aspirin AdvReac Unknown UNCOATED Verified 03/12/22 20:21 ASPIRIN CAUSES STOMACH PAIN morphine AdvReac Vomiting Verified 03/12/22 20:21 Physical Exam Vitals: Vital Signs Temp Pulse Resp BP Pulse Ox 03/13/22 06:58 72 15 144/68 98 03/13/22 01:06 98.9 F 88 15 136/66 98 03/12/22 19:25 101.6 F H 70 15 167/84 98 Intake and Output 03/12/22 03/13/22 03/13/22 22:59 06:59 14:59 Other: Weight 61.235 kg Results CBC & Chem 7: 03/12/22 20:16 03/12/22 20:16 Labs: Abnormal Lab Results - Last 24 Hours (Table) 03/12/22 03/12/22 03/13/22 Range/Units 20:16 20:16 06:09 WBC 12.7 H (3.8-10.6) k/uL RBC 3.84 L (4.30-5.90) m/uL Hgb 12.8 L (13.0-17.5) gm/dL MCV 103.8 H (80.0-100.0) fL Neutrophils # 11.5 H (1.3-7.7) k/uL Lymphocytes # 0.4 L (1.0-4.8) k/uL Sodium 135 L (137-145) mmol/L Chloride 96 L (98-107) mmol/L BUN 23 H (9-20) mg/dL Total Protein 6.0 L (6.3-8.2) g/dL Urine Protein Trace H (Negative) Urine Ketones 1+ H (Negative) Urine Blood Small H (Negative) Urine RBC 9 H (0-5) /hpf Urine Bacteria Rare H (None) /hpf Urine Mucus Rare H (None) /hpf Assessment and Plan Plan: 1patient present to hospital with sepsis in this patient did have fever elevated white count source and likely right heel wound with secondary cellulitis and likely from gram-positive skin earnest interviewed the patient clinical Swanstrom the IV vancomycin was started in the ER patient currently no respiratory symptoms chest x-ray was negative urine is negative abdominal soft on clinical examination. 2-Marked area of the redness 3-vancomycin pharmacy to dose target trough of 15 while watching kidney function and vancomycin trough closely 4-obtain x-ray of the right heel and check inflammatory markers 5-culture from the wound at the time of dressing changes We will follow on clinical condition and cultures to further adjust medication if needed Thank you for this consultation will follow this patient along with you Time with Patient: Greater than 30
[2022-03-14] MEDS: SODIUM CHLORIDE 0.9% 1,000 ML IV SCH ×2 (05:39→17:11)
[2022-03-14 06:37] LABS: Basophils # (A) 0.1 k/uL (0-0.2); Basophils % (A) 1 %; Eosinophils # (A) 0.1 k/uL (0-0.7); Eosinophils % (A) 2 %; HCT 36.8 % (39.0-53.0); HGB 11.2 gm/dL (13.0-17.5); Hypochromasia Marked; Lymphocytes # (A) 0.9 k/uL (1.0-4.8); Lymphocytes % (A) 12 %; MCH 33.2 pg (25.0-35.0); MCHC 30.4 g/dL (31.0-37.0); MCV 109.5 fL (80.0-100.0); Macrocytosis Marked; Mean Platelet Volume 7.4; Monocytes # (A) 0.7 k/uL (0-1.0); Monocytes % (A) 9 %; Neutrophils # (A) 5.6 k/uL (1.3-7.7); Neutrophils % (A) 75 %; Platelet Count 192 k/uL (150-450); RBC 3.36 m/uL (4.30-5.90); RDW 13.1 % (11.5-15.5); WBC 7.6 k/uL (3.8-10.6)
--- NOTE | 2022-03-14 07:04 | XR ---
EXAMINATION TYPE: XR foot complete RT DATE OF EXAM: 03/14/2022 CLINICAL HISTORY: Pain With heel wound TECHNIQUE: Frontal, lateral, and oblique images of the right foot are obtained. COMPARISON: None FINDINGS: Marked demineralization is seen which is noted to lower radiographic sensitivity. Dorsal weiner rface vascular calcification noted. There is bandage or gauze material over the posterior aspect of t he calcaneus with small soft tissue defect or ulcer. No bony destruction at this level is seen. Small inferior calcaneal spur noted. No acute displaced fracture is present. IMPRESSION: As above. No convincing radiographic evidence for acute osteomyelitis.
[2022-03-14 08:08] LABS: ALT 9 U/L (4-49); AST 23 U/L (17-59); African American GFR (CKD) >90 (>60 ml/min/1.73 sqM); Albumin 2.5 g/dL (3.5-5.0); Albumin/Globulin Ratio 1.3; Alkaline Phosphatase 43 U/L (38-126); Anion Gap 7 mmol/L; Blood Urea Nitrogen 24 mg/dL (9-20); Calcium 8.2 mg/dL (8.4-10.2); Carbon Dioxide 25 mmol/L (22-30); Chloride 102 mmol/L (98-107); Glucose 86 mg/dL (74-99); Non-African American GFR(CKD) 80 (>60 ml/min/1.73 sqM); Potassium 3.8 mmol/L (3.5-5.1); Sodium 134 mmol/L (137-145); Total Bilirubin 0.3 mg/dL (0.2-1.3); Total Protein 4.5 g/dL (6.3-8.2)
[2022-03-14 08:20] LABS: C Reactive Protein 16.1 mg/dL (<1.0)
[2022-03-14] MEDS: CLOPIDOGREL 75 MG TAB PO SCH (08:37)
[2022-03-14] MEDS: MELOXICAM 7.5 MG TAB PO SCH (08:37)
[2022-03-14] MEDS: PRIMIDONE 50 MG TAB PO SCH ×2 (08:37→21:22)
[2022-03-14] MEDS: PANTOPRAZOLE 40 MG TABLET PO SCH ×2 (08:37→21:20)
[2022-03-14] MEDS: GABAPENTIN 400 MG CAP PO SCH ×3 (08:37→21:20)
[2022-03-14] MEDS: carvediloL 6.25 MG TAB PO SCH ×2 (08:38→17:10)
[2022-03-14] MEDS: ISOSORBIDE MONONITRATE ER 30 MG TAB.ER.24H PO SCH (08:38)
[2022-03-14] MEDS: oxyCODONE-APAP 10-325MG 1 EACH TAB PO SCH ×2 (08:38→21:20)
[2022-03-14] MEDS: LIDOCAINE 5% PATCH TOPICAL SCH (08:39)
[2022-03-14] MEDS: AZELASTINE 137MCG/SPRAY NASAL SCH ×2 (08:39→21:21)
[2022-03-14] MEDS: VANCOMYCIN 1,000 MG in SODIUM CHLORIDE 0.9% 250 ML IVPB SCH (08:44)
--- NOTE | 2022-03-14 10:16 | P.CONS ---
History of Present Illness - Reason for Consult Consult date: 03/14/22 wound care - History of Present Illness This is a 76-year-old patient being seen on [address] for nonhealing ulceration to the right calcaneus. Patient is a known patient to the wound care center. He was seen on Friday woke or he underwent a debridement and application of epifix to the right calcaneus. Patient did develop some pain to the site he also had generalized weakness. The right lower extremity shows erythema and minimal edema. However the ulceration wound bed shows minimal slough with granulation. Wound edges are attached to the wound base. No purulent drainage noted. The wound measures approximately 0.4 x 0.8 x 0.1 cm Review Of Systems: Constitutional: No fever, no chills, no night sweats. No weight change. No weakness, fatigue or lethargy. No daytime sleepiness. Integumentary:reports wounds, no lesions. No rash or pruritus. No unusual bruising. No change in hair or nails. Physical exam: General Appearance: Alert, cooperative, no distress, appears stated age. Skin: See HPI all other Skin color, texture, tugor normal, no rashes or lesions. Neurologic: Alert oriented x3 Assessment: 1. Pressure ulcer right heel stage II Plan: 1. Right calcaneus: Apply Santyl, saline moistened gauze, dry gauze, rolled gauze and secure paper tape. Change daily. Patient returned to the wound care center on FridayMarch 19 @ 10:30. Thank you for the consultation any questions contact the wound care center DNP note has been reviewed and discussed with Dr. Lainez and the impression and plan of care has been directed as dictated. 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 diverticulitis, neuropathy, does not use CPAP, pt states has ruptured eardrum rt ear Last Myocardial Infarction Date:: 2001 History of Any Multi-Drug Resistant Organisms: None Reported Past Surgical History: Back Surgery, Coronary Bypass/CABG, Ear Surgery, Heart Catheterization, Heart Catheterization With Stent, Joint Replacement, Tonsillectomy Additional Past Surgical History / Comment(s): chriss CATARACTS, one cardiac stent, CABG (2005), RIGHT EAR DRUM REPLACEMENT.CHRISS TOTAL KNEES, RIGHT CAROTID ENDARTERECTOMY. chriss carpel tunnel surgery, rods in spine(total 4 back surgeries) wound center patient Past Anesthesia/Blood Transfusion Reactions: No Reported Reaction, Motion Sickness Date of Last Stent Placement:: 2001 Past Psychological History: No Psychological Hx Reported Smoking Status: Former smoker - Past Family History Mother Family Medical History: No Reported History Additional Family Medical History / Comment(s): . Father Family Medical History: Hypertension Medications and Allergies Home Medications Medication Instructions Recorded Confirmed Type Atorvastatin Calcium [Lipitor] 40 mg PO HS 09/04/14 03/12/22 History Lansoprazole [Prevacid] 30 mg PO BID 09/04/14 03/12/22 History Nitroglycerin Sl Tabs [Nitrostat] 0.4 mg SUBLINGUAL Q5M PRN 09/04/14 03/12/22 History fentaNYL 50MCG/HR PATCH [Duragesic 1 patch TRANSDERM Q72H 09/04/14 03/12/22 History 50MCG/HR] modafiniL [Provigil] 200 mg PO BID 09/04/14 03/12/22 History Clopidogrel [Plavix] 75 mg PO DAILY 08/28/16 03/12/22 History Isosorbide Mononitrate ER [Imdur] 30 mg PO DAILY 08/28/16 03/12/22 History carvediloL [Coreg] 6.25 mg PO BID 08/28/16 03/12/22 History Tamsulosin HCl [Flomax] 0.4 mg PO HS 10/14/17 03/12/22 History Primidone [Mysoline] 50 mg PO BID 12/28/18 03/12/22 History Benazepril HCl 10 mg PO DAILY 10/20/20 03/12/22 History Denosumab [Prolia] 60 mg SQ Q168D 11/11/20 03/12/22 History Gabapentin [Neurontin] 800 mg PO TID 11/11/20 03/12/22 History Azelastine HCl [Astepro] 1 spray NASAL BID 03/12/22 03/12/22 History Baclofen 10 mg PO HS 03/12/22 03/12/22 History Furosemide [Lasix] 40 mg PO DAILY 03/12/22 03/12/22 History Lidocaine 5% Patch [Lidoderm] 3 patch TOPICAL DAILY 03/12/22 03/12/22 History Meloxicam [Mobic] 15 mg PO DAILY 03/12/22 03/12/22 History Naloxegol Oxalate [Movantik] 12.5 mg PO DAILY 03/12/22 03/12/22 History oxyCODONE HCL/ACETAMINOPHEN 1 tab PO QID 03/12/22 03/12/22 History [Percocet 10-325 mg] Allergies Allergy/AdvReac Type Severity Reaction Status Date / Time meperidine [From Demerol] Allergy Nausea Verified 03/12/22 20:21 aspirin AdvReac Unknown UNCOATED Verified 03/12/22 20:21 ASPIRIN CAUSES STOMACH PAIN morphine AdvReac Vomiting Verified 03/12/22 20:21 Physical Exam Vitals: Vital Signs Temp Pulse Resp BP BP Pulse Ox 03/14/22 02:00 98.3 F 57 L 16 138/70 95 03/13/22 20:37 98.2 F 58 L 20 155/74 95 03/13/22 18:08 97.9 F 72 18 146/80 98 03/13/22 16:47 98.2 F 66 20 144/63 98 03/13/22 12:30 98 F 60 17 142/69 96 Intake and Output 03/13/22 03/14/22 03/14/22 22:59 06:59 14:59 Intake Total 896 120 Balance 896 120 Intake: Oral 896 120 Other: Voiding Method Toilet # Voids 1 Results CBC & Chem 7: 03/14/22 06:08 03/14/22 06:08 Labs: Abnormal Lab Results - Last 24 Hours (Table) 03/14/22 03/14/22 Range/Units 06:08 06:08 RBC 3.36 L (4.30-5.90) m/uL Hgb 11.2 L (13.0-17.5) gm/dL Hct 36.8 L (39.0-53.0) % MCV 109.5 H D (80.0-100.0) fL MCHC 30.4 L (31.0-37.0) g/dL Lymphocytes # 0.9 L (1.0-4.8) k/uL Macrocytosis Marked A Sodium 134 L (137-145) mmol/L BUN 24 H (9-20) mg/dL Calcium 8.2 L (8.4-10.2) mg/dL C-Reactive Protein 16.1 H (<1.0) mg/dL Total Protein 4.5 L (6.3-8.2) g/dL Albumin 2.5 L (3.5-5.0) g/dL Microbiology - Last 24 Hours (Table) 03/12/22 20:31 Blood Culture - Preliminary Blood No Growth after 24 hours 03/12/22 20:16 Blood Culture - Preliminary Blood No Growth after 24 hours Assessment and Plan (1) Pressure ulcer of right heel, stage 2 Current Visit: Yes Status: Acute Code(s): L89.612 - PRESSURE ULCER OF RIGHT HEEL, STAGE 2 SNOMED Code(s): 87032379140093
[2022-03-14] MEDS: COLLAGENASE 250 UNIT/GM OINTMENT 30 GM TUBE TOPICAL SCH (12:48)
[2022-03-14] MEDS: CEFEPIME 2 GM in SODIUM CHLORIDE 0.9% 100 ML IVPB SCH (17:10)
[2022-03-14] MEDS ORDERED: VANCOMYCIN 1,000 MG in SODIUM CHLORIDE 0.9% 250 ML IVPB SCH (21:00)
[2022-03-14] MEDS: ATORVASTATIN 40 MG TAB PO SCH (21:20)
[2022-03-14] MEDS: BACLOFEN 10 MG TAB PO SCH (21:21)
[2022-03-14] MEDS: TAMSULOSIN 0.4 MG CAP.ER.24H PO SCH (21:21)
[2022-03-15] MEDS: CEFEPIME 2 GM in SODIUM CHLORIDE 0.9% 100 ML IVPB SCH ×4 (02:35→23:49)
[2022-03-15] MEDS: SODIUM CHLORIDE 0.9% 1,000 ML IV SCH (05:08)
[2022-03-15] MEDS ORDERED: VANCOMYCIN TROUGH DUE 1 EACH MISC MISCELLANE ONE (08:00)
[2022-03-15] MEDS: carvediloL 6.25 MG TAB PO SCH ×2 (09:08→17:42)
[2022-03-15] MEDS: LIDOCAINE 5% PATCH TOPICAL SCH (09:08)
[2022-03-15] MEDS: oxyCODONE-APAP 10-325MG 1 EACH TAB PO SCH (09:10)
[2022-03-15] MEDS: MELOXICAM 7.5 MG TAB PO SCH (09:10)
[2022-03-15] MEDS: PRIMIDONE 50 MG TAB PO SCH ×2 (09:11→21:15)
[2022-03-15] MEDS: ISOSORBIDE MONONITRATE ER 30 MG TAB.ER.24H PO SCH (09:11)
[2022-03-15] MEDS: CLOPIDOGREL 75 MG TAB PO SCH (09:11)
[2022-03-15] MEDS: GABAPENTIN 400 MG CAP PO SCH ×2 (09:11→09:35)
[2022-03-15] MEDS: PANTOPRAZOLE 40 MG TABLET PO SCH ×2 (09:11→21:10)
[2022-03-15] MEDS: COLLAGENASE 250 UNIT/GM OINTMENT 30 GM TUBE TOPICAL SCH (09:14)
[2022-03-15] MEDS: AZELASTINE 137MCG/SPRAY NASAL SCH ×3 (09:14→21:11)
--- NOTE | 2022-03-15 09:41 | P.PN ---
Subjective Progress Note Date: 03/14/22 This is a 76-year-old male who presented to the emergency department with feelings of generalized weakness and reports that he had been most recently over the last few days incontinent of urine and unable to get up. Patient reports that he slid onto the floor and was unable to stand. Patient also has been seen in the outpatient setting with Dr. Samaniego along with Dr. Lainez for this right heel wound that had been healing although most recently saw Dr. Lainez and underwent debridement and reports the pain and wound has gotten worse. Patient reports his primary care provider is Dr. 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 On admission chest x-ray shows no acute active cardiopulmonary disease with no heart failure and there are some old right-sided rib fractures noted and arthritic changes of the shoulder joints. EKG shows sinus rhythm with a heart rate of 63 bpm. Labs reveal a WBC of 12.7 with a hemoglobin of 12.8, platelets are 212, INR is 1.0, sodium is 135, potassium 4.3, BUN 23, creatinine 1.08, plasma lactic acid is 1.5, Covid 19 was negative, urinalysis with a trace of protein otherwise negative. Patient was afebrile on admission although reports to having chills and feeling weak at home. Patient was admitted with infectious disease consultation and started on antibiotics. Will add wound care consult and also PT/OT therapy. 03/15/2022 Patient is seen in follow-up this morning being followed by wound care nurse BRAZER CRAWLER TORCH along with infectious disease. PT/OT therapy has been consulted and pending at this time. Patient continues with weakness and will await PT notes. Patient continues on IV antibiotics and awaiting for cultures. Social work also following in the event patient may need antibiotics on discharge although waiting for cultures to finalize at this time. Patient is afebrile denies chest pain or shortness of breath. Patient denies nausea or vomiting and is ismael ating diet. Repeat labs reviewed and WBC is normal at 7.6 with a hemoglobin of 11.2, ESR was 23, BMP within normal limits and recommend follow-up with labs to monitor Vanco trough and kidney functions. Review of systems: Constitutional: No reports of fatigue, fever, or chills Cardiovascular: No reports of chest pain or palpitations Respiratory: No reports of shortness of breath or cough GI: No reports of nausea, vomiting, or diarrhea : No reports of dysuria or retention Neurovascular: reports of weakness All medications have been reviewed PHYSICAL EXAMINATION: GENERAL: The patient is alert and oriented x3, thin built elderly appearing male HEENT: Pupils are round and equally reacting to light. EOMI. no scleral icterus. No conjunctival pallor. Normocephalic, atraumatic. No pharyngeal erythema. No thyromegaly. CARDIOVASCULAR: S1 and S2 muffled PULMONARY: diminished breath sounds bilaterally with no wheezing or rhonchi noted. ABDOMEN: soft. Nontender on exam. Thin non-distended, normoactive bowel sounds. No palpable organomegaly. MUSCULOSKELETAL: No joint swelling or deformity. EXTREMITIES: No cyanosis, clubbing, or pedal edema. Right heel recent surgical dressing encrusted gauze noted on the heel, first 2 toes wrapped with bandages and dried wound with no drainage noted NEUROLOGICAL: Gross neurological examination did not reveal any focal deficits. Diffuse weakness SKIN: No rashes. Assessment: Weakness Urinary incontinence Fever and chills possible sepsis present on admission secondary to acute right lower extremity cellulitis with recent debridement and right heel wound Leukocytosis, secondary to above Right heel wound with right lower extremity cellulitis with redness and pain Hypertension GERD hyperlipidemia osteoarthritis sleep apnea, does not wear CPAP Recent outpatient right heel debridement with Dr. Lainez in the office GI prophylaxis DVT prophylaxis Full code Plan: Recommend to continue with current medications and management with infectious disease following an patient was maintained on vancomycin although being transitioned to cefepime. Awaiting finalized cultures and wound care [facility] [employer] [employer]CH following changing dressings to Santyl. Recommend continue gentle IV hydration Weakness with gait dysfunction will have physical therapy evaluate the patient, waiting on PT notes with social work following arranging for possible home with home care versus ECF and also looking into coverage if the patient will require IV antibiotics on discharge Urinary incontinence with fevers and chills and overall generalized weakness possible sepsis, present on admission secondary to right lower extremity cellulitis, improved Doppler of the right lower extremity was negative for DVT The impression and plan of care has been dictated by Peri Meadows, nurse practitioner as directed. Dr. Jasmyne CALDERON I have performed a history and examination and MDM of this patient, discussed the same with the dictator, and agree with the dictator's assessment and plan as written ,documented as a scribe. Based on total visit time, I have performed more than 50% of the visit. Any additional findings or plans will be noted. Objective - Vital Signs Vital signs: Vital Signs Temp 98.3 F 03/14/22 02:00 Pulse 57 L 03/14/22 02:00 Resp 16 03/14/22 02:00 BP 138/70 03/14/22 02:00 Pulse Ox 95 03/14/22 02:00 FiO2 Intake & Output 03/13/22 03/14/22 03/14/22 18:59 06:59 18:59 Intake Total 1192 120 Balance 1192 120 Weight 61.235 kg Intake: Oral 1192 120 Other: Voiding Method Toilet # Voids 1 - Labs CBC & Chem 7: 03/14/22 06:08 03/15/22 07:52 Labs: Abnormal Lab Results - Last 24 Hours (Table) 03/14/22 03/14/22 Range/Units 06:08 06:08 RBC 3.36 L (4.30-5.90) m/uL Hgb 11.2 L (13.0-17.5) gm/dL Hct 36.8 L (39.0-53.0) % MCV 109.5 H D (80.0-100.0) fL MCHC 30.4 L (31.0-37.0) g/dL Lymphocytes # 0.9 L (1.0-4.8) k/uL Macrocytosis Marked A Sodium 134 L (137-145) mmol/L BUN 24 H (9-20) mg/dL Calcium 8.2 L (8.4-10.2) mg/dL C-Reactive Protein 16.1 H (<1.0) mg/dL Total Protein 4.5 L (6.3-8.2) g/dL Albumin 2.5 L (3.5-5.0) g/dL Microbiology - Last 24 Hours (Table) 03/12/22 20:31 Blood Culture - Preliminary Blood No Growth after 24 hours 03/12/22 20:16 Blood Culture - Preliminary Blood No Growth after 24 hours
--- NOTE | 2022-03-15 15:39 | P.PN ---
Subjective Progress Note Date: 03/15/22 This is a 76-year-old male who presented to the emergency department with feelings of generalized weakness and reports that he had been most recently over the last few days incontinent of urine and unable to get up. Patient reports that he slid onto the floor and was unable to stand. Patient also has been seen in the outpatient setting with Dr. Samaniego along with Dr. Lainez for this right heel wound that had been healing although most recently saw Dr. Lainez and underwent debridement and reports the pain and wound has gotten worse. Patient reports his primary care provider is Dr. 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 On admission chest x-ray shows no acute active cardiopulmonary disease with no heart failure and there are some old right-sided rib fractures noted and arthritic changes of the shoulder joints. EKG shows sinus rhythm with a heart rate of 63 bpm. Labs reveal a WBC of 12.7 with a hemoglobin of 12.8, platelets are 212, INR is 1.0, sodium is 135, potassium 4.3, BUN 23, creatinine 1.08, plasma lactic acid is 1.5, Covid 19 was negative, urinalysis with a trace of protein otherwise negative. Patient was afebrile on admission although reports to having chills and feeling weak at home. Patient was admitted with infectious disease consultation and started on antibiotics. Will add wound care consult and also PT/OT therapy. 03/14/2022 Patient is seen in follow-up this morning being followed by wound care nurse MANAGER INTERFACE along with infectious disease. PT/OT therapy has been consulted and pending at this time. Patient continues with weakness and will await PT notes. Patient continues on IV antibiotics and awaiting for cultures. Social work also following in the event patient may need antibiotics on discharge although waiting for cultures to finalize at this time. Patient is afebrile denies chest pain or shortness of breath. Patient denies nausea or vomiting and is ismael ating diet. Repeat labs reviewed and WBC is normal at 7.6 with a hemoglobin of 11.2, ESR was 23, BMP within normal limits and recommend follow-up with labs to monitor Vanco trough and kidney functions. 03/15/2022 Patient is seen and evaluated in follow-up lethargic today although easily arousable. Patient is weak and has been evaluated by physical therapy recommend physical therapy daily and patient will most likely return home with home care. Patient is maintained on IV antibiotics in the form of cefepime. Limited cultures showing gram-negative bacilli with ID following and await finalize culture determine discharge antibiotics. Unsure if patient will require IV antibiotics on discharge. Recommend continue with local wound care and also close monitoring of the redness of the right lower extremity. Patient does take multiple pain medications including narcotics and nursing staff reports patient is somewhat confused today and will hold these medications and monitor closely. Patient reports he continues to wet himself and is incontinent of urine and urinalysis was negative. Patient denies frequency or burning with urination. Patient is maintained on Flomax which is his home meds. Patient is afebrile denies chest pain or shortness of breath. Patient denies nausea or vomiting and tolerating diet. Review of systems: Constitutional: No reports of fatigue, fever, or chills Cardiovascular: No reports of chest pain or palpitations Respiratory: No reports of shortness of breath or cough GI: No reports of nausea, vomiting, or diarrhea : No reports of dysuria or retention, reports continued urinary incontinence Neurovascular: reports of weakness All medications have been reviewed PHYSICAL EXAMINATION: GENERAL: The patient is alert and oriented x2-3, thin built elderly appearing male HEENT: Pupils are round and equally reacting to light. EOMI. no scleral icterus. No conjunctival pallor. Normocephalic, atraumatic. No pharyngeal erythema. No thyromegaly. CARDIOVASCULAR: S1 and S2 muffled PULMONARY: diminished breath sounds bilaterally with no wheezing or rhonchi noted. ABDOMEN: soft. Nontender on exam. Thin non-distended, normoactive bowel sound s. No palpable organomegaly. MUSCULOSKELETAL: No joint swelling or deformity. EXTREMITIES: No cyanosis, clubbing, or pedal edema. Right heel recent surgical dressing encrusted gauze noted on the heel, Santyl applied and Kerlix wrapped around the right heel that is dry and intact NEUROLOGICAL: Gross neurological examination did not reveal any focal deficits. Diffuse weakness SKIN: No rashes. Assessment: Weakness with gait dysfunction Urinary incontinence Fever and chills possible sepsis present on admission secondary to acute right lower extremity cellulitis with recent debridement and right heel wound Leukocytosis, secondary to above, improved Right heel wound with right lower extremity cellulitis with redness and pain with cultures growing gram-negative bacilli Acute altered mental status possibly toxic encephalopathy secondary to multiple narcotics and will discontinue and monitor Hypertension GERD hyperlipidemia osteoarthritis sleep apnea, does not wear CPAP Recent outpatient right heel debridement with Dr. Lainez in the office GI prophylaxis DVT prophylaxis Full code Plan: Recommend to continue with current medications and management with infectious disease following and patient preston on cefepime. Awaiting finalized cultures and wound care MANAGER INTERFACE following changing dressings to Santyl. Preliminary culture showing gram-negative bacilli Weakness with gait dysfunction recommend PT/OT therapy daily Urinary incontinence with fevers and chills and overall generalized weakness possibly secondary to sepsis, present on admission secondary to right lower extremity cellulitis, improved Doppler of the right lower extremity was negative for DVT Patient with some confusion today per nursing staff and will hold narcotic medications as patient does take a number of medications chronically Preliminary culture showing gram-negative bacilli and awaiting finalized cultures to determine discharge antibiotics The impression and plan of care has been dictated by Peri Meadows, nurse practitioner as directed. Dr. Jasmyne CALDERON I have performed a history and examination and MDM of this patient, discussed the same with the dictator, and agree with the dictator's assessment and plan as written ,documented as a scribe. Based on total visit time, I have performed more than 50% of the visit. Any additional findings or plans will be noted. Objective - Vital Signs Vital signs: Vital Signs Temp 98.1 F 03/15/22 04:07 Pulse 65 03/15/22 04:07 Resp 16 03/15/22 04:07 BP 109/60 03/15/22 04:07 Pulse Ox 97 03/15/22 04:07 FiO2 Intake & Output 03/14/22 03/15/22 03/15/22 18:59 06:59 18:59 Intake Total 350 360 Output Total 1500 Balance 350 -1140 Intake: Intake, IV Titration 350 Amount Cefepime 2 gm In Sodium 100 Chloride 0.9% 100 ml @ 25 mls/hr IVPB Q8HR [facility] Rx# :[id number] Vancomycin 1,000 mg In 250 Sodium Chloride 0.9% 250 ml @ 125 mls/hr IVPB Q12H [facility] Rx#:[id number] Oral 360 Output: Urine 1500 Other: Voiding Method Toilet Toilet # Voids 3 - Labs CBC & Chem 7: 03/14/22 06:08 03/15/22 07:52 Labs: Abnormal Lab Results - Last 24 Hours (Table) 03/14/22 Range/Units 11:12 ESR 23 H (0-15) mm/hr Microbiology - Last 24 Hours (Table) 03/14/22 14:30 Gram Stain - Preliminary Foot - Right Wound Culture - Preliminary 03/12/22 20:16 Blood Culture - Preliminary Blood No Growth after 48 hours 03/12/22 20:31 Blood Culture - Preliminary Blood No Growth after 48 hours 03/14/22 14:30 Anaerobic Culture - Preliminary Foot - Right
[2022-03-15] MEDS: TAMSULOSIN 0.4 MG CAP.ER.24H PO SCH (21:10)
[2022-03-15] MEDS: ATORVASTATIN 40 MG TAB PO SCH (21:10)
--- NOTE | 2022-03-15 22:37 | P.PN ---
Subjective Progress Note Date: 03/14/22 Principal diagnosis: Fever right lower extremity cellulitis Patient is a 70-year-old male with a past medical history significant for non-healing wound to the right heel area presenting to the hospital with increasing swelling redness to the right lower extremity concerning for cellulitis in this patient with a fever on presentation to the hospital. On today's evaluation that is 03/14/2022, the patient denies having any fever or any chills feeling slightly better right lower extremity swelling redness slightly decreased denies any chest pain shortness of breath or cough no abdominal pain or diarrhea Objective - Vital Signs Vital signs: Vital Signs Temp 98.3 F 03/14/22 11:19 Pulse 56 L 03/14/22 11:19 Resp 16 03/14/22 11:19 BP 102/57 03/14/22 11:19 Pulse Ox 95 03/14/22 11:19 FiO2 Intake & Output 03/13/22 03/14/22 03/14/22 18:59 06:59 18:59 Intake Total 1192 120 Balance 1192 120 Weight 61.235 kg Intake: Oral 1192 120 Other: Voiding Method Toilet Toilet # Voids 1 - Exam GENERAL DESCRIPTION: An elderly male lying in bed in no distress RESPIRATORY SYSTEM: Unlabored breathing , decreased breath sounds at bases HEART: S1 S2 regular rate and rhythm , ABDOMEN: Soft , no tenderness EXTREMITIES: Right heel wound with minimal slough tissue some surrounding redness which has decreased - Labs CBC & Chem 7: 03/14/22 06:08 03/15/22 07:52 Labs: Abnormal Lab Results - Last 24 Hours (Table) 03/14/22 03/14/22 03/14/22 Range/Units 06:08 06:08 11:12 RBC 3.36 L (4.30-5.90) m/uL Hgb 11.2 L (13.0-17.5) gm/dL Hct 36.8 L (39.0-53.0) % MCV 109.5 H D (80.0-100.0) fL MCHC 30.4 L (31.0-37.0) g/dL Lymphocytes # 0.9 L (1.0-4.8) k/uL Macrocytosis Marked A ESR 23 H (0-15) mm/hr Sodium 134 L (137-145) mmol/L BUN 24 H (9-20) mg/dL Calcium 8.2 L (8.4-10.2) mg/dL C-Reactive Protein 16.1 H (<1.0) mg/dL Total Protein 4.5 L (6.3-8.2) g/dL Albumin 2.5 L (3.5-5.0) g/dL Microbiology - Last 24 Hours (Table) 03/12/22 20:31 Blood Culture - Preliminary Blood No Growth after 24 hours 03/12/22 20:16 Blood Culture - Preliminary Blood No Growth after 24 hours Assessment and Plan (1) Cellulitis Current Visit: Yes Status: Acute Code(s): L03.90 - CELLULITIS, UNSPECIFIED SNOMED Code(s): 774570219 Plan: 1patient present to hospital with sepsis in this patient did have fever elevated white count source and likely right heel wound with secondary cellulitis and likely from gram-positive skin earnest , Underlying gram-negative infection is not entirely excluded, x-ray of the foot was negative for any bony changes 2-local wound care with the Santyl followed by moist dressing changes daily 3discontinue vancomycin and start the patient cefepime while waiting for the culture finalized Time with Patient: Less than 30
--- NOTE | 2022-03-15 22:39 | P.PN ---
Subjective Progress Note Date: 03/15/22 Principal diagnosis: Fever right lower extremity cellulitis Patient is a 70-year-old male with a past medical history significant for non-healing wound to the right heel area presenting to the hospital with increasing swelling redness to the right lower extremity concerning for cellulitis in this patient with a fever on presentation to the hospital. On today's evaluation that is 03/15/2022, the patient remains to be afebrile, the patient is breathing comfortably on room air no chest pain shortness of breath or cough no abdominal pain or any worsening pain to the right heel area Objective - Vital Signs Vital signs: Vital Signs Temp 98.1 F 03/15/22 04:07 Pulse 65 03/15/22 04:07 Resp 16 03/15/22 04:07 BP 109/60 03/15/22 04:07 Pulse Ox 97 03/15/22 04:07 FiO2 Intake & Output 03/14/22 03/15/22 03/15/22 18:59 06:59 18:59 Intake Total 350 360 Output Total 1500 Balance 350 -1140 Intake: Intake, IV Titration 350 Amount Cefepime 2 gm In Sodium 100 Chloride 0.9% 100 ml @ 25 mls/hr IVPB Q8HR [facility] Rx# :[id number] Vancomycin 1,000 mg In 250 Sodium Chloride 0.9% 250 ml @ 125 mls/hr IVPB Q12H [facility] Rx#:[id number] Oral 360 Output: Urine 1500 Other: Voiding Method Toilet Toilet # Voids 3 - Exam GENERAL DESCRIPTION: An elderly male lying in bed in no distress RESPIRATORY SYSTEM: Unlabored breathing , decreased breath sounds at bases HEART: S1 S2 regular rate and rhythm , ABDOMEN: Soft , no tenderness EXTREMITIES: Right heel wound is currently dressed right lower extremity redness has improved - Labs CBC & Chem 7: 03/14/22 06:08 03/15/22 07:52 Labs: Abnormal Lab Results - Last 24 Hours (Table) 03/14/22 Range/Units 11:12 ESR 23 H (0-15) mm/hr Microbiology - Last 24 Hours (Table) 03/14/22 14:30 Gram Stain - Preliminary Foot - Right Wound Culture - Preliminary Gram Neg Bacilli 03/12/22 20:16 Blood Culture - Preliminary Blood No Growth after 48 hours 03/12/22 20:31 Blood Culture - Preliminary Blood No Growth after 48 hours 03/14/22 14:30 Anaerobic Culture - Preliminary Foot - Right Assessment and Plan (1) Cellulitis Current Visit: Yes Status: Acute Code(s): L03.90 - CELLULITIS, UNSPECIFIED SNOMED Code(s): 520191577 Plan: 1patient present to hospital with sepsis in this patient did have fever elevated white count source and likely right heel wound with secondary cellulitis and likely from gram-positive skin earnest , Underlying gram-negative infection is not entirely excluded, x-ray of the foot was negative for any bony changes 2-local wound care with the Santyl followed by moist dressing changes daily 3patient local cultures currently growing gram-negative bacilli patient to continue with the cefepime while waiting for the cultures to finalize Time with Patient: Less than 30
[2022-03-16] MEDS: ISOSORBIDE MONONITRATE ER 30 MG TAB.ER.24H PO SCH (08:20)
[2022-03-16] MEDS: CLOPIDOGREL 75 MG TAB PO SCH (08:20)
[2022-03-16] MEDS: carvediloL 6.25 MG TAB PO SCH ×2 (08:20→17:10)
[2022-03-16] MEDS: PANTOPRAZOLE 40 MG TABLET PO SCH ×2 (08:20→20:27)
[2022-03-16] MEDS: MELOXICAM 7.5 MG TAB PO SCH (08:20)
[2022-03-16] MEDS: PRIMIDONE 50 MG TAB PO SCH ×2 (08:21→20:27)
[2022-03-16] MEDS: CEFEPIME 2 GM in SODIUM CHLORIDE 0.9% 100 ML IVPB SCH ×3 (08:21→23:34)
[2022-03-16] MEDS: AZELASTINE 137MCG/SPRAY NASAL SCH ×2 (08:22→20:27)
[2022-03-16] MEDS: LIDOCAINE 5% PATCH TOPICAL SCH (08:22)
[2022-03-16] MEDS: ACETAMINOPHEN TAB 325 MG TAB PO PRN (12:01)
[2022-03-16 12:24] VITALS: BMI 19.3
[2022-03-16] MEDS ORDERED: LACTULOSE 20 GM/30 ML CUP PO ONE (13:04)
--- NOTE | 2022-03-16 13:08 | P.PN ---
Subjective Progress Note Date: 03/16/22 This is a 76-year-old male who presented to the emergency department with feelings of generalized weakness and reports that he had been most recently over the last few days incontinent of urine and unable to get up. Patient reports that he slid onto the floor and was unable to stand. Patient also has been seen in the outpatient setting with Dr. Samaniego along with Dr. Lainez for this right heel wound that had been healing although most recently saw Dr. Lainez and underwent debridement and reports the pain and wound has gotten worse. Patient reports his primary care provider is Dr. 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 On admission chest x-ray shows no acute active cardiopulmonary disease with no heart failure and there are some old right-sided rib fractures noted and arthritic changes of the shoulder joints. EKG shows sinus rhythm with a heart rate of 63 bpm. Labs reveal a WBC of 12.7 with a hemoglobin of 12.8, platelets are 212, INR is 1.0, sodium is 135, potassium 4.3, BUN 23, creatinine 1.08, plasma lactic acid is 1.5, Covid 19 was negative, urinalysis with a trace of protein otherwise negative. Patient was afebrile on admission although reports to having chills and feeling weak at home. Patient was admitted with infectious disease consultation and started on antibiotics. Will add wound care consult and also PT/OT therapy. 03/14/2022 Patient is seen in follow-up this morning being followed by wound care nurse CERTIFIED REAL ESTATE APPRAISER along with infectious disease. PT/OT therapy has been consulted and pending at this time. Patient continues with weakness and will await PT notes. Patient continues on IV antibiotics and awaiting for cultures. Social work also following in the event patient may need antibiotics on discharge although waiting for cultures to finalize at this time. Patient is afebrile denies chest pain or shortness of breath. Patient denies nausea or vomiting and is tolerat ing diet. Repeat labs reviewed and WBC is normal at 7.6 with a hemoglobin of 11.2, ESR was 23, BMP within normal limits and recommend follow-up with labs to monitor Vanco trough and kidney functions. 03/15/2022 Patient is seen and evaluated in follow-up lethargic today although easily arousable. Patient is weak and has been evaluated by physical therapy recommend physical therapy daily and patient will most likely return home with home care. Patient is maintained on IV antibiotics in the form of cefepime. Limited cultures showing gram-negative bacilli with ID following and await finalize culture determine discharge antibiotics. Unsure if patient will require IV antibiotics on discharge. Recommend continue with local wound care and also close monitoring of the redness of the right lower extremity. Patient does take multiple pain medications including narcotics and nursing staff reports patient is somewhat confused today and will hold these medications and monitor closely. Patient reports he continues to wet himself and is incontinent of urine and urinalysis was negative. Patient denies frequency or burning with urination. Patient is maintained on Flomax which is his home meds. Patient is afebrile denies chest pain or shortness of breath. Patient denies nausea or vomiting and tolerating diet. 03/16/2022 Patient is resting in bed today. Pending finalized wound cultures for discharge antibiotics. Local wound care to heel. His main complaint today is that he needs to have a BM states it has been since friday. He has normoactive bowel sounds and also he is tolerating diet no nausea vomiting. He seems less confused today. He does report issues with urinary incontinence. Most recent creatinine is 1.06. Does have low grade fever 99.3 today, heart rate 62, blood pressure 138/64, 96% room air. He continues on IV cefepime. Review of systems: Constitutional: No reports of fatigue, fever, or chills Cardiovascular: No reports of chest pain or palpitations Respiratory: No reports of shortness of breath or cough GI: No reports of nausea, vomiting, or diarrhea : No reports of dysuria or retention, reports continued urinary incontinence Neurovascular: reports of weakness All medications have been reviewed PHYSICAL EXAMINATION: GENERAL: The patient is alert and oriented x2-3, thin built elderly appearing male HEENT: Pupils are round and equally reacting to light. EOMI. no scleral icterus. No conjunctival pallor. Normocephalic, atraumatic. No pharyngeal erythema. No thyromegaly. CARDIOVASCULAR: S1 and S2 muffled PULMONARY: diminished breath sounds bilaterally with no wheezing or rhonchi noted. ABDOMEN: soft. Nontender on exam. Thin non-distended, normoactive bowel sounds. No palpable organomegaly. MUSCULOSKELETAL: No joint swelling or deformity. EXTREMITIES: No cyanosis, clubbing, or pedal edema. Right heel recent surgical dressing encrusted gauze noted on the heel, Santyl applied and Kerlix wrapped around the right heel that is dry and intact NEUROLOGICAL: Gross neurological examination did not reveal any focal deficits. Diffuse weakness SKIN: No rashes. Assessment: Weakness with gait dysfunction Urinary incontinence Fever and chills possible sepsis present on admission secondary to acute right lower extremity cellulitis with recent debridement and right heel wound Leukocytosis, secondary to above, improved Right heel wound with right lower extremity cellulitis with redness and pain with cultures growing gram-negative bacilli Acute altered mental status possibly toxic encephalopathy secondary to multiple narcotics and will discontinue and monitor Hypertension GERD hyperlipidemia osteoarthritis sleep apnea, does not wear CPAP Recent outpatient right heel debridement with Dr. Lainez in the office GI prophylaxis DVT prophylaxis Full code Plan: Recommend to continue with current medications and management with infectious disease following and patient preston on cefepime. Awaiting finalized cultures and wound care CERTIFIED REAL ESTATE APPRAISER following changing dressings to Santyl. Preliminary culture showing gram-negative bacilli Weakness with gait dysfunction recommend PT/OT therapy daily Urinary incontinence with fevers and chills and overall generalized weakness possibly secondary to sepsis, present on admission secondary to right lower extremity cellulitis, improved Doppler of the right lower extremity was negative for DVT Patient with some confusion today per nursing staff and will hold narcotic medications as patient does take a number of medications chronically Preliminary culture showing gram-negative bacilli and awaiting finalized cultures to determine discharge antibiotics The impression and plan of care has been dictated by Alicia Adan Nurse Practitioner as directed. Dr. Jasmyne MD I have performed a history and physical examination and medical decision making of this patient, discussed the same with the dictator, and agree with the dictators assessment and plan as written, documented as a scribe. Based on total visit time, I have performed more than 50% of this visit. Objective - Vital Signs Vital signs: Vital Signs Temp 99.3 F 03/16/22 06:19 Pulse 62 09/17/22 06:19 Resp 16 03/16/22 06:19 BP 138/64 03/16/22 06:19 Pulse Ox 98 03/15/22 18:05 FiO2 Intake & Output 03/15/22 03/16/22 03/16/22 18:59 06:59 18:59 Intake Total 1000 Output Total 300 Balance 1000 -300 Weight 61.235 kg Intake: Oral 1000 Output: Urine 300 Other: Voiding Method Urinal Toilet Urinal Diaper Urinal Diaper Incontinent Diaper Incontinent Incontinent # Voids 5 - Labs CBC & Chem 7: 03/14/22 06:08 03/15/22 07:52 Labs: Microbiology - Last 24 Hours (Table) 03/12/22 20:31 Blood Culture - Preliminary Blood No Growth after 72 hours 03/12/22 20:16 Blood Culture - Preliminary Blood No Growth after 72 hours 03/14/22 14:30 Gram Stain - Preliminary Foot - Right Wound Culture - Preliminary Gram Neg Bacilli Assessment and Plan Time with Patient: Less than 30
[2022-03-16] MEDS: COLLAGENASE 250 UNIT/GM OINTMENT 30 GM TUBE TOPICAL SCH (15:13)
--- NOTE | 2022-03-16 15:34 | P.PN ---
Subjective Progress Note Date: 03/16/22 Principal diagnosis: Fever right lower extremity cellulitis Patient is a 70-year-old male with a past medical history significant for non-healing wound to the right heel area presenting to the hospital with increasing swelling redness to the right lower extremity concerning for cellulitis in this patient with a fever on presentation to the hospital. On today's evaluation that is 03/16/2022, the patient continues to be afebrile, the patient is breathing comfortably on room air , the patient denies chest pain shortness of breath or cough no abdominal pain , pain to the right heel area has decreased in intensity and redness has receded as well Objective - Vital Signs Vital signs: Vital Signs Temp 97.4 F L 03/16/22 13:00 Pulse 81 03/16/22 13:00 Resp 18 03/16/22 13:00 BP 110/66 03/16/22 13:00 Pulse Ox 98 03/16/22 13:00 FiO2 Intake & Output 03/15/22 03/16/22 03/16/22 18:59 06:59 18:59 Intake Total 1000 Output Total 300 Balance 1000 -300 Weight 61.235 kg Intake: Oral 1000 Output: Urine 300 Other: Voiding Method Urinal Toilet Urinal Diaper Urinal Diaper Incontinent Diaper Incontinent Incontinent # Voids 5 - Exam GENERAL DESCRIPTION: An elderly male lying in bed in no distress RESPIRATORY SYSTEM: Unlabored breathing , decreased breath sounds at bases HEART: S1 S2 regular rate and rhythm , ABDOMEN: Soft , no tenderness EXTREMITIES: Right heel wound is currently dressed right lower extremity redness has improved - Labs CBC & Chem 7: 03/14/22 06:08 03/15/22 07:52 Labs: Microbiology - Last 24 Hours (Table) 03/12/22 20:31 Blood Culture - Preliminary Blood No Growth after 72 hours 03/12/22 20:16 Blood Culture - Preliminary Blood No Growth after 72 hours Assessment and Plan (1) Cellulitis Current Visit: Yes Status: Acute Code(s): L03.90 - CELLULITIS, UNSPECIFIED SNOMED Code(s): 036924647 Plan: 1patient present to hospital with sepsis in this patient did have fever elevated white count source and likely right heel wound with secondary cellulitis and likely from gram-positive skin earnest , Underlying gram-negative infection is not entirely excluded, x-ray of the foot was negative for any bony changes 2-local wound care with the Santyl followed by moist dressing changes daily 3patient seemed to showing clinical improvement, local cultures currently growing gram-negative bacilli with the ID sensitivities currently pending, patient to continue with the cefepime while waiting for the cultures to finalize Time with Patient: Less than 30
[2022-03-16] MEDS: GABAPENTIN 300 MG CAP PO SCH (20:27)
[2022-03-16] MEDS: TAMSULOSIN 0.4 MG CAP.ER.24H PO SCH (20:27)
[2022-03-16] MEDS: ATORVASTATIN 40 MG TAB PO SCH (20:27)
[2022-03-17] MEDS: CEFEPIME 2 GM in SODIUM CHLORIDE 0.9% 100 ML IVPB SCH ×2 (08:03→16:09)
[2022-03-17] MEDS: carvediloL 6.25 MG TAB PO SCH ×3 (08:03→16:23)
[2022-03-17] MEDS: MELOXICAM 7.5 MG TAB PO SCH (08:03)
[2022-03-17] MEDS: PANTOPRAZOLE 40 MG TABLET PO SCH ×2 (08:03→21:56)
[2022-03-17] MEDS: ISOSORBIDE MONONITRATE ER 30 MG TAB.ER.24H PO SCH (08:04)
[2022-03-17] MEDS: GABAPENTIN 300 MG CAP PO SCH ×2 (08:04→21:55)
[2022-03-17] MEDS: CLOPIDOGREL 75 MG TAB PO SCH (08:04)
[2022-03-17] MEDS: AZELASTINE 137MCG/SPRAY NASAL SCH ×2 (08:04→21:54)
[2022-03-17] MEDS: LIDOCAINE 5% PATCH TOPICAL SCH (08:05)
[2022-03-17] MEDS: PRIMIDONE 50 MG TAB PO SCH ×2 (08:06→21:56)
--- NOTE | 2022-03-17 15:06 | P.PN ---
Subjective Progress Note Date: 03/17/22 This is a 76-year-old male who presented to the emergency department with feelings of generalized weakness and reports that he had been most recently over the last few days incontinent of urine and unable to get up. Patient reports that he slid onto the floor and was unable to stand. Patient also has been seen in the outpatient setting with Dr. Samaniego along with Dr. Lainez for this right heel wound that had been healing although most recently saw Dr. Laienz and underwent debridement and reports the pain and wound has gotten worse. Patient reports his primary care provider is Dr. 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 On admission chest x-ray shows no acute active cardiopulmonary disease with no heart failure and there are some old right-sided rib fractures noted and arthritic changes of the shoulder joints. EKG shows sinus rhythm with a heart rate of 63 bpm. Labs reveal a WBC of 12.7 with a hemoglobin of 12.8, platelets are 212, INR is 1.0, sodium is 135, potassium 4.3, BUN 23, creatinine 1.08, plasma lactic acid is 1.5, Covid 19 was negative, urinalysis with a trace of protein otherwise negative. Patient was afebrile on admission although reports to having chills and feeling weak at home. Patient was admitted with infectious disease consultation and started on antibiotics. Will add wound care consult and also PT/OT therapy. 03/14/2022 Patient is seen in follow-up this morning being followed by wound care nurse DRONE PILOT along with infectious disease. PT/OT therapy has been consulted and pending at this time. Patient continues with weakness and will await PT notes. Patient continues on IV antibiotics and awaiting for cultures. Social work also following in the event patient may need antibiotics on discharge although waiting for cultures to finalize at this time. Patient is afebrile denies chest pain or shortness of breath. Patient denies nausea or vomiting and is tolerat ing diet. Repeat labs reviewed and WBC is normal at 7.6 with a hemoglobin of 11.2, ESR was 23, BMP within normal limits and recommend follow-up with labs to monitor Vanco trough and kidney functions. 03/15/2022 Patient is seen and evaluated in follow-up lethargic today although easily arousable. Patient is weak and has been evaluated by physical therapy recommend physical therapy daily and patient will most likely return home with home care. Patient is maintained on IV antibiotics in the form of cefepime. Limited cultures showing gram-negative bacilli with ID following and await finalize culture determine discharge antibiotics. Unsure if patient will require IV antibiotics on discharge. Recommend continue with local wound care and also close monitoring of the redness of the right lower extremity. Patient does take multiple pain medications including narcotics and nursing staff reports patient is somewhat confused today and will hold these medications and monitor closely. Patient reports he continues to wet himself and is incontinent of urine and urinalysis was negative. Patient denies frequency or burning with urination. Patient is maintained on Flomax which is his home meds. Patient is afebrile denies chest pain or shortness of breath. Patient denies nausea or vomiting and tolerating diet. 03/16/2022 Patient is resting in bed today. Pending finalized wound cultures for discharge antibiotics. Local wound care to heel. His main complaint today is that he needs to have a BM states it has been since friday. He has normoactive bowel sounds and also he is tolerating diet no nausea vomiting. He seems less confused today. He does report issues with urinary incontinence. Most recent creatinine is 1.06. Does have low grade fever 99.3 today, heart rate 62, blood pressure 138/64, 96% room air. He continues on IV cefepime. 03/17/2022 Patient is evaluated today resting in bed. Reports increased pain and discomfort to his right lower extremity. Cultures finalized showing psuedomonas and he continues on cefepime and also santyl daily dressing changes. Infectious disease is following. He appears to have increased erythema and tenderness to right lower extremity. He had a dose of lactulose last night and had multiple BMS states he had some crampy abdominal pain that has resolved on assessment. Discharge planning friday. Review of systems: Constitutional: No reports of fatigue, fever, or chills Cardiovascular: No reports of chest pain or palpitations Respiratory: No reports of shortness of breath or cough GI: No reports of nausea, vomiting, or diarrhea : No reports of dysuria or retention, reports continued urinary incontinence Neurovascular: reports of weakness All medications have been reviewed PHYSICAL EXAMINATION: GENERAL: The patient is alert and oriented x2-3, thin built elderly appearing male HEENT: Pupils are round and equally reacting to light. EOMI. no scleral icterus. No conjunctival pallor. Normocephalic, atraumatic. No pharyngeal erythema. No thyromegaly. CARDIOVASCULAR: S1 and S2 muffled PULMONARY: diminished breath sounds bilaterally with no wheezing or rhonchi noted. ABDOMEN: soft. Nontender on exam. Thin non-distended, normoactive bowel sounds. No palpable organomegaly. MUSCULOSKELETAL: No joint swelling or deformity. EXTREMITIES: No cyanosis, clubbing, or pedal edema. Right heel recent surgical dressing encrusted gauze noted on the heel, Santyl applied and Kerlix wrapped around the right heel that is dry and intact NEUROLOGICAL: Gross neurological examination did not reveal any focal deficits. Diffuse weakness SKIN: No rashes. Local erythema to right lower extremity with dressing intact to right heel. Assessment: Weakness with gait dysfunction Urinary incontinence Fever and chills possible sepsis present on admission secondary to acute right lower extremity cellulitis with recent debridement and right heel wound Leukocytosis, secondary to above, improved Right heel wound with right lower extremity cellulitis with redness and pain with cultures growing gram-negative bacilli Acute altered mental status possibly toxic encephalopathy secondary to multiple narcotics and will discontinue and monitor Hypertension GERD hyperlipidemia osteoarthritis sleep apnea, does not wear CPAP Recent outpatient right heel debridement with Dr. Lainez in the office GI prophylaxis DVT prophylaxis Full code Plan: Recommend to continue with current medications and management with infectious disease following and patient preston on cefepime. Cultures finalized showing pseudomonas and daily dressing changes with santyl. Weakness with gait dysfunction recommend PT/OT therapy daily Urinary incontinence with fevers and chills and overall generalized weakness possibly secondary to sepsis, present on admission secondary to right lower extremity cellulitis, improved Doppler of the right lower extremity was negative for DVT Mentation has improved patient was started back on lower dose of gabapentin. Pending DC recommendations from ID The impression and plan of care has been dictated by Alicia Adan, Nurse Practitioner as directed. Dr. Jasmyne MD I have performed a history and physical examination and medical decision making of this patient, discussed the same with the dictator, and agree with the dictators assessment and plan as written, documented as a scribe. Based on total visit time, I have performed more than 50% of this visit. Objective - Vital Signs Vital signs: Vital Signs Temp 98.1 F 03/17/22 12:21 Pulse 60 03/17/22 12:21 Resp 16 03/17/22 12:21 BP 94/55 03/17/22 12:21 Pulse Ox 96 03/17/22 12:21 FiO2 Intake & Output 03/16/22 03/17/22 03/17/22 18:59 06:59 18:59 Intake Total 125 Output Total 650 200 Balance -525 -200 Weight 61.235 kg Intake: Oral 125 Output: Urine 650 200 Other: Voiding Method Urinal Toilet Toilet Diaper Urinal Urinal Incontinent Diaper Diaper Incontinent Incontinent # Voids 2 2 # Bowel Movements 2 1 - Labs CBC & Chem 7: 03/14/22 06:08 03/15/22 07:52 Labs: Microbiology - Last 24 Hours (Table) 03/14/22 14:30 Gram Stain - Final Foot - Right Wound Culture - Final Pseudomonas aeruginosa 03/12/22 20:31 Blood Culture - Preliminary Blood No Growth after 96 hours 03/12/22 20:16 Blood Culture - Preliminary Blood No Growth after 96 hours 03/14/22 14:30 Anaerobic Culture - Preliminary Foot - Right Assessment and Plan Time with Patient: Less than 30
[2022-03-17] MEDS: COLLAGENASE 250 UNIT/GM OINTMENT 30 GM TUBE TOPICAL SCH (16:10)
--- NOTE | 2022-03-17 17:02 | P.PN ---
Subjective Progress Note Date: 03/17/22 Principal diagnosis: Fever right lower extremity cellulitis Patient is a 70-year-old male with a past medical history significant for non-healing wound to the right heel area presenting to the hospital with increasing swelling redness to the right lower extremity concerning for cellulitis in this patient with a fever on presentation to the hospital. On today's evaluation that is 03/17/2022, the patient remains to be afebrile, the patient is breathing comfortably on room air , the patient denies chest pain shortness of breath or cough no abdominal pain , pain still complaining of pain into the right heel and leg area especially with walking, however no worsening redness or drainage Objective - Vital Signs Vital signs: Vital Signs Temp 98.1 F 03/17/22 12:21 Pulse 60 03/17/22 12:21 Resp 16 03/17/22 12:21 BP 94/55 03/17/22 12:21 Pulse Ox 96 03/17/22 12:21 FiO2 Intake & Output 03/16/22 03/17/22 03/17/22 18:59 06:59 18:59 Intake Total 125 Output Total 650 200 Balance -525 -200 Weight 61.235 kg Intake: Oral 125 Output: Urine 650 200 Other: Voiding Method Urinal Toilet Toilet Diaper Urinal Urinal Incontinent Diaper Diaper Incontinent Incontinent # Voids 2 2 # Bowel Movements 2 1 - Exam GENERAL DESCRIPTION: An elderly male lying in bed in no distress RESPIRATORY SYSTEM: Unlabored breathing , decreased breath sounds at bases HEART: S1 S2 regular rate and rhythm , ABDOMEN: Soft , no tenderness EXTREMITIES: Right heel wound is currently dressed right lower extremity redness has improved - Labs CBC & Chem 7: 03/14/22 06:08 03/15/22 07:52 Labs: Microbiology - Last 24 Hours (Table) 03/14/22 14:30 Anaerobic Culture - Final Foot - Right 03/14/22 14:30 Gram Stain - Final Foot - Right Wound Culture - Final Pseudomonas aeruginosa 03/12/22 20:31 Blood Culture - Preliminary Blood No Growth after 96 hours 03/12/22 20:16 Blood Culture - Preliminary Blood No Growth after 96 hours Assessment and Plan (1) Cellulitis Current Visit: Yes Status: Acute Code(s): L03.90 - CELLULITIS, UNSPECIFIED SNOMED Code(s): 878941112 Plan: 1patient present to hospital with sepsis in this patient did have fever elevated white count source and likely right heel wound with secondary cellulitis and likely from gram-positive skin earnest , Underlying gram-negative infection is not entirely excluded, x-ray of the foot was negative for any bony changes 2-local wound care with the Santyl followed by moist dressing changes daily 3patient local cultures have been finalized a Pseudomonas sensitive to cefepime the patient is on to continue IV cefepime hopefully transitioned to oral antibiotics on discharge Time with Patient: Less than 30
[2022-03-17] MEDS: ATORVASTATIN 40 MG TAB PO SCH (21:55)
[2022-03-17] MEDS: TAMSULOSIN 0.4 MG CAP.ER.24H PO SCH (21:56)
[2022-03-17] MEDS: ACETAMINOPHEN TAB 325 MG TAB PO PRN (21:57)
[2022-03-18] MEDS: CEFEPIME 2 GM in SODIUM CHLORIDE 0.9% 100 ML IVPB SCH ×3 (00:15→21:00)
[2022-03-18 02:01] LABS: Glucose,Whole Blood 96 mg/dL (70-110)
[2022-03-18] MEDS: LIDOCAINE 5% PATCH TOPICAL SCH (09:25)
[2022-03-18] MEDS: PRIMIDONE 50 MG TAB PO SCH ×2 (09:28→22:28)
[2022-03-18] MEDS: PANTOPRAZOLE 40 MG TABLET PO SCH ×2 (09:28→20:59)
[2022-03-18] MEDS: carvediloL 6.25 MG TAB PO SCH ×2 (09:28→16:19)
[2022-03-18] MEDS: ISOSORBIDE MONONITRATE ER 30 MG TAB.ER.24H PO SCH (09:28)
[2022-03-18] MEDS: GABAPENTIN 300 MG CAP PO SCH ×2 (09:28→21:00)
[2022-03-18] MEDS: CLOPIDOGREL 75 MG TAB PO SCH (09:28)
[2022-03-18] MEDS: MELOXICAM 7.5 MG TAB PO SCH (09:29)
[2022-03-18] MEDS: ACETAMINOPHEN TAB 325 MG TAB PO PRN (09:29)
[2022-03-18 09:36] LABS: HGB 9.7 g/dL (13.0-17.0); MCH 32.6 pg (27.0-32.0); MCHC 31.3 g/dL (32.0-37.0); Mean Platelet Volume 9.6 fL (9.5-12.2); NRBC Per 100 WBC 0 /100 WBCS (0.0-0.0); Platelet Count 261 X 10*3/uL (140-440); RBC 2.98 X 10*6/uL (4.40-5.60); RDW 12.9 % (11.5-14.5); WBC 11.59 X 10*3/uL (4.50-10.00)
[2022-03-18 09:49] LABS: African American GFR (CKD) 83.2 (60.0-200.0); BUN/Creat Ratio 20.2 Ratio (12.00-20.00); Blood Urea Nitrogen 20.2 mg/dL (9.0-27.0); Magnesium 1.9 mg/dL (1.5-2.4); Non-African American GFR(CKD) 71.8 (60.0-200.0); Potassium 4.6 mmol/L (3.5-5.5)
[2022-03-18 10:12] LABS: Basophils # (A) 0.08 X 10*3/uL (0.00-0.10); Basophils % (A) 0.7 %; Eosinophils # (A) 0.34 X 10*3/uL (0.04-0.35); Eosinophils % (A) 2.9 %; Immature Grans, Automated 2.4 %; Lymphocytes # (A) 1.68 X 10*3/uL (0.90-5.00); Lymphocytes % (A) 14.5 %; Monocytes # (A) 1.58 X 10*3/uL (0.20-1.00); Monocytes % (A) 13.6 %; Neutrophils # (A) 7.63 X 10*3/uL (1.80-7.70); Neutrophils % (A) 65.9 %
[2022-03-18] MEDS: COLLAGENASE 250 UNIT/GM OINTMENT 30 GM TUBE TOPICAL SCH (10:28)
[2022-03-18] MEDS: AZELASTINE 137MCG/SPRAY NASAL SCH ×2 (10:29→21:10)
[2022-03-18] MEDS ORDERED: VANCOMYCIN IV PER PHARMACY 1 EACH MISC MISCELLANE PRN (12:42)
--- NOTE | 2022-03-18 12:45 | P.PN ---
Subjective Progress Note Date: 03/18/22 Principal diagnosis: Fever right lower extremity cellulitis Patient is a 70-year-old male with a past medical history significant for non-healing wound to the right heel area presenting to the hospital with increasing swelling redness to the right lower extremity concerning for cellulitis in this patient with a fever on presentation to the hospital. On today's evaluation that is 03/18/2022, the patient continues to be afebrile, the patient is breathing comfortably on room air , the patient denies chest pain shortness of breath or cough no abdominal pain , patient is recumbent no pain to his right second toe and apparently there is more redness to the right lower leg per the nursing staff Objective - Vital Signs Vital signs: Vital Signs Temp 98.6 F 03/18/22 03:15 Pulse 70 03/18/22 09:30 Resp 14 03/18/22 03:15 BP 158/83 03/18/22 09:30 Pulse Ox 97 03/18/22 09:30 FiO2 Intake & Output 03/17/22 03/18/22 03/18/22 18:59 06:59 18:59 Output Total 200 Balance -200 Output: Urine 200 Other: Voiding Method Toilet Toilet Toilet Urinal Urinal Urinal Diaper Diaper Diaper Incontinent Incontinent Incontinent # Voids 2 2 # Bowel Movements 1 - Exam GENERAL DESCRIPTION: An elderly male lying in bed in no distress RESPIRATORY SYSTEM: Unlabored breathing , decreased breath sounds at bases HEART: S1 S2 regular rate and rhythm , ABDOMEN: Soft , no tenderness EXTREMITIES: Right heel wound with no significant slough tissue or surrounding redness right second toe did have more slough tissue and redness and more erythema to the right lower leg - Labs CBC & Chem 7: 03/18/22 04:50 03/18/22 04:50 Labs: Abnormal Lab Results - Last 24 Hours (Table) 03/18/22 03/18/22 Range/Units 04:50 04:50 WBC 11.59 H (4.50-10.00) X 10*3/uL RBC 2.98 L (4.40-5.60) X 10*6/uL Hgb 9.7 L (13.0-17.0) g/dL Hct 31.0 L (39.6-50.0) % MCV 104.0 H (80.0-97.0) fL MCH 32.6 H (27.0-32.0) pg MCHC 31.3 L (32.0-37.0) g/dL Immature Gran # 0.28 H (0.00-0.04) X 10*3/uL Monocytes # 1.58 H (0.20-1.00) X 10*3/uL Anion Gap 9.00 L (10.00-18.00) mmol/L BUN/Creatinine Ratio 20.20 H (12.00-20.00) Ratio Microbiology - Last 24 Hours (Table) 03/12/22 20:16 Blood Culture - Preliminary Blood No Growth after 120 hours 03/12/22 20:31 Blood Culture - Preliminary Blood No Growth after 120 hours 03/14/22 14:30 Anaerobic Culture - Final Foot - Right 03/14/22 14:30 Gram Stain - Final Foot - Right Wound Culture - Final Pseudomonas aeruginosa Assessment and Plan (1) Cellulitis Current Visit: Yes Status: Acute Code(s): L03.90 - CELLULITIS, UNSPECIFIED SNOMED Code(s): 049986114 Plan: 1patient present to hospital with sepsis in this patient did have fever elevated white count source and likely right heel wound with secondary cellulitis and likely from gram-positive skin earnest , Underlying gram-negative infection is not entirely excluded, x-ray of the foot was negative for any bony changes 2-local wound care with the Santyl followed by moist dressing changes daily 3patient local cultures to the heel have been finalized a Pseudomonas sensitive to cefepime, however the patient did have more redness to the right lower leg and white count is slightly elevated cultures has been obtained from his right second toe which will be followed and will add vancomycin empirically Time with Patient: Less than 30
[2022-03-18] MEDS ORDERED: VANCOMYCIN 1,250 MG in SODIUM CHLORIDE 0.9% 250 ML IVPB ONE (13:15)
[2022-03-18] MEDS: TAMSULOSIN 0.4 MG CAP.ER.24H PO SCH (20:59)
[2022-03-18] MEDS: ATORVASTATIN 40 MG TAB PO SCH (20:59)
[2022-03-19] MEDS: ACETAMINOPHEN TAB 325 MG TAB PO PRN ×3 (00:23→23:36)
[2022-03-19] MEDS: VANCOMYCIN 1,000 MG in SODIUM CHLORIDE 0.9% 250 ML IVPB SCH ×2 (06:06→22:33)
[2022-03-19] MEDS ORDERED: NA PHOS,M-B/NA PHOS,DI-BA 133 ML ENEMA RECTAL ONE (08:13)
--- NOTE | 2022-03-19 09:43 | P.PN ---
Subjective Progress Note Date: 03/18/22 This is a 76-year-old male who presented to the emergency department with feelings of generalized weakness and reports that he had been most recently over the last few days incontinent of urine and unable to get up. Patient reports that he slid onto the floor and was unable to stand. Patient also has been seen in the outpatient setting with Dr. Samaniego along with Dr. Lainez for this right heel wound that had been healing although most recently saw Dr. Lainez and underwent debridement and reports the pain and wound has gotten worse. Patient reports his primary care provider is Dr. 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 On admission chest x-ray shows no acute active cardiopulmonary disease with no heart failure and there are some old right-sided rib fractures noted and arthritic changes of the shoulder joints. EKG shows sinus rhythm with a heart rate of 63 bpm. Labs reveal a WBC of 12.7 with a hemoglobin of 12.8, platelets are 212, INR is 1.0, sodium is 135, potassium 4.3, BUN 23, creatinine 1.08, plasma lactic acid is 1.5, Covid 19 was negative, urinalysis with a trace of protein otherwise negative. Patient was afebrile on admission although reports to having chills and feeling weak at home. Patient was admitted with infectious disease consultation and started on antibiotics. Will add wound care consult and also PT/OT therapy. 03/14/2022 Patient is seen in follow-up this morning being followed by wound care nurse [employer]ILY [employer] NURSE PRACTITIONER along with infectious disease. PT/OT therapy has been consulted and pending at this time. Patient continues with weakness and will await PT notes. Patient continues on IV antibiotics and awaiting for cultures. Social work also following in the event patient may need antibiotics on discharge although waiting for cultures to finalize at this time. Patient is afebrile denies chest pain or shortness of breath. Patient denies nausea or vomiting and is ismael ating diet. Repeat labs reviewed and WBC is normal at 7.6 with a hemoglobin of 11.2, ESR was 23, BMP within normal limits and recommend follow-up with labs to monitor Vanco trough and kidney functions. 03/15/2022 Patient is seen and evaluated in follow-up lethargic today although easily arousable. Patient is weak and has been evaluated by physical therapy recommend physical therapy daily and patient will most likely return home with home care. Patient is maintained on IV antibiotics in the form of cefepime. Limited cultures showing gram-negative bacilli with ID following and await finalize culture determine discharge antibiotics. Unsure if patient will require IV antibiotics on discharge. Recommend continue with local wound care and also close monitoring of the redness of the right lower extremity. Patient does take multiple pain medications including narcotics and nursing staff reports patient is somewhat confused today and will hold these medications and monitor closely. Patient reports he continues to wet himself and is incontinent of urine and urinalysis was negative. Patient denies frequency or burning with urination. Patient is maintained on Flomax which is his home meds. Patient is afebrile denies chest pain or shortness of breath. Patient denies nausea or vomiting and tolerating diet. 03/16/2022 Patient is resting in bed today. Pending finalized wound cultures for discharge antibiotics. Local wound care to heel. His main complaint today is that he needs to have a BM states it has been since friday. He has normoactive bowel sounds and also he is tolerating diet no nausea vomiting. He seems less confused today. He does report issues with urinary incontinence. Most recent creatinine is 1.06. Does have low grade fever 99.3 today, heart rate 62, blood pressure 138/64, 96% room air. He continues on IV cefepime. 03/17/2022 Patient is evaluated today resting in bed. Reports increased pain and discomfort to his right lower extremity. Cultures finalized showing psuedomonas and he continues on cefepime and also santyl daily dressing changes. Infectious disease is following. He appears to have increased erythema and tenderness to right lower extremity. He had a dose of lactulose last night and had multiple BMS states he had some crampy abdominal pain that has resolved on assessment. Discharge planning friday. 03/18/2022 Patient is seen and evaluated in follow-up today continues to have right lower extremity pain and having increased sensation sensitivities to light touch and also increased redness and induration with no change in skin intactness also having some drainage from the right second toe and cultures have been obtained. Patient is maintained on IV cefepime and vancomycin being added while awaiting for cultures. Original culture showing pseudomonas aeruginosa with ID following closely and recommend waiting for finalize cultures on the repeat cultures obtained from the toe. Labs reviewed and within normal limits. Patient continues to be weak and PT/OT therapy evaluated the patient recommending rehab and patient is agreeable. Need to discuss with about ECF recommendations and social work is following as patient will require insurance authorization as well. Patient denies chest pain or shortness of breath. Patient is afebrile. No reports of nausea or vomiting and patient is tolerating diet. Review of systems: Constitutional: No reports of fatigue, fever, or chills Cardiovascular: No reports of chest pain or palpitations Respiratory: No reports of shortness of breath or cough GI: No reports of nausea, vomiting, or diarrhea : No reports of dysuria or retention, reports continued urinary incontinence Neurovascular: reports of weakness, reports increasing pain sensitivities to the right lower extremity with increasing redness All medications have been reviewed PHYSICAL EXAMINATION: GENERAL: The patient is alert and oriented x2-3, thin built elderly appearing male HEENT: Pupils are round and equally reacting to light. EOMI. no scleral icterus. No conjunctival pallor. Normocephalic, atraumatic. No pharyngeal erythema. No thyromegaly. CARDIOVASCULAR: S1 and S2 muffled PULMONARY: diminished breath sounds bilaterally with no wheezing or rhonchi noted. ABDOMEN: soft. Nontender on exam. Thin non-distended, normoactive bowel sounds. No palpable organomegaly. MUSCULOSKELETAL: No joint swelling or deformity. EXTREMITIES: No cyanosis, clubbing, or pedal edema. Right heel covered with Santyl applied and Kerlix wrapped around the right heel that is dry and intact. Erythema has increased although not traveled up but continues on the lower angelo and foot NEUROLOGICAL: Gross neurological examination did not reveal any focal deficits. Diffuse weakness SKIN: No rashes. Assessment: Weakness with gait dysfunction Urinary incontinence possibly secondary to constipation and weakness Fever and chills possible sepsis present on admission secondary to acute right lower extremity cellulitis with recent debridement and right heel wound Leukocytosis, secondary to above, improved Right heel wound with right lower extremity cellulitis with redness and pain with cultures growing pseudomonas aeruginosa Acute altered mental status possibly toxic encephalopathy secondary to multiple narcotics and will discontinue and monitor, improved Hypertension GERD hyperlipidemia osteoarthritis sleep apnea, does not wear CPAP Recent outpatient right heel debridement with Dr. Lainez in the office GI prophylaxis DVT prophylaxis Full code Plan: Recommend to continue with current medications and management with infectious disease following and patient maintained on cefepime. Awaiting finalized cultures and wound care [employer] NURSE PRACTITIONER following changing dressings to Santyl. Initial wound cultures growing pseudomonas aeruginosa and awaiting repeat cultures of the right second toe as there is drainage along with increased redness noted to the right lower extremity Urinary incontinence with fevers and chills and overall generalized weakness possibly secondary to sepsis, present on admission secondary to right lower extremity cellulitis, improved Doppler of the right lower extremity was negative for DVT Recommend to continue with local wound care. Patient has been evaluated by PT/OT recommending rehab and patient is agreeable with social work following and family would like to [facility] is their first choice and patient will require insurance authorization. Awaiting cultures to determine discharge antibiotics. Vancomycin also being added with ID following. The impression and plan of care has been dictated by Peri Meadows, nurse practitioner as directed. Dr. Jasmyne CALDERON I have performed a history and examination and MDM of this patient, discussed the same with the dictator, and agree with the dictator's assessment and plan as written ,documented as a scribe. Based on total visit time, I have performed more than 50% of the visit. Any additional findings or plans will be noted. Objective - Vital Signs Vital signs: Vital Signs Temp 98.6 F 03/18/22 03:15 Pulse 69 03/18/22 03:15 Resp 14 03/18/22 03:15 BP 127/66 03/18/22 03:15 Pulse Ox 98 03/18/22 03:15 FiO2 Intake & Output 03/17/22 03/18/22 03/18/22 18:59 06:59 18:59 Output Total 200 Balance -200 Output: Urine 200 Other: Voiding Method Toilet Toilet Urinal Urinal Diaper Diaper Incontinent Incontinent # Voids 2 2 # Bowel Movements 1 - Labs CBC & Chem 7: 03/18/22 04:50 03/18/22 04:50 Labs: Abnormal Lab Results - Last 24 Hours (Table) 03/18/22 03/18/22 Range/Units 04:50 04:50 WBC 11.59 H (4.50-10.00) X 10*3/uL RBC 2.98 L (4.40-5.60) X 10*6/uL Hgb 9.7 L (13.0-17.0) g/dL Hct 31.0 L (39.6-50.0) % MCV 104.0 H (80.0-97.0) fL MCH 32.6 H (27.0-32.0) pg MCHC 31.3 L (32.0-37.0) g/dL Immature Gran # 0.28 H (0.00-0.04) X 10*3/uL Monocytes # 1.58 H (0.20-1.00) X 10*3/uL Anion Gap 9.00 L (10.00-18.00) mmol/L BUN/Creatinine Ratio 20.20 H (12.00-20.00) Ratio Microbiology - Last 24 Hours (Table) 03/12/22 20:16 Blood Culture - Preliminary Blood No Growth after 120 hours 03/12/22 20:31 Blood Culture - Preliminary Blood No Growth after 120 hours 03/14/22 14:30 Anaerobic Culture - Final Foot - Right 03/14/22 14:30 Gram Stain - Final Foot - Right Wound Culture - Final Pseudomonas aeruginosa
[2022-03-19] MEDS: CLOPIDOGREL 75 MG TAB PO SCH (09:49)
[2022-03-19] MEDS: ISOSORBIDE MONONITRATE ER 30 MG TAB.ER.24H PO SCH (09:49)
[2022-03-19] MEDS: carvediloL 6.25 MG TAB PO SCH ×2 (09:49→17:09)
[2022-03-19] MEDS: PANTOPRAZOLE 40 MG TABLET PO SCH ×2 (09:49→22:20)
[2022-03-19] MEDS: MELOXICAM 7.5 MG TAB PO SCH (09:49)
[2022-03-19] MEDS: LIDOCAINE 5% PATCH TOPICAL SCH ×2 (09:50→18:49)
[2022-03-19] MEDS: PRIMIDONE 50 MG TAB PO SCH ×2 (09:51→22:20)
[2022-03-19] MEDS: CEFEPIME 2 GM in SODIUM CHLORIDE 0.9% 100 ML IVPB SCH ×2 (09:52→22:20)
[2022-03-19] MEDS: GABAPENTIN 300 MG CAP PO SCH ×2 (09:53→22:20)
[2022-03-19] MEDS: COLLAGENASE 250 UNIT/GM OINTMENT 30 GM TUBE TOPICAL SCH (09:53)
[2022-03-19] MEDS: AZELASTINE 137MCG/SPRAY NASAL SCH ×2 (09:59→22:28)
[2022-03-19] MEDS: ATORVASTATIN 40 MG TAB PO SCH (22:20)
[2022-03-19] MEDS: TAMSULOSIN 0.4 MG CAP.ER.24H PO SCH (22:20)
[2022-03-20] MEDS: LIDOCAINE 5% PATCH TOPICAL SCH (05:09)
[2022-03-20 06:14] LABS: African American GFR (CKD) 77 (>60 ml/min/1.73 sqM); Anion Gap 10 mmol/L; Blood Urea Nitrogen 22 mg/dL (9-20); Calcium 8.7 mg/dL (8.4-10.2); Carbon Dioxide 23 mmol/L (22-30); Chloride 102 mmol/L (98-107); Glucose 84 mg/dL (74-99); Non-African American GFR(CKD) 67 (>60 ml/min/1.73 sqM); Sodium 135 mmol/L (137-145)
--- NOTE | 2022-03-20 06:21 | P.PN ---
Subjective Progress Note Date: 03/19/22 This is a 76-year-old male who presented to the emergency department with feelings of generalized weakness and reports that he had been most recently over the last few days incontinent of urine and unable to get up. Patient reports that he slid onto the floor and was unable to stand. Patient also has been seen in the outpatient setting with Dr. Samaniego along with Dr. Lainez for this right heel wound that had been healing although most recently saw Dr. Lainez and underwent debridement and reports the pain and wound has gotten worse. Patient reports his primary care provider is Dr. 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 On admission chest x-ray shows no acute active cardiopulmonary disease with no heart failure and there are some old right-sided rib fractures noted and arthritic changes of the shoulder joints. EKG shows sinus rhythm with a heart rate of 63 bpm. Labs reveal a WBC of 12.7 with a hemoglobin of 12.8, platelets are 212, INR is 1.0, sodium is 135, potassium 4.3, BUN 23, creatinine 1.08, plasma lactic acid is 1.5, Covid 19 was negative, urinalysis with a trace of protein otherwise negative. Patient was afebrile on admission although reports to having chills and feeling weak at home. Patient was admitted with infectious disease consultation and started on antibiotics. Will add wound care consult and also PT/OT therapy. 03/14/2022 Patient is seen in follow-up this morning being followed by wound care nurse COAL HANDLER along with infectious disease. PT/OT therapy has been consulted and pending at this time. Patient continues with weakness and will await PT notes. Patient continues on IV antibiotics and awaiting for cultures. Social work also following in the event patient may need antibiotics on discharge although waiting for cultures to finalize at this time. Patient is afebrile denies chest pain or shortness of breath. Patient denies nausea or vomiting and is ismael ating diet. Repeat labs reviewed and WBC is normal at 7.6 with a hemoglobin of 11.2, ESR was 23, BMP within normal limits and recommend follow-up with labs to monitor Vanco trough and kidney functions. 03/15/2022 Patient is seen and evaluated in follow-up lethargic today although easily arousable. Patient is weak and has been evaluated by physical therapy recommend physical therapy daily and patient will most likely return home with home care. Patient is maintained on IV antibiotics in the form of cefepime. Limited cultures showing gram-negative bacilli with ID following and await finalize culture determine discharge antibiotics. Unsure if patient will require IV antibiotics on discharge. Recommend continue with local wound care and also close monitoring of the redness of the right lower extremity. Patient does take multiple pain medications including narcotics and nursing staff reports patient is somewhat confused today and will hold these medications and monitor closely. Patient reports he continues to wet himself and is incontinent of urine and urinalysis was negative. Patient denies frequency or burning with urination. Patient is maintained on Flomax which is his home meds. Patient is afebrile denies chest pain or shortness of breath. Patient denies nausea or vomiting and tolerating diet. 03/16/2022 Patient is resting in bed today. Pending finalized wound cultures for discharge antibiotics. Local wound care to heel. His main complaint today is that he needs to have a BM states it has been since friday. He has normoactive bowel sounds and also he is tolerating diet no nausea vomiting. He seems less confused today. He does report issues with urinary incontinence. Most recent creatinine is 1.06. Does have low grade fever 99.3 today, heart rate 62, blood pressure 138/64, 96% room air. He continues on IV cefepime. 03/17/2022 Patient is evaluated today resting in bed. Reports increased pain and discomfort to his right lower extremity. Cultures finalized showing psuedomonas and he continues on cefepime and also santyl daily dressing changes. Infectious disease is following. He appears to have increased erythema and tenderness to right lower extremity. He had a dose of lactulose last night and had multiple BMS states he had some crampy abdominal pain that has resolved on assessment. Discharge planning friday. 03/18/2022 Patient is seen and evaluated in follow-up today continues to have right lower extremity pain and having increased sensation sensitivities to light touch and also increased redness and induration with no change in skin intactness also having some drainage from the right second toe and cultures have been obtained. Patient is maintained on IV cefepime and vancomycin being added while awaiting for cultures. Original culture showing pseudomonas aeruginosa with ID following closely and recommend waiting for finalize cultures on the repeat cultures obtained from the toe. Labs reviewed and within normal limits. Patient continues to be weak and PT/OT therapy evaluated the patient recommending rehab and patient is agreeable. Need to discuss with about ECF recommendations and social work is following as patient will require insurance authorization as well. Patient denies chest pain or shortness of breath. Patient is afebrile. No reports of nausea or vomiting and patient is tolerating diet. 03/19/2022 Patient is seen this morning and continues with local wound care and on abx with ID following awaiting finalized cultures of the repeat cultures of the right second toe. Preliminary showing gram negative bacilli. Redness of the right lower extremity with some improvement from yesterday. PT/OT daily as patient is weak. Requiring insurance auth and social work following for [facility]. Patient reports no bowel movement and will add enema. Encouraged oral intake and increased activity as tolerated. Review of systems: Constitutional: No reports of fatigue, fever, or chills Cardiovascular: No reports of chest pain or palpitations Respiratory: No reports of shortness of breath or cough GI: No reports of nausea, vomiting, or diarrhea, reports no BM in a few days : No reports of dysuria or retention, reports continued urinary incontinence Neurovascular: reports of weakness, reports continued pain to the right lower extremity All medications have been reviewed PHYSICAL EXAMINATION: GENERAL: The patient is alert and oriented x2-3, thin built elderly appearing male HEENT: Pupils are round and equally reacting to light. EOMI. no scleral icterus. No conjunctival pallor. Normocephalic, atraumatic. No pharyngeal erythema. No thyromegaly. CARDIOVASCULAR: S1 and S2 muffled PULMONARY: diminished breath sounds bilaterally with no wheezing or rhonchi noted. ABDOMEN: soft. Nontender on exam. Thin non-distended, normoactive bowel sounds. No palpable organomegaly. MUSCULOSKELETAL: No joint swelling or deformity. EXTREMITIES: No cyanosis, clubbing, or pedal edema. Right heel covered with Santyl applied and Kerlix wrapped around the right heel that is dry and intact. Erythema has increased although not traveled up but continues on the lower angelo and foot, minimal improvement in the redness NEUROLOGICAL: Gross neurological examination did not reveal any focal deficits. Diffuse weakness SKIN: No rashes. Assessment: Weakness with gait dysfunction Urinary incontinence possibly secondary to constipation and weakness Fever and chills possible sepsis present on admission secondary to acute right lower extremity cellulitis with recent debridement and right heel wound Leukocytosis, secondary to above, improved Right heel wound with right lower extremity cellulitis with redness and pain with cultures growing pseudomonas aeruginosa Acute altered mental status possibly toxic encephalopathy secondary to multiple narcotics and will discontinue and monitor, improved Hypertension GERD hyperlipidemia osteoarthritis sleep apnea, does not wear CPAP Recent outpatient right heel debridement with Dr. Lainez in the office GI prophylaxis DVT prophylaxis Full code Plan: Recommend to continue with current medications and management with infectious disease following and patient maintained on cefepime. Awaiting finalized cultures and wound care COAL HANDLER following changing dressings to Santyl. Initial wound cultures growing pseudomonas aeruginosa and awaiting repeat cultures of the right second toe as there is drainage along with increased redness noted to the right lower extremity, preliminary is gram negative. Vanco added Recommend to continue with local wound care. Patient has been evaluated by PT/OT recommending rehab and patient is agreeable with social work following and [facility] is their first choice and patient will require insurance authorization which was submitted. Awaiting cultures to determine discharge antibiotics. Possible discharge in 24-48 hours. The impression and plan of care has been dictated by Peri Meadows, nurse prac titioner as directed. Dr. Jasmyne CALDERON I have performed a history and examination and MDM of this patient, discussed the same with the dictator, and agree with the dictator's assessment and plan as written ,documented as a scribe. Based on total visit time, I have performed more than 50% of the visit. Any additional findings or plans will be noted. Objective - Vital Signs Vital signs: Vital Signs Temp 98.0 F 03/19/22 08:02 Pulse 90 03/19/22 08:02 Resp 17 03/19/22 08:02 BP 171/85 03/19/22 08:02 Pulse Ox 99 03/19/22 08:02 FiO2 Intake & Output 03/18/22 03/19/22 03/19/22 18:59 06:59 18:59 Intake Total 592 240 Output Total 475 Balance 592 -235 Weight 61.235 kg Intake: Oral 592 240 Output: Urine 475 Other: Voiding Method Toilet Toilet Bedside Commode Urinal Urinal Diaper Diaper Diaper Incontinent Incontinent Incontinent External Catheter # Voids 1 - Labs CBC & Chem 7: 03/18/22 04:50 03/18/22 04:50 Labs: Abnormal Lab Results - Last 24 Hours (Table) 03/18/22 03/18/22 Range/Units 04:50 04:50 Immature Gran # 0.28 H (0.00-0.04) X 10*3/uL Monocytes # 1.58 H (0.20-1.00) X 10*3/uL Anion Gap 9.00 L (10.00-18.00) mmol/L BUN/Creatinine Ratio 20.20 H (12.00-20.00) Ratio Microbiology - Last 24 Hours (Table) 03/18/22 11:40 Gram Stain - Preliminary Toe - Right Second Wound Culture - Preliminary 03/12/22 20:16 Blood Culture - Final Blood No Growth after 144 hours 03/12/22 20:31 Blood Culture - Final Blood No Growth after 144 hours 03/18/22 11:40 Anaerobic Culture - Preliminary Toe - Right Second
[2022-03-20 06:27] LABS: Potassium 4.7 mmol/L (3.5-5.1)
[2022-03-20] MEDS: carvediloL 6.25 MG TAB PO SCH (08:55)
[2022-03-20] MEDS: CEFEPIME 2 GM in SODIUM CHLORIDE 0.9% 100 ML IVPB SCH (09:13)
[2022-03-20] MEDS: MELOXICAM 7.5 MG TAB PO SCH (09:14)
[2022-03-20] MEDS: GABAPENTIN 300 MG CAP PO SCH (09:15)
[2022-03-20] MEDS: ISOSORBIDE MONONITRATE ER 30 MG TAB.ER.24H PO SCH (09:16)
[2022-03-20] MEDS: CLOPIDOGREL 75 MG TAB PO SCH (09:16)
[2022-03-20] MEDS: PANTOPRAZOLE 40 MG TABLET PO SCH (09:16)
[2022-03-20] MEDS: PRIMIDONE 50 MG TAB PO SCH (09:16)
[2022-03-20] MEDS: AZELASTINE 137MCG/SPRAY NASAL SCH (09:17)
[2022-03-20] MEDS: COLLAGENASE 250 UNIT/GM OINTMENT 30 GM TUBE TOPICAL SCH (09:17)
[2022-03-20 12:41] VITALS: BP 108/57; PULSE 66; RESP 18; TEMP 99.3
--- NOTE | 2022-03-20 15:02 | P.DS ---
Providers Date of admission: 03/12/22 22:36 Expected date of discharge: 03/20/22 Attending physician: Amanda Pena Consults: 03/12/22 22:36 Consult Physician Routine Consulting Provider: Jb Cline Consult Reason/Comments: Cellulitis Do you want consulting provider notified?: Yes Primary care physician: Stated None Hospital Course: Final diagnosis Weakness with gait dysfunction Urinary incontinence possibly secondary to constipation and weakness Fever and chills possible sepsis present on admission secondary to acute right lower extremity cellulitis with recent debridement and right heel wound Leukocytosis, secondary to above, improved Right heel wound with right lower extremity cellulitis with redness and pain with cultures growing pseudomonas aeruginosa Acute altered mental status possibly toxic encephalopathy secondary to multiple narcotics and will discontinue and monitor, improved Hypertension GERD hyperlipidemia osteoarthritis sleep apnea, does not wear CPAP Recent outpatient right heel debridement with Dr. Lainez in the office GI prophylaxis DVT prophylaxis Full code Discharge disposition Patient is being discharged in a stable condition with guarded prognosis to [facility] for continued PT/OT therapy and IV antibiotic therapy. Patient will follow-up with Dr. Rodríguez in the outpatient setting upon discharge. Patient is to continue on IV cefepime 2 g twice daily for the next 3 weeks and recommend outpatient follow-up with Dr. Cline's clinic at [facility] in 7-10 days. Total time taken is greater than 35 minutes. Hospital course This is a 76-year-old male who was recently admitted with increased weakness right lower extremity redness and cellulitis along with a right heel infection and was being closely monitored. Infectious disease following along with wound care and dressings were changed and wound care was changed over to santyl daily and recommend daily dressing changes and offloading of the right lower extremity with elevation while at rest. Wound cultures have finalized with pseudomonas aeruginosa and will continue on IV cefepime 2 g every 12 hours for the next 3 weeks. Patient is receiving a midline today for this. Continues with weakness and now agreeable to rehab and physical therapy evaluated the patient recommending CRYSTAL for continued strength and mobility. Patient will need to follow-up with Dr. Cline at the wound care clinic at [facility] in the next 7-10 days. Currently no reports of chest pain, shortness of breath, or palpitations. Patient is afebrile. No reports of nausea or vomiting and patient is tolerating diet. Patient will be going to [facility] on the [place] today. Guarded prognosis. Physical exam: Gen: This is a 76-year-old male awake, alert and oriented 3, thin built, ill- appearing HEENT: Head is atraumatic, normocephalic. Pupils equal, round. Sclerae is anicteric. NECK: Supple. No JVD. No lymphadenopathy. No thyromegaly. LUNGS: Clear to auscultation. No wheezes or rhonchi. No intercostal retractions. HEART: Regular rate and rhythm. No murmur. ABDOMEN: Soft. Bowel sounds are present. No masses. No tenderness. EXTREMITIES: No pedal edema. No calf tenderness. Right lower extremity redness and right heel wound NEUROLOGICAL: Patient is awake, alert and oriented x3. Cranial nerves 2 through 12 are grossly intact. Diffuse weakness Please refer to medication reconciliation sheet for a list of medications. The impression and plan of care has been dictated by Peri Meadows, Nurse Practitioner as directed. Dr. Jasmyne MD I have performed a history and examination and MDM of this patient, discussed the same with the dictator, and agree with the dictator's assessment and plan as written ,documented as a scribe. Based on total visit time, I have performed more than 50% of the visit. Patient Condition at Discharge: Stable Plan - Discharge Summary Discharge Rx Participant: No New Discharge Prescriptions: New Acetaminophen Tab [Tylenol] 650 mg PO Q6HR PRN tab PRN Reason: Mild Pain Or Fever > 100.5 Cefepime [Maxipime] 2 gm IVPB Q12HR 21 Days #42 each Gabapentin [Neurontin] 300 mg PO BID #6 cap Collagenase [Santyl Ointment] 1 applic TOPICAL DAILY each Continue Nitroglycerin Sl Tabs [Nitrostat] 0.4 mg SUBLINGUAL Q5M PRN PRN Reason: Angina fentaNYL 50MCG/HR PATCH [Duragesic 50MCG/HR] 1 patch TRANSDERM Q72H modafiniL [Provigil] 200 mg PO BID Lansoprazole [Prevacid] 30 mg PO BID Atorvastatin Calcium [Lipitor] 40 mg PO HS carvediloL [Coreg] 6.25 mg PO BID Isosorbide Mononitrate ER [Imdur] 30 mg PO DAILY Clopidogrel [Plavix] 75 mg PO DAILY Tamsulosin HCl [Flomax] 0.4 mg PO HS Primidone [Mysoline] 50 mg PO BID Naloxegol Oxalate [Movantik] 12.5 mg PO DAILY Azelastine HCl [Astepro] 1 spray NASAL BID Denosumab [Prolia] 60 mg SQ Q168D Meloxicam [Mobic] 15 mg PO DAILY Lidocaine 5% Patch [Lidoderm 5% Patch] 3 patch TOPICAL DAILY Furosemide [Lasix] 40 mg PO DAILY Discontinued oxyCODONE HCL/ACETAMINOPHEN [Percocet 10-325 mg] 1 tab PO QID Benazepril HCl 10 mg PO DAILY Gabapentin [Neurontin] 800 mg PO TID Baclofen 10 mg PO HS Discharge Medication List Atorvastatin Calcium [Lipitor] 40 mg PO HS 09/04/14 [History] Lansoprazole [Prevacid] 30 mg PO BID 09/04/14 [History] Nitroglycerin Sl Tabs [Nitrostat] 0.4 mg SUBLINGUAL Q5M PRN 09/04/14 [History] fentaNYL 50MCG/HR PATCH [Duragesic 50MCG/HR] 1 patch TRANSDERM Q72H 09/04/14 [History] modafiniL [Provigil] 200 mg PO BID 09/04/14 [History] Clopidogrel [Plavix] 75 mg PO DAILY 08/28/16 [History] Isosorbide Mononitrate ER [Imdur] 30 mg PO DAILY 08/28/16 [History] carvediloL [Coreg] 6.25 mg PO BID 08/28/16 [History] Tamsulosin HCl [Flomax] 0.4 mg PO HS 10/14/17 [History] Primidone [Mysoline] 50 mg PO BID 12/28/18 [History] Denosumab [Prolia] 60 mg SQ Q168D 11/11/20 [History] Azelastine HCl [Astepro] 1 spray NASAL BID 03/12/22 [History] Furosemide [Lasix] 40 mg PO DAILY 03/12/22 [History] Lidocaine 5% Patch [Lidoderm 5% Patch] 3 patch TOPICAL DAILY 03/12/22 [History] Meloxicam [Mobic] 15 mg PO DAILY 03/12/22 [History] Naloxegol Oxalate [Movantik] 12.5 mg PO DAILY 03/12/22 [History] Acetaminophen Tab [Tylenol] 650 mg PO Q6HR PRN tab 03/20/22 [Rx] Cefepime [Maxipime] 2 gm IVPB Q12HR 21 Days #42 each 03/20/22 [Rx] Collagenase [Santyl Ointment] 1 applic TOPICAL DAILY each 03/20/22 [Rx] Gabapentin [Neurontin] 300 mg PO BID #6 cap 03/20/22 [Rx] Follow up Appointment(s)/Referral(s): Star Mcallister MD [REFERRING] - 1-2 Days [facility], [NON-STAFF] - 1 Week [facility]fusion [NON-STAFF] - As Needed ([facility] (P: [phone]) overed 100% in-office, home, and teach&train. ) [facility], [REFERRING] - 1 Week Activity/Diet/Wound Care/Special Instructions: Patient is going to [facility] on the [place] Activity as tolerated Patient is to continue heart healthy diet Recommend continue with oral supplements but no law compact 3 times a day with meals Patient is to continue with local wound care of the right foot including cleansing daily with normal saline and then applying Santyl along with saline moistened gauze to clinic, then dry gauze and rolled gauze and secure with paper tape Recommend outpatient follow-up with primary care provider Follow-up with the wound care center with Dr. Cline at [facility] [phone] Discharge Disposition: TRANSFER TO SNF/ECF
[2022-03-20] MEDS: VANCOMYCIN 1,000 MG in SODIUM CHLORIDE 0.9% 250 ML IVPB SCH (15:07)
[2022-03-21] MEDS ORDERED: VANCOMYCIN TROUGH DUE 1 EACH MISC MISCELLANE ONE (05:00)
== END 2022-03-20 17:22 | DRG 871 ==
LOC: EC 19:12 → 5NMEDONC 22:36
PROVIDERS: ADMIT Hospitalist; ATTEND Hospitalist
PROC: 02HV33Z Insertion of Infusion Device into Superior Vena Cava, Percutaneous Approach (ICD-10-PCS; principal; 2022-03-20 15:25)
DX: A41.52 Sepsis due to Pseudomonas (principal); G92.8 Other toxic encephalopathy; L03.115 Cellulitis of right lower limb; Z20.822 Contact with and (suspected) exposure to COVID-19; H53.8 Other visual disturbances; I10 Essential (primary) hypertension; R32 Unspecified urinary incontinence; K21.9 Gastro-esophageal reflux disease without esophagitis; G47.30 Sleep apnea, unspecified; M19.90 Unspecified osteoarthritis, unspecified site; L89.612 Pressure ulcer of right heel, stage 2; Z96.653 Presence of artificial knee joint, bilateral; R26.9 Unspecified abnormalities of gait and mobility; E78.5 Hyperlipidemia, unspecified; T40.605A Adverse effect of unspecified narcotics, initial encounter; Y92.230 Patient room in hospital as the place of occurrence of the external cause; Z79.02 Long term (current) use of antithrombotics/antiplatelets; Z79.1 Long term (current) use of non-steroidal anti-inflammatories (NSAID); Z79.899 Other long term (current) drug therapy; I69.398 Other sequelae of cerebral infarction; Z87.891 Personal history of nicotine dependence; I25.2 Old myocardial infarction; Z95.1 Presence of aortocoronary bypass graft; Z95.5 Presence of coronary angioplasty implant and graft; Z88.6 Allergy status to analgesic agent; Z88.5 Allergy status to narcotic agent
CPT/HCPCS: 36410; 36415; 71046; 76937; 80048; 80053; 80202; 81001; 82565; 83605; 83735; 85025; 85610; 85652; 85730; 86140; 87040; 87070; 87075; 87077; 87186; 87205; 87635; 93005; 96361; 96365; 96366; 96367; 99285

== ENCOUNTER 2022-03-30 09:42 | Inpatient (IN) | payer MEDICARE ==
--- NOTE | 2022-03-30 09:50 | ED ---
General Adult HPI - General Stated complaint: syncope Time Seen by Provider: 03/30/22 09:49 Source: RN notes reviewed, old records reviewed Limitations: no limitations - History of Present Illness Initial comments: 76-year-old male presented from the alf with an episode of unresponsiveness. Patient was found in his bed, there was the possibility that CPR was initiated. Uncertain if this patient was ever pulseless or just nonresponsive. He is alert with stable vitals upon arrival. He himself hasa septic complaints. He is currently undergoing rehabilitation in a alf. He has no chest pain, no abdominal pain. No vomiting. His indicates that he has not been eating well and does deal with some chronic pain for which she uses both lidocaine and fentanyl patch. He had a fentanyl patch on when he arrived and this was removed. - Related Data Home Medications Medication Instructions Recorded Confirmed Atorvastatin Calcium [Lipitor] 40 mg PO HS 09/04/14 03/12/22 Lansoprazole [Prevacid] 30 mg PO BID 09/04/14 03/12/22 Nitroglycerin Sl Tabs [Nitrostat] 0.4 mg SUBLINGUAL Q5M PRN 09/04/14 03/12/22 fentaNYL 50MCG/HR PATCH [Duragesic 1 patch TRANSDERM Q72H 09/04/14 03/12/22 50MCG/HR] modafiniL [Provigil] 200 mg PO BID 09/04/14 03/12/22 Clopidogrel [Plavix] 75 mg PO DAILY 08/28/16 03/12/22 Isosorbide Mononitrate ER [Imdur] 30 mg PO DAILY 08/28/16 03/12/22 carvediloL [Coreg] 6.25 mg PO BID 08/28/16 03/12/22 Tamsulosin HCl [Flomax] 0.4 mg PO HS 10/14/17 03/12/22 Primidone [Mysoline] 50 mg PO BID 12/28/18 03/12/22 Azelastine HCl [Astepro] 1 spray NASAL BID 03/12/22 03/12/22 Furosemide [Lasix] 40 mg PO DAILY 03/12/22 03/12/22 Lidocaine 5% Patch [Lidoderm 5% 3 patch TOPICAL DAILY 03/12/22 03/12/22 Patch] Meloxicam [Mobic] 15 mg PO DAILY 03/12/22 03/12/22 Naloxegol Oxalate [Movantik] 12.5 mg PO DAILY 03/12/22 03/12/22 Previous Rx's Medication Instructions Recorded Acetaminophen Tab [Tylenol] 650 mg PO Q6HR PRN tab 03/20/22 Cefepime [Maxipime] 2 gm IVPB Q12HR 21 Days #42 each 03/20/22 Collagenase [Santyl Ointment] 1 applic TOPICAL DAILY each 03/20/22 Gabapentin [Neurontin] 300 mg PO BID #6 cap 03/20/22 Allergies Allergy/AdvReac Type Severity Reaction Status Date / Time meperidine [From Demerol] Allergy Nausea Verified 03/12/22 20:21 aspirin AdvReac Unknown UNCOATED Verified 03/12/22 20:21 ASPIRIN CAUSES STOMACH PAIN morphine AdvReac Vomiting Verified 03/12/22 20:21 Review of Systems ROS Statement: Those systems with pertinent positive or pertinent negative responses have been documented in the HPI. ROS Other: All systems not noted in ROS Statement are negative. 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 diverticulitis, neuropathy, does not use CPAP, pt states has ruptured eardrum rt ear Last Myocardial Infarction Date:: 2001 History of Any Multi-Drug Resistant Organisms: None Reported Past Surgical History: Back Surgery, Coronary Bypass/CABG, Ear Surgery, Heart Catheterization, Heart Catheterization With Stent, Joint Replacement, Tonsillectomy Additional Past Surgical History / Comment(s): chriss CATARACTS, one cardiac stent, CABG (2005), RIGHT EAR DRUM REPLACEMENT.CHRISS TOTAL KNEES, RIGHT CAROTID ENDARTERECTOMY. chriss carpel tunnel surgery, rods in spine(total 4 back surgeries) wound center patient Past Anesthesia/Blood Transfusion Reactions: No Reported Reaction, Motion Sickness Date of Last Stent Placement:: 2001 Past Psychological History: No Psychological Hx Reported Smoking Status: Former smoker - Past Family History Mother Family Medical History: No Reported History Additional Family Medical History / Comment(s): . Father Family Medical History: Hypertension General Exam General appearance: alert, in no apparent distress Head exam: Present: atraumatic, normocephalic Eye exam: Present: normal appearance, PERRL ENT exam: Present: mucous membranes dry Neck exam: Present: normal inspection. Absent: tenderness, meningismus Respiratory exam: Present: normal lung sounds bilaterally. Absent: respiratory distress, wheezes Cardiovascular Exam: Present: regular rate, normal rhythm GI/Abdominal exam: Present: soft. Absent: distended, tenderness, guarding Neurological exam: Present: alert. Absent: motor sensory deficit Skin exam: Present: warm, dry, intact. Absent: cyanosis, diaphoretic Course Vital Signs 03/30/22 03/30/22 03/30/22 09:44 10:31 11:39 Temperature 97.4 F L Pulse Rate 57 L 68 Respiratory 22 26 H 18 Rate Blood Pressure 135/69 119/60 O2 Sat by Pulse 100 100 Oximetry 03/30/22 12:00 Temperature Pulse Rate 69 Respiratory 18 Rate Blood Pressure 110/72 O2 Sat by Pulse 100 Oximetry EKG Findings - EKG Comments: EKG Findings:: EKG: Sinus bradycardia rate 57, left axis, SC interval 170, QRS duration 103, QTC [address] segment elevation T-wave inversion and lead 3. Medical Decision Making - Medical Decision Making 76-year-old male from the alf with an episode of unresponsiveness. Giselle castillo did have a fentanyl patch which was removed upon arrival. Also he has not been eating and drinking well. He does appear dehydrated on exam. Workup is initiated. Chest x-ray negative for acute findings. Patient has a chronic stable anemia, he has found to be in acute kidney injury with an elevated creatinine at 2.3 from a baseline of 1. Basurto catheter was placed and the patient was anuric. Likely significant dehydration. Patient's given IV fluid in the emergency department he will be admitted. He did have an elevated CO2 this will be monitored without further narcotic use. Case discussed with Dr. Loomis who will admit. - Lab Data Result diagrams: 03/30/22 10:50 03/30/22 10:50 Lab Results 03/30/22 03/30/22 03/30/22 Range/Units 10:48 10:50 10:50 WBC 9.2 (3.8-10.6) k/uL RBC 3.11 L (4.30-5.90) m/uL Hgb 10.0 L (13.0-17.5) gm/dL Hct 31.2 L (39.0-53.0) % MCV 100.4 H D (80.0-100.0) fL MCH 32.1 (25.0-35.0) pg MCHC 32.0 (31.0-37.0) g/dL RDW 13.1 (11.5-15.5) % Plt Count 297 (150-450) k/uL MPV 8.4 Neutrophils % 69 % Lymphocytes % 17 % Monocytes % 6 % Eosinophils % 4 % Basophils % 2 % Neutrophils # 6.4 (1.3-7.7) k/uL Lymphocytes # 1.6 (1.0-4.8) k/uL Monocytes # 0.5 (0-1.0) k/uL Eosinophils # 0.4 (0-0.7) k/uL Basophils # 0.2 (0-0.2) k/uL PT 11.2 (9.0-12.0) sec INR 1.0 (<1.2) APTT 19.4 L (22.0-30.0) sec VBG pH 7.26 L (7.31-7.41) VBG pCO2 61 H (37-51) mmHg VBG HCO3 26 (24-28) mmol/L Sodium (137-145) mmol/L Potassium (3.5-5.1) mmol/L Chloride (98-107) mmol/L Carbon Dioxide (22-30) mmol/L Anion Gap mmol/L BUN (9-20) mg/dL Creatinine (0.66-1.25) mg/dL Est GFR (CKD-EPI)AfAm (>60 ml/min/1.73 sqM) Est GFR (CKD-EPI)NonAf (>60 ml/min/1.73 sqM) Glucose (74-99) mg/dL Calcium (8.4-10.2) mg/dL Magnesium (1.6-2.3) mg/dL Total Bilirubin (0.2-1.3) mg/dL AST (17-59) U/L ALT (4-49) U/L Alkaline Phosphatase (38-126) U/L Troponin I (0.000-0.034) ng/mL Total Protein (6.3-8.2) g/dL Albumin (3.5-5.0) g/dL 03/30/22 03/30/22 Range/Units 10:50 10:50 WBC (3.8-10.6) k/uL RBC (4.30-5.90) m/uL Hgb (13.0-17.5) gm/dL Hct (39.0-53.0) % MCV (80.0-100.0) fL MCH (25.0-35.0) pg MCHC (31.0-37.0) g/dL RDW (11.5-15.5) % Plt Count (150-450) k/uL MPV Neutrophils % % Lymphocytes % % Monocytes % % Eosinophils % % Basophils % % Neutrophils # (1.3-7.7) k/uL Lymphocytes # (1.0-4.8) k/uL Monocytes # (0-1.0) k/uL Eosinophils # (0-0.7) k/uL Basophils # (0-0.2) k/uL PT (9.0-12.0) sec INR (<1.2) APTT (22.0-30.0) sec VBG pH (7.31-7.41) VBG pCO2 (37-51) mmHg VBG HCO3 (24-28) mmol/L Sodium 134 L (137-145) mmol/L Potassium 4.5 (3.5-5.1) mmol/L Chloride 100 (98-107) mmol/L Carbon Dioxide 21 L (22-30) mmol/L Anion Gap 13 mmol/L BUN 71 H (9-20) mg/dL Creatinine 2.28 H (0.66-1.25) mg/dL Est GFR (CKD-EPI)AfAm 31 (>60 ml/min/1.73 sqM) Est GFR (CKD-EPI)NonAf 27 (>60 ml/min/1.73 sqM) Glucose 103 H (74-99) mg/dL Calcium 8.3 L (8.4-10.2) mg/dL Magnesium 2.1 (1.6-2.3) mg/dL Total Bilirubin 0.7 (0.2-1.3) mg/dL AST 25 (17-59) U/L ALT 14 (4-49) U/L Alkaline Phosphatase 49 (38-126) U/L Troponin I <0.012 (0.000-0.034) ng/mL Total Protein 5.2 L (6.3-8.2) g/dL Albumin 3.3 L (3.5-5.0) g/dL Disposition Clinical Impression: Anemia, Dehydration, RILEY (acute kidney injury) Disposition: ADMITTED IP TO THIS HOSP Condition: Stable Is patient prescribed a controlled substance at d/c from ED?: No Referrals: Star Mcallister MD [Primary Care Provider] - 1-2 days Time of Disposition: 12:37
[2022-03-30] MEDS ORDERED: SODIUM CHLORIDE 0.9% 500 ML 500 ML IV STA (09:57)
--- NOTE | 2022-03-30 10:31 | XR ---
EXAMINATION TYPE: XR chest 2V DATE OF EXAM: 03/30/2022 10:17 AM COMPARISON: Chest radiographs from 03/12/2022 TECHNIQUE: XR chest 2V Frontal and lateral views of the chest. CLINICAL INDICATION:Male, 76 years old with history of syncope; FINDINGS: Lungs/Pleura: Prominent interstitial lung markings are seen scattered throughout the lungs. No eviden ce of focal consolidation, pneumothorax or pleural effusion. Pulmonary vascularity: Unremarkable. Heart/mediastinum: Cardiomediastinal silhouette is unremarkable. Musculoskeletal: No acute osseous pathology. Midline sternotomy wires and surgical clips project over the mediastinum. IMPRESSION: Chronic changes without acute pulmonary process. No significant change from prior.
[2022-03-30 11:33] LABS: VBG PH 7.26 (7.31-7.41)
[2022-03-30 11:39] LABS: Albumin 3.3 g/dL (3.5-5.0); Calcium 8.3 mg/dL (8.4-10.2); Total Bilirubin 0.7 mg/dL (0.2-1.3); Total Protein 5.2 g/dL (6.3-8.2)
[2022-03-30 11:42] LABS: Basophils # (A) 0.2 k/uL (0-0.2); Basophils % (A) 2 %; Eosinophils # (A) 0.4 k/uL (0-0.7); Eosinophils % (A) 4 %; HCT 31.2 % (39.0-53.0); Lymphocytes # (A) 1.6 k/uL (1.0-4.8); Lymphocytes % (A) 17 %; MCH 32.1 pg (25.0-35.0); Mean Platelet Volume 8.4; Monocytes # (A) 0.5 k/uL (0-1.0); Monocytes % (A) 6 %; Neutrophils # (A) 6.4 k/uL (1.3-7.7); Neutrophils % (A) 69 %; Platelet Count 297 k/uL (150-450); RBC 3.11 m/uL (4.30-5.90); RDW 13.1 % (11.5-15.5); WBC 9.2 k/uL (3.8-10.6)
[2022-03-30 11:45] LABS: MCV 100.4 fL (80.0-100.0)
[2022-03-30 11:49] LABS: Prothrombin Time 11.2 sec (9.0-12.0)
[2022-03-30] MEDS ORDERED: SODIUM CHLORIDE 0.9% 500 ML 500 ML IV ONE (12:02)
[2022-03-30 12:05] LABS: Magnesium 2.1 mg/dL (1.6-2.3); Potassium 4.5 mmol/L (3.5-5.1)
[2022-03-30 12:06] LABS: Partial Thromboplastin Time 19.4 sec (22.0-30.0)
[2022-03-30] MEDS ORDERED: NALOXONE 0.4 MG/ML 1 ML VIAL IV PRN (12:31)
[2022-03-30] MEDS: SODIUM CHLORIDE 0.9% 1,000 ML IV SCH ×2 (13:20→23:42)
[2022-03-30 22:30] LABS: Amorphous Sediment,Urine Rare /hpf; Appearance,Urine Clear (Clear); Bacteria,Urine Rare /hpf; Bilirubin,Urine Negative (Negative); Blood,Urine Small (Negative); Color,Urine Light Yellow; Glucose,Urine (UA) Negative (Negative); Hyaline Casts,Urine 100 /lpf (0-2); Ketones,Urine Negative (Negative); Leukocyte Esterase,Urine Negative (Negative); Mucus,Urine Rare /hpf; Nitrite,Urine Negative (Negative); PH, Urine 6.5 (5.0-8.0); Protein,Urine 1+ (Negative); RBC,Urine 1 /hpf (0-5); Specific Gravity,Urine 1.011 (1.001-1.035); Squamous Epithelial Cell,Urine <1 /hpf (0-4); Urobilinogen,Urine <2.0 mg/dL (<2.0); WBC,Urine 2 /hpf (0-5)
[2022-03-30 23:06] LABS: Amphetamine Screen,Urine Not Detected (NotDetected); Benzodiazepines Screen,Urine Not Detected (NotDetected); Cocaine Screen,Urine Not Detected (NotDetected); Opiate Screen,Urine Detected (NotDetected); Phencyclidine Screen,Urine Not Detected (NotDetected); Tricyclic Antidepressant,Urine Not Detected (NotDetected); Urn Cannabinoid Scrn Not Detected (NotDetected)
[2022-03-30 23:07] LABS: Barbiturate Screen,Urine Detected (NotDetected); Methadone Screen, Urine Not Detected (NotDetected); Oxycodone Screen, Urine Not Detected (NotDetected)
--- NOTE | 2022-03-31 00:29 | P.HPIM ---
History of Present Illness H&P Date: 03/30/22 Chief Complaint: Unresponsiveness Patient is a 76-year-old male with a known history of hypertension, hyperlipidemia, GERD, obstructive sleep apnea, chronic back pain and right eye blindness, diverticulitis, history of coronary artery bypass graft and also stent placement and prior history of smoking who is currently a residential resident was brought to the hospital due to unresponsiveness. Patient was found unresponsive on the bed and CPR was initiated. Uncertain if the patient was ever pulseless. Currently patient is awake alert but able to track simple words but is very poor historian. No complaints of chest pain or shortness of breath. No nausea vomiting or abdominal pain. Denies any diarrhea patient has been afebrile. No facial droop or focal neurological deficit noted. No weakness or seizures. No bladder or bowel incontinence. Apparently patient does have chronic pain and uses both lidocaine patch and lidocaine patch. Fentanyl patch has been removed while in the ER. Chest x-ray showed chronic changes without acute pulmonary process. No signi ficant change from prior. EKG showed sinus bradycardia with heart rate 57 Laboratory data showed WBC 9.2 hemoglobin 10.0 MCV 100.4 Sodium 134 potassium 4.3 chloride 100 bicarb is 21 BUN 71 and creatinine 2.28 Albumin 3.3 Baseline creatinine 0.9 Urinalysis is negative for infection UDS is positive for opiates and barbiturates. Patient was recently admitted to the hospital with sepsis secondary to right heel infection and is currently on cefepime for 3 weeks. Patient was discharged from the hospital on 03/20/2022. Review of Systems Complete review of systems could not be obtained from the patient except as per HPI Past Medical History Past Medical History: Hypertension, Eye Disorder, GERD/Reflux, Hyperlipidemia, Hypertension, Myocardial Infarction (AR), Osteoarthritis (OA), Sleep Apnea/CPAP/BIPAP Additional Past Medical History / Comment(s): wound left ankle and rt heel,BACK PAIN USES WALKER, 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 diverticulitis, neuropathy, does not use CPAP, pt states has ruptured eardrum rt ear Last Myocardial Infarction Date:: 2001 History of Any Multi-Drug Resistant Organisms: None Reported Past Surgical History: Back Surgery, Coronary Bypass/CABG, Ear Surgery, Heart Catheterization, Heart Catheterization With Stent, Joint Replacement, Tonsillectomy Additional Past Surgical History / Comment(s): chriss CATARACTS, one cardiac stent, CABG (2005), RIGHT EAR DRUM REPLACEMENT.CHRISS TOTAL KNEES, RIGHT CAROTID ENDARTERECTOMY. chriss carpel tunnel surgery, rods in spine(total 4 back surgeries) wound center patient Past Anesthesia/Blood Transfusion Reactions: No Reported Reaction, Motion Sickness Date of Last Stent Placement:: 2001 Past Psychological History: No Psychological Hx Reported Smoking Status: Former smoker - Past Family History Mother Family Medical History: No Reported History Additional Family Medical History / Comment(s): . Father Family Medical History: Hypertension Medications and Allergies Home Medications Medication Instructions Recorded Confirmed Type Atorvastatin Calcium [Lipitor] 40 mg PO HS@209909/04/14 03/30/22 History Lansoprazole [Prevacid] 30 mg PO BID@00,209909/04/14 03/30/22 History Nitroglycerin Sl Tabs [Nitrostat] 0.4 mg SUBLINGUAL Q5M PRN 09/04/14 03/30/22 History fentaNYL 50MCG/HR PATCH [Duragesic 1 patch TRANSDERM Q72H 09/04/14 03/30/22 History 50MCG/HR] modafiniL [Provigil] 200 mg PO BID@0900,209909/04/14 03/30/22 History Clopidogrel [Plavix] 75 mg PO DAILY@89908/28/16 03/30/22 History Isosorbide Mononitrate ER [Imdur] 30 mg PO DAILY@89908/28/16 03/30/22 History carvediloL [Coreg] 6.25 mg PO BID@0900,209908/28/16 03/30/22 History Tamsulosin HCl [Flomax] 0.4 mg PO HS@209910/14/17 03/30/22 History Primidone [Mysoline] 50 mg PO BID@0900,209912/28/18 03/30/22 History Azelastine HCl [Astepro] 1 spray NASAL BID@0900,209903/12/22 03/30/22 History Furosemide [Lasix] 40 mg PO DAILY@0600 03/12/22 03/30/22 History Lidocaine 5% Patch [Lidoderm 5% 3 patch TOPICAL DAILY@89903/12/22 03/30/22 History Patch] Meloxicam [Mobic] 15 mg PO DAILY@00 03/12/22 03/30/22 History Naloxegol Oxalate [Movantik] 12.5 mg PO DAILY@0900 03/12/22 03/30/22 History Acetaminophen Tab [Tylenol] 650 mg PO Q6HR PRN tab 03/20/22 03/30/22 Rx Cefepime [Maxipime] 2 gm IVPB BID@0900,2100 03/30/22 03/30/22 History Collagenase [Santyl Ointment] 1 applic TOPICAL HS 03/30/22 03/30/22 History Gabapentin [Neurontin] 300 mg PO BID@0900,2100 03/30/22 03/30/22 History HYDROcodone/APAP 5-325MG [[place] 1 tab PO Q8H PRN 03/30/22 03/30/22 History 5-325] Lactose-Reduced Food [Ensure Plus] 237 ml PO TID@0900,1300,2100 03/30/22 03/30/22 History clonazePAM [KlonoPIN] 0.5 mg PO BID PRN 03/30/22 03/30/22 History Allergies Allergy/AdvReac Type Severity Reaction Status Date / Time meperidine [From Demerol] Allergy Nausea Verified 03/30/22 15:10 aspirin AdvReac Unknown UNCOATED Verified 03/30/22 15:10 ASPIRIN CAUSES STOMACH PAIN morphine AdvReac Vomiting Verified 03/30/22 15:10 Physical Exam Vitals: Vital Signs Temp Pulse Pulse Resp BP BP Pulse Ox 03/30/22 18:36 98.2 F 70 16 146/73 92 L 03/30/22 17:56 79 20 111/72 98 03/30/22 15:00 72 18 118/60 99 03/30/22 14:00 71 18 108/67 99 03/30/22 13:26 61 18 92/58 100 03/30/22 12:00 69 18 110/72 100 03/30/22 11:39 68 18 119/60 100 03/30/22 10:31 26 H 03/30/22 09:44 97.4 F L 57 L 22 135/69 100 Intake and Output 03/30/22 03/30/22 03/30/22 06:59 14:59 22:59 Output Total 600 Balance -600 Output: Urine 600 Other: Weight 68.039 kg 56 kg PHYSICAL EXAMINATION: Patient is lying in the bed comfortably, no acute distress, awake alert but confused.. HEENT: Normocephalic. Neck is supple. Pupils reactive. Nostrils clear. Oral cavity is moist. Neck reveals no JVD, carotid bruits, or thyromegaly. CHEST EXAMINATION: Trachea is central. Symmetrical expansion. Lung yadav clear to auscultation and percussion. CARDIAC: Normal S1, S2 with no gallops. No murmurs ABDOMEN: Soft. Bowel sounds present. Nontender. No organomegaly. No abdominal bruits. Extremities: reveal no edema. No clubbing or cyanosis Neurologically awake, alert, oriented x 1-2.no gross focal deficits noted Skin: No rash or skin lesions. Psychiatric: Coperative. Nonsuicidal, Musculoskeletal: No joint swelling or deformity. Normal range of motion. Results CBC & Chem 7: 04/05/22 06:28 04/07/22 05:18 Labs: Abnormal Lab Results - Last 24 Hours (Table) 03/30/22 03/30/22 03/30/22 Range/Units 10:48 10:50 10:50 RBC 3.11 L (4.30-5.90) m/uL Hgb 10.0 L (13.0-17.5) gm/dL Hct 31.2 L (39.0-53.0) % MCV 100.4 H D (80.0-100.0) fL APTT 19.4 L (22.0-30.0) sec VBG pH 7.26 L (7.31-7.41) VBG pCO2 61 H (37-51) mmHg Sodium (137-145) mmol/L Carbon Dioxide (22-30) mmol/L BUN (9-20) mg/dL Creatinine (0.66-1.25) mg/dL Glucose (74-99) mg/dL Calcium (8.4-10.2) mg/dL Total Protein (6.3-8.2) g/dL Albumin (3.5-5.0) g/dL 03/30/22 Range/Units 10:50 RBC (4.30-5.90) m/uL Hgb (13.0-17.5) gm/dL Hct (39.0-53.0) % MCV (80.0-100.0) fL APTT (22.0-30.0) sec VBG pH (7.31-7.41) VBG pCO2 (37-51) mmHg Sodium 134 L (137-145) mmol/L Carbon Dioxide 21 L (22-30) mmol/L BUN 71 H (9-20) mg/dL Creatinine 2.28 H (0.66-1.25) mg/dL Glucose 103 H (74-99) mg/dL Calcium 8.3 L (8.4-10.2) mg/dL Total Protein 5.2 L (6.3-8.2) g/dL Albumin 3.3 L (3.5-5.0) g/dL Thrombosis Risk Factor Assmnt - DVT/VTE Prophylaxis DVT/VTE Prophylaxis: Pharmacologic Prophylaxis ordered Assessment and Plan Assessment: Unresponsiveness likely due to toxins neuropathy due to pain medications including fentanyl patches. Patient is awake and alert currently. Acute kidney injury likely due to dehydration and volume depletion. Creatinine 2.28. Baseline 0.9 right lower extremity cellulitis and right heel wound with recent debridement. Macrocytic anemia acute hemoglobin level 10.0 Medical debility currently bedridden Hypertension Hyperlipidemia History of [place] Obstructive sleep apnea not on CPAP Coronary disease history of CABG Prior history of smoking DVT prophylaxis with heparin subcu Plan: Patient will be continued on IV hydration with normal saline and continue with medications. Patient with IV cefepime to complete the antibiotic course due due to right lower extremity cellulitis and right heel wound with recent debridement. Follow-up closely. Prognosis is guarded with multiple medical problems and comorbid conditions. Fentanyl patch has been removed. Limit narcotic pain medication use. Time with Patient: Greater than 30
[2022-03-31] MEDS: HEPARIN SODIUM,PORCINE/PF 5,000 UNIT/0.5 ML SYRINGE SQ SCH ×4 (00:34→23:52)
[2022-03-31] MEDS ORDERED: NON FORMULARY DRUG (Lactose-Reduced Food [Ensure Plus] 237 ML Ml) PO SCH (09:00)
[2022-03-31] MEDS ORDERED: CEFEPIME 2 GM VIAL IVPB SCH (09:00)
[2022-03-31] MEDS: CLOPIDOGREL 75 MG TAB PO SCH (09:11)
[2022-03-31] MEDS: PANTOPRAZOLE 40 MG TABLET PO SCH ×2 (09:11→20:13)
[2022-03-31] MEDS: GABAPENTIN 300 MG CAP PO SCH ×2 (09:12→20:14)
[2022-03-31] MEDS: PRIMIDONE 50 MG TAB PO SCH ×2 (09:12→20:13)
[2022-03-31] MEDS: ISOSORBIDE MONONITRATE ER 30 MG TAB.ER.24H PO SCH (09:12)
[2022-03-31] MEDS: AZELASTINE 137MCG/SPRAY NASAL SCH ×2 (09:12→20:14)
[2022-03-31 11:06] LABS: Basophils # (A) 0.17 X 10*3/uL (0.00-0.10); Basophils % (A) 1.4 %; Eosinophils # (A) 0.12 X 10*3/uL (0.04-0.35); HCT 34.8 % (39.6-50.0); Immature Grans, Automated 0.4 %; Lymphocytes # (A) 1.93 X 10*3/uL (0.90-5.00); Lymphocytes % (A) 15.8 %; MCH 32.3 pg (27.0-32.0); MCHC 31.6 g/dL (32.0-37.0); MCV 102.1 fL (80.0-97.0); Mean Platelet Volume 9.9 fL (9.5-12.2); Monocytes # (A) 1.04 X 10*3/uL (0.20-1.00); Monocytes % (A) 8.5 %; NRBC Per 100 WBC 0 /100 WBCS (0.0-0.0); Neutrophils # (A) 8.89 X 10*3/uL (1.80-7.70); Neutrophils % (A) 72.9 %; Platelet Count 298 X 10*3/uL (140-440); RBC 3.41 X 10*6/uL (4.40-5.60); RDW 13.2 % (11.5-14.5)
[2022-03-31 11:34] LABS: Albumin 3.6 g/dL (3.8-4.9); Albumin/Globulin Ratio 1.62 (1.60-3.17); Anion Gap 13.9 mmol/L (10.00-18.00); BUN/Creat Ratio 23.41 Ratio (12.00-20.00); Blood Urea Nitrogen 57.6 mg/dL (9.0-27.0); Calcium 8.9 mg/dL (8.7-10.3); Carbon Dioxide 20.5 mmol/L (20.0-27.5); Globulin 2.2 g/dL (1.6-3.3); Non-African American GFR(CKD) 24.2 (60.0-200.0); Potassium 4.8 mmol/L (3.5-5.5); Total Bilirubin 0.2 mg/dL (0.30-1.20); Total Protein 5.8 g/dL (6.2-8.2)
--- NOTE | 2022-03-31 11:50 | CT ---
EXAMINATION TYPE: CT brain wo con CT DLP: 1235.20 mGycm, Automated exposure control for dose reduction was used. DATE OF EXAM: 03/31/2022 11:43 AM COMPARISON: 12/28/2018. CLINICAL INDICATION:Male, 76 years old with history of Altered mental status, Altered mental status TECHNIQUE: Brain: Axial CT images of the brain were obtained with coronal and sagittal reformats created and rev iewed. Contrast used: None. Oral contrast used: None. FINDINGS: Brain: Extra-axial spaces: No abnormal extra-axial fluid collections. Ventricular system: Dilatation in proportion to cerebral atrophy. Cerebral parenchyma: Cerebral atrophy. No acute intraparenchymal hemorrhage or mass effect. The cuellar -white junction is well differentiated. Scattered hypoattenuating areas are seen within the white mat ter. Cerebellum: Unremarkable. Mass effect: No evidence of midline shift. Intracranial vasculature: Atherosclerotic calcifications of the intracranial vessels. Soft tissues: Normal. Calvarium/osseous structures: No depressed skull fracture. Paranasal sinuses and mastoid air cells: Mild scattered paranasal sinus disease. Visualized orbits: Bilateral aphakia IMPRESSION: 1. No acute intracranial process. 2. Nonspecific white matter changes, likely secondary to chronic small vessel ischemic disease.
[2022-03-31] MEDS: HYDROcodone/APAP 5-325MG 1 EACH TAB PO PRN (13:50)
[2022-03-31] MEDS: SODIUM CHLORIDE 0.9% 1,000 ML IV SCH (16:06)
[2022-03-31] MEDS: TAMSULOSIN 0.4 MG CAP.ER.24H PO SCH (20:13)
[2022-03-31] MEDS: ATORVASTATIN 40 MG TAB PO SCH (20:14)
[2022-03-31] MEDS: CEFEPIME 1 GM in SODIUM CHLORIDE 0.9% 50 ML IVPB SCH (20:14)
[2022-04-01] MEDS: ISOSORBIDE MONONITRATE ER 30 MG TAB.ER.24H PO SCH (05:58)
[2022-04-01] MEDS: CEFEPIME 1 GM in SODIUM CHLORIDE 0.9% 50 ML IVPB SCH ×2 (09:13→20:24)
[2022-04-01] MEDS: SODIUM CHLORIDE 0.9% 1,000 ML IV SCH ×2 (09:13→20:26)
[2022-04-01] MEDS: PANTOPRAZOLE 40 MG TABLET PO SCH ×2 (09:18→20:25)
[2022-04-01] MEDS: GABAPENTIN 300 MG CAP PO SCH ×2 (09:18→20:25)
[2022-04-01] MEDS: AZELASTINE 137MCG/SPRAY NASAL SCH ×2 (09:18→20:25)
[2022-04-01] MEDS: CLOPIDOGREL 75 MG TAB PO SCH (09:18)
[2022-04-01] MEDS: HEPARIN SODIUM,PORCINE/PF 5,000 UNIT/0.5 ML SYRINGE SQ SCH ×3 (09:18→23:22)
[2022-04-01] MEDS: PRIMIDONE 50 MG TAB PO SCH ×2 (09:19→20:25)
[2022-04-01 09:24] LABS: Basophils # (A) 0.16 X 10*3/uL (0.00-0.10); Basophils % (A) 1.9 %; Eosinophils # (A) 0.22 X 10*3/uL (0.04-0.35); Eosinophils % (A) 2.6 %; HCT 32.4 % (39.6-50.0); HGB 10.4 g/dL (13.0-17.0); Immature Grans, Automated 0.3 %; Lymphocytes % (A) 20.9 %; MCH 32.6 pg (27.0-32.0); MCHC 32.1 g/dL (32.0-37.0); MCV 101.6 fL (80.0-97.0); Mean Platelet Volume 9.7 fL (9.5-12.2); Monocytes # (A) 0.79 X 10*3/uL (0.20-1.00); Monocytes % (A) 9.2 %; NRBC Per 100 WBC 0 /100 WBCS (0.0-0.0); Neutrophils # (A) 5.61 X 10*3/uL (1.80-7.70); Neutrophils % (A) 65.1 %; Platelet Count 254 X 10*3/uL (140-440); RBC 3.19 X 10*6/uL (4.40-5.60); RDW 13.2 % (11.5-14.5); WBC 8.61 X 10*3/uL (4.50-10.00)
--- NOTE | 2022-04-01 10:31 | P.PN ---
Subjective Progress Note Date: 03/31/22 Patient is a 76-year-old male with a known history of hypertension, hyperlipidemia, GERD, obstructive sleep apnea, chronic back pain and right eye blindness, diverticulitis, history of coronary artery bypass graft and also stent placement and prior history of smoking who is currently a [facility] resident was brought to the hospital due to unresponsiveness. Patient was found unresponsive on the bed and CPR was initiated. Uncertain if the patient was ever pulseless. Currently patient is awake alert but able to track simple words but is very poor historian. No complaints of chest pain or shortness of breath. No nausea vomiting or abdominal pain. Denies any diarrhea patient has been afebrile. No facial droop or focal neurological deficit noted. No weakness or seizures. No bladder or bowel incontinence. Apparently patient does have chronic pain and uses both lidocaine patch and lidocaine patch. Fentanyl patch has been removed while in the ER. Chest x-ray showed chronic changes without acute pulmonary process. No significant change from prior. EKG showed sinus bradycardia with heart rate 57 Laboratory data showed WBC 9.2 hemoglobin 10.0 MCV 100.4 Sodium 134 potassium 4.3 chloride 100 bicarb is 21 BUN 71 and creatinine 2.28 Albumin 3.3 Baseline creatinine 0.9 Urinalysis is negative for infection UDS is positive for opiates and barbiturates. Patient was recently admitted to the hospital with sepsis secondary to right heel infection and is currently on cefepime for 3 weeks. Patient was discharged from the hospital on 03/20/2022. 03/31/2022 Patient is awake alert today. Does have generalized weakness and also found have left upper extremity weakness compared toRight. CT head was done to rule out acute CVA. No fever no chills. Afebrile. No commerce from production. No nausea vomiting or diarrhea. Patient is a poor historian. Laboratory data showed there was 12.2 hemoglobin 11.0 and platelets sodium 141 potassium 4.8 chloride 107 bicarb is 20.5 BUN 57.6 and creatinine 2.5 albumin 3.6. Current medications reviewed. Objective - Vital Signs Vital signs: Vital Signs Temp 98.1 F 03/31/22 17:35 Pulse 78 03/31/22 17:35 Resp 16 03/31/22 17:35 BP 150/82 03/31/22 17:35 Pulse Ox 99 03/31/22 17:35 FiO2 Intake & Output 03/31/22 03/31/22 04/01/22 06:59 18:59 06:59 Output Total 1170 701 Balance -1170 -701 Weight 56 kg Output: Urine 1000 700 Post Void Residual 170 Stool 1 Other: Voiding Method Diaper Indwelling Catheter External Catheter # Voids 1 - Exam PHYSICAL EXAMINATION: Patient is lying in the bed comfortably, no acute distress, awake alert and oriented.. HEENT: Normocephalic. Neck is supple. Pupils reactive. Nostrils clear. Oral cavity is moist. Neck reveals no JVD, carotid bruits, or thyromegaly. CHEST EXAMINATION: Trachea is central. Symmetrical expansion. Bibasilar diminished sounds. Lung yadav clear to auscultation and percussion. CARDIAC: Normal S1, S2 with no gallops. No murmurs ABDOMEN: Soft. Bowel sounds normal. No organomegaly. No abdominal bruits. Extremities: reveal no edema. No clubbing or cyanosis Neurologically awake, alert, oriented 2-3. Able to move his extremities while in bed. Skin: No rash or skin lesions. Psychiatric: Coperative. Could not be a cyst completely. Musculoskeletal: No joint swelling or deformity. Normal range of motion. - Labs CBC & Chem 7: 04/01/22 05:31 04/01/22 05:31 Labs: Abnormal Lab Results - Last 24 Hours (Table) 03/30/22 03/30/22 03/31/22 Range/Units 09:59 10:12 06:39 WBC (4.50-10.00) X 10*3/uL RBC (4.40-5.60) X 10*6/uL Hgb (13.0-17.0) g/dL Hct (39.6-50.0) % MCV (80.0-97.0) fL MCH (27.0-32.0) pg MCHC (32.0-37.0) g/dL Immature Gran # (0.00-0.04) X 10*3/uL Neutrophils # (1.80-7.70) X 10*3/uL Monocytes # (0.20-1.00) X 10*3/uL Basophils # (0.00-0.10) X 10*3/uL BUN 57.6 H (9.0-27.0) mg/dL Creatinine 2.5 H (0.6-1.5) mg/dL Est GFR (CKD-EPI)AfAm 28.0 L (60.0-200.0) Est GFR (CKD-EPI)NonAf 24.2 L (60.0-200.0) BUN/Creatinine Ratio 23.41 H (12.00-20.00) Ratio Total Bilirubin 0.20 L (0.30-1.20) mg/dL Total Protein 5.8 L (6.2-8.2) g/dL Albumin 3.6 L (3.8-4.9) g/dL Urine Protein 1+ H (Negative) Urine Blood Small H (Negative) Amorphous Sediment Rare H (None) /hpf Urine Bacteria Rare H (None) /hpf Hyaline Casts 100 H (0-2) /lpf Urine Mucus Rare H (None) /hpf Urine Opiates Screen Detected H (NotDetected) Ur Barbiturates Screen Detected H (NotDetected) 03/31/22 Range/Units 06:48 WBC 12.20 H (4.50-10.00) X 10*3/uL RBC 3.41 L (4.40-5.60) X 10*6/uL Hgb 11.0 L (13.0-17.0) g/dL Hct 34.8 L (39.6-50.0) % MCV 102.1 H (80.0-97.0) fL MCH 32.3 H (27.0-32.0) pg MCHC 31.6 L (32.0-37.0) g/dL Immature Gran # 0.05 H (0.00-0.04) X 10*3/uL Neutrophils # 8.89 H (1.80-7.70) X 10*3/uL Monocytes # 1.04 H (0.20-1.00) X 10*3/uL Basophils # 0.17 H (0.00-0.10) X 10*3/uL BUN (9.0-27.0) mg/dL Creatinine (0.6-1.5) mg/dL Est GFR (CKD-EPI)AfAm (60.0-200.0) Est GFR (CKD-EPI)NonAf (60.0-200.0) BUN/Creatinine Ratio (12.00-20.00) Ratio Total Bilirubin (0.30-1.20) mg/dL Total Protein (6.2-8.2) g/dL Albumin (3.8-4.9) g/dL Urine Protein (Negative) Urine Blood (Negative) Amorphous Sediment (None) /hpf Urine Bacteria (None) /hpf Hyaline Casts (0-2) /lpf Urine Mucus (None) /hpf Urine Opiates Screen (NotDetected) Ur Barbiturates Screen (NotDetected) Assessment and Plan Assessment: Unresponsiveness likely due to toxins neuropathy due to pain medications including fentanyl patches. Patient is awake and alert currently. Acute kidney injury likely due to dehydration and volume depletion. Creatinine 2.28. Baseline 0.9 right lower extremity cellulitis and right heel wound with recent debridement. Macrocytic anemia acute hemoglobin level 10.0 Medical debility currently bedridden Hypertension Hyperlipidemia History of [place] Obstructive sleep apnea not on CPAP Coronary disease history of CABG Prior history of smoking DVT prophylaxis with heparin subcu Plan: Patient will be continued on IV hydration with normal saline and continue with medications. CT head without any acute CVA. Patient with IV cefepime to complete the antibiotic course due due to right lower extremity cellulitis and right heel wound with recent debridement. Follow-up closely. Prognosis is guarded with multiple medical problems and comorbid conditions. Fentanyl patch has been removed. Limit narcotic pain medication use. Encourage oral intake and to follow closely. Time with Patient: Greater than 30
[2022-04-01 11:01] LABS: African American GFR (CKD) 32.1 (60.0-200.0); BUN/Creat Ratio 21.77 Ratio (12.00-20.00); Blood Urea Nitrogen 47.9 mg/dL (9.0-27.0); Calcium 8.5 mg/dL (8.7-10.3); Carbon Dioxide 18.8 mmol/L (20.0-27.5); Chloride 110 mmol/L (96-109); Glucose 90 mg/dL (70-110); Non-African American GFR(CKD) 27.7 (60.0-200.0); Potassium 3.7 mmol/L (3.5-5.5); Sodium 140 mmol/L (135-145)
[2022-04-01] MEDS: carvediloL 6.25 MG TAB PO SCH ×2 (11:58→20:25)
[2022-04-01 15:20] VITALS: BMI 17.6
[2022-04-01] MEDS: TAMSULOSIN 0.4 MG CAP.ER.24H PO SCH (20:25)
[2022-04-01] MEDS: ATORVASTATIN 40 MG TAB PO SCH (20:25)
--- NOTE | 2022-04-02 02:08 | P.PN ---
Subjective Progress Note Date: 04/01/22 Patient is a 76-year-old male with a known history of hypertension, hyperlipidemia, GERD, obstructive sleep apnea, chronic back pain and right eye blindness, diverticulitis, history of coronary artery bypass graft and also stent placement and prior history of smoking who is currently a half-way resident was brought to the hospital due to unresponsiveness. Patient was found unresponsive on the bed and CPR was initiated. Uncertain if the patient was ever pulseless. Currently patient is awake alert but able to track simple words but is very poor historian. No complaints of chest pain or shortness of breath. No nausea vomiting or abdominal pain. Denies any diarrhea patient has been afebrile. No facial droop or focal neurological deficit noted. No weakness or seizures. No bladder or bowel incontinence. Apparently patient does have chronic pain and uses both lidocaine patch and lidocaine patch. Fentanyl patch has been removed while in the ER. Chest x-ray showed chronic changes without acute pulmonary process. No significant change from prior. EKG showed sinus bradycardia with heart rate 57 Laboratory data showed WBC 9.2 hemoglobin 10.0 MCV 100.4 Sodium 134 potassium 4.3 chloride 100 bicarb is 21 BUN 71 and creatinine 2.28 Albumin 3.3 Baseline creatinine 0.9 Urinalysis is negative for infection UDS is positive for opiates and barbiturates. Patient was recently admitted to the hospital with sepsis secondary to right heel infection and is currently on cefepime for 3 weeks. Patient was discharged from the hospital on 03/20/2022. 03/31/2022 Patient is awake alert today. Does have generalized weakness and also found have left upper extremity weakness compared toRight. CT head was done to rule out acute CVA. No fever no chills. Afebrile. No commerce from production. No nausea vomiting or diarrhea. Patient is a poor historian. Laboratory data showed there was 12.2 hemoglobin 11.0 and platelets sodium 141 potassium 4.8 chloride 107 bicarb is 20.5 BUN 57.6 and creatinine 2.5 albumin 3.6. 04/01/2022 Patient is currently resting in the bed. Awake alert but not oriented. Could not provide any history at this time. Patient has been afebrile. No nausea vomiting abdominal pain. Tolerating oral diet with assistance. No cough or sputum production. CT head showed no acute intracranial process. Patient is being current on antibiotic of cefepime for right calcaneal wound infection as per recent ID recommendations. Wound care was consulted. Laboratory data showed WBC 8.6 hemoglobin 10.4 and platelets 224 BUN 47.6 and creatinine 2.2 which is improving. Anticipate discharge back to extended-care facility in the next 24 to 48 hours.. Current medications reviewed. Objective - Vital Signs Vital signs: Vital Signs Temp 98.2 F 04/01/22 18:12 Pulse 77 04/01/22 18:12 Resp 16 04/01/22 18:12 BP 129/72 04/01/22 18:12 Pulse Ox 97 04/01/22 18:12 FiO2 Intake & Output 04/01/22 04/01/22 04/02/22 06:59 18:59 06:59 Intake Total 60 Output Total 1150 1101 Balance -1090 -1101 Weight 56 kg Intake: Oral 60 Output: Urine 1150 1100 Stool 1 Other: Voiding Method Indwelling Catheter Indwelling Catheter # Bowel Movements 1 - Exam PHYSICAL EXAMINATION: Patient is lying in the bed comfortably, no acute distress, awake alert and oriented.. HEENT: Normocephalic. Neck is supple. Pupils reactive. Nostrils clear. Oral cavity is moist. Neck reveals no JVD, carotid bruits, or thyromegaly. CHEST EXAMINATION: Trachea is central. Symmetrical expansion. Bibasilar diminished sounds. Lung yadav clear to auscultation and percussion. CARDIAC: Normal S1, S2 with no gallops. No murmurs ABDOMEN: Soft. Bowel sounds normal. No organomegaly. No abdominal bruits. Extremities: reveal no edema. No clubbing or cyanosis Neurologically awake, alert, oriented 1-2. Able to move his extremities while in bed. Skin: No rash or skin lesions. Psychiatric: Coperative. Could not be a cyst completely. Musculoskeletal: No joint swelling or deformity. Normal range of motion. - Labs CBC & Chem 7: 04/01/22 05:31 04/01/22 05:31 Labs: Abnormal Lab Results - Last 24 Hours (Table) 04/01/22 04/01/22 Range/Units 05:31 05:31 RBC 3.19 L (4.40-5.60) X 10*6/uL Hgb 10.4 L (13.0-17.0) g/dL Hct 32.4 L (39.6-50.0) % MCV 101.6 H (80.0-97.0) fL MCH 32.6 H (27.0-32.0) pg Basophils # 0.16 H (0.00-0.10) X 10*3/uL Chloride 110 H (96-109) mmol/L Carbon Dioxide 18.8 L (20.0-27.5) mmol/L BUN 47.9 H (9.0-27.0) mg/dL Creatinine 2.2 H (0.6-1.5) mg/dL Est GFR (CKD-EPI)AfAm 32.1 L (60.0-200.0) Est GFR (CKD-EPI)NonAf 27.7 L (60.0-200.0) BUN/Creatinine Ratio 21.77 H (12.00-20.00) Ratio Calcium 8.5 L (8.7-10.3) mg/dL Assessment and Plan Assessment: Unresponsiveness likely due to toxins neuropathy due to pain medications including fentanyl patches. Patient is awake and alert currently. Acute kidney injury likely due to dehydration and volume depletion. Creatinine 2.28. Baseline 0.9 right lower extremity cellulitis and right heel wound with recent debridement. Macrocytic anemia acute hemoglobin level 10.0 Medical debility currently bedridden Hypertension Hyperlipidemia History of [place] Obstructive sleep apnea not on CPAP Coronary disease history of CABG Prior history of smoking DVT prophylaxis with heparin subcu Plan: Patient will be continued on IV hydration with normal saline and continue with medications. CT head without any acute CVA. Patient with IV cefepime to complete the antibiotic course due due to right lower extremity cellulitis and right heel wound with recent debridement. Follow-up closely. Prognosis is guarded with multiple medical problems and comorbid conditions. Fentanyl patch has been removed. Limit narcotic pain medication use. Encourage oral intake and to follow closely. Time with Patient: Greater than 30
[2022-04-02] MEDS: SODIUM CHLORIDE 0.9% 1,000 ML IV SCH (07:30)
[2022-04-02] MEDS: HYDROcodone/APAP 5-325MG 1 EACH TAB PO PRN (08:28)
[2022-04-02] MEDS: CLOPIDOGREL 75 MG TAB PO SCH (08:29)
[2022-04-02] MEDS: PRIMIDONE 50 MG TAB PO SCH ×2 (08:29→20:46)
[2022-04-02] MEDS: carvediloL 6.25 MG TAB PO SCH ×2 (08:29→20:46)
[2022-04-02] MEDS: PANTOPRAZOLE 40 MG TABLET PO SCH ×2 (08:30→20:46)
[2022-04-02] MEDS: ISOSORBIDE MONONITRATE ER 30 MG TAB.ER.24H PO SCH (08:30)
[2022-04-02] MEDS: CEFEPIME 1 GM in SODIUM CHLORIDE 0.9% 50 ML IVPB SCH ×2 (08:31→20:47)
[2022-04-02] MEDS: HEPARIN SODIUM,PORCINE/PF 5,000 UNIT/0.5 ML SYRINGE SQ SCH ×2 (08:31→17:58)
[2022-04-02] MEDS: GABAPENTIN 300 MG CAP PO SCH ×2 (08:31→20:46)
[2022-04-02] MEDS: AZELASTINE 137MCG/SPRAY NASAL SCH ×2 (08:32→20:48)
[2022-04-02 09:22] LABS: Basophils # (A) 0.16 X 10*3/uL (0.00-0.10); Basophils % (A) 1.7 %; Eosinophils # (A) 0.28 X 10*3/uL (0.04-0.35); HCT 31.8 % (39.6-50.0); HGB 10.4 g/dL (13.0-17.0); Immature Grans, Automated 0.3 %; Lymphocytes # (A) 1.73 X 10*3/uL (0.90-5.00); Lymphocytes % (A) 18.8 %; MCH 32.8 pg (27.0-32.0); MCHC 32.7 g/dL (32.0-37.0); MCV 100.3 fL (80.0-97.0); Mean Platelet Volume 9.8 fL (9.5-12.2); Monocytes # (A) 1.15 X 10*3/uL (0.20-1.00); Monocytes % (A) 12.5 %; NRBC Per 100 WBC 0 /100 WBCS (0.0-0.0); Neutrophils # (A) 5.86 X 10*3/uL (1.80-7.70); Neutrophils % (A) 63.7 %; Platelet Count 251 X 10*3/uL (140-440); RBC 3.17 X 10*6/uL (4.40-5.60); RDW 13.3 % (11.5-14.5); WBC 9.21 X 10*3/uL (4.50-10.00)
[2022-04-02 09:54] LABS: Anion Gap 11.2 mmol/L (10.00-18.00); BUN/Creat Ratio 20.5 Ratio (12.00-20.00); Calcium 8.6 mg/dL (8.7-10.3); Carbon Dioxide 21.8 mmol/L (20.0-27.5); Potassium 3.4 mmol/L (3.5-5.5)
--- NOTE | 2022-04-02 13:23 | P.CONS ---
History of Present Illness - Reason for Consult Consult date: 04/02/22 wound care - History of Present Illness This is a 76-year-old gentleman known to the wound care center. Patient is confused at this time. He is unsure of the review or and that he has been coming to the wound care center. Patient had a right lateral calcaneus ulceration that is epithelialized. He also has a ulceration to the second digit of the right foot that has scaling to the site. Review Of Systems: Constitutional: No fever, no chills, no night sweats. No weight change. No weakness, fatigue or lethargy. No daytime sleepiness. Integumentary:reports wounds, no lesions. No rash or pruritus. No unusual brui sing. No change in hair or nails. Physical exam: General Appearance: Alert, cooperative, no distress, appears stated age. Skin: See HPI all other Skin color, texture, tugor normal, no rashes or lesions. Neurologic: Alert oriented x3 Assessment: 1. Non-pressure ulceration of right foot with fat layer exposure 2. Diabetic foot ulcer Plan: 1. Left foot second digit: Apply honey gel dry gauze rolled gauze and secure with tape. 2. Patient will follow-up in the wound care center on 04/09 at 10:15 Thank you for the consultation any questions please contact the wound care center DNP note has been reviewed and discussed with Dr. Lainez and the impression and plan of care has been directed as dictated. 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 diverticulitis, neuropathy, does not use CPAP, pt states has ruptured eardrum rt ear Last Myocardial Infarction Date:: 2001 History of Any Multi-Drug Resistant Organisms: None Reported Past Surgical History: Back Surgery, Coronary Bypass/CABG, Ear Surgery, Heart Catheterization, Heart Catheterization With Stent, Joint Replacement, Tonsillectomy Additional Past Surgical History / Comment(s): chriss CATARACTS, one cardiac stent, CABG (2005), RIGHT EAR DRUM REPLACEMENT.CHRISS TOTAL KNEES, RIGHT CAROTID ENDARTERECTOMY. chriss carpel tunnel surgery, rods in spine(total 4 back surgeries) wound center patient Past Anesthesia/Blood Transfusion Reactions: No Reported Reaction, Motion Sickness Date of Last Stent Placement:: 2001 Past Psychological History: No Psychological Hx Reported Smoking Status: Former smoker - Past Family History Mother Family Medical History: No Reported History Additional Family Medical History / Comment(s): . Father Family Medical History: Hypertension Medications and Allergies Home Medications Medication Instructions Recorded Confirmed Type Atorvastatin Calcium [Lipitor] 40 mg PO HS@209909/04/14 03/30/22 History Lansoprazole [Prevacid] 30 mg PO BID@09,209909/04/14 03/30/22 History Nitroglycerin Sl Tabs [Nitrostat] 0.4 mg SUBLINGUAL Q5M PRN 09/04/14 03/30/22 History fentaNYL 50MCG/HR PATCH [Duragesic 1 patch TRANSDERM Q72H 09/04/14 03/30/22 History 50MCG/HR] modafiniL [Provigil] 200 mg PO BID@899,209909/04/14 03/30/22 History Clopidogrel [Plavix] 75 mg PO DAILY@89908/28/16 03/30/22 History Isosorbide Mononitrate ER [Imdur] 30 mg PO DAILY@89908/28/16 03/30/22 History carvediloL [Coreg] 6.25 mg PO BID@09,209908/28/16 03/30/22 History Tamsulosin HCl [Flomax] 0.4 mg PO HS@209910/14/17 03/30/22 History Primidone [Mysoline] 50 mg PO BID@09,209912/28/18 03/30/22 History Azelastine HCl [Astepro] 1 spray NASAL BID@899,209903/12/22 03/30/22 History Furosemide [Lasix] 40 mg PO DAILY@59903/12/22 03/30/22 History Lidocaine 5% Patch [Lidoderm 5% 3 patch TOPICAL DAILY@89903/12/22 03/30/22 History Patch] Meloxicam [Mobic] 15 mg PO DAILY@89903/12/22 03/30/22 History Naloxegol Oxalate [Movantik] 12.5 mg PO DAILY@0900 03/12/22 03/30/22 History Acetaminophen Tab [Tylenol] 650 mg PO Q6HR PRN tab 03/20/22 03/30/22 Rx Cefepime [Maxipime] 2 gm IVPB BID@0900,2100 03/30/22 03/30/22 History Collagenase [Santyl Ointment] 1 applic TOPICAL HS 03/30/22 03/30/22 History Gabapentin [Neurontin] 300 mg PO BID@0900,2100 03/30/22 03/30/22 History HYDROcodone/APAP 5-325MG [[place] 1 tab PO Q8H PRN 03/30/22 03/30/22 History 5-325] Lactose-Reduced Food [Ensure Plus] 237 ml PO TID@0900,1300,209903/30/22 1 History clonazePAM [KlonoPIN] 0.5 mg PO BID PRN 03/30/22 03/30/22 History Allergies Allergy/AdvReac Type Severity Reaction Status Date / Time meperidine [From Demerol] Allergy Nausea Verified 03/30/22 15:10 aspirin AdvReac Unknown UNCOATED Verified 03/30/22 15:10 ASPIRIN CAUSES STOMACH PAIN morphine AdvReac Vomiting Verified 03/30/22 15:10 Physical Exam Vitals: Vital Signs Temp Pulse Resp BP Pulse Ox 04/02/22 11:20 98.7 F 93 16 116/66 96 04/02/22 08:00 99.7 F H 84 17 173/81 99 04/02/22 07:41 97 04/02/22 05:00 97.9 F 81 18 159/87 96 04/01/22 18:12 98.2 F 77 16 129/72 97 Intake and Output 04/01/22 04/02/22 04/02/22 22:59 06:59 14:59 Intake Total 100 375 290 Output Total 1100 1100 1500 Balance -3533 -890 -1211 Intake: IV 50 Cefepime 1 gm In Sodium 50 Chloride 0.9% 50 ml @ 12. 5 mls/hr IVPB Q12HR [facility] Rx#:[id number] Oral 100 375 240 Output: Urine 1100 1100 1500 Other: Voiding Method Indwelling Catheter Indwelling Catheter Weight 56 kg Results CBC & Chem 7: 04/02/22 05:54 04/02/22 05:54 Labs: Abnormal Lab Results - Last 24 Hours (Table) 04/02/22 04/02/22 Range/Units 05:54 05:54 RBC 3.17 L (4.40-5.60) X 10*6/uL Hgb 10.4 L (13.0-17.0) g/dL Hct 31.8 L (39.6-50.0) % MCV 100.3 H (80.0-97.0) fL MCH 32.8 H (27.0-32.0) pg Monocytes # 1.15 H (0.20-1.00) X 10*3/uL Basophils # 0.16 H (0.00-0.10) X 10*3/uL Sodium 146 H (135-145) mmol/L Potassium 3.4 L (3.5-5.5) mmol/L Chloride 113 H (96-109) mmol/L BUN 41.0 H (9.0-27.0) mg/dL Creatinine 2.0 H (0.6-1.5) mg/dL Est GFR (CKD-EPI)AfAm 36.0 L (60.0-200.0) Est GFR (CKD-EPI)NonAf 31.0 L (60.0-200.0) BUN/Creatinine Ratio 20.50 H (12.00-20.00) Ratio Calcium 8.6 L (8.7-10.3) mg/dL Assessment and Plan (1) Pressure ulcer of right heel, stage 2 Current Visit: No Status: Acute Code(s): L89.612 - PRESSURE ULCER OF RIGHT HEEL, STAGE 2 SNOMED Code(s): 45072320429983 (2) Ulcer of right foot with fat layer exposed Current Visit: No Status: Acute Code(s): L97.512 - NON-PRS CHRONIC ULCER OTH PRT RIGHT FOOT W FAT LAYER EXPOSED SNOMED Code(s): 208485878
--- NOTE | 2022-04-02 15:41 | P.PN ---
Subjective Progress Note Date: 04/02/22 Patient is a 76-year-old male with a known history of hypertension, hyperlipidemia, GERD, obstructive sleep apnea, chronic back pain and right eye blindness, diverticulitis, history of coronary artery bypass graft and also stent placement and prior history of smoking who is currently a assisted resident was brought to the hospital due to unresponsiveness. Patient was found unresponsive on the bed and CPR was initiated. Uncertain if the patient was ever pulseless. Currently patient is awake alert but able to track simple words but is very poor historian. No complaints of chest pain or shortness of breath. No nausea vomiting or abdominal pain. Denies any diarrhea patient has been afebrile. No facial droop or focal neurological deficit noted. No weakness or seizures. No bladder or bowel incontinence. Apparently patient does have chronic pain and uses both lidocaine patch and lidocaine patch. Fentanyl patch has been removed while in the ER. Chest x-ray showed chronic changes without acute pulmonary process. No significant change from prior. EKG showed sinus bradycardia with heart rate 57 Laboratory data showed WBC 9.2 hemoglobin 10.0 MCV 100.4 Sodium 134 potassium 4.3 chloride 100 bicarb is 21 BUN 71 and creatinine 2.28 Albumin 3.3 Baseline creatinine 0.9 Urinalysis is negative for infection UDS is positive for opiates and barbiturates. Patient was recently admitted to the hospital with sepsis secondary to right heel infection and is currently on cefepime for 3 weeks. Patient was discharged from the hospital on 03/20/2022. 03/31/2022 Patient is awake alert today. Does have generalized weakness and also found have left upper extremity weakness compared toRight. CT head was done to rule out acute CVA. No fever no chills. Afebrile. No commerce from production. No nausea vomiting or diarrhea. Patient is a poor historian. Laboratory data showed there was 12.2 hemoglobin 11.0 and platelets sodium 141 potassium 4.8 chloride 107 bicarb is 20.5 BUN 57.6 and creatinine 2.5 albumin 3.6. 04/01/2022 Patient is currently resting in the bed. Awake alert but not oriented. Could not provide any history at this time. Patient has been afebrile. No nausea vomiting abdominal pain. Tolerating oral diet with assistance. No cough or sputum production. CT head showed no acute intracranial process. Patient is being current on antibiotic of cefepime for right calcaneal wound infection as per recent ID recommendations. Wound care was consulted. Laboratory data showed WBC 8.6 hemoglobin 10.4 and platelets 224 BUN 47.6 and creatinine 2.2 which is improving. Anticipate discharge back to extended-care facility in the next 24 to 48 hours.. 04/02/22. Patient seen and examined. Vital signs stable. No acute issues overnight. Case discussed with nursing staff REVIEW OF SYSTEMS: CONSTITUTIONAL: No fever, no malaise, CARDIOVASCULAR: No chest pain, orthopnea, PND, no palpitations, no syncope. PULMONARY: No shortness of breath, no cough, no hemoptysis. GASTROINTESTINAL: No diarrhea, no nausea, no vomiting, no abdominal pain. PHYSICAL EXAMINATION: GENERAL: The patient is alert , not in any acute distress. Well developed, well nourished. HEENT: Pupils are round and equally reacting to light. EOMI. No scleral icterus. No conjunctival pallor. Normocephalic, atraumatic. No pharyngeal erythema. No thyromegaly. CARDIOVASCULAR: S1 and S2 present. No murmurs, rubs, or gallops. PULMONARY: Chest is clear to auscultation, no wheezing or crackles. ABDOMEN: Soft, nontender, nondistended, normoactive bowel sounds. No palpable organomegaly. MUSCULOSKELETAL: No joint swelling or deformity. EXTREMITIES: No cyanosis, clubbing, or pedal edema. NEUROLOGICAL: Gross neurological examination did not reveal any focal deficits. SKIN: No rashes. Assessment and plan Unresponsiveness likely due to toxins neuropathy due to pain medications including fentanyl patches. Patient is awake and alert currently. Acute kidney injury likely due to dehydration and volume depletion. Creatinine 2.28. Baseline 0.9 right lower extremity cellulitis and right heel wound with recent debridement. Macrocytic anemia acute hemoglobin level 10.0 Medical debility currently bedridden Hypertension Hyperlipidemia History of [place] Obstructive sleep apnea not on CPAP Coronary disease history of CABG Prior history of smoking DVT prophylaxis with heparin subcu Plan: CT head without any acute CVA. Monitor vital signs Monitor CBC Patient with IV cefepime to complete the antibiotic course due due to right lower extremity cellulitis and right heel wound with recent debridement. Follow-up closely. Prognosis is guarded with multiple medical problems and comorbid conditions. Judicious use of pain medication Encourage oral intake and to follow closely. : Objective - Vital Signs Vital signs: Vital Signs Temp 98.7 F 04/02/22 11:20 Pulse 93 04/02/22 11:20 Resp 16 04/02/22 11:20 BP 116/66 04/02/22 11:20 Pulse Ox 96 04/02/22 11:20 FiO2 Intake & Output 04/01/22 04/02/22 04/02/22 18:59 06:59 18:59 Intake Total 475 290 Output Total 1101 1100 1501 Balance -0014 -894 -6441 Weight 56 kg Intake: IV 50 Cefepime 1 gm In Sodium 50 Chloride 0.9% 50 ml @ 12. 5 mls/hr IVPB Q12HR [facility] Rx#:[id number] Oral 475 240 Output: Urine 1100 1100 1500 Stool 1 1 Other: Voiding Method Indwelling Catheter Indwelling Catheter Indwelling Catheter - Labs CBC & Chem 7: 04/02/22 05:54 04/02/22 05:54 Labs: Abnormal Lab Results - Last 24 Hours (Table) 04/02/22 04/02/22 Range/Units 05:54 05:54 RBC 3.17 L (4.40-5.60) X 10*6/uL Hgb 10.4 L (13.0-17.0) g/dL Hct 31.8 L (39.6-50.0) % MCV 100.3 H (80.0-97.0) fL MCH 32.8 H (27.0-32.0) pg Monocytes # 1.15 H (0.20-1.00) X 10*3/uL Basophils # 0.16 H (0.00-0.10) X 10*3/uL Sodium 146 H (135-145) mmol/L Potassium 3.4 L (3.5-5.5) mmol/L Chloride 113 H (96-109) mmol/L BUN 41.0 H (9.0-27.0) mg/dL Creatinine 2.0 H (0.6-1.5) mg/dL Est GFR (CKD-EPI)AfAm 36.0 L (60.0-200.0) Est GFR (CKD-EPI)NonAf 31.0 L (60.0-200.0) BUN/Creatinine Ratio 20.50 H (12.00-20.00) Ratio Calcium 8.6 L (8.7-10.3) mg/dL
[2022-04-02] MEDS: ATORVASTATIN 40 MG TAB PO SCH (20:45)
[2022-04-02] MEDS: TAMSULOSIN 0.4 MG CAP.ER.24H PO SCH (20:47)
[2022-04-03] MEDS: HEPARIN SODIUM,PORCINE/PF 5,000 UNIT/0.5 ML SYRINGE SQ SCH ×3 (00:25→16:40)
[2022-04-03] MEDS: PRIMIDONE 50 MG TAB PO SCH ×2 (08:43→20:44)
[2022-04-03] MEDS: CLOPIDOGREL 75 MG TAB PO SCH (08:43)
[2022-04-03] MEDS: GABAPENTIN 300 MG CAP PO SCH ×2 (08:43→20:44)
[2022-04-03] MEDS: PANTOPRAZOLE 40 MG TABLET PO SCH ×2 (08:44→20:44)
[2022-04-03] MEDS: ISOSORBIDE MONONITRATE ER 30 MG TAB.ER.24H PO SCH (08:44)
[2022-04-03] MEDS: carvediloL 6.25 MG TAB PO SCH ×2 (08:44→20:44)
[2022-04-03] MEDS: CEFEPIME 1 GM in SODIUM CHLORIDE 0.9% 50 ML IVPB SCH ×2 (08:47→20:44)
[2022-04-03] MEDS: AZELASTINE 137MCG/SPRAY NASAL SCH ×2 (08:49→20:44)
--- NOTE | 2022-04-03 10:20 | CDI ---
Documentation Clarification Form Date: 04/03/2022 10:04:11 AM From: Jenny Soto CCS, CCDS Admit Date: 03/30/2022 12:33:00 PM Patient Name: Terry Miller Visit Number: [id number] Discharge Date: ATTENTION: The Clinical Documentation Specialists (CDI) and [facility] Coding Staff appreciate your assistance in clarifying documentation. Please respond to the clarification below the line at the bottom and electronically sign. The CDI & [facility] Coding staff will review the response and follow-up if needed. Please note: Queries are made part of the Legal Health Record. If you have any questions, please contact the author of this message via ITS. Dr. Raul Lake: Per the 03/30 H/P: Unresponsiveness likely due to toxins, neuropathy due to pain medications including Fentanyl Patch. 04/02 Per the Wound Care Consult: Patient is confused. Additional clarification regarding the patient's unresponsiveness and confusion is requested. History/Risk Factors per the 03/30 H/P: Hypertension, Hyperlipidemia, GERD, WILLIAM, Chronic Back pain, Right Eye Blindness, Diverticulitis, CAD status post CABG and Stent placement, WILLIAM, Former smoker. Recently admitted with Sepsis secondary to Right Heel Infection and is currently on Cefepime for 3 weeks, discharged to rehab on 03/20/2022 Clinical Indicators: Presented to the ED on 03/30 from a Care Home with an episode of unresponsiveness, possibly had CPR initiated. Alert with stable vital signs on arrival. The patient is in a Care Home for Rehab. Has not been eating well and some chronic pain, uses both Lidocaine & Fentanyl Patch. Fentanyl Patch removed on arrival. Admit with Anemia, Dehydration and RILEY. 03/30 VS: T 97.4, P 57, R 22, 26 (sob, shallow), BP 135/69, PO 100 10L nrb, 100 on 4Lnc, BMI: 17.7. 03/30 LAB: RBC 3.11, Hgb 10.0, Hct 31.2; APTT 19.4; VBG: Ph 7.26, pCO2 61; Na 134, CO2 21, BUN 71, Creatinine 2.28, Glucose 103, Calcium 8.3, Total protein 5.2, Albumin 3.3 03/30: UA: Clear, 1+ protein, sm blood, Hyaline casts 100 03/30 Toxicology: Opiates & Barbiturates detected. 03/31 CT Brain: No acute intracranial process, Nonspecific white matter changes likely secondary to chronic small vessel ischemic change. Treatment 03/30: Telemetry, O2 2lpm, IV Na Chl 500 mls @ 999 mls/hr q31M x2, IV na Chl 1,000 mls @ 75 mls/hr q13H, po [place] 5-325 q8H/prn. 03/31: po Neurontin 300 mg BID Please clarify the following: [ x ] Metabolic Encephalopathy [ ] Toxic Encephalopathy [ ] Other, please specify [ ] Unable to determine (Template Last Revised: August 2020) MTDD
--- NOTE | 2022-04-03 10:33 | CDI ---
Documentation Clarification Form Date: 04/03/2022 10:21:00 AM From: Jenny Soto CCS, CCDS Admit Date: 03/30/2022 12:33:00 PM Patient Name: Terry Miller Visit Number: [id number] Discharge Date: ATTENTION: The Clinical Documentation Specialists (CDI) and [facility] Coding Staff appreciate your assistance in clarifying documentation. Please respond to the clarification below the line at the bottom and electronically sign. The CDI & [facility] Coding staff will review the response and follow-up if needed. Please note: Queries are made part of the Legal Health Record. If you have any questions, please contact the author of this message via ITS. Dr. Raul Lake: Per the 03/30 ED Note, per the patient's , the patient has not been eating or drinking well. Based on this information and the findings below, is there an additional diagnosis that is clinically appropriate for this patient? History/Risk Factors per the 03/30 H/P: Hypertension, Hyperlipidemia, GERD, WILLIAM, Chronic Back pain, Right Eye Blindness, Diverticulitis, CAD status post CABG and Stent placement, WILLIAM, Former smoker. Recently admitted with Sepsis secondary to Right Heel Infection and is currently on Cefepime for 3 weeks, discharged to rehab on 03/20/2022 Clinical Indicators: Presented to the ED on 03/30 from a [facility]Way with an episode of unresponsiveness, possibly had CPR initiated. Alert with stable vital signs on arrival. The patient is in a [facility] for Rehab. Has not been eating well and some chronic pain, uses both Lidocaine & Fentanyl Patch. Fentanyl Patch removed on arrival. Admit with Anemia, Dehydration and RILEY. 03/30 VS: T 97.4, P 57, R 22, 26 (sob, shallow), BP 135/69, PO 100 10L nrb, 100 on 4Lnc, BMI: 17.7. 03/30 LAB: RBC 3.11, Hgb 10.0, Hct 31.2; APTT 19.4; VBG: Ph 7.26, pCO2 61; Na 134, CO2 21, BUN 71, Creatinine 2.28, Glucose 103, Calcium 8.3, Total protein 5.2, Albumin 3.3 03/30: UA: Clear, 1+ protein, sm blood, Hyaline casts 100 03/30 Toxicology: Opiates & Barbiturates detected. 03/31 CT Brain: No acute intracranial process, Nonspecific white matter changes likely secondary to chronic small vessel ischemic change. Nutritional/RD Assessment: Noted by Speech Therapy to have delayed swallowing & coughing with oral intake, recommended pureed textures and honey-thick liquids w/1:1 supervision during meals. Appetite: Poor 3-6 months. Difficulty chewing/swallowing. Nutrition Intake: Poor, consumed 25-50% average x3 meals. Physical findings: emaciated, Underweight, Stage 1 Pressure Injury Coccyx and Stage II Pressure Injury Right Heel Weight: 56 kg, Height 5 ft 10 in, BMI: 17.6, Underweight, Calculated IBW: 75.5 k% IBW. 20# weight loss reported. Supplement: Magic Cup TID, pureed textures, honey thick liquids as recommended by Speech Therapy. Treatment 03/30: Telemetry, O2 2lpm, IV Na Chl 500 mls @ 999 mls/hr q31M x2, IV na Chl 1,000 mls @ 75 mls/hr q13H, po [place] 5-325 q8H/prn. 03/31: po Neurontin 300 mg BID Is there an additional diagnosis that is clinically appropriate for this patient? [ ] Mild Protein-Calorie Malnutrition [ ] Moderate Protein-Calorie Malnutrition [ x] Severe Protein-Calorie Malnutrition [ ] Other condition, please specify [ ] Unable to Determine (Template Last Revised: August 2020) MTDD
--- NOTE | 2022-04-03 13:04 | P.PN ---
Subjective Progress Note Date: 04/03/22 Patient is a 76-year-old male with a known history of hypertension, hyperlipidemia, GERD, obstructive sleep apnea, chronic back pain and right eye blindness, diverticulitis, history of coronary artery bypass graft and also stent placement and prior history of smoking who is currently a long term resident was brought to the hospital due to unresponsiveness. Patient was found unresponsive on the bed and CPR was initiated. Uncertain if the patient was ever pulseless. Currently patient is awake alert but able to track simple words but is very poor historian. No complaints of chest pain or shortness of breath. No nausea vomiting or abdominal pain. Denies any diarrhea patient has been afebrile. No facial droop or focal neurological deficit noted. No weakness or seizures. No bladder or bowel incontinence. Apparently patient does have chronic pain and uses both lidocaine patch and lidocaine patch. Fentanyl patch has been removed while in the ER. Chest x-ray showed chronic changes without acute pulmonary process. No significant change from prior. EKG showed sinus bradycardia with heart rate 57 Laboratory data showed WBC 9.2 hemoglobin 10.0 MCV 100.4 Sodium 134 potassium 4.3 chloride 100 bicarb is 21 BUN 71 and creatinine 2.28 Albumin 3.3 Baseline creatinine 0.9 Urinalysis is negative for infection UDS is positive for opiates and barbiturates. Patient was recently admitted to the hospital with sepsis secondary to right heel infection and is currently on cefepime for 3 weeks. Patient was discharged from the hospital on 03/20/2022. 03/31/2022 Patient is awake alert today. Does have generalized weakness and also found have left upper extremity weakness compared toRight. CT head was done to rule out acute CVA. No fever no chills. Afebrile. No commerce from production. No nausea vomiting or diarrhea. Patient is a poor historian. Laboratory data showed there was 12.2 hemoglobin 11.0 and platelets sodium 141 potassium 4.8 chloride 107 bicarb is 20.5 BUN 57.6 and creatinine 2.5 albumin 3.6. 04/01/2022 Patient is currently resting in the bed. Awake alert but not oriented. Could not provide any history at this time. Patient has been afebrile. No nausea vomiting abdominal pain. Tolerating oral diet with assistance. No cough or sputum production. CT head showed no acute intracranial process. Patient is being current on antibiotic of cefepime for right calcaneal wound infection as per recent ID recommendations. Wound care was consulted. Laboratory data showed WBC 8.6 hemoglobin 10.4 and platelets 224 BUN 47.6 and creatinine 2.2 which is improving. Anticipate discharge back to extended-care facility in the next 24 to 48 hours.. 04/02/22. Patient seen and examined. Vital signs stable. No acute issues overnight. Case discussed with nursing staff 04/03/22. Patient seen and examined. Patient laying comfortably in the bed. States that he feels stronger. Vital signs has been stable, he has been afebrile. Creatinine improved to 2. We'll get nephrology evaluation Nephrology consultation REVIEW OF SYSTEMS: CONSTITUTIONAL: No fever, no malaise, CARDIOVASCULAR: No chest pain, orthopnea, PND, no palpitations, no syncope. PULMONARY: No shortness of breath, no cough, no hemoptysis. GASTROINTESTINAL: No diarrhea, no nausea, no vomiting, no abdominal pain. PHYSICAL EXAMINATION: GENERAL: The patient is alert , not in any acute distress. Well developed, well nourished. HEENT: Pupils are round and equally reacting to light. EOMI. No scleral icterus. No conjunctival pallor. Normocephalic, atraumatic. No pharyngeal erythema. No thyromegaly. CARDIOVASCULAR: S1 and S2 present. No murmurs, rubs, or gallops. PULMONARY: Chest is clear to auscultation, no wheezing or crackles. ABDOMEN: Soft, nontender, nondistended, normoactive bowel sounds. No palpable organomegaly. MUSCULOSKELETAL: No joint swelling or deformity. EXTREMITIES: No cyanosis, clubbing, or pedal edema. NEUROLOGICAL: Gross neurological examination did not reveal any focal deficits. SKIN: No rashes. Assessment and plan Unresponsiveness likely due to toxins neuropathy due to pain medications including fentanyl patches. Patient is awake and alert currently. Acute kidney injury likely due to dehydration and volume depletion. Creatinine 2.28. Baseline 0.9 right lower extremity cellulitis and right heel wound with recent debridement. Macrocytic anemia acute hemoglobin level 10.0 Medical debility currently bedridden Hypertension Hyperlipidemia History of [place] Obstructive sleep apnea not on CPAP Coronary disease history of CABG Prior history of smoking DVT prophylaxis with heparin subcu Plan: CT head without any acute CVA. Monitor vital signs Monitor CBC Patient with IV cefepime to complete the antibiotic course due due to right lower extremity cellulitis and right heel wound with recent debridement. Follow-up closely. Monitor renal function Avoid nephrotoxic agents continue IV fluids consult nephrology Prognosis is guarded with multiple medical problems and comorbid conditions. Judicious use of pain medication Encourage oral intake and to follow closely. : Objective - Vital Signs Vital signs: Vital Signs Temp 98.8 F 04/03/22 11:08 Pulse 90 04/03/22 11:08 Resp 16 04/03/22 11:08 BP 116/68 04/03/22 11:08 Pulse Ox 96 04/03/22 11:08 FiO2 Intake & Output 04/02/22 04/03/22 04/03/22 18:59 06:59 18:59 Intake Total 290 250 Output Total 2302 1000 201 Balance -2011 Intake: IV 50 Cefepime 1 gm In Sodium 50 Chloride 0.9% 50 ml @ 12. 5 mls/hr IVPB Q12HR [facility] Rx#:[id number] Oral 240 250 Output: Urine 2300 1000 200 Stool 2 1 Other: Voiding Method Indwelling Catheter Indwelling Catheter Indwelling Catheter - Labs CBC & Chem 7: 04/02/22 05:54 04/02/22 05:54
[2022-04-03] MEDS: SODIUM CHLORIDE 0.9% 1,000 ML IV SCH (16:45)
[2022-04-03] MEDS: ATORVASTATIN 40 MG TAB PO SCH (20:43)
[2022-04-03] MEDS: TAMSULOSIN 0.4 MG CAP.ER.24H PO SCH (20:44)
[2022-04-03] MEDS: ACETAMINOPHEN TAB 325 MG TAB PO PRN (22:33)
[2022-04-04] MEDS: HEPARIN SODIUM,PORCINE/PF 5,000 UNIT/0.5 ML SYRINGE SQ SCH ×4 (00:42→23:26)
[2022-04-04] MEDS: SODIUM CHLORIDE 0.9% 1,000 ML IV SCH ×2 (04:48→18:09)
[2022-04-04] MEDS: CLOPIDOGREL 75 MG TAB PO SCH (07:48)
[2022-04-04] MEDS: PANTOPRAZOLE 40 MG TABLET PO SCH ×2 (07:48→20:20)
[2022-04-04] MEDS: carvediloL 6.25 MG TAB PO SCH ×2 (07:48→20:20)
[2022-04-04] MEDS: PRIMIDONE 50 MG TAB PO SCH ×2 (07:48→20:20)
[2022-04-04] MEDS: GABAPENTIN 300 MG CAP PO SCH ×2 (07:48→20:20)
[2022-04-04] MEDS: ISOSORBIDE MONONITRATE ER 30 MG TAB.ER.24H PO SCH (07:49)
[2022-04-04] MEDS: HYDROcodone/APAP 5-325MG 1 EACH TAB PO PRN ×3 (07:49→23:26)
[2022-04-04] MEDS: AZELASTINE 137MCG/SPRAY NASAL SCH ×2 (07:50→20:20)
[2022-04-04] MEDS: CEFEPIME 1 GM in SODIUM CHLORIDE 0.9% 50 ML IVPB SCH ×2 (07:50→20:47)
[2022-04-04 08:57] LABS: Basophils # (A) 0.08 X 10*3/uL (0.00-0.10); Eosinophils # (A) 0.14 X 10*3/uL (0.04-0.35); Eosinophils % (A) 1.7 %; HCT 30.4 % (39.6-50.0); HGB 9.5 g/dL (13.0-17.0); Immature Grans, Automated 0.4 %; Lymphocytes # (A) 1.84 X 10*3/uL (0.90-5.00); Lymphocytes % (A) 22.7 %; MCH 32.8 pg (27.0-32.0); MCHC 31.3 g/dL (32.0-37.0); MCV 104.8 fL (80.0-97.0); Mean Platelet Volume 10.4 fL (9.5-12.2); Monocytes # (A) 1.16 X 10*3/uL (0.20-1.00); Monocytes % (A) 14.3 %; NRBC Per 100 WBC 0 /100 WBCS (0.0-0.0); Neutrophils # (A) 4.85 X 10*3/uL (1.80-7.70); Neutrophils % (A) 59.9 %; Platelet Count 210 X 10*3/uL (140-440); RDW 13.7 % (11.5-14.5)
[2022-04-04 09:05] LABS: African American GFR (CKD) 33.9 (60.0-200.0); Anion Gap 12.7 mmol/L (10.00-18.00); BUN/Creat Ratio 18.48 Ratio (12.00-20.00); Blood Urea Nitrogen 38.8 mg/dL (9.0-27.0); Calcium 8.3 mg/dL (8.7-10.3); Carbon Dioxide 23.3 mmol/L (20.0-27.5); Non-African American GFR(CKD) 29.3 (60.0-200.0); Potassium 3.3 mmol/L (3.5-5.5)
--- NOTE | 2022-04-04 10:57 | P.PN ---
Subjective Progress Note Date: 04/04/22 Patient is a 76-year-old male with a known history of hypertension, hyperlipidemia, GERD, obstructive sleep apnea, chronic back pain and right eye blindness, diverticulitis, history of coronary artery bypass graft and also stent placement and prior history of smoking who is currently a [facility] resident was brought to the hospital due to unresponsiveness. Patient was found unresponsive on the bed and CPR was initiated. Uncertain if the patient was ever pulseless. Currently patient is awake alert but able to track simple words but is very poor historian. No complaints of chest pain or shortness of breath. No nausea vomiting or abdominal pain. Denies any diarrhea patient has been afebrile. No facial droop or focal neurological deficit noted. No weakness or seizures. No bladder or bowel incontinence. Apparently patient does have chronic pain and uses both lidocaine patch and lidocaine patch. Fentanyl patch has been removed while in the ER. Chest x-ray showed chronic changes without acute pulmonary process. No significant change from prior. EKG showed sinus bradycardia with heart rate 57 Laboratory data showed WBC 9.2 hemoglobin 10.0 MCV 100.4 Sodium 134 potassium 4.3 chloride 100 bicarb is 21 BUN 71 and creatinine 2.28 Albumin 3.3 Baseline creatinine 0.9 Urinalysis is negative for infection UDS is positive for opiates and barbiturates. Patient was recently admitted to the hospital with sepsis secondary to right heel infection and is currently on cefepime for 3 weeks. Patient was discharged from the hospital on 03/20/2022. 03/31/2022 Patient is awake alert today. Does have generalized weakness and also found have left upper extremity weakness compared toRight. CT head was done to rule out acute CVA. No fever no chills. Afebrile. No commerce from production. No nausea vomiting or diarrhea. Patient is a poor historian. Laboratory data showed there was 12.2 hemoglobin 11.0 and platelets sodium 141 potassium 4.8 chloride 107 bicarb is 20.5 BUN 57.6 and creatinine 2.5 albumin 3.6. 04/01/2022 Patient is currently resting in the bed. Awake alert but not oriented. Could not provide any history at this time. Patient has been afebrile. No nausea vomiting abdominal pain. Tolerating oral diet with assistance. No cough or sputum production. CT head showed no acute intracranial process. Patient is being current on antibiotic of cefepime for right calcaneal wound infection as per recent ID recommendations. Wound care was consulted. Laboratory data showed WBC 8.6 hemoglobin 10.4 and platelets 224 BUN 47.6 and creatinine 2.2 which is improving. Anticipate discharge back to extended-care facility in the next 24 to 48 hours.. 04/02/22. Patient seen and examined. Vital signs stable. No acute issues overnight. Case discussed with nursing staff 04/03/22. Patient seen and examined. Patient laying comfortably in the bed. States that he feels stronger. Vital signs has been stable, he has been afebrile. Creatinine improved to 2. We'll get nephrology evaluation 04/04/22. Patient seen and examined. Sitting upright in the chair. States he feels better. Going for barium swallow with video per speech therapy. REVIEW OF SYSTEMS: CONSTITUTIONAL: No fever, no malaise, CARDIOVASCULAR: No chest pain, orthopnea, PND, no palpitations, no syncope. PULMONARY: No shortness of breath, no cough, no hemoptysis. GASTROINTESTINAL: No diarrhea, no nausea, no vomiting, no abdominal pain. PHYSICAL EXAMINATION: GENERAL: The patient is alert , not in any acute distress. Well developed, well nourished. HEENT: Pupils are round and equally reacting to light. EOMI. No scleral icterus. No conjunctival pallor. Normocephalic, atraumatic. No pharyngeal erythema. No thyromegaly. CARDIOVASCULAR: S1 and S2 present. No murmurs, rubs, or gallops. PULMONARY: Chest is clear to auscultation, no wheezing or crackles. ABDOMEN: Soft, nontender, nondistended, normoactive bowel sounds. No palpable organomegaly. MUSCULOSKELETAL: No joint swelling or deformity. EXTREMITIES: No cyanosis, clubbing, or pedal edema. NEUROLOGICAL: Gross neurological examination did not reveal any focal deficits. SKIN: No rashes. Assessment and plan Unresponsiveness likely due to toxins neuropathy due to pain medications including fentanyl patches. Patient is awake and alert currently. Acute kidney injury likely due to dehydration and volume depletion. Creatinine 2.28. Baseline 0.9 right lower extremity cellulitis and right heel wound with recent debridement. Macrocytic anemia acute hemoglobin level 10.0 Medical debility currently bedridden Hypertension Hyperlipidemia History of [place] Obstructive sleep apnea not on CPAP Coronary disease history of CABG Prior history of smoking DVT prophylaxis with heparin subcu Plan: CT head without any acute CVA. Monitor vital signs Monitor CBC Patient with IV cefepime to complete the antibiotic course due due to right lower extremity cellulitis and right heel wound with recent debridement. Patient was discharged on last admission on cefepime after consultation with ID for 3 weeks with a stop date of 04/10/22. Monitor renal function Avoid nephrotoxic agents continue IV fluids Follow-up in nephrology recommendations Prognosis is guarded with multiple medical problems and comorbid conditions. Judicious use of pain medication Encourage oral intake and to follow closely. : Objective - Vital Signs Vital signs: Vital Signs Temp 98.2 F 04/04/22 04:07 Pulse 68 04/04/22 04:07 Resp 17 04/04/22 04:07 BP 143/80 04/04/22 04:07 Pulse Ox 97 04/04/22 04:07 FiO2 Intake & Output 04/03/22 04/04/22 04/04/22 18:59 06:59 18:59 Intake Total 875 Output Total 801 550 Balance -801 325 Intake: Intake, IV Titration 875 Amount Cefepime 1 gm In Sodium 50 Chloride 0.9% 50 ml @ 12. 5 mls/hr IVPB Q12HR [facility] Rx#:[id number] Sodium Chloride 0.9% 1, 825 000 ml @ 75 mls/hr IV . [id number] [facility] Rx#:[id number] Output: Urine 800 550 Stool 1 Other: Voiding Method Indwelling Catheter Indwelling Catheter - Labs CBC & Chem 7: 04/04/22 06:38 04/04/22 06:38 Labs: Abnormal Lab Results - Last 24 Hours (Table) 04/04/22 04/04/22 Range/Units 06:38 06:38 RBC 2.90 L (4.40-5.60) X 10*6/uL Hgb 9.5 L (13.0-17.0) g/dL Hct 30.4 L (39.6-50.0) % MCV 104.8 H (80.0-97.0) fL MCH 32.8 H (27.0-32.0) pg MCHC 31.3 L (32.0-37.0) g/dL Monocytes # 1.16 H (0.20-1.00) X 10*3/uL Potassium 3.3 L (3.5-5.5) mmol/L BUN 38.8 H (9.0-27.0) mg/dL Creatinine 2.1 H (0.6-1.5) mg/dL Est GFR (CKD-EPI)AfAm 33.9 L (60.0-200.0) Est GFR (CKD-EPI)NonAf 29.3 L (60.0-200.0) Calcium 8.3 L (8.7-10.3) mg/dL
--- NOTE | 2022-04-04 12:03 | FL ---
EXAMINATION TYPE: FL barium swallow w video DATE OF EXAM: 04/04/2022 MODIFIED SWALLOW / DEGLUTITION STUDY CLINICAL HISTORY: Dysphagia. Rule out aspiration. History of Parkinson's. TECHNIQUE: Deglutition study is performed utilizing thin liquid barium, honey and nectar thick liqui d barium, barium thick applesauce, and barium coated cracker. 2 minutes 34 of fluoro time and 0 imag es obtained. COMPARISON: None. FINDINGS: The oral and pharyngeal phases show satisfactory initiation with poor propagation as there is poor epiglottic inversion with all modalities tested. Longer than normal time for mastication is s een with solid modalities tested as patient has to chew into very small pieces. There is deep penetra tion with thin liquid barium. There is penetration of residual. No aspiration. Patient able to clear penetration with coughing. Moderate to severe pharyngeal residue was appreciated with more viscous mo dalities. IMPRESSION: Poor pharyngeal phase with significant residuals. Penetration without aspiration. Please refer to speech therapist notes for further details if necessary.
--- NOTE | 2022-04-04 12:14 | P.NPCON ---
History of Present Illness - Reason for Consult acute renal failure - History of Present Illness Patient is a 76-year-old male with history of hypertension, hyperlipidemia, gastroesophageal reflux disease. He also has underlying coronary artery disease status post coronary artery bypass surgery. [facility] the shelter and was admitted to the hospital with unresponsiveness. Patient was unresponsive at the shelter and CPR was initiated. Patient did come around. It is unclear if he was pulseless. Patient denies any history of kidney diseases Blood pressure was noted to be low on initial admission with systolic in the 90s. Patient currently has an indwelling Basurto catheter. 24 hour urine output at 3.3 L Serum creatinine was 2.5 on 03/31/2022 and decreased to about 2.0 on 04/02/2022 and today on 04/04/2022. Previous creatinine was 1.07 on 03/20/2022 Home medications reveal patient was on NSAIDs in the form of meloxicam and was also maintained on diuretics. Review of Systems As per HPI Past Medical History Past Medical History: Hypertension, Eye Disorder, GERD/Reflux, Hyperlipidemia, Hypertension, Myocardial Infarction ([place]), Osteoarthritis (OA), Sleep Apnea/CPAP/BIPAP Additional Past Medical History / Comment(s): wound left ankle and rt heel,BACK PAIN USES WALKER, 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 diverticulitis, neuropathy, does not use CPAP, pt states has ruptured eardrum rt ear Last Myocardial Infarction Date:: 2001 History of Any Multi-Drug Resistant Organisms: None Reported Past Surgical History: Back Surgery, Coronary Bypass/CABG, Ear Surgery, Heart Catheterization, Heart Catheterization With Stent, Joint Replacement, Tonsillectomy Additional Past Surgical History / Comment(s): chriss CATARACTS, one cardiac stent, CABG (2005), RIGHT EAR DRUM REPLACEMENT.CHRISS TOTAL KNEES, RIGHT CAROTID ENDARTERECTOMY. chriss carpel tunnel surgery, rods in spine(total 4 back surgeries) wound center patient Past Anesthesia/Blood Transfusion Reactions: No Reported Reaction, Motion Sickness Date of Last Stent Placement:: 2001 Past Psychological History: No Psychological Hx Reported Smoking Status: Former smoker - Past Family History Mother Family Medical History: No Reported History Additional Family Medical History / Comment(s): . Father Family Medical History: Hypertension Medications and Allergies Home Medications Medication Instructions Recorded Confirmed Type Atorvastatin Calcium [Lipitor] 40 mg PO HS@2100 09/04/14 10/01/22 History Lansoprazole [Prevacid] 30 mg PO BID@00,209909/04/14 03/30/22 History Nitroglycerin Sl Tabs [Nitrostat] 0.4 mg SUBLINGUAL Q5M PRN 09/04/14 03/30/22 History fentaNYL 50MCG/HR PATCH [Duragesic 1 patch TRANSDERM Q72H 09/04/14 03/30/22 History 50MCG/HR] modafiniL [Provigil] 200 mg PO BID@0900,209909/04/14 03/30/22 History Clopidogrel [Plavix] 75 mg PO DAILY@89908/28/16 03/30/22 History Isosorbide Mononitrate ER [Imdur] 30 mg PO DAILY@89908/28/16 03/30/22 History carvediloL [Coreg] 6.25 mg PO BID@0900,209908/28/16 03/30/22 History Tamsulosin HCl [Flomax] 0.4 mg PO HS@209910/14/17 03/30/22 History Primidone [Mysoline] 50 mg PO BID@0900,209912/28/18 03/30/22 History Azelastine HCl [Astepro] 1 spray NASAL BID@899,209903/12/22 03/30/22 History Furosemide [Lasix] 40 mg PO DAILY@59903/12/22 03/30/22 History Lidocaine 5% Patch [Lidoderm 5% 3 patch TOPICAL DAILY@89903/12/22 03/30/22 History Patch] Meloxicam [Mobic] 15 mg PO DAILY@89903/12/22 03/30/22 History Naloxegol Oxalate [Movantik] 12.5 mg PO DAILY@89903/12/22 03/30/22 History Acetaminophen Tab [Tylenol] 650 mg PO Q6HR PRN tab 03/20/22 03/30/22 Rx Cefepime [Maxipime] 2 gm IVPB BID@0900,209903/30/22 03/30/22 History Collagenase [Santyl Ointment] 1 applic TOPICAL HS 03/30/22 03/30/22 History Gabapentin [Neurontin] 300 mg PO BID@0900,2100 03/30/22 03/30/22 History HYDROcodone/APAP 5-325MG [[place] 1 tab PO Q8H PRN 03/30/22 03/30/22 History 5-325] Lactose-Reduced Food [Ensure Plus] 237 ml PO TID@0900,1300,2100 03/30/22 03/30/22 History clonazePAM [KlonoPIN] 0.5 mg PO BID PRN 03/30/22 03/30/22 History Allergies Allergy/AdvReac Type Severity Reaction Status Date / Time meperidine [From Demerol] Allergy Nausea Verified 03/30/22 15:10 aspirin AdvReac Unknown UNCOATED Verified 03/30/22 15:10 ASPIRIN CAUSES STOMACH PAIN morphine AdvReac Vomiting Verified 03/30/22 15:10 Physical Exam Vitals: Vital Signs Temp Pulse Resp BP BP Pulse Ox 04/04/22 11:42 98.1 F 63 16 139/81 97 04/04/22 04:07 98.2 F 68 17 143/80 97 04/03/22 19:00 99.6 F 84 15 124/72 97 Intake and Output 04/03/22 04/04/22 04/04/22 22:59 06:59 14:59 Intake Total 875 Output Total 600 550 Balance -600 325 Intake: Intake, IV Titration 875 Amount Cefepime 1 gm In Sodium 50 Chloride 0.9% 50 ml @ 12. 5 mls/hr IVPB Q12HR [facility] Rx#:[id number] Sodium Chloride 0.9% 1, 825 000 ml @ 75 mls/hr IV . [id number] [facility] Rx#:[id number] Output: Urine 600 550 Other: Voiding Method Indwelling Catheter Awake, comfortable, not in any acute distress Examination of the heart S1 and S2 Examination of the lungs bilateral breath sounds are heard Abdomen is soft nontender Examination of lower extremities shows no significant edema VIDEOGAME DESIGNER exam grossly intact Results - Lab Results Most recent lab results Calcium 8.3 mg/dL (8.7-10.3) L 04/04/22 06:38 Magnesium 2.1 mg/dL (1.6-2.3) 03/30/22 10:50 04/04/22 06:38 04/04/22 06:38 Assessment and Plan Assessment: 1. Acute kidney injury secondary to hypotension currently slightly improved. Patient was also maintained on NSAIDs in the form of Mobic. UA shows 1+ protein and small blood. Check ultrasound of the kidneys 2. Right lower extremity cellulitis with the right heel wound with history of recent debridement 3. Episode of unresponsiveness possibly related to pain medications if 4. Hypokalemia status post replacement Plan: Replace potassium Continue with IV fluids Continue with Flomax Check ultrasound of the kidneys Repeat labs in a.m. Continue to hold off on NSAIDs. Next Thank you for the consultation. We'll continue to follow the patient with you during his hospitalization
[2022-04-04] MEDS: POTASSIUM CHLORIDE 10 MEQ in WATER FOR INJECTION 1 100ML.BAG IVPB SCH ×2 (12:16→14:36)
[2022-04-04] MEDS: TAMSULOSIN 0.4 MG CAP.ER.24H PO SCH (20:20)
[2022-04-04] MEDS: ATORVASTATIN 40 MG TAB PO SCH (20:20)
[2022-04-05] MEDS: HYDROcodone/APAP 5-325MG 1 EACH TAB PO PRN ×2 (04:59→21:58)
[2022-04-05] MEDS: SODIUM CHLORIDE 0.9% 1,000 ML IV SCH ×2 (08:27→22:02)
[2022-04-05] MEDS: CLOPIDOGREL 75 MG TAB PO SCH (08:28)
[2022-04-05] MEDS: CEFEPIME 1 GM in SODIUM CHLORIDE 0.9% 50 ML IVPB SCH ×2 (08:28→21:57)
[2022-04-05] MEDS: HEPARIN SODIUM,PORCINE/PF 5,000 UNIT/0.5 ML SYRINGE SQ SCH ×2 (08:28→16:41)
[2022-04-05] MEDS: carvediloL 6.25 MG TAB PO SCH ×2 (08:28→21:58)
[2022-04-05] MEDS: PANTOPRAZOLE 40 MG TABLET PO SCH ×2 (08:28→21:58)
[2022-04-05] MEDS: GABAPENTIN 300 MG CAP PO SCH ×2 (08:28→21:58)
[2022-04-05] MEDS: ISOSORBIDE MONONITRATE ER 30 MG TAB.ER.24H PO SCH (08:28)
[2022-04-05] MEDS: PRIMIDONE 50 MG TAB PO SCH ×2 (08:29→21:58)
[2022-04-05] MEDS: AZELASTINE 137MCG/SPRAY NASAL SCH ×2 (08:29→22:02)
[2022-04-05 08:53] LABS: Basophils # (A) 0.08 X 10*3/uL (0.00-0.10); Basophils % (A) 1.1 %; Eosinophils # (A) 0.28 X 10*3/uL (0.04-0.35); Eosinophils % (A) 3.7 %; HCT 28.1 % (39.6-50.0); Immature Grans, Automated 0.4 %; Lymphocytes % (A) 21.4 %; MCH 32.5 pg (27.0-32.0); MCV 101.4 fL (80.0-97.0); Mean Platelet Volume 10.6 fL (9.5-12.2); Monocytes # (A) 0.99 X 10*3/uL (0.20-1.00); Monocytes % (A) 13.2 %; NRBC Per 100 WBC 0 /100 WBCS (0.0-0.0); Neutrophils # (A) 4.51 X 10*3/uL (1.80-7.70); Neutrophils % (A) 60.2 %; Platelet Count 204 X 10*3/uL (140-440); RBC 2.77 X 10*6/uL (4.40-5.60); RDW 13.5 % (11.5-14.5); WBC 7.49 X 10*3/uL (4.50-10.00)
--- NOTE | 2022-04-05 09:03 | US ---
EXAMINATION TYPE: US kidneys/renal and bladder DATE OF EXAM: 04/04/2022 COMPARISON: CT 2014 CLINICAL HISTORY: jessica. known stones, jessica EXAM MEASUREMENTS: Right Kidney: 10.5 x 4.7 x 4.6 cm Left Kidney: not seen Right Kidney: 1.1cm and 1.0cm stones seen Left Kidney: overlying bowel gas obscures views Bladder: cabezas There are 2 shadowing hyperechoic calculi in the right kidney. No right-sided hydronephrosis. Cabezas catheter decompresses bladder. Left kidney not successfully visualized. IMPRESSION: Suboptimal study. Right-sided nephrolithiasis redemonstrated without hydronephrosis. Left kidney is suboptimally evaluated.
[2022-04-05 09:20] LABS: ALT 14 U/L (10-49); AST 20 U/L (14-35); African American GFR (CKD) 32.1 (60.0-200.0); Albumin/Globulin Ratio 1.58 (1.60-3.17); Alkaline Phosphatase 42 U/L (41-126); BUN/Creat Ratio 16.36 Ratio (12.00-20.00); Calcium 8.3 mg/dL (8.7-10.3); Carbon Dioxide 20.8 mmol/L (20.0-27.5); Chloride 109 mmol/L (96-109); Globulin 1.9 g/dL (1.6-3.3); Glucose 93 mg/dL (70-110); Non-African American GFR(CKD) 27.7 (60.0-200.0); Potassium 3.8 mmol/L (3.5-5.5); Sodium 141 mmol/L (135-145); Total Bilirubin <0.15 mg/dL (0.30-1.20); Total Protein 4.9 g/dL (6.2-8.2)
--- NOTE | 2022-04-05 11:49 | P.PN ---
Subjective Patient is seen for follow-up for acute kidney injury, prerenal and secondary to NSAIDs. Serum creatinine staying at around 2.1-2.2 mg/dL. Patient has an indwelling Basurto catheter. UA shows trace protein and blood Ultrasound shows right kidney with no hydronephrosis and about 1 cm stones were noted. Left kidney was not patient lies due to bowel gas. Objective - Vital Signs Vital signs: Vital Signs Temp 98.0 F 04/05/22 11:15 Pulse 71 04/05/22 11:15 Resp 16 04/05/22 11:15 BP 96/66 04/05/22 11:15 Pulse Ox 97 04/05/22 11:15 FiO2 Intake & Output 04/04/22 04/05/22 04/05/22 18:59 06:59 18:59 Output Total 600 1301 Balance -600 -1301 Weight 56 kg Output: Urine 600 1300 Stool 1 Other: Voiding Method Indwelling Catheter # Bowel Movements 1 - Exam Awake, comfortable, not in any acute distress Examination of the heart S1 and S2 Examination of the lungs bilateral breath sounds are heard Abdomen is soft nontender Examination of the lower extremities shows no evidence of edema SHANK BONER exam grossly intact - Labs CBC & Chem 7: 04/05/22 06:28 04/05/22 06:28 Labs: Abnormal Lab Results - Last 24 Hours (Table) 04/05/22 04/05/22 Range/Units 06:28 06:28 RBC 2.77 L (4.40-5.60) X 10*6/uL Hgb 9.0 L (13.0-17.0) g/dL Hct 28.1 L (39.6-50.0) % MCV 101.4 H (80.0-97.0) fL MCH 32.5 H (27.0-32.0) pg BUN 36.0 H (9.0-27.0) mg/dL Creatinine 2.2 H (0.6-1.5) mg/dL Est GFR (CKD-EPI)AfAm 32.1 L (60.0-200.0) Est GFR (CKD-EPI)NonAf 27.7 L (60.0-200.0) Calcium 8.3 L (8.7-10.3) mg/dL Total Bilirubin <0.15 L (0.30-1.20) mg/dL Total Protein 4.9 L (6.2-8.2) g/dL Albumin 3.0 L (3.8-4.9) g/dL Albumin/Globulin Ratio 1.58 L (1.60-3.17) g/dL Assessment and Plan Assessment: 1. Acute kidney injury secondary to hypotension currently slightly improved. Patient was also maintained on NSAIDs in the form of Mobic. UA shows 1+ protein and small blood. No hydronephrosis noted. Left kidney not visualized. Twos stones about 1 cm in size noted on right kidney, nonobstructive 2. Right lower extremity cellulitis with the right heel wound with history of recent debridement 3. Episode of unresponsiveness possibly related to pain medications if 4. Hypokalemia status post replacement Plan: May continue with IV fluids Follow-up as outpatient in 1-2 weeks' Encourage increased oral intake Avoid NSAIDs post discharge including Mobic.
--- NOTE | 2022-04-05 11:58 | P.CNNES ---
History of Present Illness Consult date: 04/05/22 Requesting physician: Raul Lake Reason for Consult: Tremors, family wants evaluation for Parkinson's History of Present Illness: Patient is a 76-year-old male, who resides in [facility] with history of hypertension, hyperlipidemia, GERD, obstructive sleep apnea, chronic back pain and right eye blindness, diverticulitis, history of CAD, came to the hospital on 03/30/2022 by ambulance for evaluation of syncope. As per EMS flow sheet, patient was fine on the day of admission in the morning. A few minutes later was found unresponsive. RN did sternal rub for 2 minutes before the patient responded. The patient's oxygen saturation is at 88%. Patient was having difficulty breathing. Patient's blood pressure was 124/69, pulse rate 65, respiration 88, temperature 97.7. Patient was diagnosed with anemia, dehydration, acute kidney injury. Patient has history of tremors. Neurology was consulted per family request to rule out Parkinson's disease. Patient says that he woke up because he has "peed all over in the bed". He states that his 3 years old brother has Parkinson's disease, also maternal arms with Parkinson's disease. Patient says that he is on some medication which has helped with his tremors. The tremors bothers him with activity, couldn't dial the telephone. He states the tremors have been pre sent for one year. He states that he cannot write because of shakes in the size of the handwriting is getting bigger. He has been using 4 wheeled walker for the last 5 years. Denies diabetes. He has neuropathy in both feet, 4 back surgeries, head rods at L2, L3-L4 and has chronic bilateral dropfoot. CT head showed no acute intracranial process. Nonspecific white matter changes, likely secondary to chronic small vessel ischemic disease. I personally reviewed CT head agree with the findings. There is generalized cerebral atrophy. No evidence of hydrocephalus. Calcification in the vertebrobasilar system. EKG showed sinus bradycardia, left axis deviation. Blood test shows normal WBC hemoglobin 9.0 with elevated MCV 101.4. Platelets are normal. Electrolytes are normal, BUN 36, creatinine 2.2. GFR is 27. Hepatic panel normal, B12 374, folate 715, TSH is normal 2.2. UA negative, urine drug screen positive for opiates and barbiturates. Patient's home medications include gabapentin 300 mg twice a day, clonazepam 0.5 mA twice a day, hydrocodone 5/325 mg every 8 hours when necessary, tramadol 50 mg twice a day, Flomax, Plavix 75 mg, isosorbide, Coreg, Lipitor 40 mg, Provigil 200 mg, fentanyl 50 g every 72 hours. Review of Systems Constitutional: Denies chills, Denies fever Eyes: right loss of vision, denies blurred vision, denies pain Ears, nose, mouth and throat: Denies headache, Denies sore throat Cardiovascular: Denies chest pain, Denies shortness of breath Respiratory: Denies cough Gastrointestinal: Denies abdominal pain, Denies diarrhea, Denies nausea, Denies vomiting Musculoskeletal: Reports gait dysfunction, Reports low back pain, Reports muscle weakness Integumentary: Denies pruritus, Denies rash Neurological: Reports as per HPI Psychiatric: Denies anxiety, Denies depression Endocrine: Denies fatigue, Denies weight change Hematologic/Lymphatic: Denies lymphadenopathy Allergic/Immunologic: Denies persistent infections Past Medical History Past Medical History: Hypertension, Eye Disorder, GERD/Reflux, Hyperlipidemia, Hypertension, Myocardial Infarction ([place]), Osteoarthritis (OA), Sleep Apnea/CPAP/BIPAP Additional Past Medical History / Comment(s): wound left ankle and rt heel,BACK PAIN USES WALKER, 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 diverticulitis, neuropathy, does not use CPAP, pt states has ruptured eardrum rt ear Last Myocardial Infarction Date:: 2001 History of Any Multi-Drug Resistant Organisms: None Reported Past Surgical History: Back Surgery, Coronary Bypass/CABG, Ear Surgery, Heart Catheterization, Heart Catheterization With Stent, Joint Replacement, Tonsillectomy Additional Past Surgical History / Comment(s): chriss CATARACTS, one cardiac stent, CABG (2005), RIGHT EAR DRUM REPLACEMENT.CHRISS TOTAL KNEES, RIGHT CAROTID ENDARTERECTOMY. chriss carpel tunnel surgery, rods in spine(total 4 back surgeries) wound center patient Past Anesthesia/Blood Transfusion Reactions: No Reported Reaction, Motion Sickness Date of Last Stent Placement:: 2001 Past Psychological History: No Psychological Hx Reported Smoking Status: Former smoker - Past Family History Mother Family Medical History: No Reported History Additional Family Medical History / Comment(s): . Father Family Medical History: Hypertension Medications and Allergies Home Medications Medication Instructions Recorded Confirmed Type Atorvastatin Calcium [Lipitor] 40 mg PO HS@209909/04/14 03/30/22 History Lansoprazole [Prevacid] 30 mg PO BID@0900,209909/04/14 03/30/22 History Nitroglycerin Sl Tabs [Nitrostat] 0.4 mg SUBLINGUAL Q5M PRN 09/04/14 03/30/22 History fentaNYL 50MCG/HR PATCH [Duragesic 1 patch TRANSDERM Q72H 09/04/14 03/30/22 History 50MCG/HR] modafiniL [Provigil] 200 mg PO BID@0900,209909/04/14 03/30/22 History Clopidogrel [Plavix] 75 mg PO DAILY@89908/28/16 03/30/22 History Isosorbide Mononitrate ER [Imdur] 30 mg PO DAILY@89908/28/16 03/30/22 History carvediloL [Coreg] 6.25 mg PO BID@0900,209908/28/16 03/30/22 History Tamsulosin HCl [Flomax] 0.4 mg PO HS@209910/14/17 03/30/22 History Primidone [Mysoline] 50 mg PO BID@0900,209912/28/18 03/30/22 History Azelastine HCl [Astepro] 1 spray NASAL BID@0900,209903/12/22 03/30/22 History Furosemide [Lasix] 40 mg PO DAILY@59903/12/22 03/30/22 History Lidocaine 5% Patch [Lidoderm 5% 3 patch TOPICAL DAILY@89903/12/22 03/30/22 History Patch] Meloxicam [Mobic] 15 mg PO DAILY@89903/12/22 03/30/22 History Naloxegol Oxalate [Movantik] 12.5 mg PO DAILY@89903/12/22 03/30/22 History Acetaminophen Tab [Tylenol] 650 mg PO Q6HR PRN tab 03/20/22 03/30/22 Rx Cefepime [Maxipime] 2 gm IVPB BID@0900,209903/30/22 03/30/22 History Collagenase [Santyl Ointment] 1 applic TOPICAL HS 03/30/22 03/30/22 History Gabapentin [Neurontin] 300 mg PO BID@0900,2100 03/30/22 03/30/22 History HYDROcodone/APAP 5-325MG [[place] 1 tab PO Q8H PRN 03/30/22 03/30/22 History 5-325] Lactose-Reduced Food [Ensure Plus] 237 ml PO TID@0900,1300,2100 03/30/22 03/30/22 History clonazePAM [KlonoPIN] 0.5 mg PO BID PRN 03/30/22 03/30/22 History Allergies Allergy/AdvReac Type Severity Reaction Status Date / Time meperidine [From Demerol] Allergy Nausea Verified 03/30/22 15:10 aspirin AdvReac Unknown UNCOATED Verified 03/30/22 15:10 ASPIRIN CAUSES STOMACH PAIN morphine AdvReac Vomiting Verified 03/30/22 15:10 Physical Examination - Vital Signs Vital Signs: Vital Signs Temp Pulse Resp BP BP Pulse Ox 04/05/22 04:28 98.9 F 72 14 114/51 95 04/04/22 20:00 75 14 04/04/22 18:58 98.2 F 75 14 128/73 95 04/04/22 11:42 98.1 F 63 16 139/81 97 Intake and Output 04/04/22 04/05/22 04/05/22 22:59 06:59 14:59 Output Total 601 1300 Balance -601 -1300 Output: Urine 600 1300 Stool 1 Other: Voiding Method Indwelling Catheter # Bowel Movements 1 Patient is an elderly male, in no acute distress. Patient is alert awake oriented to time place and person. Speech and language functions are normal. Patient can name and repeat very well. No aphasia or dysarthria. Attention, concentration and fund of knowledge is adequate. Detail cognitive function testing deferred. On cranial nerve examination, pupils are equal, round and reacting to light, visual yadav are full on confrontation, with no neglect on double simultaneous depression. Extraocular muscles are intact with no nystagmus. Face is symmetric, tongue protrudes to the midline. Palatal elevation and sensation normal, hearing and shoulder shrug normal, facial sensation normal. On muscle strength testing, (right/left) deltoid 4/4, biceps 4+/5, triceps 4+5- /5, cryogenics repairer 5-4+/5-4+, hip flexion 5/5, knee extension 5/5, he has bilateral flail foot. Deep tendon reflexes are symmetric, hypoactive, 1 at the biceps, and absent elsewhere. Sensory to touch is equal with no neglect on double simultaneous stimulation. Cerebellar function showed no ataxia for [id number] testing. Tone and bulk of muscles normal. Patient is not bradykinetic. His frequency of blinking is normal. His natural changes in posture and movement appears completely intact, with no parkinsonian features. Gait not able to be checked. On general examination, there is no carotid bruit or murmur, S1-S2 audible. Chest is clear on consultation. Abdomen is soft nontender. No organomegaly, bowel sounds present. Peripheral pulses are present. No edema. Results - Laboratory Findings CBC and BMP: 04/05/22 06:28 04/05/22 06:28 Abnormal Lab Findings: Abnormal Labs 03/30/22 03/30/22 03/30/22 09:59 10:12 10:48 WBC RBC Hgb Hct MCV MCH MCHC Immature Gran # Neutrophils # Monocytes # Basophils # APTT VBG pH 7.26 L VBG pCO2 61 H Sodium Potassium Chloride Carbon Dioxide BUN Creatinine Est GFR (CKD-EPI)AfAm Est GFR (CKD-EPI)NonAf BUN/Creatinine Ratio Glucose Calcium Total Bilirubin Total Protein Albumin Albumin/Globulin Ratio Urine Protein 1+ H Urine Blood Small H Amorphous Sediment Rare H Urine Bacteria Rare H Hyaline Casts 100 H Urine Mucus Rare H Urine Opiates Screen Detected H Ur Barbiturates Screen Detected H 03/30/22 03/30/22 03/30/22 10:50 10:50 10:50 WBC RBC 3.11 L Hgb 10.0 L Hct 31.2 L MCV 100.4 H D MCH MCHC Immature Gran # Neutrophils # Monocytes # Basophils # APTT 19.4 L VBG pH VBG pCO2 Sodium 134 L Potassium Chloride Carbon Dioxide 21 L BUN 71 H Creatinine 2.28 H Est GFR (CKD-EPI)AfAm Est GFR (CKD-EPI)NonAf BUN/Creatinine Ratio Glucose 103 H Calcium 8.3 L Total Bilirubin Total Protein 5.2 L Albumin 3.3 L Albumin/Globulin Ratio Urine Protein Urine Blood Amorphous Sediment Urine Bacteria Hyaline Casts Urine Mucus Urine Opiates Screen Ur Barbiturates Screen 03/31/22 03/31/22 04/01/22 06:39 06:48 05:31 WBC 12.20 H RBC 3.41 L 3.19 L Hgb 11.0 L 10.4 L Hct 34.8 L 32.4 L MCV 102.1 H 101.6 H MCH 32.3 H 32.6 H MCHC 31.6 L Immature Gran # 0.05 H Neutrophils # 8.89 H Monocytes # 1.04 H Basophils # 0.17 H 0.16 H APTT VBG pH VBG pCO2 Sodium Potassium Chloride Carbon Dioxide BUN 57.6 H Creatinine 2.5 H Est GFR (CKD-EPI)AfAm 28.0 L Est GFR (CKD-EPI)NonAf 24.2 L BUN/Creatinine Ratio 23.41 H Glucose Calcium Total Bilirubin 0.20 L Total Protein 5.8 L Albumin 3.6 L Albumin/Globulin Ratio Urine Protein Urine Blood Amorphous Sediment Urine Bacteria Hyaline Casts Urine Mucus Urine Opiates Screen Ur Barbiturates Screen 04/01/22 04/02/22 04/02/22 05:31 05:54 05:54 WBC RBC 3.17 L Hgb 10.4 L Hct 31.8 L MCV 100.3 H MCH 32.8 H MCHC Immature Gran # Neutrophils # Monocytes # 1.15 H Basophils # 0.16 H APTT VBG pH VBG pCO2 Sodium 146 H Potassium 3.4 L Chloride 110 H 113 H Carbon Dioxide 18.8 L BUN 47.9 H 41.0 H Creatinine 2.2 H 2.0 H Est GFR (CKD-EPI)AfAm 32.1 L 36.0 L Est GFR (CKD-EPI)NonAf 27.7 L 31.0 L BUN/Creatinine Ratio 21.77 H 20.50 H Glucose Calcium 8.5 L 8.6 L Total Bilirubin Total Protein Albumin Albumin/Globulin Ratio Urine Protein Urine Blood Amorphous Sediment Urine Bacteria Hyaline Casts Urine Mucus Urine Opiates Screen Ur Barbiturates Screen 04/04/22 04/04/22 04/05/22 06:38 06:38 06:28 WBC RBC 2.90 L 2.77 L Hgb 9.5 L 9.0 L Hct 30.4 L 28.1 L MCV 104.8 H 101.4 H MCH 32.8 H 32.5 H MCHC 31.3 L Immature Gran # Neutrophils # Monocytes # 1.16 H Basophils # APTT VBG pH VBG pCO2 Sodium Potassium 3.3 L Chloride Carbon Dioxide BUN 38.8 H Creatinine 2.1 H Est GFR (CKD-EPI)AfAm 33.9 L Est GFR (CKD-EPI)NonAf 29.3 L BUN/Creatinine Ratio Glucose Calcium 8.3 L Total Bilirubin Total Protein Albumin Albumin/Globulin Ratio Urine Protein Urine Blood Amorphous Sediment Urine Bacteria Hyaline Casts Urine Mucus Urine Opiates Screen Ur Barbiturates Screen 04/05/22 06:28 WBC RBC Hgb Hct MCV MCH MCHC Immature Gran # Neutrophils # Monocytes # Basophils # APTT VBG pH VBG pCO2 Sodium Potassium Chloride Carbon Dioxide BUN 36.0 H Creatinine 2.2 H Est GFR (CKD-EPI)AfAm 32.1 L Est GFR (CKD-EPI)NonAf 27.7 L BUN/Creatinine Ratio Glucose Calcium 8.3 L Total Bilirubin <0.15 L Total Protein 4.9 L Albumin 3.0 L Albumin/Globulin Ratio 1.58 L Urine Protein Urine Blood Amorphous Sediment Urine Bacteria Hyaline Casts Urine Mucus Urine Opiates Screen Ur Barbiturates Screen Assessment and Plan Assessment: * Tremor, probably essential tremors. No clinical evidence of Parkinson's disease * Syncopal spell, probably due to opiates. * Peripheral neuropathy, with bilateral flail foot * History of multiple back surgeries * Hypertension * Hyperlipidemia Plan: * Based upon neurological examination, there is no clinical evidence of Parkinson's disease. Patient is not bradykinetic, and the tone is normal. His frequency of eye blinking is normal. * May consider BRIDGET scan as an outpatient. Patient follows up with Dr. Cade. * Patient currently on Mysoline, and his tremors have improved. Continue Mysoline 50 mg twice a day. * B12 374. We will start B12 replacement. RBC folate 715 ([phone]) * We will discuss with patient's family. * Neurologically clear. Thank you for the consult.
--- NOTE | 2022-04-05 12:50 | P.PN ---
Subjective Progress Note Date: 04/05/22 Patient is a 76-year-old male with a known history of hypertension, hyperlipidemia, GERD, obstructive sleep apnea, chronic back pain and right eye blindness, diverticulitis, history of coronary artery bypass graft and also stent placement and prior history of smoking who is currently a long-term resident was brought to the hospital due to unresponsiveness. Patient was found unresponsive on the bed and CPR was initiated. Uncertain if the patient was ever pulseless. Currently patient is awake alert but able to track simple words but is very poor historian. No complaints of chest pain or shortness of breath. No nausea vomiting or abdominal pain. Denies any diarrhea patient has been afebrile. No facial droop or focal neurological deficit noted. No weakness or seizures. No bladder or bowel incontinence. Apparently patient does have chronic pain and uses both lidocaine patch and lidocaine patch. Fentanyl patch has been removed while in the ER. Chest x-ray showed chronic changes without acute pulmonary process. No significant change from prior. EKG showed sinus bradycardia with heart rate 57 Laboratory data showed WBC 9.2 hemoglobin 10.0 MCV 100.4 Sodium 134 potassium 4.3 chloride 100 bicarb is 21 BUN 71 and creatinine 2.28 Albumin 3.3 Baseline creatinine 0.9 Urinalysis is negative for infection UDS is positive for opiates and barbiturates. Patient was recently admitted to the hospital with sepsis secondary to right heel infection and is currently on cefepime for 3 weeks. Patient was discharged from the hospital on 03/20/2022. 03/31/2022 Patient is awake alert today. Does have generalized weakness and also found have left upper extremity weakness compared toRight. CT head was done to rule out acute CVA. No fever no chills. Afebrile. No commerce from production. No nausea vomiting or diarrhea. Patient is a poor historian. Laboratory data showed there was 12.2 hemoglobin 11.0 and platelets sodium 141 potassium 4.8 chloride 107 bicarb is 20.5 BUN 57.6 and creatinine 2.5 albumin 3.6. 04/01/2022 Patient is currently resting in the bed. Awake alert but not oriented. Could not provide any history at this time. Patient has been afebrile. No nausea vomiting abdominal pain. Tolerating oral diet with assistance. No cough or sputum production. CT head showed no acute intracranial process. Patient is being current on antibiotic of cefepime for right calcaneal wound infection as per recent ID recommendations. Wound care was consulted. Laboratory data showed WBC 8.6 hemoglobin 10.4 and platelets 224 BUN 47.6 and creatinine 2.2 which is improving. Anticipate discharge back to extended-care facility in the next 24 to 48 hours.. 04/02/22. Patient seen and examined. Vital signs stable. No acute issues overnight. Case discussed with nursing staff 04/03/22. Patient seen and examined. Patient laying comfortably in the bed. States that he feels stronger. Vital signs has been stable, he has been afebrile. Creatinine improved to 2. We'll get nephrology evaluation 04/04/22. Patient seen and examined. Sitting upright in the chair. States he feels better. Going for barium swallow with video per speech therapy. 04/05/22. Patient seen and examined. Waiting on neurology evaluation. Creatinine stable at 2.2. States he feels better. Possible discharge in next 24 hours back to rehab facility REVIEW OF SYSTEMS: CONSTITUTIONAL: No fever, no malaise, CARDIOVASCULAR: No chest pain, orthopnea, PND, no palpitations, no syncope. PULMONARY: No shortness of breath, no cough, no hemoptysis. GASTROINTESTINAL: No diarrhea, no nausea, no vomiting, no abdominal pain. PHYSICAL EXAMINATION: GENERAL: The patient is alert , not in any acute distress. Well developed, well nourished. HEENT: Pupils are round and equally reacting to light. EOMI. No scleral icterus. No conjunctival pallor. Normocephalic, atraumatic. No pharyngeal erythema. No thyromegaly. CARDIOVASCULAR: S1 and S2 present. No murmurs, rubs, or gallops. PULMONARY: Chest is clear to auscultation, no wheezing or crackles. ABDOMEN: Soft, nontender, nondistended, normoactive bowel sounds. No palpable organomegaly. MUSCULOSKELETAL: No joint swelling or deformity. EXTREMITIES: No cyanosis, clubbing, or pedal edema. NEUROLOGICAL: Gross neurological examination did not reveal any focal deficits. SKIN: No rashes. Assessment and plan Unresponsiveness likely due to toxins neuropathy due to pain medications including fentanyl patches. Patient is awake and alert currently. Acute kidney injury likely due to dehydration and volume depletion. Creatinine 2.28. Baseline 0.9 right lower extremity cellulitis and right heel wound with recent debridement. Macrocytic anemia acute hemoglobin level 10.0 Medical debility currently bedridden Hypertension Hyperlipidemia History of [place] Obstructive sleep apnea not on CPAP Coronary disease history of CABG Prior history of smoking DVT prophylaxis with heparin subcu Plan: CT head without any acute CVA. Monitor vital signs Monitor CBC Patient with IV cefepime to complete the antibiotic course due due to right lower extremity cellulitis and right heel wound with recent debridement. Patient was discharged on last admission on cefepime after consultation with ID for 3 weeks with a stop date of 04/10/22. Monitor renal function Avoid nephrotoxic agents continue IV fluids Follow-up on neurology recommendations Follow-up in nephrology recommendations Prognosis is guarded with multiple medical problems and comorbid conditions. Judicious use of pain medication Encourage oral intake and to follow closely. : Objective - Vital Signs Vital signs: Vital Signs Temp 98.0 F 04/05/22 11:15 Pulse 71 04/05/22 11:15 Resp 16 04/05/22 11:15 BP 96/66 04/05/22 11:15 Pulse Ox 97 04/05/22 11:15 FiO2 Intake & Output 04/04/22 04/05/22 04/05/22 18:59 06:59 18:59 Output Total 600 1301 Balance -600 -1301 Weight 56 kg Output: Urine 600 1300 Stool 1 Other: Voiding Method Indwelling Catheter # Bowel Movements 1 - Labs CBC & Chem 7: 04/05/22 06:28 04/05/22 06:28 Labs: Abnormal Lab Results - Last 24 Hours (Table) 04/05/22 04/05/22 Range/Units 06:28 06:28 RBC 2.77 L (4.40-5.60) X 10*6/uL Hgb 9.0 L (13.0-17.0) g/dL Hct 28.1 L (39.6-50.0) % MCV 101.4 H (80.0-97.0) fL MCH 32.5 H (27.0-32.0) pg BUN 36.0 H (9.0-27.0) mg/dL Creatinine 2.2 H (0.6-1.5) mg/dL Est GFR (CKD-EPI)AfAm 32.1 L (60.0-200.0) Est GFR (CKD-EPI)NonAf 27.7 L (60.0-200.0) Calcium 8.3 L (8.7-10.3) mg/dL Total Bilirubin <0.15 L (0.30-1.20) mg/dL Total Protein 4.9 L (6.2-8.2) g/dL Albumin 3.0 L (3.8-4.9) g/dL Albumin/Globulin Ratio 1.58 L (1.60-3.17) g/dL
[2022-04-05] MEDS: ATORVASTATIN 40 MG TAB PO SCH (21:58)
[2022-04-05] MEDS: TAMSULOSIN 0.4 MG CAP.ER.24H PO SCH (21:58)
[2022-04-06] MEDS: HEPARIN SODIUM,PORCINE/PF 5,000 UNIT/0.5 ML SYRINGE SQ SCH ×4 (00:33→23:54)
[2022-04-06] MEDS: GABAPENTIN 300 MG CAP PO SCH ×2 (09:00→21:18)
[2022-04-06] MEDS: carvediloL 6.25 MG TAB PO SCH ×2 (09:00→21:18)
[2022-04-06] MEDS: PRIMIDONE 50 MG TAB PO SCH ×2 (09:00→21:18)
[2022-04-06] MEDS: CEFEPIME 1 GM in SODIUM CHLORIDE 0.9% 50 ML IVPB SCH ×2 (09:00→21:18)
[2022-04-06] MEDS: CLOPIDOGREL 75 MG TAB PO SCH (09:00)
[2022-04-06] MEDS: ISOSORBIDE MONONITRATE ER 30 MG TAB.ER.24H PO SCH (09:00)
[2022-04-06] MEDS: PANTOPRAZOLE 40 MG TABLET PO SCH ×2 (09:00→21:18)
[2022-04-06] MEDS: SODIUM CHLORIDE 0.9% 1,000 ML IV SCH (09:02)
[2022-04-06] MEDS: AZELASTINE 137MCG/SPRAY NASAL SCH ×2 (09:13→21:20)
--- NOTE | 2022-04-06 14:43 | P.PN ---
Subjective Progress Note Date: 04/06/22 Follow-up for acute kidney injury. Objective - Vital Signs Vital signs: Vital Signs Temp 98.3 F 04/06/22 12:57 Pulse 66 04/06/22 12:57 Resp 16 04/06/22 12:57 BP 153/83 04/06/22 12:57 Pulse Ox 97 04/06/22 12:57 FiO2 Intake & Output 04/05/22 04/06/22 04/06/22 18:59 06:59 18:59 Output Total 500 Balance -500 Output: Urine 500 Other: Voiding Method Indwelling Catheter Indwelling Catheter # Bowel Movements 1 1 - Exam No acute distress S1-S2 heard Lungs clear No edema - Labs CBC & Chem 7: 04/05/22 06:28 04/05/22 06:28 Assessment and Plan Assessment: #1 acute kidney injury suspect hemodynamic ATN/NSAID use. -Baseline creatinine 0.9 MG per DL. #2 right lower extremity cellulitis status post debridement #3 hypokalemia resolved. Plan: #1 renal function stable around 2.0 MG per DL for the last few days. #2 encourage by mouth intake. Stop IV fluids #3 avoid nephrotoxic agents and hypotensive episodes. No NSAIDs. #4 stable from nephrology for discharge to be followed up in the office in 2-3 weeks
--- NOTE | 2022-04-06 15:50 | CA ---
Transthoracic Echo Report Name: Terry Miller Age: 76 Gender: M : 1945 Exam Date: 04/06/2022 11:38 Exam Location: [place] [facility] Ht (in): 70 Wt (lb): 123 Ordering Physician: Chapin العلي MD Attending/Referring Phys: [id number], Severiano Ui Architect Lana Mirza, [facility] Procedure CPT: Indications: Syncope Cardiac Hx: Technical Quality: Fair Contrast 1: Total Dose (mL): Contrast 2: Total Dose (mL): MEASUREMENTS (Male / Female) Normal Values 2D ECHO LV Diastolic Diameter PLAX 3.9 cm 4.2 - 5.9 / 3.9 - 5.3 cm LV Systolic Diameter PLAX 2.8 cm IVS Diastolic Thickness 1.2 cm 0.6 - 1.0 / 0.6 - 0.9 cm LVPW Diastolic Thickness 1.3 cm 0.6 - 1.0 / 0.6 - 0.9 cm LV Relative Wall Thickness 0.6 RV Internal Dim ED PLAX 3.1 cm LA Volume 67.8 cm??? 18 - 58 / 22 - 52 cm??? M-MODE Aortic Root Diameter MM 3.3 cm LA Systolic Diameter MM 4.3 cm LA Ao Ratio MM 1.3 AV Cusp Separation MM 1.9 cm DOPPLER AV Peak Velocity 130.9 cm/s AV Peak Gradient 6.9 mmHg MV Area PHT 2.6 cm??? Mitral E Point Velocity 48.5 cm/s Mitral A Point Velocity 88.8 cm/s Mitral E to A Ratio 0.5 MV Deceleration Time 295.8 ms MV E' Velocity 4.0 cm/s Mitral E to MV E' Ratio 12.2 TR Peak Velocity 209.7 cm/s TR Peak Gradient 17.6 mmHg Right Ventricular Systolic Press 22.1 mmHg FINDINGS Left Ventricle Mildly increased left ventricular wall thickness. Normal left ventricular systolic function with no obvious regional wall motion abnormalities. Abnormal (paradoxical) septal motion consistent with postoperative state. Left ventricular ejection fraction is estimated at 50-55 %. Right Ventricle Normal right ventricular size and function. Right Atrium Normal right atrial size. Left Atrium Mildly increased left atrial volume. Mobile interatrial septum. Mitral Valve Structurally normal mitral valve. Mitral valve thickened. Mild mitral annular calcification. Trace to mild mitral regurgitation. Aortic Valve No aortic valve stenosis or regurgitation. Tricuspid Valve Mild tricuspid regurgitation. Pulmonic Valve Trace pulmonic regurgitation. Pericardium No pericardial effusion. Aorta Normal size aortic root and proximal ascending aorta. CONCLUSIONS Normal left ventricular systolic function No significant valvular abnormalities Previewed by: Dr. Hima Flanagan MD (Electronically Signed) Final Date: 06 April 2022 15:49
--- NOTE | 2022-04-06 18:44 | P.PN ---
Subjective This is a pleasant 76 E. old male with multiple medical problems who was recently discharged from the hospital on IV antibiotic with cefepime for his right lower extremity osteomyelitis and cellulitis and to continue antibiotics 03/01- 04/10. He was sent from [facility] for possible syncopal episode. However when asked saw the patient today he told me he slipped from the site and at the age of the bed but he confirms to me for me that he was awake all the time and he did not loose consciousness. He was feeling lethargic and weak that day, and patient was diagnosed with acute kidney injury with creatinine stable at 2-2.2 thought secondary to NSAID use and has been evaluated by a seat installer in today seat installer. Her for discharge Also patient today is fully awake and oriented and he denies any chest pain or dyspnea. No other new complaint He looks hemodynamically stable. No more fever. He had 99.7 on admission 04/02. To be on the safe side reordered echocardiogram which showed normal left ventricular function with ejection fraction 50-55% with no significant valvular disease. TSH 2.2. Chest x-rays negative for acute process. CT of the brain showing atrophic changes with no acute abnormality. Swelling evaluation so pharyngeal phase with significant residual but no aspiration. Objective - Vital Signs Vital signs: Vital Signs Temp 97.8 F 04/06/22 04:41 Pulse 69 04/06/22 04:41 Resp 14 04/06/22 04:41 BP 129/65 04/06/22 04:41 Pulse Ox 96 04/06/22 07:31 FiO2 Intake & Output 04/05/22 04/06/22 04/06/22 18:59 06:59 18:59 Output Total 500 Balance -500 Output: Urine 500 Other: Voiding Method Indwelling Catheter Indwelling Catheter # Bowel Movements 1 1 - Exam GENERAL: The patient is alert and oriented x3, not in any acute distress. Well developed, well nourished. HEENT: Pupils are round and equally reacting to light. EOMI. No scleral icterus. No conjunctival pallor. Normocephalic, atraumatic. No pharyngeal erythema. No th yromegaly. CARDIOVASCULAR: S1 and S2 present. No murmurs, rubs, or gallops. PULMONARY: Chest is clear to auscultation, no wheezing or crackles. -ABDOMEN: Soft, nontender, nondistended, normoactive bowel sounds. No palpable organomegaly. Has a Basurto catheter MUSCULOSKELETAL: No joint swelling or deformity. -EXTREMITIES: No cyanosis, clubbing, or pedal edema. Right lower extremity cellulitis improving NEUROLOGICAL: Gross neurological examination did not reveal any focal deficits. SKIN: No rashes. no petechiae. - Labs CBC & Chem 7: 04/05/22 06:28 04/05/22 06:28 Assessment and Plan Assessment: Transit period Of altered mental status most likely metabolic/toxic encephalopathy. Patient denies any loss of consciousness. Currently resolved right lower extremity cellulitis and right heel wound with recent debridement. On IV antibiotic to finish 3 weeks of therapy on 04/10 as scheduled Acute kidney injury secondary to NSAID use use, creatinine stable and patient did for discharge by seat installer Medical debility and generalized weakness Hypertension Hyperlipidemia History of [place] Obstructive sleep apnea not on CPAP Coronary disease history of CABG Prior history of smoking Plan: Continue monitor creatinine Pigment Furnace Tender on the case. The patient for discharge discontinue IV fluids Patient with IV cefepime to complete the antibiotic course due due to right lower extremity cellulitis and right heel wound with recent debridement. Patient was discharged on last admission on cefepime after consultation with ID for 3 weeks with a stop date of 04/10/22. Monitor renal function Avoid nephrotoxic agents continue IV fluids Labs and medication were reviewed.. Continue same treatment. Continue with symptomatic treatment. Resume home medication. Monitor lytes and vitals. DVT and GI prophylaxis. Further recommendations as per clinical course of the patient DVT prophylaxis: Subcutaneous heparin GI Prophylaxis: Ppi Planned to go back to intermediate/rehab :
[2022-04-06] MEDS: ATORVASTATIN 40 MG TAB PO SCH (21:18)
[2022-04-06] MEDS: TAMSULOSIN 0.4 MG CAP.ER.24H PO SCH (21:18)
[2022-04-07] MEDS: HYDROcodone/APAP 5-325MG 1 EACH TAB PO PRN ×2 (04:27→10:35)
[2022-04-07] MEDS: GABAPENTIN 300 MG CAP PO SCH ×2 (09:07→20:22)
[2022-04-07] MEDS: carvediloL 6.25 MG TAB PO SCH ×2 (09:07→20:22)
[2022-04-07] MEDS: ISOSORBIDE MONONITRATE ER 30 MG TAB.ER.24H PO SCH (09:07)
[2022-04-07] MEDS: CLOPIDOGREL 75 MG TAB PO SCH (09:07)
[2022-04-07] MEDS: CEFEPIME 1 GM in SODIUM CHLORIDE 0.9% 50 ML IVPB SCH ×2 (09:07→20:15)
[2022-04-07] MEDS: PANTOPRAZOLE 40 MG TABLET PO SCH ×2 (09:07→20:22)
[2022-04-07] MEDS: PRIMIDONE 50 MG TAB PO SCH ×2 (09:07→20:22)
[2022-04-07] MEDS: HEPARIN SODIUM,PORCINE/PF 5,000 UNIT/0.5 ML SYRINGE SQ SCH ×2 (09:07→16:43)
[2022-04-07] MEDS: AZELASTINE 137MCG/SPRAY NASAL SCH ×2 (09:08→21:59)
[2022-04-07 10:39] LABS: African American GFR (CKD) 40.1 (60.0-200.0); Anion Gap 10.7 mmol/L (10.00-18.00); BUN/Creat Ratio 17.76 Ratio (12.00-20.00); Blood Urea Nitrogen 32.5 mg/dL (9.0-27.0); Calcium 8.4 mg/dL (8.7-10.3); Carbon Dioxide 23.6 mmol/L (20.0-27.5); Non-African American GFR(CKD) 34.6 (60.0-200.0); Potassium 3.9 mmol/L (3.5-5.5)
--- NOTE | 2022-04-07 11:34 | P.PN ---
Subjective Progress Note Date: 04/07/22 Follow-up for acute kidney injury. Objective - Vital Signs Vital signs: Vital Signs Temp 98.9 F 04/07/22 11:16 Pulse 67 04/07/22 11:16 Resp 18 04/07/22 11:16 BP 115/67 04/07/22 11:16 Pulse Ox 96 04/07/22 11:16 FiO2 Intake & Output 04/06/22 04/07/22 04/07/22 18:59 06:59 18:59 Intake Total 1250 Output Total 2300 1100 Balance -1050 -1100 Intake: Oral 1250 Output: Urine 2300 1100 Other: Voiding Method Indwelling Catheter Indwelling Catheter Indwelling Catheter - Exam No acute distress S1-S2 heard Lungs clear No edema - Labs CBC & Chem 7: 04/05/22 06:28 04/07/22 05:18 Labs: Abnormal Lab Results - Last 24 Hours (Table) 04/07/22 Range/Units 05:18 BUN 32.5 H (9.0-27.0) mg/dL Creatinine 1.8 H (0.6-1.5) mg/dL Est GFR (CKD-EPI)AfAm 40.1 L (60.0-200.0) Est GFR (CKD-EPI)NonAf 34.6 L (60.0-200.0) Calcium 8.4 L (8.7-10.3) mg/dL Assessment and Plan Assessment: #1 acute kidney injury suspect hemodynamic ATN/NSAID use. -Baseline creatinine 0.9 MG per DL. #2 right lower extremity cellulitis status post debridement #3 hypokalemia resolved. Plan: #1 renal function stable around 2.0 MG per DL for the last few days. #2 encourage by mouth intake. Stop IV fluids #3 avoid nephrotoxic agents and hypotensive episodes. No NSAIDs. #4 stable from nephrology for discharge to be followed up in the office in 2-3 weeks
--- NOTE | 2022-04-07 14:50 | P.PN ---
Subjective This is a pleasant 76 E. old male with multiple medical problems who was recently discharged from the hospital on IV antibiotic with cefepime for his right lower extremity osteomyelitis and cellulitis and to continue antibiotics 03/01- 04/10. He was sent from [facility] for possible syncopal episode. However when asked saw the patient today he told me he slipped from the site and at the age of the bed but he confirms to me for me that he was awake all the time and he did not loose consciousness. He was feeling lethargic and weak that day, and patient was diagnosed with acute kidney injury with creatinine stable at 2-2.2 thought secondary to NSAID use and has been evaluated by a burlap spreader in today burlap spreader. Her for discharge Also patient today is fully awake and oriented and he denies any chest pain or dyspnea. No other new complaint He looks hemodynamically stable. No more fever. He had 99.7 on admission 04/02. To be on the safe side reordered echocardiogram which showed normal left ventricular function with ejection fraction 50-55% with no significant valvular disease. TSH 2.2. Chest x-rays negative for acute process. CT of the brain showing atrophic changes with no acute abnormality. Swelling evaluation so pharyngeal phase with significant residual but no aspiration. 04/07/2022 Patient is clinically stable. Asymptomatic. No urinary symptoms, no abdominal or flank pain. He is at baseline. Hemodynamics stable. Cleared by burlap spreader for discharge. Creatinine down to 1.8. Patient remains on IV cefepime for his right lower extremity infection as recommended by ID team during last admission. PICC line is in place with recommendation to discontinue on completion of antibiotic Objective - Vital Signs Vital signs: Vital Signs Temp 98.4 F 04/07/22 04:31 Pulse 66 04/07/22 05:57 Resp 18 04/07/22 04:31 BP 135/77 04/07/22 05:57 Pulse Ox 98 04/07/22 04:31 FiO2 Intake & Output 04/06/22 04/07/22 04/07/22 18:59 06:59 18:59 Intake Total 1250 Output Total 2300 1100 Balance -1050 -1100 Intake: Oral 1250 Output: Urine 2300 1100 Other: Voiding Method Indwelling Catheter Indwelling Catheter Indwelling Catheter - Exam GENERAL: The patient is alert and oriented x3, not in any acute distress. Well developed, well nourished. HEENT: Pupils are round and equally reacting to light. EOMI. No scleral icterus. No conjunctival pallor. Normocephalic, atraumatic. No pharyngeal erythema. No thyromegaly. CARDIOVASCULAR: S1 and S2 present. No murmurs, rubs, or gallops. PULMONARY: Chest is clear to auscultation, no wheezing or crackles. -ABDOMEN: Soft, nontender, nondistended, normoactive bowel sounds. No palpable organomegaly. Has a Basurto catheter MUSCULOSKELETAL: No joint swelling or deformity. -EXTREMITIES: No cyanosis, clubbing, or pedal edema. Right lower extremity cellulitis improving NEUROLOGICAL: Gross neurological examination did not reveal any focal deficits. SKIN: No rashes. no petechiae. - Labs CBC & Chem 7: 04/05/22 06:28 04/07/22 05:18 Assessment and Plan Assessment: Transit period Of altered mental status most likely metabolic/toxic encephalopathy. Patient denies any loss of consciousness. Currently resolved right lower extremity cellulitis and right heel wound with recent debridement. On IV antibiotic to finish 3 weeks of therapy on 04/10 as scheduled Acute kidney injury secondary to NSAID use use, creatinine stable and patient did for discharge by burlap spreader Medical debility and generalized weakness Hypertension Hyperlipidemia History of [place] Obstructive sleep apnea not on CPAP Coronary disease history of CABG Prior history of smoking Plan: Continue monitor creatinine Industrial Order Clerk on the case. The patient for discharge discontinue IV fluids Patient with IV cefepime to complete the antibiotic course due due to right lower extremity cellulitis and right heel wound with recent debridement. Patient was discharged on last admission on cefepime after consultation with ID for 3 weeks with a stop date of 04/10/22. Monitor renal function Avoid nephrotoxic agents continue IV fluids Labs and medication were reviewed.. Continue same treatment. Continue with symptomatic treatment. Resume home medication. Monitor lytes and vitals. DVT and GI prophylaxis. Further recommendations as per clinical course of the patient DVT prophylaxis: Subcutaneous heparin GI Prophylaxis: Ppi Planned to go back to [facility]/rehab :
--- NOTE | 2022-04-07 19:05 | PN ---
PROGRESS NOTE This 76-year-old gentleman with a past medical history of multiple medical problems was admitted with unresponsive, possibly related medications. The patient was closely monitored. Creatinine is improving. No chest pain. No palpitation. PHYSICAL EXAMINATION: VITAL SIGNS: Pulse is 69, blood pressure 129/64, respirations 18. CHEST: Clear to auscultation. CARDIOVASCULAR: S1, S2. ABDOMEN: Soft. NERVOUS SYSTEM: Diffusely weak. LABS: Reviewed. Hemoglobin is 9. Creatinine is 2.2. ASSESSMENT: 1. Unresponsiveness, possibly related to medications. 2. Acute kidney injury. 3. Microcytic anemia. 4. Hypertension. 5. Hyperlipidemia. 6. Multiple medical issues. RECOMMENDATIONS: Recommend to continue current medications, symptomatic treatment. Otherwise, repeat labs. PT/OT evaluation. Guarded prognosis. Because of multiple complex medical issues, further recommendations orders. See orders for further details PT/ OT evaluation. MMODL / IJN: [id number] /
[2022-04-07] MEDS: ATORVASTATIN 40 MG TAB PO SCH (20:22)
[2022-04-07] MEDS: TAMSULOSIN 0.4 MG CAP.ER.24H PO SCH (20:22)
--- NOTE | 2022-04-07 22:07 | P.PN ---
Subjective Progress Note Date: 04/06/22 Patient was seen for a follow-up. Patient denies any neurological symptoms. Patient has right lower extremity osteomyelitis and cellulitis. Patient is on antibiotics. Objective - Vital Signs Vital signs: Vital Signs Temp 98.3 F 04/06/22 12:57 Pulse 66 04/06/22 12:57 Resp 16 04/06/22 12:57 BP 153/83 04/06/22 12:57 Pulse Ox 97 04/06/22 12:57 FiO2 Intake & Output 04/05/22 04/06/22 04/06/22 18:59 06:59 18:59 Output Total 500 Balance -500 Output: Urine 500 Other: Voiding Method Indwelling Catheter Indwelling Catheter # Bowel Movements 1 1 - Exam Patient is alert and awake and does distress. Patient's mental status is normal. Patient has mild metabolic tremors of outstretched hands. He has some atrophy of the interosseous muscles of both hands. No bradykinesia. - Labs CBC & Chem 7: 04/05/22 06:28 04/07/22 05:18 Assessment and Plan Assessment: * Tremor, probably essential tremors. No clinical evidence of Parkinson's disease * Syncopal spell, probably due to opiates or metabolic encephalopathy. * Peripheral neuropathy, with bilateral flail foot * Osteomyelitis * Acute kidney injury, improving * History of multiple back surgeries * Hypertension * Hyperlipidemia Plan: * Based upon neurological examination, there is no clinical evidence of Parkinson's disease. Patient is not bradykinetic, and the tone is normal. His frequency of eye blinking is normal. * May consider BRIDGET scan as an outpatient. Patient follows up with Dr. Cade. * Patient currently on Mysoline, and his tremors have improved. Continue Mysoline 50 mg twice a day. * B12 374. We will start B12 replacement. RBC folate 715 ([phone]) * Tried to contact patient's spouse telephone number listed to different times. Voicemails is full, could not leave the message. * Neurologically clear.
--- NOTE | 2022-04-07 22:13 | P.PN ---
Subjective Progress Note Date: 04/07/22 Patient was seen for a follow-up. Patient's was also present by the bedside. Patient offers no new complaints. He is laying comfortably in the bed. No new tremors. Objective - Vital Signs Vital signs: Vital Signs Temp 98.3 F 04/07/22 19:41 Pulse 73 04/07/22 19:41 Resp 16 04/07/22 19:41 BP 148/78 04/07/22 19:41 Pulse Ox 98 04/07/22 19:41 FiO2 Intake & Output 04/07/22 04/07/22 04/08/22 06:59 18:59 06:59 Output Total 1100 2075 Balance -1100 -2075 Output: Urine 1100 2075 Other: Voiding Method Indwelling Catheter Indwelling Catheter - Exam Patient is alert and awake and does distress. Patient's mental status is normal. Patient has mild metabolic tremors of outstretched hands. He has some atrophy of the interosseous muscles of both hands. No bradykinesia. 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 No clinical evidence of Parkinson's disease * Syncopal spell, probably due to opiates or metabolic encephalopathy. * Peripheral neuropathy, with bilateral flail foot * Osteomyelitis * Acute kidney injury, improving * History of multiple back surgeries * Hypertension * Hyperlipidemia Plan: * Based upon neurological examination, there is no clinical evidence of Parkinson's disease. Patient is not bradykinetic, and the tone is normal. His frequency of eye blinking is normal. * May consider BRIDGET scan as an outpatient. Patient follows up with Dr. Cade. * Patient currently on Mysoline, and his tremors have improved. Continue Mysoline 50 mg twice a day. May increase the dose in the tremors are bothersome. At present his tremors appears well controlled. * B12 374. We will start B12 replacement. RBC folate 715 ([phone]) * Discussed with patient's in detail as well. * As there is no active neurological issue, we will sign off. Please reconsult neurology if any concerns.
[2022-04-08] MEDS: HEPARIN SODIUM,PORCINE/PF 5,000 UNIT/0.5 ML SYRINGE SQ SCH ×3 (01:06→16:58)
[2022-04-08] MEDS: ACETAMINOPHEN TAB 325 MG TAB PO PRN (06:24)
[2022-04-08] MEDS: CEFEPIME 1 GM in SODIUM CHLORIDE 0.9% 50 ML IVPB SCH (08:35)
[2022-04-08] MEDS: ISOSORBIDE MONONITRATE ER 30 MG TAB.ER.24H PO SCH (08:36)
[2022-04-08] MEDS: CLOPIDOGREL 75 MG TAB PO SCH (08:37)
[2022-04-08] MEDS: PRIMIDONE 50 MG TAB PO SCH (08:37)
[2022-04-08] MEDS: GABAPENTIN 300 MG CAP PO SCH (08:37)
[2022-04-08] MEDS: PANTOPRAZOLE 40 MG TABLET PO SCH (08:37)
[2022-04-08] MEDS: AZELASTINE 137MCG/SPRAY NASAL SCH (08:37)
[2022-04-08] MEDS: carvediloL 6.25 MG TAB PO SCH (08:37)
--- NOTE | 2022-04-08 08:54 | P.PN ---
Subjective Patient is seen in follow-up for acute kidney injury. Renal function improved with creatinine 1.8 yesterday. Has a Basurto catheter. Nonoliguric. Oral intake fair. No vomiting or diarrhea. Vital signs are stable. General: Awake. No acute distress. HEENT: Head exam is unremarkable. LUNGS: Breath sounds decreased. HEART: Rate and Rhythm are regular. ABDOMEN: Soft, no distention. EXTREMITITES: No edema. No drainage noted. Objective - Vital Signs Vital signs: Vital Signs Temp 97.0 F L 04/08/22 05:00 Pulse 60 04/08/22 05:00 Resp 16 04/07/22 19:41 BP 112/74 04/08/22 05:00 Pulse Ox 97 04/08/22 05:00 FiO2 Intake & Output 04/07/22 04/08/22 04/08/22 18:59 06:59 18:59 Intake Total 50 Output Total 2074 2100 Balance -2074 Intake: Intake, IV Titration 50 Amount Cefepime 1 gm In Sodium 50 Chloride 0.9% 50 ml @ 12. 5 mls/hr IVPB Q12HR [facility] Rx#:[id number] Output: Urine 2074 2099 Uretheral (Basurto) 2100 Stool 1 Other: Voiding Method Indwelling Catheter Indwelling Catheter - Labs CBC & Chem 7: 04/05/22 06:28 04/07/22 05:18 Labs: Abnormal Lab Results - Last 24 Hours (Table) 04/07/22 Range/Units 05:18 BUN 32.5 H (9.0-27.0) mg/dL Creatinine 1.8 H (0.6-1.5) mg/dL Est GFR (CKD-EPI)AfAm 40.1 L (60.0-200.0) Est GFR (CKD-EPI)NonAf 34.6 L (60.0-200.0) Calcium 8.4 L (8.7-10.3) mg/dL Assessment and Plan Plan: Assessment: 1. Acute kidney injury secondary to ATN secondary to infection and nonsteroidal use. Baseline creatinine near 1 from February 2022 and peaked at 2.5 this admission. 1.8 yesterday. No hydronephrosis noted on kidney ultrasound however left kidney was not properly visualized. 2. Right lower extremity cellulitis and right heel wound with recent debridement. On IV antibiotics. 3. Hypokalemia from poor intake. Replaced. Better. 4. Anemia. Rule out iron deficiency. Plan: Currently off IV fluids. Encourage oral intake. DC Basurto catheter. Monitor bladder scans to make sure no urinary retention. Avoid nephrotoxins. Follow up outpatient in 1-2 weeks.
[2022-04-08] MEDS: HYDROcodone/APAP 5-325MG 1 EACH TAB PO PRN (11:04)
[2022-04-08 11:57] VITALS: BP 93/60; PULSE 69; RESP 18; TEMP 98.3
[2022-04-08 12:07] LABS: % Iron Saturation 36.91 (15.00-50.00)
--- NOTE | 2022-04-08 15:08 | P.DS ---
Providers Date of admission: 03/30/22 12:33 Expected date of discharge: 04/08/22 Attending physician: Elisabeth Loomis Consults: 04/03/22 13:00 Consult Physician Routine Consulting Provider: Xu Magallon Consult Reason/Comments: Jarod Do you want consulting provider notified?: Yes 04/04/22 12:08 Consult Physician Routine Consulting Provider: Tip Can Consult Reason/Comments: tremors, family wants evaluation for parkinson Do you want consulting provider notified?: Yes Primary care physician: Ary Graves Hospital Course: Final diagnosis altered mental status most likely metabolic/toxic encephalopathy. Patient denies any loss of consciousness. Currently resolved right lower extremity cellulitis and right heel wound with recent debridement. Acute kidney injury secondary to NSAID use Medical debility and generalized weakness Hypertension Hyperlipidemia History of [place] Obstructive sleep apnea not on CPAP Coronary disease history of CABG Prior history of smoking Discharge disposition Patient is being discharged in a stable condition with guarded prognosis to [facility]. Patient will follow-up with Dr. Rodríguez in the outpatient setting upon discharge. Patient is to follow-up with nephrology in 1-2 weeks along with the wound care center. Total time taken is greater than 35 minutes. Hospital course This is a 76-year-old male who was recently admitted with possible syncopal episode from [facility] and was being closely monitored. Patient was also found to be lethargic with dehydration and acute kidney injury. Patient had received adequate treatment with IV antibiotics in the form of cefepime and will be having PICC line removed and recommend follow-up with wound care center in the next 1 week and continuing with local wound care. Patient was seen and evaluated by nephrology today recommend to continue holding diuretics and follow-up with repeat labs of BMP and magnesium in the next 2-3 days along with outpatient follow-up in one week. Currently no reports of chest pain, shortness of breath, or palpitations. Patient is afebrile. No reports of nausea or vomiting and patient is tolerating diet. Patient will be discharged to [facility] today. Guarded prognosis. Physical exam: Gen: This is a 76-year-old male awake, alert and oriented 2-3. Thin built elderly male HEENT: Head is atraumatic, normocephalic. Pupils equal, round. Sclerae is anicteric. NECK: Supple. No JVD. No lymphadenopathy. No thyromegaly. LUNGS: Clear to auscultation. No wheezes or rhonchi. No intercostal retractions. HEART: Regular rate and rhythm. No murmur. ABDOMEN: Soft. Bowel sounds are present. No masses. No tenderness. EXTREMITIES: No pedal edema. No calf tenderness. NEUROLOGICAL: Patient is awake, alert and oriented x3. Cranial nerves 2 through 12 are grossly intact. Diffusely weak Please refer to medication reconciliation sheet for a list of medications. The impression and plan of care has been dictated by Peri Meadows, Nurse Practitioner as directed. Dr. Vladislav MD I have performed a history and examination and MDM of this patient, discussed the same with the dictator, and agree with the dictator's assessment and plan as written ,documented as a scribe. Based on total visit time, I have performed more than 50% of the visit. Patient Condition at Discharge: Stable Plan - Discharge Summary Discharge Rx Participant: No New Discharge Prescriptions: Continue Nitroglycerin Sl Tabs [Nitrostat] 0.4 mg SUBLINGUAL Q5M PRN PRN Reason: Angina modafiniL [Provigil] 200 mg PO BID@0900,2100 Lansoprazole [Prevacid] 30 mg PO BID@0900,2100 Atorvastatin Calcium [Lipitor] 40 mg PO HS@2100 carvediloL [Coreg] 6.25 mg PO BID@0900,2100 Isosorbide Mononitrate ER [Imdur] 30 mg PO DAILY@0900 Clopidogrel [Plavix] 75 mg PO DAILY@0900 Tamsulosin HCl [Flomax] 0.4 mg PO HS@2100 Primidone [Mysoline] 50 mg PO BID@0900,2100 Naloxegol Oxalate [Movantik] 12.5 mg PO DAILY@0900 Azelastine HCl [Astepro] 1 spray NASAL BID@0900,2100 Acetaminophen Tab [Tylenol] 650 mg PO Q6HR PRN tab PRN Reason: Mild Pain Or Fever > 100.5 Lactose-Reduced Food [Ensure Plus] 237 ml PO TID@0900,1300,2100 Collagenase [Santyl Ointment] 1 applic TOPICAL HS HYDROcodone/APAP 5-325MG [[place] 5-325] 1 tab PO Q8H PRN #4 tab PRN Reason: Pain Meloxicam [Mobic] 15 mg PO DAILY@899 Lidocaine 5% Patch [Lidoderm 5% Patch] 3 patch TOPICAL DAILY@899 Changed Gabapentin [Neurontin] 300 mg PO BID@899,2099 #6 cap Discontinued fentaNYL 50MCG/HR PATCH [Duragesic 50MCG/HR] 1 patch TRANSDERM Q72H Cefepime [Maxipime] 2 gm IVPB BID@899,2099 Furosemide [Lasix] 40 mg PO DAILY@06 clonazePAM [KlonoPIN] 0.5 mg PO BID PRN PRN Reason: Anxiety Discharge Medication List Atorvastatin Calcium [Lipitor] 40 mg PO HS@209909/04/14 [History] Lansoprazole [Prevacid] 30 mg PO BID@899,209909/04/14 [History] Nitroglycerin Sl Tabs [Nitrostat] 0.4 mg SUBLINGUAL Q5M PRN 09/04/14 [History] modafiniL [Provigil] 200 mg PO BID@899,209909/04/14 [History] Clopidogrel [Plavix] 75 mg PO DAILY@89908/28/16 [History] Isosorbide Mononitrate ER [Imdur] 30 mg PO DAILY@89908/28/16 [History] carvediloL [Coreg] 6.25 mg PO BID@899,209908/28/16 [History] Tamsulosin HCl [Flomax] 0.4 mg PO HS@209910/14/17 [History] Primidone [Mysoline] 50 mg PO BID@899,209912/28/18 [History] Azelastine HCl [Astepro] 1 spray NASAL BID@899,209903/12/22 [History] Lidocaine 5% Patch [Lidoderm 5% Patch] 3 patch TOPICAL DAILY@89903/12/22 [History] Meloxicam [Mobic] 15 mg PO DAILY@89903/12/22 [History] Naloxegol Oxalate [Movantik] 12.5 mg PO DAILY@89903/12/22 [History] Acetaminophen Tab [Tylenol] 650 mg PO Q6HR PRN tab 03/20/22 [Rx] Collagenase [Santyl Ointment] 1 applic TOPICAL HS 03/30/22 [History] Lactose-Reduced Food [Ensure Plus] 237 ml PO TID@0900,1300,2100 03/30/22 [History] Gabapentin [Neurontin] 300 mg PO BID@0900,2100 #6 cap 04/08/22 [Rx] HYDROcodone/APAP 5-325MG [[place] 5-325] 1 tab PO Q8H PRN #4 tab 04/08/22 [Rx] Follow up Appointment(s)/Referral(s): Star Mcallister MD [Primary Care Provider] - 1-2 days Xu Magallon DO [STAFF PHYSICIAN] - 2 Weeks Ambulatory/Diagnostic Orders: Basic Metabolic Panel [LAB.AMB] Time Frame: 3 Days, Location: None Selected Magnesium [LAB.AMB] Location: None Selected Activity/Diet/Wound Care/Special Instructions: ok to Discontinue PICC line after complete course of antibiotic IV cefepime Patient is going to [facility] on [place] Activity as tolerated Continue dysphasia 3 chopped diet with aspiration precautions and one-to-one supervision with meals Continue holding Lasix for now Continue with local wound care to the right foot and second digit apply honey gel dry gauze to the site on Friday//Friday Follow-up with nephrology outpatient Recommend repeat BMP and magnesium in 2-3 days Discharge Disposition: TRANSFER TO SNF/ECF
== END 2022-04-08 18:20 | DRG 682 ==
LOC: EC 09:42 → SUPCPDRO 09:42 → 5NMEDONC 12:33
PROVIDERS: ADMIT Internal Medicine; ATTEND Internal Medicine
DX: N17.0 Acute kidney failure with tubular necrosis (principal); E43 Unspecified severe protein-calorie malnutrition; G93.41 Metabolic encephalopathy; L03.115 Cellulitis of right lower limb; Z68.1 Body mass index [BMI] 19.9 or less, adult; M86.8X7 Other osteomyelitis, ankle and foot; L89.612 Pressure ulcer of right heel, stage 2; D50.9 Iron deficiency anemia, unspecified; E11.621 Type 2 diabetes mellitus with foot ulcer; E11.69 Type 2 diabetes mellitus with other specified complication; E87.6 Hypokalemia; G25.0 Essential tremor; M21.372 Foot drop, left foot; M21.371 Foot drop, right foot; T39.395A Adverse effect of other nonsteroidal anti-inflammatory drugs [NSAID], initial encounter; L97.512 Non-pressure chronic ulcer of other part of right foot with fat layer exposed; E86.0 Dehydration; G62.9 Polyneuropathy, unspecified; R00.1 Bradycardia, unspecified; T40.415A Adverse effect of fentanyl or fentanyl analogs, initial encounter; D53.9 Nutritional anemia, unspecified; I10 Essential (primary) hypertension; I25.10 Atherosclerotic heart disease of native coronary artery without angina pectoris; E78.5 Hyperlipidemia, unspecified; G47.33 Obstructive sleep apnea (adult) (pediatric); K21.9 Gastro-esophageal reflux disease without esophagitis; G31.89 Other specified degenerative diseases of nervous system; I08.1 Rheumatic disorders of both mitral and tricuspid valves; I37.1 Nonrheumatic pulmonary valve insufficiency; G89.29 Other chronic pain; M19.90 Unspecified osteoarthritis, unspecified site; H54.61 Unqualified visual loss, right eye, normal vision left eye; M54.9 Dorsalgia, unspecified; Z74.01 Bed confinement status; I25.2 Old myocardial infarction; Z95.1 Presence of aortocoronary bypass graft; Z95.5 Presence of coronary angioplasty implant and graft; Z88.6 Allergy status to analgesic agent; Z88.5 Allergy status to narcotic agent; Z79.899 Other long term (current) drug therapy; Z79.02 Long term (current) use of antithrombotics/antiplatelets; Z79.1 Long term (current) use of non-steroidal anti-inflammatories (NSAID); Z86.73 Personal history of transient ischemic attack (TIA), and cerebral infarction without residual deficits; Z87.19 Personal history of other diseases of the digestive system; Z87.891 Personal history of nicotine dependence; Z82.49 Family history of ischemic heart disease and other diseases of the circulatory system; X58.XXXA Exposure to other specified factors, initial encounter; Z98.42 Cataract extraction status, left eye; Z98.41 Cataract extraction status, right eye
CPT/HCPCS: 36415; 70450; 71046; 74230; 76770; 80048; 80053; 80306; 81001; 82607; 82728; 82747; 82803; 83540; 83550; 83735; 84443; 84484; 85025; 85610; 85730; 93005; 93306; 94760; 96360; 96361; 99285

== ENCOUNTER 2022-04-19 15:20 | Emergency (ER) | payer MEDICARE ==
[2022-04-19 15:31] VITALS: TEMP 99.3
[2022-04-19] MEDS ORDERED: SODIUM CHLORIDE 0.9% 1,000 ML IV STA ×2 (15:51→15:54)
[2022-04-19 16:12] LABS: Basophils % (A) 0 %; Eosinophils # (A) 0.1 k/uL (0-0.7); Eosinophils % (A) 1 %; HCT 29.5 % (39.0-53.0); HGB 9.9 gm/dL (13.0-17.5); Lymphocytes # (A) 1.2 k/uL (1.0-4.8); Lymphocytes % (A) 9 %; MCH 33.6 pg (25.0-35.0); MCHC 33.5 g/dL (31.0-37.0); MCV 100.3 fL (80.0-100.0); Mean Platelet Volume 7.9; Monocytes # (A) 0.6 k/uL (0-1.0); Monocytes % (A) 4 %; Neutrophils # (A) 11.7 k/uL (1.3-7.7); Neutrophils % (A) 85 %; Platelet Count 224 k/uL (150-450); RBC 2.94 m/uL (4.30-5.90); RDW 13.3 % (11.5-15.5); WBC 13.7 k/uL (3.8-10.6)
[2022-04-19 16:15] LABS: Albumin 3.1 g/dL (3.5-5.0); Calcium 7.9 mg/dL (8.4-10.2); Potassium 4.8 mmol/L (3.5-5.1); Total Bilirubin 0.3 mg/dL (0.2-1.3); Total Protein 5.2 g/dL (6.3-8.2)
[2022-04-19 16:20] LABS: Partial Thromboplastin Time 30.1 sec (22.0-30.0); Prothrombin Time 11.2 sec (9.0-12.0)
--- NOTE | 2022-04-19 16:59 | XR ---
EXAMINATION TYPE: XR chest 2V DATE OF EXAM: 04/19/2022 COMPARISON: 03/30/2022 HISTORY: Syncope TECHNIQUE: FINDINGS: Heart is normal. Lungs are clear of consolidation. There are no hilar masses. There are manolo rnal wires. There is old right-sided healed rib fractures. There is significant arthritic changes in the right shoulder. IMPRESSION: No active cardiopulmonary disease. Normal heart. No adverse change.
--- NOTE | 2022-04-19 17:07 | CT ---
EXAMINATION TYPE: CT brain reanna wo con DATE OF EXAM: 04/19/2022 COMPARISON: 12/28/2018 HISTORY: Fall, on blood thinners CT DLP: 1403.9 mGycm Automated exposure control for dose reduction was used. Images of the brain and cervical spine obtained without contrast. There is cerebral cortical atrophy. There is no mass effect or midline shift. No sign of intracranial hemorrhage. The calvarium is intact. There is 8 mm hypodense area in the left anterior internal caps ule adjacent to the lateral ventricle. The skull base is intact. There is normal aeration of the mast oid sinuses. The cervical vertebra show a degenerative first-degree C4-5 spondylolisthesis. There is multilevel cervical hypertrophic facet arthropathy. There is disc space narrowing throughout the cerv ical spine with spurring. No compression fracture. IMPRESSION: There is a degenerative first degree C4-5 spondylolisthesis. Multilevel cervical spondylotic changes. No fracture. No change compared to the old exam. Cerebral atrophy and chronic small vessel ischemia. No change compared to the old exam.
[2022-04-19 18:02] VITALS: PULSE 62
[2022-04-19 18:12] LABS: Appearance,Urine Clear (Clear); Bacteria,Urine Rare /hpf; Bilirubin,Urine Negative (Negative); Blood,Urine Trace (Negative); Color,Urine Yellow; Glucose,Urine (UA) Negative (Negative); Ketones,Urine Negative (Negative); Leukocyte Esterase,Urine Negative (Negative); Mucus,Urine Rare /hpf; Nitrite,Urine Negative (Negative); PH, Urine 5.5 (5.0-8.0); Protein,Urine Trace (Negative); RBC,Urine 6 /hpf (0-5); Specific Gravity,Urine 1.014 (1.001-1.035); Urobilinogen,Urine <2.0 mg/dL (<2.0); WBC,Urine 2 /hpf (0-5)
--- NOTE | 2022-04-19 19:28 | ED ---
Dizziness HPI - General Chief Complaint: Syncope Stated Complaint: syncope, covid + Time Seen by Provider: 04/19/22 15:29 Source: patient, EMS Mode of arrival: EMS Limitations: no limitations - History of Present Illness Initial Comments: Patient is a 76-year-old male with a past medical history of hypertension, hyperlipidemia, myocardial infarction s/p CABG in 2005 and stenting who presents to the emergency room with a chief complaint of syncope. Patient states he was walking to the bathroom when he began to feel very lightheaded and dizzy. At that time he asked for help and states he woke up in his bed with several nurses around him. Patient unsure if he fell and hit his head. He denies blood thinner use. Unknown how long patient was unconscious for. Patient does not feel lightheaded or dizzy currently. He denies headache, visual symptoms, chest pain, shortness of breath, abdominal pain, nausea, vomiting, diarrhea. He has history of arrhythmia and seizure. Denies family history of structural heart disease and arrhythmia. Patient is currently covid positive. Reports dry cough and runny nose. Of note, patient was recently admitted to [facility] for unresponsive episode likely due to dehydration with RILEY. - Related Data Home Medications Medication Instructions Recorded Confirmed Atorvastatin Calcium [Lipitor] 40 mg PO HS 09/04/14 04/19/22 Lansoprazole [Prevacid] 30 mg PO Q12H 09/04/14 04/19/22 Nitroglycerin Sl Tabs [Nitrostat] 0.4 mg SL Q5M PRN 09/04/14 04/19/22 Clopidogrel [Plavix] 75 mg PO DAILY 08/28/16 04/19/22 Isosorbide Mononitrate ER [Imdur] 30 mg PO DAILY 08/28/16 04/19/22 carvediloL [Coreg] 6.25 mg PO BID 08/28/16 04/19/22 Tamsulosin HCl [Flomax] 0.4 mg PO HS 10/14/17 04/19/22 Primidone [Mysoline] 50 mg PO Q12H 12/28/18 04/19/22 Azelastine HCl [Astepro] 1 spr EA NOSTRIL BID 03/12/22 04/19/22 Lidocaine 5% Patch [Lidoderm 5% 3 patch TOPICAL DAILY 03/12/22 04/19/22 Patch] Meloxicam [Mobic] 15 mg PO DAILY 03/12/22 04/19/22 Naloxegol Oxalate [Movantik] 12.5 mg PO DAILY 03/12/22 04/19/22 Collagenase [Santyl Ointment] 1 applic TOPICAL HS 03/30/22 04/19/22 Lactose-Reduced Food [Ensure Plus] 237 ml PO TID@0900,1300,2100 03/30/22 04/19/22 Acetaminophen Tab [Tylenol] 650 mg PO Q6H PRN 04/19/22 04/19/22 Ascorbic Acid [Vitamin C] 500 mg PO DAILY 04/19/22 04/19/22 Azithromycin [Zithromax] 250 mg PO DAILY@1300 04/19/22 04/19/22 Cholecalciferol [Vitamin D3 (25 50 mcg PO DAILY 04/19/22 04/19/22 Mcg = 1000 Iu)] Collagenase [Santyl Ointment] 1 applic TOPICAL DAILY PRN 04/19/22 04/19/22 Gabapentin [Neurontin] 300 mg PO Q12H 04/19/22 04/19/22 Molnupiravir [Molnupiravir (Eua)] 800 mg PO Q12H 04/19/22 04/19/22 Zinc Gluconate [Zinc] 50 mg PO DAILY 04/19/22 04/19/22 methylPREDNISolone Dose Pack See Taper PO DIRECTED 04/19/22 04/19/22 [Medrol Dose Pack] modafiniL [Provigil] 200 mg PO Q12H 04/19/22 04/19/22 Previous Rx's Medication Instructions Recorded HYDROcodone/APAP 5-325MG [[place] 1 tab PO Q8H PRN #4 tab 04/08/22 5-325] Allergies Allergy/AdvReac Type Severity Reaction Status Date / Time meperidine [From Demerol] Allergy Nausea Verified 04/19/22 16:08 aspirin AdvReac Unknown UNCOATED Verified 04/19/22 16:08 ASPIRIN CAUSES STOMACH PAIN morphine AdvReac Vomiting Verified 04/19/22 16:08 Review of Systems ROS Statement: Those systems with pertinent positive or pertinent negative responses have been documented in the HPI. ROS Other: All systems not noted in ROS Statement are negative. 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 diverticulitis, neuropathy, does not use CPAP, pt states has ruptured eardrum rt ear Last Myocardial Infarction Date:: 2001 History of Any Multi-Drug Resistant Organisms: None Reported Past Surgical History: Back Surgery, Coronary Bypass/CABG, Ear Surgery, Heart Catheterization, Heart Catheterization With Stent, Joint Replacement, Ton sillectomy Additional Past Surgical History / Comment(s): chriss CATARACTS, one cardiac stent, CABG (2005), RIGHT EAR DRUM REPLACEMENT.CHRISS TOTAL KNEES, RIGHT CAROTID ENDARTERECTOMY. chriss carpel tunnel surgery, rods in spine(total 4 back surgeries) wound center patient Past Anesthesia/Blood Transfusion Reactions: No Reported Reaction, Motion Sickness Date of Last Stent Placement:: 2001 Past Psychological History: No Psychological Hx Reported Smoking Status: Former smoker Past Alcohol Use History: None Reported Past Drug Use History: None Reported - Past Family History Mother Family Medical History: No Reported History Additional Family Medical History / Comment(s): . Father Family Medical History: Hypertension General Exam Limitations: no limitations General appearance: alert, in no apparent distress Head exam: Present: atraumatic, normocephalic, normal inspection Eye exam: Present: normal appearance, PERRL, EOMI. Absent: scleral icterus, conjunctival injection, periorbital swelling ENT exam: Present: mucous membranes dry Respiratory exam: Present: normal lung sounds bilaterally. Absent: respiratory distress, wheezes, rales, rhonchi, stridor Cardiovascular Exam: Present: regular rate, normal rhythm, normal heart sounds. Absent: systolic murmur, diastolic murmur, rubs, gallop, clicks GI/Abdominal exam: Present: soft, normal bowel sounds. Absent: distended, tenderness, guarding, rebound, rigid Neurological exam: Present: alert, oriented X3, CN II-XII intact Psychiatric exam: Present: normal affect, normal mood Skin exam: Present: warm, dry, intact, normal color. Absent: rash Course Vital Signs 04/19/22 04/19/22 04/19/22 15:26 15:30 15:31 Temperature 99.3 F Pulse Rate 63 61 Pulse Rate [ Sitting] Pulse Rate [ Standing] Pulse Rate [ Supine] Respiratory 20 18 20 Rate Blood Pressure 105/61 103/59 Blood Pressure [Sitting] Blood Pressure [Standing] Blood Pressure [Supine] O2 Sat by Pulse 100 96 Oximetry 04/19/22 04/19/22 04/19/22 16:29 16:30 17:00 Temperature Pulse Rate 62 62 Pulse Rate [ 64 Sitting] Pulse Rate [ 74 Standing] Pulse Rate [ 59 L Supine] Respiratory 18 18 Rate Blood Pressure 110/67 113/58 Blood Pressure 103/59 [Sitting] Blood Pressure 110/67 [Standing] Blood Pressure 99/62 [Supine] O2 Sat by Pulse 96 96 Oximetry 04/19/22 04/19/22 04/19/22 17:30 18:00 20:11 Temperature Pulse Rate 64 62 62 Pulse Rate [ Sitting] Pulse Rate [ Standing] Pulse Rate [ Supine] Respiratory 18 18 17 Rate Blood Pressure 90/53 109/56 98/64 Blood Pressure [Sitting] Blood Pressure [Standing] Blood Pressure [Supine] O2 Sat by Pulse 96 97 97 Oximetry EKG Findings - EKG Comments: EKG Findings:: EKG taken at 16:02. Sinus rhythm with sinus arrhythmia, no evidence of acute ischemia. Ventricular rate 62. NM interval 171. QRS duration 105. QTc 416 Medical Decision Making - Medical Decision Making This is a 76-year-old male presenting with a syncopal episode. Patient developing apparent distress. Alert and oriented 3.Blood pressure stable at 105/61. Orthostatics negative. EKG shows sinus rhythm with sinus arrhythmia and no evidence of acute ischemia. Laboratory studies obtained. There is mild leukocytosis at 13.7. Acute kidney injury with creatinine at 1.65, improved from 1.8 on 04/07. Troponin is within normal limits. COVID-[address] of the brain and C-spine negative for acute process. Chest x-ray is negative for acute process. Patient given large fluid bolus. He continued feel well in the emergency department. He did not have any further syncopal episodes. This time there are no diagnostic studies to explain patient's syncopal episode. Patient given option for observation overnight which she declines. Patient will be discharged with strict return parameters. Dr. Hensley is my attending. - Lab Data Result diagrams: 04/19/22 15:56 04/19/22 15:56 Lab Results 04/19/22 04/19/22 04/19/22 Range/Units 15:56 15:56 15:56 WBC 13.7 H (3.8-10.6) k/uL RBC 2.94 L (4.30-5.90) m/uL Hgb 9.9 L (13.0-17.5) gm/dL Hct 29.5 L (39.0-53.0) % MCV 100.3 H (80.0-100.0) fL MCH 33.6 (25.0-35.0) pg MCHC 33.5 (31.0-37.0) g/dL RDW 13.3 (11.5-15.5) % Plt Count 224 (150-450) k/uL MPV 7.9 Neutrophils % 85 % Lymphocytes % 9 % Monocytes % 4 % Eosinophils % 1 % Basophils % 0 % Neutrophils # 11.7 H (1.3-7.7) k/uL Lymphocytes # 1.2 (1.0-4.8) k/uL Monocytes # 0.6 (0-1.0) k/uL Eosinophils # 0.1 (0-0.7) k/uL Basophils # 0.0 (0-0.2) k/uL PT 11.2 (9.0-12.0) sec INR 1.0 (<1.2) APTT 30.1 H (22.0-30.0) sec Sodium 135 L (137-145) mmol/L Potassium 4.8 (3.5-5.1) mmol/L Chloride 102 (98-107) mmol/L Carbon Dioxide 25 (22-30) mmol/L Anion Gap 8 mmol/L BUN 51 H (9-20) mg/dL Creatinine 1.65 H (0.66-1.25) mg/dL Est GFR (CKD-EPI)AfAm 45 (>60 ml/min/1.73 sqM) Est GFR (CKD-EPI)NonAf 39 (>60 ml/min/1.73 sqM) Glucose 100 H (74-99) mg/dL Calcium 7.9 L (8.4-10.2) mg/dL Total Bilirubin 0.3 (0.2-1.3) mg/dL AST 33 (17-59) U/L ALT 19 (4-49) U/L Alkaline Phosphatase 44 (38-126) U/L Troponin I (0.000-0.034) ng/mL Total Protein 5.2 L (6.3-8.2) g/dL Albumin 3.1 L (3.5-5.0) g/dL Urine Color Urine Appearance (Clear) Urine pH (5.0-8.0) Ur Specific [place] (1.001-1.035) Urine Protein (Negative) Urine Glucose (UA) (Negative) Urine Ketones (Negative) Urine Blood (Negative) Urine Nitrite (Negative) Urine Bilirubin (Negative) Urine Urobilinogen (<2.0) mg/dL Ur Leukocyte Esterase (Negative) Urine RBC (0-5) /hpf Urine WBC (0-5) /hpf Urine Bacteria (None) /hpf Urine Mucus (None) /hpf C. difficile (EIA) Intrp (Negative) Coronavirus (PCR) (Not Detectd) 04/19/22 04/19/22 04/19/22 Range/Units 15:56 16:09 17:51 WBC (3.8-10.6) k/uL RBC (4.30-5.90) m/uL Hgb (13.0-17.5) gm/dL Hct (39.0-53.0) % MCV (80.0-100.0) fL MCH (25.0-35.0) pg MCHC (31.0-37.0) g/dL RDW (11.5-15.5) % Plt Count (150-450) k/uL MPV Neutrophils % % Lymphocytes % % Monocytes % % Eosinophils % % Basophils % % Neutrophils # (1.3-7.7) k/uL Lymphocytes # (1.0-4.8) k/uL Monocytes # (0-1.0) k/uL Eosinophils # (0-0.7) k/uL Basophils # (0-0.2) k/uL PT (9.0-12.0) sec INR (<1.2) APTT (22.0-30.0) sec Sodium (137-145) mmol/L Potassium (3.5-5.1) mmol/L Chloride (98-107) mmol/L Carbon Dioxide (22-30) mmol/L Anion Gap mmol/L BUN (9-20) mg/dL Creatinine (0.66-1.25) mg/dL Est GFR (CKD-EPI)AfAm (>60 ml/min/1.73 sqM) Est GFR (CKD-EPI)NonAf (>60 ml/min/1.73 sqM) Glucose (74-99) mg/dL Calcium (8.4-10.2) mg/dL Total Bilirubin (0.2-1.3) mg/dL AST (17-59) U/L ALT (4-49) U/L Alkaline Phosphatase (38-126) U/L Troponin I 0.025 (0.000-0.034) ng/mL Total Protein (6.3-8.2) g/dL Albumin (3.5-5.0) g/dL Urine Color Urine Appearance (Clear) Urine pH (5.0-8.0) Ur Specific [place] (1.001-1.035) Urine Protein (Negative) Urine Glucose (UA) (Negative) Urine Ketones (Negative) Urine Blood (Negative) Urine Nitrite (Negative) Urine Bilirubin (Negative) Urine Urobilinogen (<2.0) mg/dL Ur Leukocyte Esterase (Negative) Urine RBC (0-5) /hpf Urine WBC (0-5) /hpf Urine Bacteria (None) /hpf Urine Mucus (None) /hpf C. difficile (EIA) Intrp Negative (Negative) Coronavirus (PCR) Detected A (Not Detectd) 04/19/22 Range/Units 18:01 WBC (3.8-10.6) k/uL RBC (4.30-5.90) m/uL Hgb (13.0-17.5) gm/dL Hct (39.0-53.0) % MCV (80.0-100.0) fL MCH (25.0-35.0) pg MCHC (31.0-37.0) g/dL RDW (11.5-15.5) % Plt Count (150-450) k/uL MPV Neutrophils % % Lymphocytes % % Monocytes % % Eosinophils % % Basophils % % Neutrophils # (1.3-7.7) k/uL Lymphocytes # (1.0-4.8) k/uL Monocytes # (0-1.0) k/uL Eosinophils # (0-0.7) k/uL Basophils # (0-0.2) k/uL PT (9.0-12.0) sec INR (<1.2) APTT (22.0-30.0) sec Sodium (137-145) mmol/L Potassium (3.5-5.1) mmol/L Chloride (98-107) mmol/L Carbon Dioxide (22-30) mmol/L Anion Gap mmol/L BUN (9-20) mg/dL Creatinine (0.66-1.25) mg/dL Est GFR (CKD-EPI)AfAm (>60 ml/min/1.73 sqM) Est GFR (CKD-EPI)NonAf (>60 ml/min/1.73 sqM) Glucose (74-99) mg/dL Calcium (8.4-10.2) mg/dL Total Bilirubin (0.2-1.3) mg/dL AST (17-59) U/L ALT (4-49) U/L Alkaline Phosphatase (38-126) U/L Troponin I (0.000-0.034) ng/mL Total Protein (6.3-8.2) g/dL Albumin (3.5-5.0) g/dL Urine Color Yellow Urine Appearance Clear (Clear) Urine pH 5.5 (5.0-8.0) Ur Specific [place] 1.014 (1.001-1.035) Urine Protein Trace H (Negative) Urine Glucose (UA) Negative (Negative) Urine Ketones Negative (Negative) Urine Blood Trace H (Negative) Urine Nitrite Negative (Negative) Urine Bilirubin Negative (Negative) Urine Urobilinogen <2.0 (<2.0) mg/dL Ur Leukocyte Esterase Negative (Negative) Urine RBC 6 H (0-5) /hpf Urine WBC 2 (0-5) /hpf Urine Bacteria Rare H (None) /hpf Urine Mucus Rare H (None) /hpf C. difficile (EIA) Intrp (Negative) Coronavirus (PCR) (Not Detectd) Disposition Clinical Impression: Syncope, Lightheadedness, COVID-19, Cough Disposition: HOME SELF-CARE Condition: Fair Instructions (If sedation given, give patient instructions): Coronavirus Disease 2019 (COVID-19), Syncope (ED) Additional Instructions: Please follow-up with primary care provider. If you start to feel lightheaded or dizzy it is very important to sit down to avoid falling other injury. Return to the emergency department if you experience new, concerning, or worsening symptoms. Is patient prescribed a controlled substance at d/c from ED?: No Referrals: Tanner Rodríguez MD [Primary Care Provider] - 1-2 days
[2022-04-19 20:14] VITALS: BP 98/64; RESP 17
== END 2022-04-19 20:52 | disposition home or self-care (01) ==
LOC: EC 15:20
DX: U07.1 COVID-19 (principal); R55 Syncope and collapse; I10 Essential (primary) hypertension; K21.9 Gastro-esophageal reflux disease without esophagitis; E78.5 Hyperlipidemia, unspecified; I25.2 Old myocardial infarction; M19.90 Unspecified osteoarthritis, unspecified site; G47.30 Sleep apnea, unspecified; Z87.891 Personal history of nicotine dependence; Z79.83 Long term (current) use of bisphosphonates; Z79.899 Other long term (current) drug therapy; Z88.5 Allergy status to narcotic agent; Z88.6 Allergy status to analgesic agent
CPT/HCPCS: 36415; 70450; 71046; 72125; 80053; 81001; 84484; 85025; 85610; 85730; 87045; 87046; 87324; 87635; 93005; 96361; 99285

== ENCOUNTER 2022-05-13 11:15 | Day surgery (SDC) | payer MEDICARE ==
[2022-05-09 14:35] VITALS: BMI 16.9
[~2022-05-13 11:15] MED LIST changes: -DEXAMETHASONE SOD PHOSPHATE 4 MG/ML 1 ML VIAL IV ONE; -LIDOCAINE 1% (10MG/ML) FOR IV START INTRADERMA PRN; -MIDAZOLAM 2 MG/2 ML VIAL IV PRN; -ONDANSETRON 4 MG/2 ML VIAL IVP ONE
[2022-05-13 12:24] VITALS: TEMP 97.7
[2022-05-13] MEDS ORDERED: LACTATED RINGERS 1,000 ML IV ONE (12:38)
--- NOTE | 2022-05-13 12:51 | P.GSHP ---
History of Present Illness H&P Date: 05/13/22 Chief Complaint: Ulcer right second toe Patient has an ulcer on the right second toe for months. He has had bone exposure and failed conservative measures. Mild discomfort is involved. - Constitutional Constitutional: Denies chills, Denies fever - EENT Eyes: denies blurred vision, denies pain Ears, nose, mouth and throat: Denies headache, Denies sore throat - Cardiovascular Cardiovascular: Denies chest pain, Denies shortness of breath - Respiratory Respiratory: Denies cough, Denies 7 - Gastrointestinal Gastrointestinal: Denies abdominal pain, Denies diarrhea, Denies nausea, Denies vomiting - Genitourinary (Female) Genitourinary: Denies dysuria, Denies hematuria - Genitourinary (Male) Genitourinary: Denies dysuria, Denies hematuria - Musculoskeletal Musculoskeletal: Denies myalgias - Integumentary Integumentary: Denies pruritus, Denies rash - Neurological Neurological: Denies numbness, Denies weakness - Psychiatric Psychiatric: Denies anxiety, Denies depression - Endocrine Endocrine: Denies fatigue, Denies weight change Past Medical History Past Medical History: Hypertension, Eye Disorder, GERD/Reflux, Hyperlipidemia, Hypertension, Myocardial Infarction ([place]), Osteoarthritis (OA), Sleep Apnea/CPAP/BIPAP Additional Past Medical History / Comment(s): wound left ankle and rt heel,BACK PAIN USES WALKER, 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 diverticulitis, neuropathy, does not use CPAP, pt states has ruptured eardrum rt ear Last Myocardial Infarction Date:: 2001 History of Any Multi-Drug Resistant Organisms: None Reported Past Surgical History: Back Surgery, Coronary Bypass/CABG, Ear Surgery, Heart Catheterization, Heart Catheterization With Stent, Joint Replacement, Tonsillectomy Additional Past Surgical History / Comment(s): chriss CATARACTS, one cardiac stent, CABG (2005), RIGHT EAR DRUM REPLACEMENT.CHRISS TOTAL KNEES, RIGHT CAROTID ENDARTERECTOMY. chriss carpel tunnel surgery, rods in spine(total 4 back surgeries) wound center patient Past Anesthesia/Blood Transfusion Reactions: No Reported Reaction, Motion Sickness Date of Last Stent Placement:: 2001 Past Psychological History: No Psychological Hx Reported Smoking Status: Former smoker Past Alcohol Use History: None Reported Additional Past Alcohol Use History / Comment(s): QUIT SMOKING 1975, SMOKED UP TO 2 PPD, SMOKED APPROX 20 YEARS. Past Drug Use History: None Reported - Past Family History Mother Family Medical History: No Reported History Additional Family Medical History / Comment(s): . Father Family Medical History: Hypertension Medications and Allergies Home Medications Medication Instructions Recorded Confirmed Type Atorvastatin Calcium [Lipitor] 40 mg PO HS 09/04/14 05/13/22 History Lansoprazole [Prevacid] 30 mg PO Q12H 09/04/14 05/13/22 History Nitroglycerin Sl Tabs [Nitrostat] 0.4 mg SL Q5M PRN 09/04/14 05/13/22 History Clopidogrel [Plavix] 75 mg PO DAILY 08/28/16 05/13/22 History Isosorbide Mononitrate ER [Imdur] 30 mg PO DAILY 08/28/16 05/13/22 History carvediloL [Coreg] 6.25 mg PO BID 08/28/16 05/13/22 History Tamsulosin HCl [Flomax] 0.4 mg PO HS 10/14/17 05/13/22 History Primidone [Mysoline] 50 mg PO Q12H 12/28/18 05/13/22 History Azelastine HCl [Astepro] 1 spr EA NOSTRIL BID 03/12/22 05/13/22 History Lidocaine 5% Patch [Lidoderm 5% 3 patch TOPICAL DAILY 03/12/22 05/13/22 History Patch] Meloxicam [Mobic] 15 mg PO DAILY 03/12/22 05/13/22 History Naloxegol Oxalate [Movantik] 12.5 mg PO DAILY 03/12/22 05/13/22 History Collagenase [Santyl Ointment] 1 applic TOPICAL HS 03/30/22 05/13/22 History Lactose-Reduced Food [Ensure Plus] 237 ml PO TID@0900,1300,2100 03/30/22 05/13/22 History Acetaminophen Tab [Tylenol] 650 mg PO Q6H PRN 04/19/22 05/13/22 History Ascorbic Acid [Vitamin C] 500 mg PO DAILY 04/19/22 05/13/22 History Azithromycin [Zithromax] 250 mg PO DAILY@1300 04/19/22 05/13/22 History Cholecalciferol [Vitamin D3 (25 50 mcg PO DAILY 04/19/22 05/13/22 History Mcg = 1000 Iu)] Collagenase [Santyl Ointment] 1 applic TOPICAL DAILY PRN 04/19/22 05/13/22 History Gabapentin [Neurontin] 300 mg PO Q12H 04/19/22 05/13/22 History Molnupiravir [Molnupiravir (Eua)] 800 mg PO Q12H 04/19/22 05/13/22 History Zinc Gluconate [Zinc] 50 mg PO DAILY 04/19/22 05/13/22 History modafiniL [Provigil] 200 mg PO Q12H 04/19/22 05/13/22 History oxyCODONE-APAP 10-325MG [Percocet 1 tab PO Q8HR PRN 05/13/22 05/13/22 History 10-325 mg] Allergies Allergy/AdvReac Type Severity Reaction Status Date / Time meperidine [From Demerol] Allergy Nausea Verified 05/13/22 12:27 aspirin AdvReac Unknown UNCOATED Verified 05/13/22 12:27 ASPIRIN CAUSES STOMACH PAIN morphine AdvReac Vomiting Verified 05/13/22 12:27 Surgical - Exam Osteopathic Statement: *. No significant issues noted on an osteopathic structural exam other than those noted in the History and Physical/Consult. Vital Signs Temp Pulse Resp BP Pulse Ox 97.7 F 50 L 17 142/65 99 05/13/22 12:00 05/13/22 12:00 05/13/22 12:00 05/13/22 12:00 05/13/22 12:00 - General well developed, well nourished, no distress - Eyes normal ocular movement, no icteric - ENT no hearing loss, no congestion - Neck no masses, trachea midline - Respiratory normal respiratory effort, clear to auscultation - Abdomen Abdomen: soft, non tender, no guarding, no rigid, no rebound - Integumentary no rash, no abnormal pigmentation - Neurologic no disoriented, no combative - Psychiatric oriented to time, oriented to person, oriented to place, speech is normal, memory intact Ulceration dorsum right second toe with exposure of the distal interphalangeal joint. Assessment and Plan (1) Ulcer of right foot with necrosis of bone Current Visit: Yes Status: Acute Code(s): L97.514 - NON-PRS CHRONIC ULCER OTH PRT RIGHT FOOT W NECROSIS OF BONE SNOMED Code(s): 637196231 Plan: If discussed with the patient in detail options for therapy. We've recommended amputation of the second toe leaving as much as possible to retain the space between first and third toes. He verbalizes an understanding of our recommendations and is agreement with it.
[2022-05-13] MEDS ORDERED: MIDAZOLAM 2 MG/2 ML VIAL ONE (12:52)
[2022-05-13] MEDS ORDERED: fentaNYL (PF) 50 MCG/ML 2 ML AMP ONE (12:52)
[2022-05-13] MEDS ORDERED: PROPOFOL 10 MG/ML 20 ML VIAL IV ONE (12:52)
--- NOTE | 2022-05-13 13:29 | P.OP ---
Date of Procedure: 05/13/22 Preoperative Diagnosis: Ulcer right second toe with bony involvement Postoperative Diagnosis: Same Procedure(s) Performed: Amputation right second toe through proximal phalanx Anesthesia: MAC Surgeon: Emile Lainez Estimated Blood Loss (ml): 5 Pathology: other (Disposal only) Condition: stable Disposition: PACU Indications for Procedure: Patient has had chronic ulcer on the right second toe with involvement of the distal interphalangeal joint with head of bone exposed. Operative Findings: Proximal tissues appeared healthy with good blood supply Description of Procedure: With the patient spine position under benefit of IV sedation we prepped and draped in standard fashion. We made a fishmouth incision just proximal to the ulceration in healthy tissue. We divided the bone with a bone cutter and then used a rongeur to shorten the partial phalanx up high enough to comfortably closing incision. Hemostasis was satisfactory. We irrigated with saline and closed the flaps with interrupted 4-0 nylon. Sterile dressings were applied. The patient was taken recovery area in stable condition. Procedure was well tolerated.
[2022-05-13 14:02] VITALS: BP 157/79; PULSE 66; RESP 18
== END 2022-05-13 14:46 | disposition home or self-care (01) ==
LOC: OR 11:15
PROVIDERS: ATTEND Thoracic Surgery (Cardiothoracic Vascular Surgery)
DX: L97.514 Non-pressure chronic ulcer of other part of right foot with necrosis of bone (principal); I10 Essential (primary) hypertension; E78.5 Hyperlipidemia, unspecified; I25.2 Old myocardial infarction; M19.90 Unspecified osteoarthritis, unspecified site; G47.30 Sleep apnea, unspecified; K21.9 Gastro-esophageal reflux disease without esophagitis; Z86.73 Personal history of transient ischemic attack (TIA), and cerebral infarction without residual deficits; Z95.1 Presence of aortocoronary bypass graft; Z87.891 Personal history of nicotine dependence; Z82.49 Family history of ischemic heart disease and other diseases of the circulatory system; Z79.899 Other long term (current) drug therapy; Z79.02 Long term (current) use of antithrombotics/antiplatelets; Z79.1 Long term (current) use of non-steroidal anti-inflammatories (NSAID)
CPT/HCPCS: 28825; J2250; J0690; J3010; J2704

== ENCOUNTER → 2022-07-09 | Outpatient (CLI) | payer MEDICARE ==
--- NOTE | 2022-07-09 16:04 | XR ---
EXAMINATION TYPE: XR toes RT DATE OF EXAM: 07/09/2022 COMPARISON: 03/14/2022 HISTORY: 77-year-old male I70.235 ATHSCL SOL[place]ON ARTERIES OF RIGHT LEG W ULCE TECHNIQUE: 3 views coned-down of the forefoot FINDINGS: Query amputation of the second toe. If there is prior surgery, the osteotomy margin of the second mid dle phalanx appears irregular and indistinct. Further clinical correlation is recommended. Mild degen erative change first MTP joint. Diffuse osteopenia. IMPRESSION: Query partial amputation of the second toe. The osteotomy margin at the level of the second middle ph alangeal base appears indistinct and irregular. Unable to exclude osteomyelitis here.
== END | disposition home or self-care (01) ==
LOC: RADXRMAIN 12:28
PROVIDERS: ATTEND Nurse Practitioner Family
DX: I70.235 Atherosclerosis of native arteries of right leg with ulceration of other part of foot (principal)

== ENCOUNTER → 2022-07-09 | Outpatient (CLI) | payer MEDICARE ==
--- NOTE | 2022-07-10 07:27 | US ---
EXAMINATION TYPE: US arterial LE multi level DATE OF EXAM: 07/09/2022 12:14 PM CLINICAL HISTORY: L97.514 NON-PRESSURE CHRONIC ULCER OF OTHER PART O. Wound right 2nd toe, partial am putation History of: Smoker: prior Hypertension: NO Diabetic: NO Hyperlipidemia: YES TIA/CVA: NO Previous Vascular Surgery: YES CAD: PA: YES Doppler Waveforms: Right: Monophasic to biphasic Left: Monophasic to biphasic Right Brachial Pressure: 128 Left Brachial Pressure: 133 Ankle-Brachial Indices: Right: 0.97 Left: 1.08 Toe Brachial Indices: Right: 0.23 Left: 0.50 IMPRESSION: Loss of phasicity is nonspecific. Normal bilateral UZMA values. Abnormal bilateral TBI va lues. There is at least mild peripheral arterial disease in the left foot and moderate peripheral art erial disease in the right foot.
== END | disposition home or self-care (01) ==
LOC: RADUSWWP 11:37
PROVIDERS: ATTEND Internal Medicine Infectious Disease
DX: I70.235 Atherosclerosis of native arteries of right leg with ulceration of other part of foot (principal); I70.243 Atherosclerosis of native arteries of left leg with ulceration of ankle; L97.514 Non-pressure chronic ulcer of other part of right foot with necrosis of bone; L89.613 Pressure ulcer of right heel, stage 3; I25.10 Atherosclerotic heart disease of native coronary artery without angina pectoris; E78.5 Hyperlipidemia, unspecified; Z87.891 Personal history of nicotine dependence
CPT/HCPCS: 93923

== ENCOUNTER → 2022-10-01 | Outpatient (CLI) | payer MEDICARE ==
--- NOTE | 2022-10-01 13:26 | XR ---
EXAMINATION TYPE: XR foot complete RT DATE OF EXAM: 10/01/2022 CLINICAL HISTORY: pain TECHNIQUE: Frontal, lateral and oblique images of the right foot are obtained. COMPARISON: 07/09/2022 FINDINGS: There is irregularity involving the head of the proximal phalanx right digit felt to reflec t underlying osteomyelitis. Soft tissue ulceration noted. 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 No additional bony destructive processes identified. IMPRESSION: Correlate for osteomyelitis involving the head of the right second toe
== END | disposition home or self-care (01) ==
LOC: RADXRMAIN 12:15
PROVIDERS: ATTEND Nurse Practitioner Family
DX: L97.514 Non-pressure chronic ulcer of other part of right foot with necrosis of bone (principal); I70.243 Atherosclerosis of native arteries of left leg with ulceration of ankle; L89.613 Pressure ulcer of right heel, stage 3; I70.235 Atherosclerosis of native arteries of right leg with ulceration of other part of foot

== ENCOUNTER → 2022-11-19 | Outpatient (CLI) | payer MEDICARE ==
[2022-11-19 20:24] LABS: African American GFR (CKD) 73.6 (60.0-200.0); Albumin 4.2 g/dL (3.8-4.9); Albumin/Globulin Ratio 1.83 (1.60-3.17); Anion Gap 13.5 mmol/L (10.00-18.00); BUN/Creat Ratio 20.64 Ratio (12.00-20.00); Basophils # (A) 0.09 X 10*3/uL (0.00-0.10); Basophils % (A) 0.7 %; Blood Urea Nitrogen 22.7 mg/dL (9.0-27.0); C Reactive Protein 1.6 mg/dL (0.00-0.80); Calcium 9.7 mg/dL (8.7-10.3); Carbon Dioxide 25.5 mmol/L (20.0-27.5); Eosinophils % (A) 4.6 %; Globulin 2.3 g/dL (1.6-3.3); HCT 38.4 % (39.6-50.0); HGB 12.2 g/dL (13.0-17.0); Immature Grans, Automated 0.4 %; Lymphocytes # (A) 1.99 X 10*3/uL (0.90-5.00); Lymphocytes % (A) 15.1 %; MCH 33.6 pg (27.0-32.0); MCHC 31.8 g/dL (32.0-37.0); MCV 105.8 fL (80.0-97.0); Mean Platelet Volume 9.5 fL (9.5-12.2); Monocytes # (A) 1.22 X 10*3/uL (0.20-1.00); Monocytes % (A) 9.3 %; NRBC Per 100 WBC 0 /100 WBCS (0.0-0.0); Neutrophils # (A) 9.22 X 10*3/uL (1.80-7.70); Neutrophils % (A) 69.9 %; Non-African American GFR(CKD) 63.5 (60.0-200.0); Platelet Count 238 X 10*3/uL (140-440); Potassium 4.4 mmol/L (3.5-5.5); RBC 3.63 X 10*6/uL (4.40-5.60); RDW 13.2 % (11.5-14.5); Total Bilirubin 0.3 mg/dL (0.30-1.20); Total Protein 6.5 g/dL (6.2-8.2); WBC 13.17 X 10*3/uL (4.50-10.00)
[2022-11-19 21:00] LABS: Erythrocyte Sedimentation Rate 20 mm/Hr (0-20)
== END | disposition home or self-care (01) ==
LOC: LABWHC1 14:44
PROVIDERS: ATTEND Internal Medicine Infectious Disease
DX: M86.9 Osteomyelitis, unspecified (principal)
CPT/HCPCS: 36415; 80053; 85025; 85652; 86140

== ENCOUNTER 2022-12-03 08:03 | Day surgery (SDC) | payer MEDICARE ==
[2022-12-03 08:46] VITALS: PULSE 66; RESP 16; TEMP 97.8
[2022-12-03 09:34] VITALS: BP 135/67
--- NOTE | 2022-12-03 09:52 | IR ---
PICC LINE PLACEMENT: HISTORY: Infection requiring long-term antibiotic therapy PROCEDURE: Ultrasound and fluoroscopic guidance of PICC line placement. COMPLICATIONS: None ANESTHESIA: 1. 1% Lidocaine locally. FINDINGS/TECHNIQUE: The procedure was explained to the patient. The risks, complications, benefits and alternatives were discussed and any questions were answered. Informed consent was obtained. The patient was placed supine on the fluoroscopic table and prepped and draped in the usual sterile fash ion. Utilizing a 21 gauge needle and sonographic and fluoroscopic guidance, access in the left basi lic vein was achieved and there is placement of a 0.018 guidewire. The vein is patent. A 4-F sheath was placed over the guidewire. The guidewire and dilator were removed and a 4-F. PICC line was plac ed through the sheath with the tip at the level of the SVC. The sheath was removed, the catheter was flushed and sutured into position. The patient was stable throughout the procedure and remained sta ble upon discharge from the Department of Radiology. The vein puncture was patent under ultrasound. A cuellar scale image was obtained to document patency of the vein punctured. All elements of the maximal barrier technique were utilized. FLUOROSCOPY TIME: DAP 0.022Gy cm2 IMPRESSION: Successful PICC line placement under ultrasound and fluoroscopic guidance.
== END 2022-12-03 09:53 | disposition home or self-care (01) ==
LOC: CATHCVL 08:03
PROVIDERS: ATTEND Internal Medicine Infectious Disease
DX: Z45.2 Encounter for adjustment and management of vascular access device (principal); T81.49XA Infection following a procedure, other surgical site, initial encounter; Y83.5 Amputation of limb(s) as the cause of abnormal reaction of the patient, or of later complication, without mention of misadventure at the time of the procedure; Z89.421 Acquired absence of other right toe(s); I10 Essential (primary) hypertension; E78.5 Hyperlipidemia, unspecified; G47.10 Hypersomnia, unspecified; G47.30 Sleep apnea, unspecified; G25.81 Restless legs syndrome; Z88.6 Allergy status to analgesic agent; Z79.02 Long term (current) use of antithrombotics/antiplatelets; Z79.82 Long term (current) use of aspirin; Z79.2 Long term (current) use of antibiotics; Z79.899 Other long term (current) drug therapy
CPT/HCPCS: 36573; C1751; C1769

== ENCOUNTER 2022-12-09 17:07 | Emergency (ER) | payer MEDICARE ==
[2022-12-09 17:19] VITALS: RESP 18; TEMP 98.3
[2022-12-09] MEDS ORDERED: SODIUM CHLORIDE 0.9% 1,000 ML IV STA (17:27)
[2022-12-09] MEDS ORDERED: ONDANSETRON 4 MG/2 ML VIAL IVP STA (17:27)
--- NOTE | 2022-12-09 17:31 | ED ---
General Adult HPI - General Chief complaint: Recheck/Abnormal Lab/Rx Stated complaint: Infection Time Seen by Provider: 12/09/22 17:14 Source: patient, EMS Mode of arrival: EMS Limitations: no limitations - History of Present Illness Initial comments: Dictation was produced using [employer] dictation software. please excuse any grammatical, word or spelling errors. Chief Complaint: 77-year-old male presents emergency department for nausea and weakness History of Present Illness: 77-year-old male presents emergency per nausea and weakness. Patient is history of osteomyelitis. At a PICC line placed 6 days ago. He has been on cefepime for the last week or so. Patient states that he feels sick secondary to the cefepime. He is refusing to take it. Patient has not had his antibiotics and proximal 2 days. States that he believes that the cefepime as a cause for his feelings of illness. Denies any constitutional symptoms The ROS documented in this emergency department record has been reviewed and confirmed by me. Those systems with pertinent positive or negative responses have been documented in the HPI. All other systems are other negative and/or noncontributory. - Related Data Home Medications Medication Instructions Recorded Confirmed Atorvastatin Calcium [Lipitor] 40 mg PO HS 09/04/14 12/09/22 Lansoprazole [Prevacid] 30 mg PO Q12H 09/04/14 12/09/22 Nitroglycerin Sl Tabs [Nitrostat] 0.4 mg SL Q5M PRN 09/04/14 12/09/22 Clopidogrel [Plavix] 75 mg PO DAILY 08/28/16 12/09/22 carvediloL [Coreg] 6.25 mg PO BID 08/28/16 12/09/22 Tamsulosin HCl [Flomax] 0.4 mg PO HS 10/14/17 12/09/22 Primidone [Mysoline] 50 mg PO Q12H 12/28/18 12/09/22 Lidocaine 5% Patch [Lidoderm 5% 3 patch TOPICAL DAILY 03/12/22 12/09/22 Patch] Meloxicam [Mobic] 15 mg PO DAILY 03/12/22 12/09/22 Cholecalciferol [Vitamin D3 (25 25 mcg PO DAILY 04/19/22 12/09/22 Mcg = 1000 Iu)] Gabapentin [Neurontin] 300 mg PO Q12H 04/19/22 12/09/22 modafiniL [Provigil] 200 mg PO Q12H 04/19/22 12/09/22 oxyCODONE-APAP 10-325MG [Percocet 1 tab PO Q8HR PRN 05/13/22 12/09/22 10-325 mg] Aspirin EC [Ecotrin Low Dose] 81 mg PO HS 11/29/22 12/09/22 Ipratropium Slaughter 0.06%Nasal 2 spray EA NOSTRIL TID PRN 11/29/22 12/09/22 [Atrovent Nasal 0.06%] Isosorbide Mononitrate ER [Imdur] 30 mg PO DAILY 11/29/22 12/09/22 Naloxegol Oxalate [Movantik] 12.5 mg PO DAILY PRN 11/29/22 12/09/22 fentaNYL 50MCG/HR PATCH [Duragesic 1 patch TRANSDERM Q72H 11/29/22 12/09/22 50MCG/HR] Calcium Carbonate [Calcium] 600 mg PO DAILY 12/09/22 12/09/22 Cefepime [Maxipime] 2 gm IV Q8H 12/09/22 12/09/22 Epinephrine 1mg/Ml Solution 1 - 2 mg IV ONCE PRN 12/09/22 12/09/22 Furosemide [Lasix] 40 mg PO DAILY 12/09/22 12/09/22 Vitamin B Complex 1 cap PO DAILY 12/09/22 12/09/22 Previous Rx's Medication Instructions Recorded Ondansetron Odt [Zofran Odt] 4 mg PO Q8HR PRN #24 tab 12/09/22 Allergies Allergy/AdvReac Type Severity Reaction Status Date / Time meperidine [From Demerol] Allergy Nausea Verified 12/09/22 18:52 aspirin AdvReac Unknown UNCOATED Verified 12/09/22 18:52 ASPIRIN CAUSES STOMACH PAIN morphine AdvReac Vomiting Verified 12/09/22 18:52 Review of Systems ROS Statement: Those systems with pertinent positive or pertinent negative responses have been documented in the HPI. ROS Other: All systems not noted in ROS Statement are negative. 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 diverticulitis, neuropathy, does not use CPAP, pt states has ruptured eardrum rt ear Last Myocardial Infarction Date:: 2001 History of Any Multi-Drug Resistant Organisms: None Reported Past Surgical History: Back Surgery, Coronary Bypass/CABG, Ear Surgery, Heart Catheterization, Heart Catheterization With Stent, Joint Replacement, Tonsi llectomy Additional Past Surgical History / Comment(s): chriss CATARACTS, one cardiac stent, CABG (2005), RIGHT EAR DRUM REPLACEMENT.CHRISS TOTAL KNEES, RIGHT CAROTID ENDARTERECTOMY. chriss carpel tunnel surgery, rods in spine(total 4 back surgeries) wound center patient, Past Anesthesia/Blood Transfusion Reactions: No Reported Reaction, Motion Sickness Date of Last Stent Placement:: 2001 Past Psychological History: No Psychological Hx Reported Smoking Status: Former smoker - Past Family History Mother Family Medical History: No Reported History Additional Family Medical History / Comment(s): . Father Family Medical History: Hypertension General Exam - General Exam Comments Initial Comments: PHYSICAL EXAM: General Impression: Alert and oriented x3, not in acute distress HEENT: Normocephalic atraumatic, extra-ocular movements intact, pupils equal and reactive to light bilaterally, mucous membranes moist. Cardiovascular: Heart regular rate and rhythm Chest: Able to complete full sentences, no retractions, no tachypnea Abdomen: abdomen soft, non-tender, non-distended, no organomegaly Musculoskeletal: Pulses present and equal in all extremities, no peripheral edema Motor: no focal deficits noted Neurological: CN II-XII grossly intact, no focal motor or sensory deficits noted Skin: Intact with no visualized rashes Psych: Normal affect and mood Limitations: no limitations Course Vital Signs 12/09/22 17:13 Temperature 98.3 F Pulse Rate 70 Respiratory 18 Rate Blood Pressure 166/79 O2 Sat by Pulse 97 Oximetry Medical Decision Making - Medical Decision Making Was pt. sent in by a medical professional or institution (, PA, NURSE EXECUTIVE, urgent care, hospital, or shelter...) When possible be specific @ -No Did you speak to anyone other than the patient for history (EMS, parent, family, police, friend...)? What history was obtained from this source @ -No Did you review nursing and triage notes (agree or disagree)? Why? @ -I reviewed and agree with nursing and triage notes Were old charts reviewed (outside hosp., previous admission, EMS record, old EKG, old radiological studies, urgent care reports/EKG's, shelter records)? Report findings @ -Discharge summary was reviewed showing the patient was recently admitted for osteomyelitis. A PICC line placed for approximately 6 days Differential Diagnosis (chest pain, altered mental status, abdominal pain women, abdominal pain men, vaginal bleeding, musculoskeletal, weakness, fever, dyspnea, syncope, headache, dizziness, GI bleed, back pain, seizure, CVA, palpatations, mental health)? @ -Differential Weakness: Hypoglycemia, shock, sepsis, hyponatremia, anemia, infection, MA, ETOH, adverse medicine reaction, overdose, stroke, this is not meant to be an all-inclusive li st. EKG interpreted by me (3pts min.). @ -None done X-rays interpreted by me (1pt min.). @ -None done CT interpreted by me (1pt min.). @ -None done U/S interpreted by me (1pt. min.). @ -None done What testing was considered but not performed or refused? (CT, X-rays, U/S, labs)? Why? @ -None What meds were considered but not given or refused? Why? @ -None Did you discuss the management of the patient with other professionals (professionals i.e. , PA, NURSE EXECUTIVE, lab, RT, psych nurse, social service agency director, bindery technician, teacher, water resources technical officer, case investigator)? Give summary @ -No Was smoking cessation discussed for >3mins.? @ -No Was critical care preformed (if so, how long)? @ -No Were there social determinants of health that impacted care today? How? (Homelessness, low income, unemployed, alcoholism, drug addiction, transportation, low edu. Level, literacy, decrease access to med. care, penitentiary, rehab)? @ -No Was there de-escalation of care discussed even if they declined (Discuss DNR or withdrawal of care, Hospice)? DNR status @ -No What co-morbidities impacted this encounter? (DM, HTN, Smoking, COPD, CAD, Cancer, CVA, ARF, Chemo, Hep., AIDS, mental health diagnosis, sleep apnea, morbid obesity)? @ -None Was patient admitted / discharged? Hospital course, mention meds given and route, prescriptions, significant lab abnormalities, going to OR and other pertinent info. @ -77-year-old male presents emergency Department with chief complaint of dizziness and weakness after taking his IV antibiotics given through his PICC line. Vital signs upon arrival are within acceptable limits. Physical examination is benign. Laboratory evaluation is unremarkable. Patient observed in the emergency department. Given his usual dose and given Zofran for symptom control. Patient discharged given prescription for Zofran to be taken if he feels nauseated after administering cefepime to himself. Undiagnosed new problem with uncertain prognosis? @ -No Drug Therapy requiring intensive monitoring for toxicity (Heparin, Nitro, Insulin, Cardizem)? @ -No Were any procedures done? @ -No Diagnosis/symptom? Acute, or Chronic, or Acute on Chronic? Uncomplicated (without systemic symptoms) or Complicated (systemic symptoms)? @ -1. Nausea Side effects of treatment? @ -No Exacerbation, Progression, or Severe Exacerbation? @ -No Poses a threat to life or bodily function? How? (Chest pain, USA, MA, pneumonia, PE, COPD, DKA, ARF, appy, cholecystitis, CVA, Diverticulitis, Homicidal, Suicidal, threat to staff... and all critical care pts) @ -yes - Lab Data Result diagrams: 12/09/22 17:51 12/09/22 17:51 Lab Results 12/09/22 12/09/22 12/09/22 Range/Units 17:51 17:51 17:51 WBC 10.1 (3.8-10.6) k/uL RBC 3.52 L (4.30-5.90) m/uL Hgb 11.9 L (13.0-17.5) gm/dL Hct 35.7 L (39.0-53.0) % MCV 101.6 H (80.0-100.0) fL MCH 33.9 (25.0-35.0) pg MCHC 33.3 (31.0-37.0) g/dL RDW 12.9 (11.5-15.5) % Plt Count 235 (150-450) k/uL MPV 7.3 Neutrophils % 65 % Lymphocytes % 16 % Monocytes % 7 % Eosinophils % 9 % Basophils % 0 % Neutrophils # 6.6 (1.3-7.7) k/uL Lymphocytes # 1.6 (1.0-4.8) k/uL Monocytes # 0.7 (0-1.0) k/uL Eosinophils # 0.9 H (0-0.7) k/uL Basophils # 0.0 (0-0.2) k/uL Macrocytosis Slight Sodium 139 (137-145) mmol/L Potassium 4.3 (3.5-5.1) mmol/L Chloride 103 (98-107) mmol/L Carbon Dioxide 31 H (22-30) mmol/L Anion Gap 5 mmol/L BUN 24 H (9-20) mg/dL Creatinine 0.98 (0.66-1.25) mg/dL Est GFR (CKD-EPI)AfAm 85 (>60 ml/min/1.73 sqM) Est GFR (CKD-EPI)NonAf 74 (>60 ml/min/1.73 sqM) Glucose 99 (74-99) mg/dL Plasma Lactic Acid Ramon 0.7 (0.7-2.0) mmol/L Calcium 9.0 (8.4-10.2) mg/dL Magnesium 3.0 H (1.6-2.3) mg/dL Total Bilirubin 0.3 (0.2-1.3) mg/dL AST 28 (17-59) U/L ALT 15 (4-49) U/L Alkaline Phosphatase 68 (38-126) U/L Total Protein 6.3 (6.3-8.2) g/dL Albumin 3.7 (3.5-5.0) g/dL Disposition Clinical Impression: Nausea Disposition: HOME SELF-CARE Condition: Fair Instructions (If sedation given, give patient instructions): Ondansetron (By mouth) Prescriptions: Ondansetron Odt [Zofran Odt] 4 mg PO Q8HR PRN #24 tab PRN Reason: Nausea Is patient prescribed a controlled substance at d/c from ED?: No Referrals: Star Mcallister MD [Primary Care Provider] - 1-2 days Time of Disposition: 19:08
[2022-12-09 18:13] LABS: Basophils % (A) 0 %; Eosinophils # (A) 0.9 k/uL (0-0.7); Eosinophils % (A) 9 %; HCT 35.7 % (39.0-53.0); HGB 11.9 gm/dL (13.0-17.5); Lymphocytes # (A) 1.6 k/uL (1.0-4.8); Lymphocytes % (A) 16 %; MCH 33.9 pg (25.0-35.0); MCHC 33.3 g/dL (31.0-37.0); MCV 101.6 fL (80.0-100.0); Macrocytosis Slight; Mean Platelet Volume 7.3; Monocytes # (A) 0.7 k/uL (0-1.0); Monocytes % (A) 7 %; Neutrophils # (A) 6.6 k/uL (1.3-7.7); Neutrophils % (A) 65 %; Platelet Count 235 k/uL (150-450); RBC 3.52 m/uL (4.30-5.90); RDW 12.9 % (11.5-15.5); WBC 10.1 k/uL (3.8-10.6)
[2022-12-09 18:25] LABS: ALT 15 U/L (4-49); AST 28 U/L (17-59); African American GFR (CKD) 85 (>60 ml/min/1.73 sqM); Albumin 3.7 g/dL (3.5-5.0); Alkaline Phosphatase 68 U/L (38-126); Anion Gap 5 mmol/L; Blood Urea Nitrogen 24 mg/dL (9-20); Carbon Dioxide 31 mmol/L (22-30); Chloride 103 mmol/L (98-107); Glucose 99 mg/dL (74-99); Non-African American GFR(CKD) 74 (>60 ml/min/1.73 sqM); Potassium 4.3 mmol/L (3.5-5.1); Sodium 139 mmol/L (137-145); Total Bilirubin 0.3 mg/dL (0.2-1.3); Total Protein 6.3 g/dL (6.3-8.2)
[2022-12-09] MEDS ORDERED: CEFEPIME 2 GM in SODIUM CHLORIDE 0.9% 100 ML IVPB STA (18:29)
[2022-12-09 19:50] VITALS: BP 162/78; PULSE 65
== END 2022-12-09 20:00 | disposition home or self-care (01) ==
LOC: EC 17:07
DX: R11.0 Nausea (principal); I10 Essential (primary) hypertension; K21.9 Gastro-esophageal reflux disease without esophagitis; E78.5 Hyperlipidemia, unspecified; I25.2 Old myocardial infarction; M19.90 Unspecified osteoarthritis, unspecified site; G47.30 Sleep apnea, unspecified; Z87.891 Personal history of nicotine dependence; Z79.1 Long term (current) use of non-steroidal anti-inflammatories (NSAID); Z79.899 Other long term (current) drug therapy; Z79.82 Long term (current) use of aspirin; Z79.02 Long term (current) use of antithrombotics/antiplatelets; Z88.5 Allergy status to narcotic agent; Z88.6 Allergy status to analgesic agent; Z88.8 Allergy status to other drugs, medicaments and biological substances
CPT/HCPCS: 36415; 93005; 80053; 83605; 83735; 85025; 99284; 96365; 96375; 96361; J2405; J0692

== ENCOUNTER 2022-12-12 09:18 | Inpatient (IN) | payer MEDICARE ==
[2022-12-12] MEDS ORDERED: SODIUM CHLORIDE 0.9% 1,000 ML IV STA (09:55)
--- NOTE | 2022-12-12 10:19 | ED ---
General Adult HPI - General Chief complaint: Syncope Stated complaint: Dizziness Time Seen by Provider: 12/12/22 09:44 Source: patient, RN notes reviewed Mode of arrival: EMS Limitations: no limitations - History of Present Illness Initial comments: Patient is 77-year-old male presenting to the emergency room via EMS with complaints of the episode of dizziness while ambulating to the bathroom earlier this morning. He denies any loss of consciousness or fall resulting from the dizziness. He does report continued dizziness while lying in the bed. He is complaining of a generalized malaise and reports "I'm here because I am going to ." He denies any specific complaints but does report pain upon palpation of his right second toe amputation site and right midfoot. He is supposed to be on cefepime via a left upper arm PICC line for osteomyelitis of the right foot however there is concern regarding compliance for this medication. Nursing staff is unable to obtain blood return from his PICC line. He is forgetful at times but this is his baseline. He denies any chest pain, shortness of breath, abdominal pain, nausea, vomiting, headache, fevers or chills. 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 Upon 's arrival at 1145 she reports concern for him falling to the ground after going to the bathroom during his dizzy spell and possibly hitting his head on the vanity next to the toilet. - Related Data Home Medications Medication Instructions Recorded Confirmed Atorvastatin Calcium [Lipitor] 40 mg PO HS 09/04/14 12/12/22 Lansoprazole [Prevacid] 30 mg PO Q12H 09/04/14 12/12/22 Nitroglycerin Sl Tabs [Nitrostat] 0.4 mg SL Q5M PRN 09/04/14 12/12/22 Clopidogrel [Plavix] 75 mg PO DAILY 08/28/16 12/12/22 carvediloL [Coreg] 6.25 mg PO BID 08/28/16 12/12/22 Tamsulosin HCl [Flomax] 0.4 mg PO HS 10/14/17 12/12/22 Primidone [Mysoline] 50 mg PO Q12H 12/28/18 12/12/22 Lidocaine 5% Patch [Lidoderm 5% 3 patch TOPICAL DAILY 03/12/22 12/12/22 Patch] Meloxicam [Mobic] 15 mg PO DAILY 03/12/22 12/12/22 Cholecalciferol [Vitamin D3 (25 25 mcg PO DAILY 04/19/22 12/12/22 Mcg = 1000 Iu)] Gabapentin [Neurontin] 300 mg PO Q12H 04/19/22 12/12/22 modafiniL [Provigil] 200 mg PO Q12H 04/19/22 12/12/22 oxyCODONE-APAP 10-325MG [Percocet 1 tab PO Q8HR PRN 05/13/22 12/12/22 10-325 mg] Aspirin EC [Ecotrin Low Dose] 81 mg PO HS 11/29/22 12/12/22 Ipratropium [place] 0.06%Nasal 2 spray EA NOSTRIL TID PRN 11/29/22 12/12/22 [Atrovent Nasal 0.06%] Isosorbide Mononitrate ER [Imdur] 30 mg PO DAILY 11/29/22 12/12/22 Naloxegol Oxalate [Movantik] 12.5 mg PO DAILY PRN 11/29/22 12/12/22 fentaNYL 50MCG/HR PATCH [Duragesic 1 patch TRANSDERM Q72H 11/29/22 12/12/22 50MCG/HR] Calcium Carbonate [Calcium] 600 mg PO DAILY 12/09/22 12/12/22 Cefepime [Maxipime] 2 gm IV Q8H 12/09/22 12/12/22 Epinephrine 1mg/Ml Solution 1 - 2 mg IV ONCE PRN 12/09/22 12/12/22 Furosemide [Lasix] 40 mg PO DAILY 12/09/22 12/12/22 Vitamin B Complex 1 cap PO DAILY 12/09/22 12/12/22 Previous Rx's Medication Instructions Recorded Ondansetron Odt [Zofran Odt] 4 mg PO Q8HR PRN #24 tab 12/09/22 Allergies Allergy/AdvReac Type Severity Reaction Status Date / Time aspirin AdvReac Unknown UNCOATED Verified 12/12/22 11:36 ASPIRIN CAUSES STOMACH PAIN meperidine [From Demerol] AdvReac Nausea Verified 12/12/22 11:36 morphine AdvReac Vomiting Verified 12/12/22 11:36 Review of Systems ROS Statement: Those systems with pertinent positive or pertinent negative responses have been documented in the HPI. ROS Other: All systems not noted in ROS Statement are negative. Past Medical History Past Medical History: Hypertension, Eye Disorder, GERD/Reflux, Hyperlipidemia, Hypertension, Myocardial Infarction ([place]), Osteoarthritis (OA), Sleep Apnea/CPAP/BIPAP Additional Past Medical History / Comment(s): wound 2nd toe rt foot, healing .BACK PAIN USES WALKER, 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 diverticulitis, neuropathy, does not use CPAP, pt states has ruptured eardrum rt ear Last Myocardial Infarction Date:: 2001 History of Any Multi-Drug Resistant Organisms: None Reported Past Surgical History: Back Surgery, Coronary Bypass/CABG, Ear Surgery, Heart Catheterization, Heart Catheterization With Stent, Joint Replacement, Tonsillectomy Additional Past Surgical History / Comment(s): chriss CATARACTS, one cardiac stent, CABG (2005), RIGHT EAR DRUM REPLACEMENT.CHRISS TOTAL KNEES, RIGHT CAROTID ENDARTERECTOMY. chriss carpel tunnel surgery, rods in spine(total 4 back surgeries) wound center patient, Past Anesthesia/Blood Transfusion Reactions: No Reported Reaction, Motion Sickness Date of Last Stent Placement:: 2001 Past Psychological History: No Psychological Hx Reported Smoking Status: Former smoker Past Alcohol Use History: None Reported Past Drug Use History: None Reported - Past Family History Mother Family Medical History: No Reported History Additional Family Medical History / Comment(s): . Father Family Medical History: Hypertension General Exam Limitations: no limitations General appearance: alert, in no apparent distress, cachectic Head exam: Present: atraumatic, normocephalic, normal inspection Eye exam: Present: normal appearance. Absent: scleral icterus, conjunctival injection, nystagmus, periorbital swelling, periorbital tenderness Pupils: Present: other (Right eye blind) ENT exam: Present: normal exam, mucous membranes moist Neck exam: Present: normal inspection, full ROM. Absent: tenderness Respiratory exam: Present: normal lung sounds bilaterally. Absent: respiratory distress, wheezes, rales, rhonchi, stridor Cardiovascular Exam: Present: regular rate, normal rhythm, normal heart sounds. Absent: systolic murmur, diastolic murmur, rubs, gallop, clicks GI/Abdominal exam: Present: soft, normal bowel sounds. Absent: distended, tenderness, guarding, rebound, rigid Extremities exam: Present: tenderness (Right foot), pedal edema (Right), other (Slight erythema noted to the dorsal aspect of the right foot with tenderness. Callus like scab at site of second right toe amputation.) Back exam: Present: normal inspection Neurological exam: Present: alert, oriented X3, other (Forgetful at times) Psychiatric exam: Present: flat affect, other (Easily agitated) Skin exam: Present: dry, erythema (Right foot as above) Course Vital Signs 12/12/22 12/12/22 09:54 09:59 Temperature 98.2 F Pulse Rate 68 62 Respiratory 20 20 Rate Blood Pressure 177/88 168/93 O2 Sat by Pulse 90 L 100 Oximetry Medical Decision Making - Medical Decision Making Was pt. sent in by a medical professional or institution (, PA, CORK INSULATOR, urgent care, hospital, or skilled nursing...) When possible be specific @ -No Did you speak to anyone other than the patient for history (EMS, parent, family, police, friend...)? What history was obtained from this source @ -No Did you review nursing and triage notes (agree or disagree)? Why? @ -I reviewed and agree with nursing and triage notes Were old charts reviewed (outside hosp., previous admission, EMS record, old EKG, old radiological studies, urgent care reports/EKG's, skilled nursing records)? Report findings @ -Yes, I reviewed laboratories results completed on 12/09/2022 and previous EKG from 12/09/2022. Differential Diagnosis (chest pain, altered mental status, abdominal pain women, abdominal pain men, vaginal bleeding, weakness, fever, dyspnea, syncope, headache, dizziness, GI bleed, back pain, seizure, CVA, palpatations, mental health, musculoskeletal)? @ -Differential Dizziness: Benign paroxysmal positional Vertigo, Menieres disease, otitis media, acoustic neuroma, vertebrobasilar insufficiency, cerebellar stroke, encephalitis, hypovolemic, arrhythmia, coronary artery syndrome, anemia, this is not meant to be an all-inclusive list EKG interpreted by me (3pts min.). @ -Sinus rhythm with sinus arrhythmia, right bundle branch block, ventricular rate 69 bpm, NH interval 177 ms, QRS duration 105 ms QT/QTC 395/414 ms, PRT axes 10, 110, 64 X-rays interpreted by me (1pt min.). @ -X-ray right foot: status post right toe amputation no osseous lesions or erosions noted. CT interpreted by me (1pt min.). @ -CT brain without contrast: Cerebral atrophy, No acute ischemia, mass or shift. U/S interpreted by me (1pt. min.). @ -None done What testing was considered but not performed or refused? (CT, X-rays, U/S, labs)? Why? @ -None What meds were considered but not given or refused? Why? @ -None Did you discuss the management of the patient with other professionals (professionals i.e. , PA, CORK INSULATOR, lab, RT, psych nurse, social contact worker, maple products maker, teacher, network security officer, case folder)? Give summary @ -Yes, spoke with Dr. Rojo regarding patient presentation, workup and results. He is accepting of observation admission with continued IV hydration, PICC line exchange and consult to infectious disease we'll place these orders. Was smoking cessation discussed for >3mins.? @ -No Was critical care preformed (if so, how long)? @ -No Were there social determinants of health that impacted care today? How? (Homelessness, low income, unemployed, alcoholism, drug addiction, transportation, low edu. Level, literacy, decrease access to med. care, skilled nursing, rehab)? @ -No Was there de-escalation of care discussed even if they declined (Discuss DNR or withdrawal of care, Hospice)? DNR status @ -No What co-morbidities impacted this encounter? (DM, HTN, Smoking, COPD, CAD, Cancer, CVA, ARF, Chemo, Hep., AIDS, mental health diagnosis, sleep apnea, morbid obesity)? @ -None Was patient admitted / discharged? Hospital course, mention meds given and route, prescriptions, significant lab abnormalities, going to OR and other pertinent info. @ -77-year-old male presented to the emergency room via EMS due to an episode of dizziness while ambulating to the bathroom earlier this morning. He reports no loss of consciousness or fall to the ground. He does note that he continues to be dizzy. He is complaining of pain at the site of his right second toe amputation in Apr 2022 and in the midfoot of his right foot. He is reporting generalized malaise. Prescribed cefepime via PICC line for osteomyelitis. Concern for worsening of infection. Will begin workup for dizziness with EKG, CBC, CMP, blood cultures, lactic acid will also obtain x-ray of right foot and give 1 L fluid bolus. EKG shows sinus rhythm with sinus arrhythmia with bundle branch block. X-ray of the right foot with out any evidence of further osseous erosion. Soft tissue swelling noted. Lactic bedside at 1145 noting possible head trauma and fall to the floor after dizzy spell after voiding. Will obtain CT of the brain in the setting of concern for head trauma and fall to the ground. Computed tomography scan of brain negative for acute intracranial process. Laboratory studies reveal hemoglobin low at 12.4 WBCs normal CMP demonstrates dehydration with a BUN of 30 creatinine stable at 1.23 no electrolyte abnormalities. Lactic acid normal 1.4. Advised patient and the findings and recommendation of admission for gentle hydration, evaluation by physical therapy for generalized weakness along with exchange of PICC line due to PICC line malfunction. Patient and spouse are agreeable to this plan. Spoke with Dr. Medley manager application for [facility]'s regarding patient's presentation and she is accepting of admission denies any further orders at this time. Will continue IV hydration, order PICC line exchange and infectious disease consult. Will admit patient in stable condition to observation unit under [facility] services with cardiac monitoring for dehydration, weakness and known osteomyelitis in need of PICC line exchange. Undiagnosed new problem with uncertain prognosis? @ -No Drug Therapy requiring intensive monitoring for toxicity (Heparin, Nitro, Insulin, Cardizem)? @ -No Were any procedures done? @ -No Diagnosis/symptom? @ -dizziness Acute, or Chronic, or Acute on Chronic? @ -Acute on chronic Uncomplicated (without systemic symptoms) or Complicated (systemic symptoms)? @ -Complicated Side effects of treatment? @ -No Exacerbation, Progression, or Severe Exacerbation? @ -No Poses a threat to life or bodily function? How? (Chest pain, [place], MS, pneumonia, PE, COPD, DKA, ARF, appy, cholecystitis, CVA, Diverticulitis, Homicidal, Suicidal, threat to staff... and all critical care pts) @ -yes high risk for fall and injury from fall Diagnosis/symptom? @ -dehydration Acute, or Chronic, or Acute on Chronic? @ -Acute Uncomplicated (without systemic symptoms) or Complicated (systemic symptoms)? @ -Complicated Side effects of treatment? @ -[none] Exacerbation, Progression, or Severe Exacerbation] @ -[no] Poses a threat to life or bodily function? @ -yes at risk for renal failure and electrolyte abnormalities. Diagnosis/symptom? @ -PICC line malfunction Acute, or Chronic, or Acute on Chronic? @ -Acute Uncomplicated (without systemic symptoms) or Complicated (systemic symptoms)? @ -Complicated Side effects of treatment? @ -[none] Exacerbation, Progression, or Severe Exacerbation] @ -[no] Poses a threat to life or bodily function? @ -Yes, unable to receive IV medications ordered for osteomyelitis known infection. Case discussed with Dr. Guillaume. - Lab Data Result diagrams: 12/12/22 10:04 12/12/22 10:04 Lab Results 12/12/22 12/12/22 12/12/22 Range/Units 10:04 10:04 10:04 WBC 10.4 (3.8-10.6) k/uL RBC 3.64 L (4.30-5.90) m/uL Hgb 12.4 L (13.0-17.5) gm/dL Hct 37.9 L (39.0-53.0) % MCV 103.9 H (80.0-100.0) fL MCH 34.0 (25.0-35.0) pg MCHC 32.7 (31.0-37.0) g/dL RDW 12.3 (11.5-15.5) % Plt Count 212 (150-450) k/uL MPV 7.4 Neutrophils % 71 % Lymphocytes % 14 % Monocytes % 6 % Eosinophils % 7 % Basophils % 0 % Neutrophils # 7.4 (1.3-7.7) k/uL Lymphocytes # 1.4 (1.0-4.8) k/uL Monocytes # 0.7 (0-1.0) k/uL Eosinophils # 0.8 H (0-0.7) k/uL Basophils # 0.0 (0-0.2) k/uL Macrocytosis Slight Sodium 137 (137-145) mmol/L Potassium 4.1 (3.5-5.1) mmol/L Chloride 102 (98-107) mmol/L Carbon Dioxide 25 (22-30) mmol/L Anion Gap 10 mmol/L BUN 30 H (9-20) mg/dL Creatinine 1.23 (0.66-1.25) mg/dL Est GFR (CKD-EPI)AfAm 65 (>60 ml/min/1.73 sqM) Est GFR (CKD-EPI)NonAf 56 (>60 ml/min/1.73 sqM) Glucose 91 (74-99) mg/dL Plasma Lactic Acid Ramon 1.4 (0.7-2.0) mmol/L Calcium 9.3 (8.4-10.2) mg/dL Total Bilirubin 0.7 (0.2-1.3) mg/dL AST 26 (17-59) U/L ALT 16 (4-49) U/L Alkaline Phosphatase 71 (38-126) U/L Total Protein 6.5 (6.3-8.2) g/dL Albumin 3.8 (3.5-5.0) g/dL - Radiology Data Radiology results: report reviewed, image reviewed Disposition Clinical Impression: Dehydration, Dizziness, Occluded PICC line Disposition: ADMITTED IP TO THIS [facility] Condition: Stable Time of Disposition: 12:46
--- NOTE | 2022-12-12 10:46 | XR ---
EXAMINATION TYPE: XR foot complete RT DATE OF EXAM: 12/12/2022 COMPARISON: Right foot radiograph 10/01/2022 HISTORY: Infection of second toe status post amputation TECHNIQUE: Frontal, lateral and oblique images of the right foot are obtained. COMPARISON: None. FINDINGS: Post amputation changes of the second digit at the MCP joint. There is soft tissue swellin g at the amputation site. No definitive osseous erosions or soft tissue gas identified. Diffuse bone demineralization. No acute fracture or dislocation. Vascular sclerosis. Small plantar calcaneal enthe sophyte. IMPRESSION: Post amputation changes of the second digit at the MCP joint with associated soft tissue swelling. No definitive osseous erosion or soft tissue gas identified.
[2022-12-12 11:02] LABS: Basophils % (A) 0 %; Eosinophils # (A) 0.8 k/uL (0-0.7); Eosinophils % (A) 7 %; HCT 37.9 % (39.0-53.0); HGB 12.4 gm/dL (13.0-17.5); Lymphocytes # (A) 1.4 k/uL (1.0-4.8); Lymphocytes % (A) 14 %; MCHC 32.7 g/dL (31.0-37.0); MCV 103.9 fL (80.0-100.0); Macrocytosis Slight; Mean Platelet Volume 7.4; Monocytes # (A) 0.7 k/uL (0-1.0); Monocytes % (A) 6 %; Neutrophils # (A) 7.4 k/uL (1.3-7.7); Neutrophils % (A) 71 %; Platelet Count 212 k/uL (150-450); RBC 3.64 m/uL (4.30-5.90); RDW 12.3 % (11.5-15.5); WBC 10.4 k/uL (3.8-10.6)
[2022-12-12 11:17] LABS: ALT 16 U/L (4-49); AST 26 U/L (17-59); African American GFR (CKD) 65 (>60 ml/min/1.73 sqM); Albumin 3.8 g/dL (3.5-5.0); Alkaline Phosphatase 71 U/L (38-126); Anion Gap 10 mmol/L; Blood Urea Nitrogen 30 mg/dL (9-20); Calcium 9.3 mg/dL (8.4-10.2); Carbon Dioxide 25 mmol/L (22-30); Chloride 102 mmol/L (98-107); Glucose 91 mg/dL (74-99); Non-African American GFR(CKD) 56 (>60 ml/min/1.73 sqM); Potassium 4.1 mmol/L (3.5-5.1); Sodium 137 mmol/L (137-145); Total Bilirubin 0.7 mg/dL (0.2-1.3); Total Protein 6.5 g/dL (6.3-8.2)
--- NOTE | 2022-12-12 12:41 | CT ---
EXAMINATION TYPE: CT brain wo con DATE OF EXAM: 12/12/2022 COMPARISON: 04/19/2022 HISTORY: Dizziness, fall, confusion, cannot confirm LOC CT DLP: 1237.[address] of the brain was performed. The ventricles, basal cisterns and sulci overlying the cerebral convexities demonstrate mild enlargem ent. There is no evidence for intracranial hemorrhage or sulcal effacement. There is decreased attenuation about the periventricular white matter and deep white matter of both c erebral hemispheres, compatible with chronic small vessel ischemia. Differential diagnosis does inclu de demyelination. No mass effects are seen.No midline shift. Osseous calvarium is intact. If symptoms persist consider MRI. IMPRESSION: 1. Age related atrophic and chronic small vessel ischemic change without acute intracranial process s een at this time.
[2022-12-12] MEDS ORDERED: NALOXONE 0.4 MG/ML 1 ML VIAL IV PRN (12:46)
--- NOTE | 2022-12-12 13:53 | P.HPIM ---
History of Present Illness 77-year-old is admitted the for malfunctioning PICC line patient is supposed to be receiving cefepime for osteomyelitis of the right foot. Patient also found to be dehydrated with elevated serum creatinine is 1.2 previous and around 0.9 and patient is being started on IV fluids patient is clinically dehydrated. REVIEW OF SYSTEMS: CONSTITUTIONAL: No fever, no malaise, no fatigue. HEENT: No recent visual problems or hearing problems. Denied any sore throat. CARDIOVASCULAR: No chest pain, orthopnea, PND, no palpitations, no syncope. PULMONARY: No shortness of breath, no cough, no hemoptysis. GASTROINTESTINAL: No diarrhea, no nausea, no vomiting, no abdominal pain. NEUROLOGICAL: No headaches, no weakness, no numbness. HEMATOLOGICAL: Denies any bleeding or petechiae. GENITOURINARY: Denies any burning micturition, frequency, or urgency. MUSCULOSKELETAL/RHEUMATOLOGICAL: Denies any joint pain, swelling, or any muscle pain. ENDOCRINE: Denies any polyuria or polydipsia. The rest of the 14-point review of systems is negative. PHYSICAL EXAMINATION: GENERAL: The patient is alert and oriented x3, not in any acute distress. Well developed, well nourished. HEENT: Pupils are round and equally reacting to light. EOMI. No scleral icterus. No conjunctival pallor. Normocephalic, atraumatic. No pharyngeal erythema. No thyromegaly dry mucous membranes. CARDIOVASCULAR: S1 and S2 present. No murmurs, rubs, or gallops. PULMONARY: Chest is clear to auscultation, no wheezing or crackles. ABDOMEN: Soft, nontender, nondistended, normoactive bowel sounds. No palpable organomegaly. MUSCULOSKELETAL: No joint swelling or deformity. EXTREMITIES: No cyanosis, clubbing, or pedal edema. NEUROLOGICAL: Gross neurological examination did not reveal any focal deficits. SKIN: No rashes. Assessment and plan -Acute renal failure: Secondary to prerenal azotemia, patient will be started on IV fluids. Patient is bit dehydrated. -History of osteomyelitis and patient is on cefepime: No recent cultures available at this time, infectious disease will be consulted continue with cefepime -Malfunctioning PICC line: IR consult probably need to be changed over a guidewire of PICC line need to be replaced unsure how long the line has been in place Hypertension next and-hyperlipidemia -Coronary artery disease with stents in the past -Sleep apnea is a CPAP machine at home For above-mentioned chronic medical problems patient will be resumed on appropriate home medications DVT prophylaxis: Subcutaneous heparin Past Medical History Past Medical History: Hypertension, Eye Disorder, GERD/Reflux, Hyperlipidemia, Hypertension, Myocardial Infarction ([place]), Osteoarthritis (OA), Sleep Apnea/CPAP/BIPAP Additional Past Medical History / Comment(s): wound 2nd toe rt foot, healing .BACK PAIN USES WALKER, 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 diverticulitis, neuropathy, does not use CPAP, pt states has ruptured eardrum rt ear Last Myocardial Infarction Date:: 2001 History of Any Multi-Drug Resistant Organisms: None Reported Past Surgical History: Back Surgery, Coronary Bypass/CABG, Ear Surgery, Heart Catheterization, Heart Catheterization With Stent, Joint Replacement, Tonsillectomy Additional Past Surgical History / Comment(s): chriss CATARACTS, one cardiac stent, CABG (2005), RIGHT EAR DRUM REPLACEMENT.CHRISS TOTAL KNEES, RIGHT CAROTID ENDARTERECTOMY. chriss carpel tunnel surgery, rods in spine(total 4 back surgeries) wound center patient, Past Anesthesia/Blood Transfusion Reactions: No Reported Reaction, Motion Sickness Date of Last Stent Placement:: 2001 Past Psychological History: No Psychological Hx Reported Smoking Status: Former smoker Past Alcohol Use History: None Reported Past Drug Use History: None Reported - Past Family History Mother Family Medical History: No Reported History Additional Family Medical History / Comment(s): . Father Family Medical History: Hypertension Medications and Allergies Home Medications Medication Instructions Recorded Confirmed Type Atorvastatin Calcium [Lipitor] 40 mg PO HS 09/04/14 12/12/22 History Lansoprazole [Prevacid] 30 mg PO Q12H 09/04/14 12/12/22 History Nitroglycerin Sl Tabs [Nitrostat] 0.4 mg SL Q5M PRN 09/04/14 12/12/22 History Clopidogrel [Plavix] 75 mg PO DAILY 08/28/16 12/12/22 History carvediloL [Coreg] 6.25 mg PO BID 08/28/16 12/12/22 History Tamsulosin HCl [Flomax] 0.4 mg PO HS 10/14/17 12/12/22 History Primidone [Mysoline] 50 mg PO Q12H 12/28/18 12/12/22 History Lidocaine 5% Patch [Lidoderm 5% 3 patch TOPICAL DAILY 03/12/22 12/12/22 History Patch] Meloxicam [Mobic] 15 mg PO DAILY 03/12/22 12/12/22 History Cholecalciferol [Vitamin D3 (25 25 mcg PO DAILY 04/19/22 12/12/22 History Mcg = 1000 Iu)] Gabapentin [Neurontin] 300 mg PO Q12H 04/19/22 12/12/22 History modafiniL [Provigil] 200 mg PO Q12H 04/19/22 12/12/22 History oxyCODONE-APAP 10-325MG [Percocet 1 tab PO Q8HR PRN 05/13/22 12/12/22 History 10-325 mg] Aspirin EC [Ecotrin Low Dose] 81 mg PO HS 11/29/22 12/12/22 History Ipratropium [place] 0.06%Nasal 2 spray EA NOSTRIL TID PRN 11/29/22 12/12/22 History [Atrovent Nasal 0.06%] Isosorbide Mononitrate ER [Imdur] 30 mg PO DAILY 11/29/22 12/12/22 History Naloxegol Oxalate [Movantik] 12.5 mg PO DAILY PRN 11/29/22 12/12/22 History fentaNYL 50MCG/HR PATCH [Duragesic 1 patch TRANSDERM Q72H 11/29/22 12/12/22 History 50MCG/HR] Calcium Carbonate [Calcium] 600 mg PO DAILY 12/09/22 12/12/22 History Cefepime [Maxipime] 2 gm IV Q8H 12/09/22 12/12/22 History Epinephrine 1mg/Ml Solution 1 - 2 mg IV ONCE PRN 12/09/22 12/12/22 History Furosemide [Lasix] 40 mg PO DAILY 12/09/22 12/12/22 History Ondansetron Odt [Zofran Odt] 4 mg PO Q8HR PRN #24 tab 12/09/22 12/12/22 Rx Vitamin B Complex 1 cap PO DAILY 12/09/22 12/12/22 History Allergies Allergy/AdvReac Type Severity Reaction Status Date / Time aspirin AdvReac Unknown UNCOATED Verified 12/12/22 11:36 ASPIRIN CAUSES STOMACH PAIN meperidine [From Demerol] AdvReac Nausea Verified 12/12/22 11:36 morphine AdvReac Vomiting Verified 12/12/22 11:36 Physical Exam Vitals: Vital Signs Temp Pulse Resp BP Pulse Ox 12/12/22 09:59 62 20 168/93 100 12/12/22 09:54 98.2 F 68 20 177/88 90 L Intake and Output 12/11/22 12/12/22 12/12/22 22:59 06:59 14:59 Other: Weight 49.895 kg Results CBC & Chem 7: 12/12/22 10:04 12/12/22 10:04 Labs: Abnormal Lab Results - Last 24 Hours (Table) 12/12/22 12/12/22 Range/Units 10:04 10:04 RBC 3.64 L (4.30-5.90) m/uL Hgb 12.4 L (13.0-17.5) gm/dL Hct 37.9 L (39.0-53.0) % MCV 103.9 H (80.0-100.0) fL Eosinophils # 0.8 H (0-0.7) k/uL BUN 30 H (9-20) mg/dL
[2022-12-12] MEDS ORDERED: NITROGLYCERIN SL TABS 0.4 MG TAB SUBLINGUAL PRN (13:55)
[2022-12-12] MEDS ORDERED: NALOXEGOL OXALATE 12.5 MG PO PRN (13:55)
[2022-12-12] MEDS ORDERED: IPRATROPIUM BROMIDE 0.06% NASAL SPRAY (15 ML) EA NOSTRIL PRN (13:55)
[2022-12-12] MEDS ORDERED: HYDROcodone/APAP 10-325MG 1 EACH TAB PO ONE (13:59)
[2022-12-12] MEDS ORDERED: CEFEPIME 2 GM VIAL IVPB SCH (14:00)
[2022-12-12] MEDS: SODIUM CHLORIDE 0.9% 1,000 ML IV SCH (15:25)
[2022-12-12] MEDS ORDERED: polyethylene glycoL 3350 17 GM POWD.PACK PO STA (15:26)
[2022-12-12 16:22] LABS: Appearance,Urine Clear (Clear); Bilirubin,Urine Negative (Negative); Blood,Urine Small (Negative); Color,Urine Light Yellow; Glucose,Urine (UA) Negative (Negative); Ketones,Urine Negative (Negative); Leukocyte Esterase,Urine Negative (Negative); Mucus,Urine Rare /hpf; Nitrite,Urine Negative (Negative); PH, Urine 7.5 (5.0-8.0); Protein,Urine Trace (Negative); Specific Gravity,Urine 1.011 (1.001-1.035); Urobilinogen,Urine <2.0 mg/dL (<2.0); WBC,Urine 1 /hpf (0-5)
[2022-12-12] MEDS: LACTULOSE 20 GM/30 ML CUP PO SCH ×2 (17:10→22:28)
[2022-12-12] MEDS: carvediloL 6.25 MG TAB PO SCH (17:11)
[2022-12-12] MEDS: GABAPENTIN 300 MG CAP PO SCH (22:40)
[2022-12-12] MEDS: TAMSULOSIN 0.4 MG CAP.ER.24H PO SCH (22:41)
[2022-12-12] MEDS: PANTOPRAZOLE 40 MG TABLET PO SCH (22:41)
[2022-12-12] MEDS: ASPIRIN 81 MG PO SCH (22:41)
[2022-12-12] MEDS: ATORVASTATIN 40 MG TAB PO SCH (22:41)
[2022-12-12] MEDS: PRIMIDONE 50 MG TAB PO SCH (22:41)
--- NOTE | 2022-12-12 22:55 | P.CONS ---
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 and recently did have a debridement of the right second toe amputation site by his biblical languages professor o utpatient culture positive for Pseudomonas aeruginosa that was resistant to Cipro with a clinical suspicious for underlying osteomyelitis patient did get a PICC line and patient was started on IV cefepime in the outpatient setting, apparently the patient was feeling hot with cefepime infusion but did not mention any rash or other symptoms and refused to take his IV cefepime as reported by his home care nurse this morning to the office patient has been brought into the ER by EMS for evaluation of dizziness while ambulating to the bathroom earlier this morning there was no history of loss of consciousness or fall patient complaining of feeling weak denies any headache or focal weakness no chest pain shortness of breath or cough no abdominal pain patient was noticed to be urine retention retaining about 600 cc requiring Basurto catheter placement patient was afebrile on presentation to the hospital he did have a normal white count BUN was elevated creatinine was normal it was observed normal CRP 1.7 patient did have a CT of the brain that was negative for any bleed foot x-ray post ablation changes of the second digit at MCP joint with associated soft tissue swelling no definite bony erosion or soft tissue gas identified patient has been continued on cefepime infectious was consulted for further management of antibiotic therapy Review of Systems Positive points has been mentioned in HPI complete review could not be obtained because of his underlying mental status Past Medical History Past Medical History: Hypertension, Eye Disorder, GERD/Reflux, Hyperlipidemia, Hypertension, Myocardial Infarction (AL), Osteoarthritis (OA), Sleep Apnea/CPAP/BIPAP Additional Past Medical History / Comment(s): wound 2nd toe rt foot, healing .BACK PAIN USES WALKER, 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 diverticulitis, neuropathy, does not use CPAP, pt states has ruptur ed eardrum rt ear Last Myocardial Infarction Date:: 2001 History of Any Multi-Drug Resistant Organisms: None Reported Past Surgical History: Back Surgery, Coronary Bypass/CABG, Ear Surgery, Heart Catheterization, Heart Catheterization With Stent, Joint Replacement, Tonsillectomy Additional Past Surgical History / Comment(s): chriss CATARACTS, one cardiac stent, CABG (2005), RIGHT EAR DRUM REPLACEMENT.CHRISS TOTAL KNEES, RIGHT CAROTID ENDARTERECTOMY. chriss carpel tunnel surgery, rods in spine(total 4 back surgeries) wound center patient, Past Anesthesia/Blood Transfusion Reactions: No Reported Reaction, Motion Sickness Date of Last Stent Placement:: 2001 Past Psychological History: No Psychological Hx Reported Smoking Status: Former smoker Past Alcohol Use History: None Reported Past Drug Use History: None Reported - Past Family History Mother Family Medical History: No Reported History Additional Family Medical History / Comment(s): . Father Family Medical History: Hypertension Medications and Allergies Home Medications Medication Instructions Recorded Confirmed Type Atorvastatin Calcium [Lipitor] 40 mg PO HS 09/04/14 12/12/22 History Lansoprazole [Prevacid] 30 mg PO Q12H 09/04/14 12/12/22 History Nitroglycerin Sl Tabs [Nitrostat] 0.4 mg SL Q5M PRN 09/04/14 12/12/22 History Clopidogrel [Plavix] 75 mg PO DAILY 08/28/16 12/12/22 History carvediloL [Coreg] 6.25 mg PO BID 08/28/16 12/12/22 History Tamsulosin HCl [Flomax] 0.4 mg PO HS 10/14/17 12/12/22 History Primidone [Mysoline] 50 mg PO Q12H 12/28/18 12/12/22 History Lidocaine 5% Patch [Lidoderm 5% 3 patch TOPICAL DAILY 03/12/22 12/12/22 History Patch] Cholecalciferol [Vitamin D3 (25 25 mcg PO DAILY 04/19/22 12/12/22 History Mcg = 1000 Iu)] Aspirin EC [Ecotrin Low Dose] 81 mg PO HS 11/29/22 12/12/22 History Ipratropium Brooks 0.06%Nasal 2 spray EA NOSTRIL TID PRN 11/29/22 12/12/22 Hi story [Atrovent Nasal 0.06%] Isosorbide Mononitrate ER [Imdur] 30 mg PO DAILY 11/29/22 12/12/22 History Naloxegol Oxalate [Movantik] 12.5 mg PO DAILY PRN 11/29/22 12/12/22 History Calcium Carbonate [Calcium] 600 mg PO DAILY 12/09/22 12/12/22 History Furosemide [Lasix] 40 mg PO DAILY 12/09/22 12/12/22 History Ondansetron Odt [Zofran ODT] 4 mg PO Q8HR PRN #24 tab 12/09/22 12/12/22 Rx Vitamin B Complex 1 cap PO DAILY 12/09/22 12/12/22 History Cefepime [Maxipime] 2 gm IVPB Q12HR 30 Days #60 each 12/17/22 Rx Collagenase [Santyl Ointment] 1 applic TOPICAL DAILY each 12/17/22 Rx Gabapentin [Neurontin] 300 mg PO Q12H #4 cap 12/17/22 Rx Heparin Sodium,Porcine [Heparin 5,000 unit SQ Q12HR #60 each 12/17/22 Rx Sodium] Meclizine [Antivert] 12.5 mg PO TID PRN tab 12/17/22 Rx Ondansetron Odt [Zofran ODT] 4 mg PO Q12HR tab 12/17/22 Rx modafiniL [Provigil] 200 mg PO Q12H #2 tab 12/17/22 Rx oxyCODONE-APAP 10-325MG [Percocet 1 tab PO Q8HR PRN #3 tab 12/17/22 Rx 10-325 mg] Allergies Allergy/AdvReac Type Severity Reaction Status Date / Time aspirin AdvReac Unknown UNCOATED Verified 12/12/22 11:36 ASPIRIN CAUSES STOMACH PAIN meperidine [From Demerol] AdvReac Nausea Verified 12/12/22 11:36 morphine AdvReac Vomiting Verified 12/12/22 11:36 Physical Exam Vitals: Vital Signs Temp Pulse Resp BP Pulse Ox 12/12/22 09:59 62 20 168/93 100 12/12/22 09:54 98.2 F 68 20 177/88 90 L Intake and Output 12/11/22 12/12/22 12/12/22 22:59 06:59 14:59 Other: Weight 49.895 kg GENERAL DESCRIPTION: Elderly male lying in bed, no distress. No tachypnea or accessory muscle of respiration use. HEENT: Shows Pallor , no scleral icterus. Oral mucous membrane is dry. No pharyngeal erythema or thrush NECK: Trachea central, no thyromegaly. LUNGS: Unlabored breathing. Clear to auscultation anteriorly. No wheeze or crackle. HEART: S1, S2, regular rate and rhythm. No loud murmur ABDOMEN: Soft, no tenderness , guarding or rigidity, no organomegaly EXTREMITIES: Right second toe amputation site wound is currently healed dried out no significant swelling redness or drainage SKIN: No rash, no masses palpable. NEUROLOGICAL: The patient is sleepy lethargic but arousable Results CBC & Chem 7: 12/17/22 05:34 12/17/22 05:34 Labs: Abnormal Lab Results - Last 24 Hours (Table) 12/12/22 12/12/22 Range/Units 10:04 10:04 RBC 3.64 L (4.30-5.90) m/uL Hgb 12.4 L (13.0-17.5) gm/dL Hct 37.9 L (39.0-53.0) % MCV 103.9 H (80.0-100.0) fL Eosinophils # 0.8 H (0-0.7) k/uL BUN 30 H (9-20) mg/dL Assessment and Plan (1) Osteomyelitis Status: Acute Code(s): M86.9 - OSTEOMYELITIS, UNSPECIFIED SNOMED Code(s): 76198392 (2) Right foot infection Status: Acute Code(s): L08.9 - LOCAL INFECTION OF THE SKIN AND SUBCUTANEOUS TISSUE, UNSP SNOMED Code(s): 593066601 Plan: 1patient with a nonhealing wound to the right second toe amputation site with outpatient culture positive for Pseudomonas aeruginosa that was resistant to Cipro and the patient has been getting cefepime in the outpatient setting however the patient not been compliant with it now presenting to the hospital with weakness dizziness concerning for possible dehydration as no evidence of any worsening infection to the right second amputation site was noticed patient is afebrile and did have a normal white count x-ray did not show any suspicious for osteomyelitis 2-we will obtain her bone scan which if negative and the patient right second toe amputation site wound is almost healed we may be able to discontinue antibiotic 3-check inflammatory markers 4-for now continue cefepime and see how the patient responds to that while inpatient We will follow on clinical condition and cultures to further adjust medication if needed Thank you for this consultation we will follow the patient along with you Time with Patient: Greater than 30
[2022-12-12] MEDS: HEPARIN SODIUM,PORCINE/PF 5,000 UNIT/0.5 ML SYRINGE SQ SCH (23:21)
[2022-12-12] MEDS: CEFEPIME 2 GM in SODIUM CHLORIDE 0.9% 100 ML IVPB SCH (23:21)
[2022-12-13] MEDS: HEPARIN SODIUM,PORCINE/PF 5,000 UNIT/0.5 ML SYRINGE SQ SCH ×3 (00:22→20:39)
[2022-12-13] MEDS: SODIUM CHLORIDE 0.9% 1,000 ML IV SCH ×2 (04:47→19:42)
[2022-12-13 06:41] LABS: INR 1.1 (<1.2); Prothrombin Time 11.2 sec (9.0-12.0)
[2022-12-13] MEDS: oxyCODONE-APAP 10-325MG 1 EACH TAB PO PRN ×2 (09:18→20:38)
[2022-12-13] MEDS: carvediloL 6.25 MG TAB PO SCH ×2 (09:18→18:39)
[2022-12-13] MEDS: ISOSORBIDE MONONITRATE ER 30 MG TAB.ER.24H PO SCH (09:20)
[2022-12-13] MEDS: GABAPENTIN 300 MG CAP PO SCH ×2 (09:20→20:39)
[2022-12-13] MEDS: PANTOPRAZOLE 40 MG TABLET PO SCH ×2 (09:20→20:38)
[2022-12-13] MEDS: CLOPIDOGREL 75 MG TAB PO SCH (09:20)
[2022-12-13] MEDS: LIDOCAINE 5% PATCH TOPICAL SCH (09:21)
[2022-12-13] MEDS: LACTULOSE 20 GM/30 ML CUP PO SCH ×3 (09:21→21:53)
[2022-12-13] MEDS ORDERED: LIDOCAINE 1% INJ 10MG/ML (5 ML VIAL-PF) SQ ONE (09:45)
[2022-12-13] MEDS ORDERED: MECLIZINE 12.5 MG TAB PO PRN (10:16)
[2022-12-13] MEDS: CEFEPIME 2 GM in SODIUM CHLORIDE 0.9% 100 ML IVPB SCH ×2 (10:17→20:39)
[2022-12-13 11:33] VITALS: BMI 17.2
[2022-12-13] MEDS: PRIMIDONE 50 MG TAB PO SCH ×2 (11:49→20:52)
--- NOTE | 2022-12-13 12:18 | IR ---
PICC LINE PLACEMENT: HISTORY: Infection requiring long-term antibiotic therapy PROCEDURE: Ultrasound and fluoroscopic guidance of PICC line placement. COMPLICATIONS: None ANESTHESIA: 1. 1% Lidocaine locally. FINDINGS/TECHNIQUE: The procedure was explained to the patient. The risks, complications, benefits and alternatives were discussed and any questions were answered. Informed consent was obtained. The patient was placed supine on the fluoroscopic table and prepped and draped in the usual sterile fash ion. Utilizing a 21 gauge needle and sonographic and fluoroscopic guidance, access in the left basi lic vein was achieved and there is placement of a 0.018 guidewire. The vein is patent. A 4-F sheath was placed over the guidewire. The guidewire and dilator were removed and a 4-F. PICC line was plac ed through the sheath with the tip at the level of the SVC. The sheath was removed, the catheter was flushed and sutured into position. The patient was stable throughout the procedure and remained sta ble upon discharge from the Department of Radiology. The vein puncture was patent under ultrasound. A cuellar scale image was obtained to document patency of the vein punctured. All elements of the maximal barrier technique were utilized. FLUOROSCOPY TIME: DAP 0.195Gy cm2 IMPRESSION: Successful PICC line placement under ultrasound and fluoroscopic guidance.
--- NOTE | 2022-12-13 14:35 | XR ---
EXAMINATION TYPE: XR Hip Complete LT DATE OF EXAM: 12/13/2022 COMPARISON: None HISTORY: Fall at home, pain TECHNIQUE: 2 view left hip FINDINGS: Femoral head articulates with the acetabulum. No acute fracture or dislocation is evident. Vascular clips are within the thigh. Joint space appears preserved. Follow up exams can be performed 7-10 days of acute trauma for continued pain. IMPRESSION: 1. No acute osseous abnormalities left hip
--- NOTE | 2022-12-13 14:57 | NM ---
EXAMINATION TYPE: NM bone 3 phase DATE OF EXAM: 12/13/2022 COMPARISON: NONE HISTORY: Second toe amputation Delayed whole-body scanning was performed following the injection of 22.0 mCi Tc 99m MDP. Blood flow, blood pool, and static images were obtained. Static Images were acquired 6 hours post injection. FINDINGS: Blood flow: There is mild increased radiotracer accumulation to the distal left foot compared to the right initially. No increased flow to the right foot amputation region is evident. Blood pool: Oblique views of the bilateral feet have increased radiotracer in the region of the right distal metatarsals. On delayed images there is increased radiotracer accumulation in the region of the second metatarsal right foot. Increased radiotracer accumulation is within the left first metatarsophalangeal joint spa ce. IMPRESSION: 1. Radiotracer on blood pool and static images distal metatarsal region right foot more suggestive fo r postsurgical change. 2. Suspicious three-phase uptake to suggest underlying osteomyelitis is not evident.
--- NOTE | 2022-12-13 15:57 | P.PN ---
Subjective Progress Note Date: 12/13/22 Principal diagnosis: Right second toe amputation site wound and osteomyelitis Patient is a 77-year-old male with multiple comorbidity recently diagnosed in the outpatient setting with Osteomyelitis to the right second toe amputation site culture were positive for pseudomonas that was resistant to Cipro for the patient did get a PICC line and was getting cefepime in the outpatient setting admitted to the hospital with weakness and mental status changes On today's evaluation that is 12/13/2022, patient denies having any fever or chills, the patient is more awake and alert today, breathing comfortably on a 2 L nasal cannula oxygen no chest pain or shortness of cough no abdominal pain or any worsening pain to the right second toe amputation site Objective - Vital Signs Vital signs: Vital Signs Temp 98.1 F 12/13/22 07:30 Pulse 69 12/13/22 07:30 Resp 16 12/13/22 07:30 BP 164/81 12/13/22 07:30 Pulse Ox 100 12/13/22 07:30 FiO2 Intake & Output 12/12/22 12/13/22 12/13/22 18:59 06:59 18:59 Output Total 1440 251 640 Balance -1440 -251 -640 Weight 49.895 kg 49.895 kg Output: Urine 1440 250 640 Uretheral (Basurto) 600 Stool 1 Other: Voiding Method Indwelling Catheter # Bowel Movements 1 - Exam GENERAL DESCRIPTION: An elderly male lying in bed in no distress RESPIRATORY SYSTEM: Unlabored breathing , decreased breath sounds at bases HEART: S1 S2 regular rate and rhythm , ABDOMEN: Soft , no tenderness EXTREMITIES: Right second toe amputation site is currently healed with no swelling redness or drainage - Labs CBC & Chem 7: 12/12/22 10:04 12/12/22 10:04 Labs: Abnormal Lab Results - Last 24 Hours (Table) 12/12/22 12/12/22 Range/Units 10:04 15:06 C-Reactive Protein 1.7 H (<1.0) mg/dL Urine Protein Trace H (Negative) Urine Blood Small H (Negative) Urine Mucus Rare H (None) /hpf Assessment and Plan (1) Right foot infection Current Visit: Yes Status: Acute Code(s): L08.9 - LOCAL INFECTION OF THE SKIN AND SUBCUTANEOUS TISSUE, UNSP SNOMED Code(s): 172509672 Plan: 1patient with a nonhealing wound to the right second toe amputation site with outpatient culture positive for Pseudomonas aeruginosa that was resistant to Cipro and the patient has been getting cefepime in the outpatient setting nguyễn matilde the patient not been compliant with it now presenting to the hospital with weakness dizziness concerning for possible dehydration as no evidence of any worsening infection to the right second amputation site was noticed patient is afebrile and did have a normal white count x-ray did not show any suspicious for osteomyelitis 2-bone scan is currently in progress which if negative and the patient right second toe amputation site wound is almost healed we may be able to discontinue antibiotic 3-for now continue cefepime with the patient seemed to have tolerated Patient and has multiple questions were answered Time with Patient: Less than 30
--- NOTE | 2022-12-13 16:18 | P.PN ---
Subjective Progress Note Date: 12/13/22 77-year-old is admitted the for malfunctioning PICC line patient is supposed to be receiving cefepime for osteomyelitis of the right foot. Patient also found to be dehydrated with elevated serum creatinine is 1.2 previous and around 0.9 and patient is being started on IV fluids patient is clinically dehydrated. 12/13/2022 Patient is evaluated today sitting up in bed. Patient has multiple complaints including left hip pain s/p fall, neck pain dizziness, shortness of breath. He is found to be 100% on 2L nasal cannula with clear lung sounds. States the dizziness is worse with eyes closed and feels like he is going down a tunnel. He had a hip xray done which is negative for any bony abnormalities of the left hip. He had a bone scan done today which suggests changes to the distal metatarsal region more suggestive of post surgical changes. No evidence for suspicious three-phase uptake to suggest underlying osteomyelitis. Patient is offered antivert. Swallow evaluation and cognitive assessment completed by DAY CAMP COUNSELOR and patient is cleared for regular diet. Patient is pending PT/OT evaluation may require subacute rehab on discharge. Cognitive assessment reveals mild cognitive impairment patient reveals 90% accuracy and this appears more an acute issue patient and confirm prior to this hospital stay his mentation was better. He had PICC Line placed. Review of Systems Constitutional: Denied any fatigue denied any fever. Cardio vascular: denied any chest pain, palpitations Gastrointestinal: denied any nausea, vomiting, diarrhea Pulmonary: Denied any shortness of breath cough Neurologic denied any new focal deficits, Reports dizziness and room spinning. All inpatient medications were reviewed and appropriate changes in these medications as dictated in the interval history and assessment and plan. PHYSICAL EXAMINATION: GENERAL: The patient is alert and oriented x3, not in any acute distress. Well developed, well nourished. HEENT: Pupils are round and equally reacting to light. EOMI. No scleral icterus. No conjunctival pallor. Normocephalic, atraumatic. No pharyngeal erythema. No thyromegaly dry mucous membranes. CARDIOVASCULAR: S1 and S2 present. No murmurs, rubs, or gallops. PULMONARY: Chest is clear to auscultation, no wheezing or crackles. ABDOMEN: Soft, nontender, nondistended, normoactive bowel sounds. No palpable organomegaly. MUSCULOSKELETAL: No joint swelling or deformity. EXTREMITIES: No cyanosis, clubbing, or pedal edema. NEUROLOGICAL: Gross neurological examination did not reveal any focal deficits. SKIN: No rashes. Assessment and plan -Acute renal failure: Secondary to prerenal azotemia, patient will be started on IV fluids. Patient is bit dehydrated. -History of osteomyelitis and patient is on cefepime: No recent cultures available at this time -Malfunctioning PICC line: IR has placed a new PICC Line -hyperlipidemia -Coronary artery disease with stents in the past -Sleep apnea is a CPAP machine at home DVT prophylaxis: Subcutaneous heparin GI prophylaxis: protonix Full Code Plan PICC line replaced patient continues on IV cefepime, bone scan not overly suspicious for osteomyelitis, currently pending further recommendations from ID. Patient is pending PT/OT evaluation and possibly require subacute rehab on discharge. Patient is given antivert for dizziness. Repeat labs in AM. The impression and plan of care has been dictated by Alicia Adan, Nurse Practitioner as directed. Dr. Jasmyne MD I have performed a history and physical examination and medical decision making of this patient, discussed the same with the dictator, and agree with the dictators assessment and plan as written, documented as a scribe. Based on total visit time, I have performed more than 50% of this visit. Objective - Vital Signs Vital signs: Vital Signs Temp 98.1 F 12/13/22 07:30 Pulse 69 12/13/22 07:30 Resp 16 12/13/22 07:30 BP 164/81 12/13/22 07:30 Pulse Ox 100 12/13/22 07:30 FiO2 Intake & Output 12/12/22 12/13/22 12/13/22 18:59 06:59 18:59 Output Total 1440 251 640 Balance -1440 -251 -640 Weight 49.895 kg 49.895 kg Output: Urine 1440 250 640 Uretheral (Basurto) 600 Stool 1 Other: Voiding Method Indwelling Catheter # Bowel Movements 1 - Labs CBC & Chem 7: 12/12/22 10:04 12/12/22 10:04 Labs: Abnormal Lab Results - Last 24 Hours (Table) 12/12/22 Range/Units 15:06 Urine Protein Trace H (Negative) Urine Blood Small H (Negative) Urine Mucus Rare H (None) /hpf Assessment and Plan Time with Patient: Less than 30
--- NOTE | 2022-12-13 16:49 | XR ---
EXAMINATION TYPE: XR cervical spine comp DATE OF EXAM: 12/13/2022 4:10 PM INDICATION: Patient age:Male; 77 years old; Reason for study: neck pain and dizziness; PHH. COMPARISON: CT brain C-spine 04/19/2022, cervical spine radiograph 09/10/2013 TECHNIQUE: The cervical spine was imaged in frontal, swimmer's, bilateral oblique, and odontoid proje ctions. FINDINGS: No acute fracture. Similar grade 2 anterolisthesis of C4 on C5 from prior CT 04/19/2022. tThere are o steophytes noted throughout the cervical spine on the anterior and lateral aspects of the vertebral b odies. Multilevel disc space narrowing with facet arthropathy. Pedicles are intact. Soft tissues are within normal limits. The odontoid appears intact. Sternotomy wires demonstrated. Mediastinal post C ABG changes demonstrated. Partial visualization of left PICC line. IMPRESSION: 1. No fracture or dislocation. 2. Similar grade 2 anterolisthesis of C4 on C5 from prior CT 04/19/2022. 3. Mild to moderate degenerative disc disease.
[2022-12-13] MEDS: TAMSULOSIN 0.4 MG CAP.ER.24H PO SCH (20:38)
[2022-12-13] MEDS: ASPIRIN 81 MG PO SCH (20:38)
[2022-12-13] MEDS: ATORVASTATIN 40 MG TAB PO SCH (20:39)
[2022-12-13] MEDS: ONDANSETRON ODT 4 MG TAB PO PRN (20:52)
[2022-12-14] MEDS: SODIUM CHLORIDE 0.9% 1,000 ML IV SCH (06:22)
[2022-12-14] MEDS: carvediloL 6.25 MG TAB PO SCH ×2 (06:22→17:22)
[2022-12-14 06:59] LABS: African American GFR (CKD) 79 (>60 ml/min/1.73 sqM); Anion Gap 6 mmol/L; Blood Urea Nitrogen 24 mg/dL (9-20); Calcium 8.2 mg/dL (8.4-10.2); Carbon Dioxide 17 mmol/L (22-30); Chloride 113 mmol/L (98-107); Glucose 83 mg/dL (74-99); Non-African American GFR(CKD) 68 (>60 ml/min/1.73 sqM); Sodium 136 mmol/L (137-145)
[2022-12-14 07:08] LABS: Potassium 4.4 mmol/L (3.5-5.1)
[2022-12-14] MEDS: CEFEPIME 2 GM in SODIUM CHLORIDE 0.9% 100 ML IVPB SCH ×2 (11:03→21:29)
[2022-12-14] MEDS: PANTOPRAZOLE 40 MG TABLET PO SCH ×2 (11:04→20:06)
[2022-12-14] MEDS: LACTULOSE 20 GM/30 ML CUP PO SCH ×3 (11:04→20:06)
[2022-12-14] MEDS: HEPARIN SODIUM,PORCINE/PF 5,000 UNIT/0.5 ML SYRINGE SQ SCH ×2 (11:04→20:06)
[2022-12-14] MEDS: ISOSORBIDE MONONITRATE ER 30 MG TAB.ER.24H PO SCH (11:04)
[2022-12-14] MEDS: PRIMIDONE 50 MG TAB PO SCH ×2 (11:05→20:06)
[2022-12-14] MEDS: LIDOCAINE 5% PATCH TOPICAL SCH (11:05)
[2022-12-14] MEDS: CLOPIDOGREL 75 MG TAB PO SCH (11:05)
[2022-12-14] MEDS: GABAPENTIN 300 MG CAP PO SCH ×2 (11:10→20:06)
[2022-12-14] MEDS: ONDANSETRON ODT 4 MG TAB PO PRN ×2 (11:55→20:06)
--- NOTE | 2022-12-14 16:24 | P.PN ---
Subjective Progress Note Date: 12/14/22 77-year-old is admitted the for malfunctioning PICC line patient is supposed to be receiving cefepime for osteomyelitis of the right foot. Patient also found to be dehydrated with elevated serum creatinine is 1.2 previous and around 0.9 and patient is being started on IV fluids patient is clinically dehydrated. 12/13/2022 Patient is evaluated today sitting up in bed. Patient has multiple complaints including left hip pain s/p fall, neck pain dizziness, shortness of breath. He is found to be 100% on 2L nasal cannula with clear lung sounds. States the dizziness is worse with eyes closed and feels like he is going down a tunnel. He had a hip xray done which is negative for any bony abnormalities of the left hip. He had a bone scan done today which suggests changes to the distal metatarsal region more suggestive of post surgical changes. No evidence for suspicious three-phase uptake to suggest underlying osteomyelitis. Patient is offered antivert. Swallow evaluation and cognitive assessment completed by FASHION MODEL and patient is cleared for regular diet. Patient is pending PT/OT evaluation may require subacute rehab on discharge. Cognitive assessment reveals mild cognitive impairment patient reveals 90% accuracy and this appears more an acute issue patient and confirm prior to this hospital stay his mentation was better. He had PICC Line placed. 12/14/2022 Discussed with infectious disease and patient will not require a PICC line and discharge as can be discontinued upon discharge to the subacute rehab which most likely happened on Friday. PT OT has evaluated recommended subacute rehab, this has been a psych social worker progress. She reports decreased dizziness with a dose of Antivert that has been given. Discussed x-ray findings with patient and there is degenerative changes that are chronic in nature with no acute osseous abnormalities. Bone scan reveals no evidence for osteomyelitis. Review of Systems Constitutional: Denied any fatigue denied any fever. Cardio vascular: denied any chest pain, palpitations Gastrointestinal: denied any nausea, vomiting, diarrhea Pulmonary: Denied any shortness of breath cough Neurologic denied any new focal deficits. All inpatient medications were reviewed and appropriate changes in these medications as dictated in the interval history and assessment and plan. PHYSICAL EXAMINATION: GENERAL: The patient is alert and oriented x3, not in any acute distress. Well developed, well nourished. HEENT: Pupils are round and equally reacting to light. EOMI. No scleral icterus. No conjunctival pallor. Normocephalic, atraumatic. No pharyngeal erythema. No thyromegaly dry mucous membranes. CARDIOVASCULAR: S1 and S2 present. No murmurs, rubs, or gallops. PULMONARY: Chest is clear to auscultation, no wheezing or crackles. ABDOMEN: Soft, nontender, nondistended, normoactive bowel sounds. No palpable organomegaly. MUSCULOSKELETAL: No joint swelling or deformity. EXTREMITIES: No cyanosis, clubbing, or pedal edema. NEUROLOGICAL: Gross neurological examination did not reveal any focal deficits. Diffuse weakness. SKIN: No rashes. Assessment and plan -Acute renal failure: Secondary to prerenal azotemia, patient will be started on IV fluids. Labs have improved. Dizziness has improved. -History of osteomyelitis and patient is on cefepime: No recent cultures available at this time, bone scan reveals no evidence for osteomyelitis. -Malfunctioning PICC line: IR has placed a new PICC Line -hyperlipidemia -Coronary artery disease with stents in the past -Sleep apnea is a CPAP machine at home -Chronic back pain with imaging reveal chronic changes. DVT prophylaxis: Subcutaneous heparin GI prophylaxis: protonix Full Code Plan PICC line replaced patient continues on IV cefepime, bone scan not overly suspicious for osteomyelitis, IV antibiotics being continued while inpatient, no IV antibiotics or PiCC line needed on discharge per ID. Patient is pending discharged and maurice require subacute rehab on discharge. Patient is given antivert for dizziness and symptoms have improved. Repeat labs in AM. Follow up with Dr. Dominique on discharge. The impression and plan of care has been dictated by Alicia Adan, Nurse Practitioner as directed. Dr. Jasmyne MD I have performed a history and physical examination and medical decision making of this patient, discussed the same with the dictator, and agree with the dictators assessment and plan as written, documented as a scribe. Based on total visit time, I have performed more than 50% of this visit. Objective - Vital Signs Vital signs: Vital Signs Temp 98.1 F 12/14/22 07:00 Pulse 61 12/14/22 07:00 Resp 16 12/14/22 07:00 BP 130/73 12/14/22 07:00 Pulse Ox 100 12/14/22 07:00 FiO2 Intake & Output 12/13/22 12/14/22 12/14/22 18:59 06:59 18:59 Intake Total 236 118 Output Total 640 902 Balance -404 -902 118 Weight 49.895 kg Intake: Oral 236 118 Output: Urine 640 900 Stool 2 Other: Voiding Method Indwelling Catheter Indwelling Catheter # Bowel Movements 1 1 - Labs CBC & Chem 7: 12/12/22 10:04 12/14/22 06:03 Labs: Abnormal Lab Results - Last 24 Hours (Table) 12/14/22 Range/Units 06:03 Sodium 136 L (137-145) mmol/L Chloride 113 H (98-107) mmol/L Carbon Dioxide 17 L (22-30) mmol/L BUN 24 H (9-20) mg/dL Calcium 8.2 L (8.4-10.2) mg/dL Microbiology - Last 24 Hours (Table) 12/12/22 10:50 Blood Culture - Preliminary Blood 12/12/22 10:45 Blood Culture - Preliminary Blood Assessment and Plan Time with Patient: Less than 30
[2022-12-14] MEDS: ATORVASTATIN 40 MG TAB PO SCH (20:06)
[2022-12-14] MEDS: ASPIRIN 81 MG PO SCH (20:06)
[2022-12-14] MEDS: TAMSULOSIN 0.4 MG CAP.ER.24H PO SCH (20:06)
[2022-12-15] MEDS: oxyCODONE-APAP 10-325MG 1 EACH TAB PO PRN ×2 (00:06→16:02)
[2022-12-15] MEDS: carvediloL 6.25 MG TAB PO SCH ×2 (06:42→18:15)
[2022-12-15 07:57] VITALS: RESP 16
[2022-12-15] MEDS: CEFEPIME 2 GM in SODIUM CHLORIDE 0.9% 100 ML IVPB SCH ×2 (08:59→21:04)
[2022-12-15] MEDS: ONDANSETRON ODT 4 MG TAB PO PRN ×2 (08:59→20:08)
[2022-12-15] MEDS: GABAPENTIN 300 MG CAP PO SCH ×2 (08:59→20:08)
[2022-12-15] MEDS: CLOPIDOGREL 75 MG TAB PO SCH (08:59)
[2022-12-15] MEDS: PANTOPRAZOLE 40 MG TABLET PO SCH ×2 (08:59→20:08)
[2022-12-15] MEDS: HEPARIN SODIUM,PORCINE/PF 5,000 UNIT/0.5 ML SYRINGE SQ SCH ×2 (08:59→20:09)
[2022-12-15] MEDS: ISOSORBIDE MONONITRATE ER 30 MG TAB.ER.24H PO SCH (08:59)
[2022-12-15] MEDS: LACTULOSE 20 GM/30 ML CUP PO SCH ×3 (09:00→20:09)
[2022-12-15] MEDS: LIDOCAINE 5% PATCH TOPICAL SCH (09:00)
[2022-12-15] MEDS: PRIMIDONE 50 MG TAB PO SCH ×2 (09:02→20:08)
--- NOTE | 2022-12-15 14:13 | P.PN ---
Subjective Progress Note Date: 12/15/22 77-year-old is admitted the for malfunctioning PICC line patient is supposed to be receiving cefepime for osteomyelitis of the right foot. Patient also found to be dehydrated with elevated serum creatinine is 1.2 previous and around 0.9 and patient is being started on IV fluids patient is clinically dehydrated. 12/13/2022 Patient is evaluated today sitting up in bed. Patient has multiple complaints including left hip pain s/p fall, neck pain dizziness, shortness of breath. He is found to be 100% on 2L nasal cannula with clear lung sounds. States the dizziness is worse with eyes closed and feels like he is going down a tunnel. He had a hip xray done which is negative for any bony abnormalities of the left hip. He had a bone scan done today which suggests changes to the distal metatarsal region more suggestive of post surgical changes. No evidence for suspicious three-phase uptake to suggest underlying osteomyelitis. Patient is offered antivert. Swallow evaluation and cognitive assessment completed by SPREAD CUTTER and patient is cleared for regular diet. Patient is pending PT/OT evaluation may require subacute rehab on discharge. Cognitive assessment reveals mild cognitive impairment patient reveals 90% accuracy and this appears more an acute issue patient and confirm prior to this hospital stay his mentation was better. He had PICC Line placed. 12/14/2022 Discussed with infectious disease and patient will not require a PICC line and discharge as can be discontinued upon discharge to the subacute rehab which most likely happened on Friday. PT OT has evaluated recommended subacute rehab, this has been a manager social responsibility progress. She reports decreased dizziness with a dose of Antivert that has been given. Discussed x-ray findings with patient and there is degenerative changes that are chronic in nature with no acute osseous abnormalities. Bone scan reveals no evidence for osteomyelitis. 12/15/2022 Patient evaluated today resting in bed would like to increase his activity level and patient can have IDC removed for voiding trial at this time. Patient reports improvement in symptoms does report some ear fullness is continued on IV antibiotics currently and has been started on antivert. No further complaints of dizziness or lightheadedness. Review of Systems Constitutional: Denied any fatigue denied any fever. Cardio vascular: denied any chest pain, palpitations Gastrointestinal: denied any nausea, vomiting, diarrhea Pulmonary: Denied any shortness of breath cough Neurologic denied any new focal deficits. All inpatient medications were reviewed and appropriate changes in these medications as dictated in the interval history and assessment and plan. PHYSICAL EXAMINATION: GENERAL: The patient is alert and oriented x3, not in any acute distress. Well developed, well nourished. HEENT: Pupils are round and equally reacting to light. EOMI. No scleral icterus. No conjunctival pallor. Normocephalic, atraumatic. No pharyngeal erythema. No thyromegaly dry mucous membranes. CARDIOVASCULAR: S1 and S2 present. No murmurs, rubs, or gallops. PULMONARY: Chest is clear to auscultation, no wheezing or crackles. ABDOMEN: Soft, nontender, nondistended, normoactive bowel sounds. No palpable organomegaly. MUSCULOSKELETAL: No joint swelling or deformity. EXTREMITIES: No cyanosis, clubbing, or pedal edema. NEUROLOGICAL: Gross neurological examination did not reveal any focal deficits. Diffuse weakness. SKIN: No rashes. Assessment and plan -Acute renal failure: Secondary to prerenal azotemia, patient is hydrated. Labs have improved. Dizziness has improved. -History of osteomyelitis and patient is on cefepime: No recent cultures available at this time, bone scan reveals no evidence for osteomyelitis. -Malfunctioning PICC line: IR has placed a new PICC Line -hyperlipidemia -Coronary artery disease with stents in the past -Sleep apnea is a CPAP machine at home -Chronic back pain with imaging reveal chronic changes. DVT prophylaxis: Subcutaneous heparin GI prophylaxis: protonix Full Code Plan PICC line replaced patient continues on IV cefepime, bone scan not overly suspicious for osteomyelitis, IV antibiotics being continued while inpatient, no IV antibiotics or PiCC line needed on discharge per ID. Patient is pending discharged and maurice require subacute rehab on discharge. Patient is given antivert for dizziness and symptoms have improved. Repeat labs in AM. Follow up with Dr. Dominique on discharge. The impression and plan of care has been dictated by Alicia Adan, Nurse Practitioner as directed. Dr. Jasmyne MD I have performed a history and physical examination and medical decision making of this patient, discussed the same with the dictator, and agree with the dictators assessment and plan as written, documented as a scribe. Based on total visit time, I have performed more than 50% of this visit. Objective - Vital Signs Vital signs: Vital Signs Temp 98.3 F 12/15/22 07:00 Pulse 70 12/15/22 07:00 Resp 16 12/15/22 07:00 BP 159/83 12/15/22 07:00 Pulse Ox 98 12/15/22 07:00 FiO2 Intake & Output 12/14/22 12/15/22 12/15/22 18:59 06:59 18:59 Intake Total 236 118 Output Total 801 1001 Balance -565 -1001 118 Intake: Oral 236 118 Output: Urine 800 1000 Stool 1 1 Other: Voiding Method Indwelling Catheter Indwelling Catheter Indwelling Catheter # Voids 1 # Bowel Movements 2 0 - Labs CBC & Chem 7: 12/12/22 10:04 12/14/22 06:03 Labs: Microbiology - Last 24 Hours (Table) 12/12/22 10:50 Blood Culture - Preliminary Blood 12/12/22 10:45 Blood Culture - Preliminary Blood Assessment and Plan Time with Patient: Less than 30
[2022-12-15] MEDS: TAMSULOSIN 0.4 MG CAP.ER.24H PO SCH (20:08)
[2022-12-15] MEDS: ATORVASTATIN 40 MG TAB PO SCH (20:08)
[2022-12-15] MEDS: ASPIRIN 81 MG PO SCH (20:08)
[2022-12-16] MEDS: carvediloL 6.25 MG TAB PO SCH ×2 (05:55→18:03)
[2022-12-16] MEDS: PRIMIDONE 50 MG TAB PO SCH ×2 (09:30→21:55)
[2022-12-16] MEDS: LACTULOSE 20 GM/30 ML CUP PO SCH (09:30)
[2022-12-16] MEDS: CLOPIDOGREL 75 MG TAB PO SCH (09:31)
[2022-12-16] MEDS: PANTOPRAZOLE 40 MG TABLET PO SCH ×2 (09:31→21:56)
[2022-12-16] MEDS: GABAPENTIN 300 MG CAP PO SCH ×2 (09:31→21:56)
[2022-12-16] MEDS: HEPARIN SODIUM,PORCINE/PF 5,000 UNIT/0.5 ML SYRINGE SQ SCH ×2 (09:31→21:59)
[2022-12-16] MEDS: ISOSORBIDE MONONITRATE ER 30 MG TAB.ER.24H PO SCH (09:31)
[2022-12-16] MEDS: CEFEPIME 2 GM in SODIUM CHLORIDE 0.9% 100 ML IVPB SCH ×2 (09:31→21:58)
[2022-12-16] MEDS: LIDOCAINE 5% PATCH TOPICAL SCH (09:32)
[2022-12-16] MEDS: oxyCODONE-APAP 10-325MG 1 EACH TAB PO PRN ×2 (10:07→21:56)
--- NOTE | 2022-12-16 12:33 | P.PN ---
Subjective Progress Note Date: 12/14/22 Principal diagnosis: Right second toe amputation site wound and osteomyelitis Patient is a 77-year-old male with multiple comorbidity recently diagnosed in the outpatient setting with Osteomyelitis to the right second toe amputation site culture were positive for pseudomonas that was resistant to Cipro for the patient did get a PICC line and was getting cefepime in the outpatient setting admitted to the hospital with weakness and mental status changes On today's evaluation that is 12/14/2022, patient remains to be afebrile, the patient is breathing comfortably on a 2 L nasal cannula oxygen no chest pain or shortness of cough no abdominal pain or any worsening pain to the right second toe amputation site Objective - Vital Signs Vital signs: Vital Signs Temp 98.1 F 12/14/22 07:00 Pulse 61 12/14/22 07:00 Resp 16 12/14/22 07:00 BP 130/73 12/14/22 07:00 Pulse Ox 100 12/14/22 07:00 FiO2 Intake & Output 12/13/22 12/14/22 12/14/22 18:59 06:59 18:59 Intake Total 236 118 Output Total 640 902 1 Balance -404 -902 117 Weight 49.895 kg Intake: Oral 236 118 Output: Urine 640 900 Stool 2 1 Other: Voiding Method Indwelling Catheter Indwelling Catheter Indwelling Catheter # Bowel Movements 1 1 - Exam GENERAL DESCRIPTION: An elderly male lying in bed in no distress RESPIRATORY SYSTEM: Unlabored breathing , decreased breath sounds at bases HEART: S1 S2 regular rate and rhythm , ABDOMEN: Soft , no tenderness EXTREMITIES: Right second toe amputation site is currently healed with no swelling redness or drainage - Labs CBC & Chem 7: 12/12/22 10:04 12/14/22 06:03 Labs: Abnormal Lab Results - Last 24 Hours (Table) 12/14/22 Range/Units 06:03 Sodium 136 L (137-145) mmol/L Chloride 113 H (98-107) mmol/L Carbon Dioxide 17 L (22-30) mmol/L BUN 24 H (9-20) mg/dL Calcium 8.2 L (8.4-10.2) mg/dL Microbiology - Last 24 Hours (Table) 12/12/22 10:50 Blood Culture - Preliminary Blood 12/12/22 10:45 Blood Culture - Preliminary Blood Assessment and Plan (1) Right foot infection Current Visit: Yes Status: Acute Code(s): L08.9 - LOCAL INFECTION OF THE SKIN AND SUBCUTANEOUS TISSUE, UNSP SNOMED Code(s): 882662698 Plan: 1patient with a nonhealing wound to the right second toe amputation site with outpatient culture positive for Pseudomonas aeruginosa that was resistant to Cipro and the patient has been getting cefepime in the outpatient setting however the patient not been compliant with it now presenting to the hospital with weakness dizziness concerning for possible dehydration as no evidence of any worsening infection to the right second amputation site was noticed patient is afebrile and did have a normal white count x-ray did not show any suspicious for osteomyelitis 2-bone scan negative for Osteomyelitis, patient sed rate was normal at 8 CRP 1.7 3-for now continue cefepime Time with Patient: Less than 30
--- NOTE | 2022-12-16 12:34 | P.PN ---
Subjective Progress Note Date: 12/15/22 Principal diagnosis: Right second toe amputation site wound and osteomyelitis Patient is a 77-year-old male with multiple comorbidity recently diagnosed in the outpatient setting with Osteomyelitis to the right second toe amputation site culture were positive for pseudomonas that was resistant to Cipro for the patient did get a PICC line and was getting cefepime in the outpatient setting admitted to the hospital with weakness and mental status changes On today's evaluation that is 12/15/2022, patient continues to be afebrile, the patient is breathing comfortably on a 2 L nasal cannula oxygen , the patient denies chest pain or shortness of cough no abdominal pain or any worsening pain to the right second toe amputation site Objective - Vital Signs Vital signs: Vital Signs Temp 98.3 F 12/15/22 07:00 Pulse 70 12/15/22 07:00 Resp 16 12/15/22 07:00 BP 159/83 12/15/22 07:00 Pulse Ox 98 12/15/22 07:00 FiO2 Intake & Output 12/14/22 12/15/22 12/15/22 18:59 06:59 18:59 Intake Total 236 118 Output Total 801 1001 Balance -565 -1001 118 Intake: Oral 236 118 Output: Urine 800 1000 Stool 1 1 Other: Voiding Method Indwelling Catheter Indwelling Catheter Indwelling Catheter # Voids 1 # Bowel Movements 2 0 - Exam GENERAL DESCRIPTION: An elderly male lying in bed in no distress RESPIRATORY SYSTEM: Unlabored breathing , decreased breath sounds at bases HEART: S1 S2 regular rate and rhythm , ABDOMEN: Soft , no tenderness EXTREMITIES: Right second toe amputation site is currently healed with no swelling redness or drainage - Labs CBC & Chem 7: 12/12/22 10:04 12/14/22 06:03 Labs: Microbiology - Last 24 Hours (Table) 12/12/22 10:50 Blood Culture - Preliminary Blood 12/12/22 10:45 Blood Culture - Preliminary Blood Assessment and Plan (1) Right foot infection Current Visit: Yes Status: Acute Code(s): L08.9 - LOCAL INFECTION OF THE SKIN AND SUBCUTANEOUS TISSUE, UNSP SNOMED Code(s): 348172745 Plan: 1patient with a nonhealing wound to the right second toe amputation site with outpatient culture positive for Pseudomonas aeruginosa that was resistant to Cipro and the patient has been getting cefepime in the outpatient setting however the patient not been compliant with it now presenting to the hospital with weakness dizziness concerning for possible dehydration as no evidence of any worsening infection to the right second amputation site was noticed patient is afebrile and did have a normal white count x-ray did not show any suspicious for osteomyelitis 2-bone scan negative for Osteomyelitis, patient sed rate was normal at 8 CRP 1.7, however can be discontinued on discharge and PICC line can be removed discussed with the COLOR GRINDER for admitting team Family at the bedside, and they have multiple questions concerned were answered in Layman terms Time with Patient: Less than 30
--- NOTE | 2022-12-16 12:35 | P.PN ---
Subjective Progress Note Date: 12/16/22 Principal diagnosis: Right second toe amputation site wound and osteomyelitis Patient is a 77-year-old male with multiple comorbidity recently diagnosed in the outpatient setting with Osteomyelitis to the right second toe amputation site culture were positive for pseudomonas that was resistant to Cipro for the patient did get a PICC line and was getting cefepime in the outpatient setting admitted to the hospital with weakness and mental status changes On today's evaluation that is 12/16/2022, patient denies any fever or chills, the patient is breathing comfortably on room air , the patient denies chest pain or shortness of cough no abdominal pain or any worsening pain to the right second toe amputation site Objective - Vital Signs Vital signs: Vital Signs Temp 98.0 F 12/16/22 07:00 Pulse 64 12/16/22 07:00 Resp 16 12/16/22 07:00 BP 164/87 12/16/22 07:00 Pulse Ox 97 12/16/22 07:00 FiO2 Intake & Output 12/15/22 12/16/22 12/16/22 18:59 06:59 18:59 Intake Total 118 60 Output Total 920 1700 Balance -802 -1700 60 Intake: Oral 118 60 Output: Urine 920 1700 Other: Voiding Method Indwelling Catheter Indwelling Catheter - Exam GENERAL DESCRIPTION: An elderly male lying in bed in no distress RESPIRATORY SYSTEM: Unlabored breathing , decreased breath sounds at bases HEART: S1 S2 regular rate and rhythm , ABDOMEN: Soft , no tenderness EXTREMITIES: Right second toe amputation site is currently healed with no swelling redness or drainage - Labs CBC & Chem 7: 12/12/22 10:04 12/14/22 06:03 Labs: Microbiology - Last 24 Hours (Table) 12/12/22 10:50 Blood Culture - Preliminary Blood 12/12/22 10:45 Blood Culture - Preliminary Blood Assessment and Plan (1) Right foot infection Current Visit: Yes Status: Acute Code(s): L08.9 - LOCAL INFECTION OF THE SKIN AND SUBCUTANEOUS TISSUE, UNSP SNOMED Code(s): 614402638 Plan: 1patient with a nonhealing wound to the right second toe amputation site with outpatient culture positive for Pseudomonas aeruginosa that was resistant to Cipro and the patient has been getting cefepime in the outpatient setting however the patient not been compliant with it now presenting to the hospital with weakness dizziness concerning for possible dehydration as no evidence of any worsening infection to the right second amputation site was noticed patient is afebrile and did have a normal white count x-ray did not show any suspicious for osteomyelitis 2-patient bone scan negative for Osteomyelitis and right foot, patient sed rate was normal at 8 CRP 1.7, cefepime can be discontinued on discharge and PICC line should be removed at discharge Time with Patient: Less than 30
[2022-12-16] MEDS: COLLAGENASE 250 UNIT/GM OINTMENT 30 GM TUBE TOPICAL SCH (19:42)
--- NOTE | 2022-12-16 21:31 | P.PN ---
Subjective Progress Note Date: 12/16/22 77-year-old is admitted the for malfunctioning PICC line patient is supposed to be receiving cefepime for osteomyelitis of the right foot. Patient also found to be dehydrated with elevated serum creatinine is 1.2 previous and around 0.9 and patient is being started on IV fluids patient is clinically dehydrated. 12/13/2022 Patient is evaluated today sitting up in bed. Patient has multiple complaints including left hip pain s/p fall, neck pain dizziness, shortness of breath. He is found to be 100% on 2L nasal cannula with clear lung sounds. States the dizziness is worse with eyes closed and feels like he is going down a tunnel. He had a hip xray done which is negative for any bony abnormalities of the left hip. He had a bone scan done today which suggests changes to the distal metatarsal region more suggestive of post surgical changes. No evidence for suspicious three-phase uptake to suggest underlying osteomyelitis. Patient is offered antivert. Swallow evaluation and cognitive assessment completed by MACHINE GRINDER and patient is cleared for regular diet. Patient is pending PT/OT evaluation may require subacute rehab on discharge. Cognitive assessment reveals mild cognitive impairment patient reveals 90% accuracy and this appears more an acute issue patient and confirm prior to this hospital stay his mentation was better. He had PICC Line placed. 12/14/2022 Discussed with infectious disease and patient will not require a PICC line and discharge as can be discontinued upon discharge to the subacute rehab which most likely happened on Friday. PT OT has evaluated recommended subacute rehab, this has been a social worker aide progress. She reports decreased dizziness with a dose of Antivert that has been given. Discussed x-ray findings with patient and there is degenerative changes that are chronic in nature with no acute osseous abnormalities. Bone scan reveals no evidence for osteomyelitis. 12/15/2022 Patient evaluated today resting in bed would like to increase his activity level and patient can have IDC removed for voiding trial at this time. Patient reports improvement in symptoms does report some ear fullness is continued on IV antibiotics currently and has been started on antivert. No further complaints of dizziness or lightheadedness. 12/16/2022 Patient is seen and evaluated and follow-up and is continued on IV antibiotics in the form of cefepime with infectious disease following closely. Patient currently continues with a PICC line and will continue as patient will likely need continued antibiotics outpatient. Patient with significant weakness recommending rehab and patient is agreeable. Social work following awaiting PT/OT therapy notes. Patient will require insurance authorization. Patient is currently afebrile with no reports of chest pain or shortness of breath. Patient is tolerating diet with no reports of nausea or vomiting noted. Patient reports he noted some drainage of his right foot second toe amputation site and patient also noted to be noncompliant with cefepime as he reports it causes him nausea and nursing staff reports he refused this morning's dose. We'll schedule Zofran with cefepime doses and as needed Zofran as patient reports this helps. Review of Systems Constitutional: Denied any fatigue denied any fever. Cardio vascular: denied any chest pain, palpitations Gastrointestinal: Reports nausea with antibiotics, no vomiting, diarrhea Pulmonary: Denied any shortness of breath cough Neurologic denied any new focal deficits.Reports generalized weakness All inpatient medications were reviewed and appropriate changes in these medications as dictated in the interval history and assessment and plan. PHYSICAL EXAMINATION: GENERAL: The patient is alert and oriented x3, thin built, elderly appearing male significant muscle wasting noted HEENT: Pupils are round and equally reacting to light. EOMI. No scleral icterus. No conjunctival pallor. Normocephalic, atraumatic. No pharyngeal erythema. No thyromegaly dry mucous membranes. CARDIOVASCULAR: S1 and S2 present. No murmurs, rubs, or gallops. PULMONARY: Chest is clear to auscultation, no wheezing or crackles. ABDOMEN: Soft, nontender, nondistended, normoactive bowel sounds. No palpable organomegaly. MUSCULOSKELETAL: No joint swelling or deformity. EXTREMITIES: No cyanosis, clubbing, or pedal edema. right foot second toe amputation site with some sloughing and thin layer of purulence noted, appears to look like a moistened scab NEUROLOGICAL: Gross neurological examination did not reveal any focal deficits. Diffuse weakness. SKIN: No rashes. Assessment : -Acute renal failure: Secondary to prerenal azotemia, patient is hydrated. Labs have improved. Dizziness has improved. -History of osteomyelitis and patient is on cefepime: No recent cultures available at this time, bone scan reveals no evidence for osteomyelitis. -Malfunctioning PICC line: IR has placed a new PICC Line -hyperlipidemia -Coronary artery disease with stents in the past -Sleep apnea is a CPAP machine at home -Chronic back pain with imaging reveal chronic changes. -Moderate protein calorie malnutrition with a BMI of 17.2 -Generalized weakness with gait dysfunction -DVT prophylaxis: Subcutaneous heparin -GI prophylaxis: protonix -Full Code Plan: PICC line replaced patient continues on IV cefepime, bone scan not overly suspicious for osteomyelitis, IV antibiotics being continued while inpatient and will discuss further with infectious disease as there is some sloughing and purulence noted at the site of the right foot second toe amputation site patient reports he feels nauseated with cefepime and has been refusing although reports Zofran helps and will make Zofran scheduled prior to antibiotics Social work following and working on ECF and will need insurance authorization. Recommend repeat labs and replace lytes per protocol Encouraged oral intake. Recommend to continue with local wound care per ID Possible discharge in the next 24-48 hours. The impression and plan of care has been dictated by Nurse Joe Pract itioner as directed. Dr. Jean MD I have performed a history and examination and MDM of this patient, discussed the same with the dictator, and agree with the dictator's assessment and plan as written ,documented as a scribe. Based on total visit time, I have performed more than 50% of the visit. Objective - Vital Signs Vital signs: Vital Signs Temp 98.0 F 12/16/22 07:00 Pulse 64 12/16/22 07:00 Resp 16 12/16/22 07:00 BP 164/87 12/16/22 07:00 Pulse Ox 97 12/16/22 07:00 FiO2 Intake & Output 12/15/22 12/16/22 12/16/22 18:59 06:59 18:59 Intake Total 118 60 Output Total 920 1700 Balance -802 -1700 60 Weight 49.895 kg Intake: Oral 118 60 Output: Urine 920 1700 Other: Voiding Method Indwelling Catheter Indwelling Catheter - Labs CBC & Chem 7: 12/12/22 10:04 12/14/22 06:03 Labs: Microbiology - Last 24 Hours (Table) 12/12/22 10:50 Blood Culture - Preliminary Blood 12/12/22 10:45 Blood Culture - Preliminary Blood
[2022-12-16] MEDS: TAMSULOSIN 0.4 MG CAP.ER.24H PO SCH (21:55)
[2022-12-16] MEDS: ASPIRIN 81 MG PO SCH (21:56)
[2022-12-16] MEDS: ATORVASTATIN 40 MG TAB PO SCH (21:56)
[2022-12-16] MEDS: ONDANSETRON ODT 4 MG TAB PO SCH (21:56)
[2022-12-17] MEDS: carvediloL 6.25 MG TAB PO SCH (06:14)
[2022-12-17 06:28] LABS: Basophils # (A) 0.1 k/uL (0-0.2); Basophils % (A) 1 %; Eosinophils # (A) 0.5 k/uL (0-0.7); Eosinophils % (A) 6 %; HCT 35.6 % (39.0-53.0); HGB 11.6 gm/dL (13.0-17.5); Lymphocytes # (A) 2.4 k/uL (1.0-4.8); Lymphocytes % (A) 28 %; MCH 33.8 pg (25.0-35.0); MCHC 32.5 g/dL (31.0-37.0); MCV 103.8 fL (80.0-100.0); Macrocytosis Slight; Mean Platelet Volume 8.1; Monocytes # (A) 0.7 k/uL (0-1.0); Monocytes % (A) 9 %; Neutrophils # (A) 4.7 k/uL (1.3-7.7); Neutrophils % (A) 55 %; Platelet Count 193 k/uL (150-450); RBC 3.43 m/uL (4.30-5.90); RDW 12.5 % (11.5-15.5); WBC 8.5 k/uL (3.8-10.6)
[2022-12-17 06:42] LABS: African American GFR (CKD) 78 (>60 ml/min/1.73 sqM); Anion Gap 6 mmol/L; Blood Urea Nitrogen 24 mg/dL (9-20); Calcium 8.5 mg/dL (8.4-10.2); Carbon Dioxide 21 mmol/L (22-30); Chloride 109 mmol/L (98-107); Glucose 88 mg/dL (74-99); Non-African American GFR(CKD) 68 (>60 ml/min/1.73 sqM); Sodium 136 mmol/L (137-145)
[2022-12-17 06:53] LABS: Magnesium 1.8 mg/dL (1.6-2.3); Potassium 5.1 mmol/L (3.5-5.1)
[2022-12-17 08:36] VITALS: BP 144/69; PULSE 67; TEMP 98.3
[2022-12-17] MEDS: HEPARIN SODIUM,PORCINE/PF 5,000 UNIT/0.5 ML SYRINGE SQ SCH (09:09)
[2022-12-17] MEDS: CEFEPIME 2 GM in SODIUM CHLORIDE 0.9% 100 ML IVPB SCH (09:09)
[2022-12-17] MEDS: ONDANSETRON ODT 4 MG TAB PO SCH (09:09)
[2022-12-17] MEDS: PRIMIDONE 50 MG TAB PO SCH (09:09)
[2022-12-17] MEDS: CLOPIDOGREL 75 MG TAB PO SCH (09:09)
[2022-12-17] MEDS: ISOSORBIDE MONONITRATE ER 30 MG TAB.ER.24H PO SCH (09:09)
[2022-12-17] MEDS: PANTOPRAZOLE 40 MG TABLET PO SCH (09:10)
[2022-12-17] MEDS: LIDOCAINE 5% PATCH TOPICAL SCH (09:10)
[2022-12-17] MEDS: COLLAGENASE 250 UNIT/GM OINTMENT 30 GM TUBE TOPICAL SCH (09:10)
[2022-12-17] MEDS: GABAPENTIN 300 MG CAP PO SCH (09:10)
--- NOTE | 2022-12-17 13:48 | P.DS ---
Providers Date of admission: 12/12/22 12:22 Expected date of discharge: 12/17/22 Attending physician: Napoleon Medley Consults: 12/12/22 14:18 Consult Physician Stat Consulting Provider: Jb Cline Consult Reason/Comments: osteomyelitis Do you want consulting provider notified?: Yes Primary care physician: Ary Graves Hospital Course: Final diagnosis -Acute renal failure: Secondary to prerenal azotemia, patient is hydrated. Labs have improved. Dizziness has improved. -History of osteomyelitis and patient is on cefepime: Right lower extremity -Malfunctioning PICC line: IR has placed a new PICC Line -hyperlipidemia -Coronary artery disease with stents in the past -Sleep apnea is a CPAP machine at home -Chronic back pain with imaging reveal chronic changes. -DVT prophylaxis: Subcutaneous heparin -GI prophylaxis: protonix -Full Code Discharge disposition Patient is being discharged in a stable condition with guarded prognosis to [facility]. Patient will follow-up with Dr. Mcallister in the outpatient setting upon discharge. Patient is to continue with IV antibiotics in the form of cefepime per ID recommendations and close outpatient follow-up in 1-2 weeks as scheduled. Recommend follow-up with orthopedics Dr. Dominique outpatient in 1-2 weeks. Total time taken is greater than 35 minutes. Hospital course This is a 77-year-old male who was recently admitted with malfunctioning PICC line also found to be dehydrated with abdominal pain and feelings of constipation and inability to urinate. Patient was closely monitored with infectious disease following and has had PICC line replaced and patient has been somewhat noncompliant with the cefepime as well reporting it causes nausea. Patient to have scheduled Zofran 1 hour prior to cefepime administration every 12 hours. ID recommendations to continue for 4 weeks and close outpatient follow-up. Repeat cultures obtained and pending and will follow-up with infectious disease in one week. Patient was continued on gentle IV hydration and improved and recommend follow-up labs of CBC, BMP in the outpatient setting in the next 2-3 days. Patient to continue with local wound care of santyl with a moistened gauze daily and elevating lower extremity per ID recommendations. Please refer to other consultation notes for further HPI. Patient has been cleared for discharge today. Insurance authorization was obtained and patient will be going to [facility]. Currently no reports of chest pain, shortness of breath, or palpitations. Patient is afebrile. No reports of nausea or vomiting and patient is tolerating diet. Patient will be going to [facility] today. Guarded prognosis and high risk for readmissions given patient's significant comorbidities. Physical exam: Gen: This is a 77-year-old male who is awake, alert and oriented 3, thin built, cachectic, elderly-appearing HEENT: Head is atraumatic, normocephalic. Pupils equal, round. Sclerae is anicteric. NECK: Supple. No JVD. No lymphadenopathy. No thyromegaly. LUNGS: Clear to auscultation. No wheezes or rhonchi. No intercostal retractions. HEART: S1, S2 are muffled ABDOMEN: Soft. Thin. Bowel sounds are present. No masses. No tenderness. EXTREMITIES: No pedal edema. No calf tenderness. Right second toe amputation site with some faint sloughing noted of the site and appears to be a moistened scab with no purulent drainage and no significant redness noted surrounding it NEUROLOGICAL: Patient is awake, alert and oriented x3. Cranial nerves 2 through 12 are grossly intact. Diffusely weak Please refer to medication reconciliation sheet for a list of medications. The impression and plan of care has been dictated by Peri Meadows, Nurse Practitioner as directed. Dr. Jean MD I have performed a history and examination and MDM of this patient, discussed the same with the dictator, and agree with the dictator's assessment and plan as written ,documented as a scribe. Based on total visit time, I have performed more than 50% of the visit. Patient Condition at Discharge: Stable Plan - Discharge Summary Discharge Rx Participant: No New Discharge Prescriptions: New Cefepime [Maxipime] 2 gm IVPB Q12HR 30 Days #60 each Heparin Sodium,Porcine [Heparin Sodium] 5,000 unit SQ Q12HR #60 each Ondansetron Odt [Zofran ODT] 4 mg PO Q12HR tab Meclizine [Antivert] 12.5 mg PO TID PRN tab PRN Reason: Vertigo Collagenase [Santyl Ointment] 1 applic TOPICAL DAILY each Continue Nitroglycerin Sl Tabs [Nitrostat] 0.4 mg SL Q5M PRN PRN Reason: Chest Pain Lansoprazole [Prevacid] 30 mg PO Q12H Atorvastatin Calcium [Lipitor] 40 mg PO HS carvediloL [Coreg] 6.25 mg PO BID Clopidogrel [Plavix] 75 mg PO DAILY Tamsulosin HCl [Flomax] 0.4 mg PO HS Primidone [Mysoline] 50 mg PO Q12H Cholecalciferol [Vitamin D3 (25 Mcg = 1000 Iu)] 25 mcg PO DAILY Aspirin EC [Ecotrin Low Dose] 81 mg PO HS Furosemide [Lasix] 40 mg PO DAILY Ondansetron Odt [Zofran ODT] 4 mg PO Q8HR PRN #24 tab PRN Reason: Nausea Gabapentin [Neurontin] 300 mg PO Q12H #4 cap modafiniL [Provigil] 200 mg PO Q12H #2 tab Lidocaine 5% Patch [Lidoderm 5% Patch] 3 patch TOPICAL DAILY Ipratropium Marshall 0.06%Nasal [Atrovent Nasal 0.06%] 2 spray EA NOSTRIL TID PRN PRN Reason: Runny Nose Naloxegol Oxalate [Movantik] 12.5 mg PO DAILY PRN PRN Reason: Constipation Isosorbide Mononitrate ER [Imdur] 30 mg PO DAILY Vitamin B Complex 1 cap PO DAILY Calcium Carbonate [Calcium] 600 mg PO DAILY oxyCODONE-APAP 10-325MG [Percocet 10-325 mg] 1 tab PO Q8HR PRN #3 tab PRN Reason: Pain Discontinued Cefepime [Maxipime] 2 gm IV Q8H Epinephrine 1mg/Ml Solution 1 - 2 mg IV ONCE PRN PRN Reason: Allergic Reaction Meloxicam [Mobic] 15 mg PO DAILY fentaNYL 50MCG/HR PATCH [Duragesic 50MCG/HR] 1 patch TRANSDERM Q72H Discharge Medication List Atorvastatin Calcium [Lipitor] 40 mg PO HS 09/04/14 [History] Lansoprazole [Prevacid] 30 mg PO Q12H 09/04/14 [History] Nitroglycerin Sl Tabs [Nitrostat] 0.4 mg SL Q5M PRN 09/04/14 [History] Clopidogrel [Plavix] 75 mg PO DAILY 08/28/16 [History] carvediloL [Coreg] 6.25 mg PO BID 08/28/16 [History] Tamsulosin HCl [Flomax] 0.4 mg PO HS 10/14/17 [History] Primidone [Mysoline] 50 mg PO Q12H 12/28/18 [History] Lidocaine 5% Patch [Lidoderm 5% Patch] 3 patch TOPICAL DAILY 03/12/22 [History] Cholecalciferol [Vitamin D3 (25 Mcg = 1000 Iu)] 25 mcg PO DAILY 04/19/22 [History] Aspirin EC [Ecotrin Low Dose] 81 mg PO HS 11/29/22 [History] Ipratropium Marshall 0.06%Nasal [Atrovent Nasal 0.06%] 2 spray EA NOSTRIL TID PRN 11/29/22 [History] Isosorbide Mononitrate ER [Imdur] 30 mg PO DAILY 11/29/22 [History] Naloxegol Oxalate [Movantik] 12.5 mg PO DAILY PRN 11/29/22 [History] Calcium Carbonate [Calcium] 600 mg PO DAILY 12/09/22 [History] Furosemide [Lasix] 40 mg PO DAILY 12/09/22 [History] Ondansetron Odt [Zofran ODT] 4 mg PO Q8HR PRN #24 tab 12/09/22 [Rx] Vitamin B Complex 1 cap PO DAILY 12/09/22 [History] Cefepime [Maxipime] 2 gm IVPB Q12HR 30 Days #60 each 12/17/22 [Rx] Collagenase [Santyl Ointment] 1 applic TOPICAL DAILY each 12/17/22 [Rx] Gabapentin [Neurontin] 300 mg PO Q12H #4 cap 12/17/22 [Rx] Heparin Sodium,Porcine [Heparin Sodium] 5,000 unit SQ Q12HR #60 each 12/17/22 [Rx] Meclizine [Antivert] 12.5 mg PO TID PRN tab 12/17/22 [Rx] Ondansetron Odt [Zofran ODT] 4 mg PO Q12HR tab 12/17/22 [Rx] modafiniL [Provigil] 200 mg PO Q12H #2 tab 12/17/22 [Rx] oxyCODONE-APAP 10-325MG [Percocet 10-325 mg] 1 tab PO Q8HR PRN #3 tab 12/17/22 [Rx] Follow up Appointment(s)/Referral(s): Star Mcallister MD [Primary Care Provider] - 1-2 days [facility] [place], [NON-STAFF] - 1 Week Jb Cline MD [STAFF PHYSICIAN] - 1 Week Activity/Diet/Wound Care/Special Instructions: Patient is going to [facility] Activity as tolerated Elevate lower extremities while at rest Recommend repeat CBC, BMP, magnesium in 2-3 days Patient is to continue with PICC line and IV antibiotics in the form of cefepime every 124 weeks Continue Zofran scheduled with cefepime every 12 hours and may use every 6 as needed for nausea Patient will continue with local wound care of applying Santyl to the right foot amputation site second toe and a moistened gauze daily and recommend follow-up with infectious disease in 1-2 weeks Discharge/Stand Alone Forms: Personal Build Automation Engineer Discharge Disposition: TRANSFER TO SNF/ECF
--- NOTE | 2022-12-18 09:34 | CDI ---
Documentation Clarification Form Date: 12/18/22 From: Honey Rodriguez Admit Date: 12/12/2022 12:22:00 PM Patient Name: Terry Miller Visit Number: [id number] Discharge Date: 12/17/2022 02:56:00 PM ATTENTION: The Clinical Documentation Specialists (CDI) and [facility] Coding Staff appreciate your assistance in clarifying documentation. Please respond to the clarification below the line at the bottom and electronically sign. The CDI & [facility] Coding staff will review the response and follow-up if needed. Please note: Queries are made part of the Legal Health Record. If you have any questions, please contact the author of this message via ITS. Dr. Napoleon Medley, Acute Renal failure is documented 12/12, H &P. Based on this information and the findings below, is there an additional diagnosis that is clinically appropriate for this patient? History/Risk Factors: HLD, HTN, WILLIAM, Diverticulitis, & Osteomyelitis Patients Historical BUN/CR/GFR: 07/31/22 29.3/1.1/64.9 04/19/22 51/1.65/39 Clinical Indicators: Current BUN/CR/GFR: 12/14 Is there an additional diagnosis that is clinically appropriate for this patient? [ ] CKD Stage 1 (GFR > 90) [ x ] CKD Stage 2 (GFR 60-89) [ ] CKD Stage 3 (GFR 30-59) [ ] CKD Stage 3a (GFR 45-59) [ ] CKD Stage 3b (GFR 30-44) [ ] CKD Stage 4 (GFR 15-29) [ ] CKD Stage 5 (GFR <15) [ ] ESRD [ ] Acute Renal Failure with Acute Tubular Necrosis [ ] Acute Renal Failure with Renal Cortical Necrosis [ ] Acute Renal Failure with other specified pathological cause, please specify [ ] Acute Renal Failure with other cause, please specify [ x ] Other, please specify __ARF-____pre renal renal failure [ ] Unable to determine MTDD
--- NOTE | 2022-12-25 13:27 | P.PN ---
Subjective Progress Note Date: 12/17/22 Principal diagnosis: Right second toe amputation site wound and osteomyelitis Patient is a 77-year-old male with multiple comorbidity recently diagnosed in the outpatient setting with Osteomyelitis to the right second toe amputation site culture were positive for pseudomonas that was resistant to Cipro for the patient did get a PICC line and was getting cefepime in the outpatient setting admitted to the hospital with weakness and mental status changes On today's evaluation that is 12/17/2022, patient denies any fever or chills, the patient is breathing comfortably on room air , the patient denies chest pain or shortness of cough no abdominal pain , patient was noticed to have reopening of his right second toe amputation site wound yesterday patient mentioned he may have get caught with the bedding sheet and was mild drainage has been cultured Objective - Vital Signs Vital signs: Vital Signs Temp 98.3 F 12/17/22 08:00 Pulse 67 12/17/22 08:00 Resp 16 12/17/22 08:00 BP 144/69 12/17/22 08:00 Pulse Ox 98 12/17/22 08:00 FiO2 Intake & Output 12/16/22 12/17/22 12/17/22 18:59 06:59 18:59 Intake Total 60 354 Output Total 1801 Balance 60 -1801 354 Weight 49.895 kg Intake: Oral 60 354 Output: Urine 1800 Stool 1 Other: Voiding Method Indwelling Catheter # Bowel Movements 1 - Exam GENERAL DESCRIPTION: An elderly male lying in bed in no distress RESPIRATORY SYSTEM: Unlabored breathing , decreased breath sounds at bases HEART: S1 S2 regular rate and rhythm , ABDOMEN: Soft , no tenderness EXTREMITIES: Right second toe amputation site with superficial wound minimal swelling and drainage was noticed - Labs CBC & Chem 7: 12/17/22 05:34 12/17/22 05:34 Labs: Abnormal Lab Results - Last 24 Hours (Table) 12/17/22 12/17/22 Range/Units 05:34 05:34 RBC 3.43 L (4.30-5.90) m/uL Hgb 11.6 L (13.0-17.5) gm/dL Hct 35.6 L (39.0-53.0) % MCV 103.8 H (80.0-100.0) fL Sodium 136 L (137-145) mmol/L Chloride 109 H (98-107) mmol/L Carbon Dioxide 21 L (22-30) mmol/L BUN 24 H (9-20) mg/dL Assessment and Plan (1) Right foot infection Status: Acute Code(s): L08.9 - LOCAL INFECTION OF THE SKIN AND SUBCUTANEOUS TISSUE, UNSP SNOMED Code(s): 892966446 Plan: 1patient with a nonhealing wound to the right second toe amputation site with outpatient culture positive for Pseudomonas aeruginosa that was resistant to Cipro and the patient has been getting cefepime in the outpatient setting however the patient not been compliant with it now presenting to the hospital with weakness dizziness concerning for possible dehydration as no evidence of any worsening infection to the right second amputation site was noticed patient is afebrile and did have a normal white count x-ray did not show any suspicious for osteomyelitis 2-patient bone scan negative for Osteomyelitis and right foot, patient sed rate was normal at 8 CRP 1.7, 3-patient was noticed to have reopening of the wound to the right second toe amputation site culture has been obtained and will be followed for now continue with the cefepime and close outpatient follow-up discussed with the COATING INSPECTOR for her medical team Time with Patient: Less than 30
== END 2022-12-17 14:56 | DRG 315 ==
LOC: EC 09:18 → 6NMEDSUR 12:22 → OBSVTOIN 12:22 → 6NMEDSUR 15:15
PROVIDERS: ADMIT Internal Medicine; ATTEND Internal Medicine
PROC: 02HV33Z Insertion of Infusion Device into Superior Vena Cava, Percutaneous Approach (ICD-10-PCS; principal; 2022-12-13 10:00)
DX: T82.514A Breakdown (mechanical) of infusion catheter, initial encounter (principal); E44.0 Moderate protein-calorie malnutrition; N17.9 Acute kidney failure, unspecified; M86.9 Osteomyelitis, unspecified; T81.49XA Infection following a procedure, other surgical site, initial encounter; Z68.1 Body mass index [BMI] 19.9 or less, adult; Z16.23 Resistance to quinolones and fluoroquinolones; R64 Cachexia; E86.0 Dehydration; I12.9 Hypertensive chronic kidney disease with stage 1 through stage 4 chronic kidney disease, or unspecified chronic kidney disease; N18.2 Chronic kidney disease, stage 2 (mild); Z89.421 Acquired absence of other right toe(s); E78.5 Hyperlipidemia, unspecified; Y71.2 Prosthetic and other implants, materials and accessory cardiovascular devices associated with adverse incidents; I25.10 Atherosclerotic heart disease of native coronary artery without angina pectoris; M54.9 Dorsalgia, unspecified; G47.33 Obstructive sleep apnea (adult) (pediatric); I25.2 Old myocardial infarction; K21.9 Gastro-esophageal reflux disease without esophagitis; M19.90 Unspecified osteoarthritis, unspecified site; G62.9 Polyneuropathy, unspecified; B96.5 Pseudomonas (aeruginosa) (mallei) (pseudomallei) as the cause of diseases classified elsewhere; T36.1X6A Underdosing of cephalosporins and other beta-lactam antibiotics, initial encounter; Z91.148 Patient's other noncompliance with medication regimen for other reason; R26.89 Other abnormalities of gait and mobility; G89.29 Other chronic pain; M25.552 Pain in left hip; M54.2 Cervicalgia; H54.61 Unqualified visual loss, right eye, normal vision left eye; R39.2 Extrarenal uremia; Z79.899 Other long term (current) drug therapy; Z79.2 Long term (current) use of antibiotics; Z79.02 Long term (current) use of antithrombotics/antiplatelets; Z79.1 Long term (current) use of non-steroidal anti-inflammatories (NSAID); Z95.5 Presence of coronary angioplasty implant and graft; Z95.1 Presence of aortocoronary bypass graft; Z96.653 Presence of artificial knee joint, bilateral; Z88.6 Allergy status to analgesic agent; Z88.5 Allergy status to narcotic agent; I69.398 Other sequelae of cerebral infarction; Z79.82 Long term (current) use of aspirin; Z79.891 Long term (current) use of opiate analgesic; Z87.891 Personal history of nicotine dependence
CPT/HCPCS: 36415; 36573; 51798; 70450; 72050; 73502; 78315; 80048; 80053; 81001; 83605; 83735; 85025; 85610; 85652; 86140; 87040; 87070; 87075; 87205; 93005; 96360; 96361; 99285

== ENCOUNTER → 2024-01-09 | Outpatient (CLI) | payer MEDICARE ==
--- NOTE | 2024-01-10 10:22 | XR ---
EXAMINATION TYPE: XR ribs LT w pa chest xray DATE OF EXAM: 01/09/2024 COMPARISON: 04/19/2022 INDICATION: Left rib pain from fall TECHNIQUE: Single frontal view of the chest is obtained. Left ribs are examined in 2 projections. FINDINGS: The heart size is normal. The pulmonary vasculature is normal. The lungs are clear. Moderate size hiatal hernia is present. No pneumothorax is evident. No acute displaced rib fractures identified. No pneumothorax is evident on these images. IMPRESSION: 1. No acute left rib fractures. 2. Hiatal hernia.
--- NOTE | 2024-01-10 13:28 | BD ---
EXAMINATION TYPE: Axial Bone Density DATE OF EXAM: 01/09/2024 CLINICAL HISTORY: 78 years old Male. ICD-10 CODE: M81.0 OSTEOPOROSIS Height: 66.5" Weight: 127 FRAX RISK QUESTIONS: Alcohol (3 or more units per day): No Family History (Parent hip fracture): No Glucocorticoids (More than 3mos): No (Ex: prednisone, prednisolone, methylprednisolone, dexamethasone, and hydrocortisone). History of Fracture in Adulthood: No Secondary Osteoporosis: 1. Type 1 Diabetes: No 2. Hyperthyroidism: No 3. Menopause before 45: N/A 4. Malnutrition: No 5. Chronic liver disease: No Rheumatoid Arthritis: Yes Current Tobacco Use: No RISK FACTORS HISTORY OF: Hip Fracture (Right/Left): No Spine Fracture: No History of Wrist Fracture: No Surgery to Spine/Hip(right/left)/Wrist (right/left): Lumbar spine surgery, with hardware When: Approx. 20 years ago MEDICATIONS: Thyroid Medications: No Osteoporosis Medications: No EXAM MEASUREMENTS: Bone mineral densitometry was performed using the [employer] System. Bone mineral density about the R hip (g/cm2): 0.741 Bone mineral density about the L hip (g/cm2): 0.728 T Score values are as follows: -----R Neck: -2.7 -----L Neck: -2.9 -----R Total: -1.1 -----L Total: -1.4 Z Score values are as follows: -----R Neck: -2.1 -----L Neck: -2.2 -----R Total: -0.9 -----L Total: -1.0 Bone mineral density has: increased 2.7% since study of: 04/18/2020 Bone mineral density about the L Wrist (g/cm2): 0.474 T Score values are as follows: -----Dist. R+U: -0.8 -----Prox. R+U: -4.1 -----Radius total: -4.1 Z Score values are as follows: -----Dist. R+U: 0.4 -----Prox. R+U: -2.9 -----Radius total: -2.9 Bone mineral density has: decreased -1.3% since study of: 04/18/2020 FRAX%s: The graph provided illustrates a 28.1% chance for a major osteoporotic fx and a 16.4% chance for the hips probability for fx in 10 years time. IMPRESSION: Osteoporosis (T Score less than -2.5). There is increased fracture risk and therapy is usually indicated based on age. Re-Screen 1-2 years. NOTE: T-SCORE=SD OF THE YOUNG ADULT MEAN.
== END | disposition home or self-care (01) ==
LOC: RADBDWWP 13:45
PROVIDERS: ATTEND Family Medicine
DX: M85.89 Other specified disorders of bone density and structure, multiple sites (principal)
CPT/HCPCS: 77080

== ENCOUNTER 2024-02-20 06:00 | Day surgery (SDC) | payer MEDICARE ==
[2024-02-20] MEDS ORDERED: LIDOCAINE 2% INJ 20 MG/ML (2 ML VIAL) ONE (07:29)
[2024-02-20] MEDS ORDERED: PROPOFOL 10 MG/ML 20 ML VIAL IV ONE (07:29)
[2024-02-20] MEDS ORDERED: LACTATED RINGERS 1,000 ML BAG ONE (07:30)
--- NOTE | 2024-02-20 15:58 | PCN ---
PROCEDURE NOTE REQUESTING PHYSICIAN: Dr. Chuy Almazan. 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 Last EGD and colonoscopy were 5 years ago. PROCEDURES PERFORMED: 1. EGD with biopsy. 2. Colonoscopy. PREOPERATIVE DIAGNOSIS: GERD/Blunt's esophagus and history of colon polyps. ANESTHESIA: IV sedation per Anesthesia. DESCRIPTION OF PROCEDURE: After informed consent was obtained from the patient, he was brought in to the endoscopy unit. IV conscious sedation was administered by Anesthesia under continuous monitoring. Initially, an upper endoscopy was done. The Olympus CF-180 video endoscope was inserted into the mouth and esophagus intubated without any difficulty and was gradually advanced into the stomach and duodenum and carefully examined. Bulb and the second part of the duodenum appeared normal. The scope at this time was withdrawn through the stomach, adequately insufflated with air and upon careful examination mucosa of antrum, body, cardia, and fundus appeared normal. Scope was then withdrawn through the esophagus. There was a moderate-sized hiatal hernia noted. GE junction was located at 35 cm from the incisors. There was long segment of Blunt's esophagus extending from 30 to 35 cm from the incisors and multiple biopsies were done from this area. Rest of the esophagus appeared normal and the patient tolerated the procedure well. He continued to remain sedated. At this time, a colonoscopy was done. Digital rectal examination was normal. The Olympus CF-190 video colonoscope was then inserted in the rectum, gradually advanced into the cecum. Careful examination was performed as the scope was gradually being withdrawn. The ileocecal valve and appendiceal orifice were visualized and appeared normal. The prep was excellent. Mucosa of the cecum, ascending colon, transverse colon, descending colon, sigmoid colon, and rectum appeared normal. In the rectum, retroflexion was performed. No lesions were noted. Scattered sigmoid diverticulosis seen and the patient tolerated the procedure well. IMPRESSION: 1. Upper endoscopy revealed. a. Moderate-sized hiatal hernia. 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 2. Colonoscopy revealed scattered sigmoid diverticulosis. but no evidence of colorectal neoplasia. RECOMMENDATIONS: Findings of this examination were discussed with the patient as well as his family. He was advised to follow up with the biopsy results. If the biopsies reveal Blunt's esophagus with no evidence of dysplasia, recommended to repeat upper endoscopy in 3 years. MMODL / IJN: [id number] /
== END 2024-02-20 08:39 ==
LOC: ORWHC2ENDO 06:00
PROVIDERS: ATTEND Internal Medicine Gastroenterology
DX: Z12.11 Encounter for screening for malignant neoplasm of colon (principal); K21.9 Gastro-esophageal reflux disease without esophagitis; K22.70 Barrett's esophagus without dysplasia; K44.9 Diaphragmatic hernia without obstruction or gangrene; K57.30 Diverticulosis of large intestine without perforation or abscess without bleeding; I25.2 Old myocardial infarction; I25.10 Atherosclerotic heart disease of native coronary artery without angina pectoris; I73.9 Peripheral vascular disease, unspecified; M19.90 Unspecified osteoarthritis, unspecified site; Z88.6 Allergy status to analgesic agent; Z87.19 Personal history of other diseases of the digestive system; Z86.010 Personal history of colon polyps; Z79.82 Long term (current) use of aspirin; Z79.899 Other long term (current) drug therapy; Z95.5 Presence of coronary angioplasty implant and graft
CPT/HCPCS: 43239; G0105; 45378; 88305

== ENCOUNTER → 2024-09-29 | Outpatient (CLI) | payer MEDICARE ==
--- NOTE | 2024-09-29 10:05 | US ---
EXAMINATION TYPE: US Aorta Screening DATE OF EXAM: 09/29/2024 COMPARISON: CT: 09/04/14 CLINICAL INDICATION: Male, 79 years old with history of Z13.6 CARDIOVASCULAR SCREENING; screening TECHNIQUE: Multiple sonographic images of the abdominal aorta are obtained with grayscale and color D oppler imaging. FINDINGS: EXAM MEASUREMENTS: Abdominal Aorta: Proximal: 2.6 x 2.6cm Mid: 2.2 x 2.2cm Distal: 2.1 x 2.0cm Bifurcation: Right Iliac: 1.2 x 1.3cm Left Iliac: 1.2 x 1.1cm DREDGE CAPTAIN NOTES: Prox aorta slightly limited due to overlying bowel gas. plaque seen mid and distal aorta. No AAA seen IMPRESSION: > 2.5 to 3.0 cm Abdominal aortic aneurysm. Recommendation: Repeat Ultrasound in 10 year per Society [employer] f V[employer] Recommendations. [email or web address], , 09/29/2024 10:02 AM
== END | disposition home or self-care (01) ==
LOC: RADUSWWP 09:10
PROVIDERS: ATTEND Family Medicine
DX: Z13.6 Encounter for screening for cardiovascular disorders (principal); I71.40 Abdominal aortic aneurysm, without rupture, unspecified
CPT/HCPCS: 76706

== ENCOUNTER → 2024-09-29 | Outpatient (CLI) | payer MEDICARE ==
[2024-09-29 14:54] LABS: Basophils # (A) 0.07 X 10*3/uL (0.00-0.10); Basophils % (A) 0.7 %; Eosinophils # (A) 0.38 X 10*3/uL (0.04-0.35); Eosinophils % (A) 3.9 %; HCT 40.3 % (39.6-50.0); HGB 12.8 g/dL (13.0-17.0); Lymphocytes % (A) 20.6 %; MCH 33.2 pg (27.0-32.0); MCHC 31.8 g/dL (32.0-37.0); MCV 104.4 FL (80.0-97.0); Mean Platelet Volume 9.4 FL (9.5-12.2); Monocytes # (A) 0.88 X 10*3/uL (0.20-1.00); Monocytes % (A) 9.1 %; NRBC Per 100 WBC 0 X 10*3/uL (0.00-0.01); Neutrophils # (A) 6.34 X 10*3/uL (1.80-7.70); Neutrophils % (A) 65.3 %; Platelet Count 322 X 10*3/uL (140-440); RBC 3.86 X 10*6/uL (4.40-5.60); RDW 13.4 % (11.5-14.5); WBC 9.71 X 10*3/uL (4.50-10.00)
[2024-09-29 17:55] LABS: Chol/HDL Ratio 2.33 Ratio; Glucose 85 mg/dL (70-110); LDL Cholesterol,Calculated 74.1 mg/dL (0.0-131.0)
[2024-09-29 17:56] LABS: ALT 12 U/L (10-49); AST 21 U/L (14-35); Albumin 3.8 g/dL (3.8-4.9); Albumin/Globulin Ratio 1.46 Ratio (1.60-3.17); Alkaline Phosphatase 73 U/L (41-126); Carbon Dioxide 18.7 mmol/L (21.6-31.8); Chloride 107 mmol/L (96-109); Globulin 2.6 g/dL (1.6-3.3); Potassium 4.8 mmol/L (3.5-5.5); Prostate Specific Antigen 0.25 ng/mL (0.000-6.500); Sodium 140 mmol/L (135-145); Total Bilirubin 0.3 mg/dL (0.3-1.2); Total Protein 6.4 g/dL (6.2-8.2)
== END | disposition home or self-care (01) ==
LOC: LABWHC1 09:39
PROVIDERS: ATTEND Family Medicine
DX: Z12.5 Encounter for screening for malignant neoplasm of prostate (principal); E78.5 Hyperlipidemia, unspecified
CPT/HCPCS: 36415; 80053; 80061; 84153; 84443; 85025